=== PATIENT | male | born 1945 | race Caucasian/White ===

== ENCOUNTER → 2020-07-04 16:50 | Outpatient (BNVA) | payer MEDICARE, OTHER, SELFPAY | PROVIDERS: Family Provider Family Medicine; PCP Family Medicine; Visit Provider Internal Medicine Pulmonary Disease | DX: Z20.822 Contact with and (suspected) exposure to COVID-19 (principal) | CPT/HCPCS: 87635 ==

== ENCOUNTER 2020-07-10 07:47 | Outpatient (CLI) | payer MEDICARE, OTHER, SELFPAY ==
--- NOTE | 2020-07-10 08:14 | CT_ITS ---
WS: [id number] LDCT LUNG CANCER SCREENING TECHNIQUE: Noncontrast CT of the chest with coronal and sagittal reformatted images. CLINICAL INFORMATION: HX OF TOBACCO USE COMPARISON: None. DLP: 58.54 mGy.cm DIvol: 1.[address] scans at [facility] use at least one of these dose optimization techniques: automat ed exposure control; mA and/or kV adjustment per patient size (includes targeted exams where dose is matched to clinical indication); or iterative reconstruction. FINDINGS: Both lungs are well aerated. No acute pulmonary infiltrates. No focal pneumonia. Noncalcified well-ci rcumscribed lobulated subpleural nodules in right lower lobe medially measuring 2.3 x 1.4 CM. Additio nal well-circumscribed right lower lobe nodule measuring 6 mm.Recommend further evaluation with PET/C T. Subpleural nodule left lower lobe measuring 5 mm. Right upper lobe nodule measuring 3.4 mm. Mild thoracic kyphosis. Ankylosis thoracic spine. No mediastinal or hilar lymphadenopathy. Aortic calcification. Coronary calcification. Small pericard ial effusion. Adrenal glands are normal. CT/CT lung screening [id number] IMPRESSION: LUNG-RADS: 4B-Suspicious FOLLOW UP: PET/CT recommended PET CT recommended for the lobulated right lower lobe well-circumscribed nodula r opacity measuring 2.3 x 1.4 cm
--- NOTE | 2020-07-10 14:36 | PFTS_ITS ---
Date of Study:07/10/20 Date of Dictation: MECHANICS: Forced vital capacity (FVC) is reduced. Forced expiratory volume in one second (FEV1) is reduced. FEV1/FVC is reduced. FLOW VOLUME LOOP: Reduced flow at all lung volumes with significant scooping. LUNG VOLUMES: Total lung capacity (TLC) is normal. Residual volume (RV) is increased. DIFFUSING CAPACITY FOR CARBON MONOXIDE: Mild reduced. INTERPRETATION: The postbronchodilator spirometry is consistent with moderate airflow obstruction. There is a significant postbronchodilator response. Lung volumes are consistent with air trapping. Gas exchange (DLCO) is mildly reduced. MTDD
== END 2020-07-10 07:48 | disposition home or self-care (01) ==
LOC: RT 07:51
PROVIDERS: PCP Family Medicine; Visit Provider Internal Medicine Pulmonary Disease
DX: Z12.2 Encounter for screening for malignant neoplasm of respiratory organs (principal); Z87.891 Personal history of nicotine dependence
CPT/HCPCS: 71271; 94060; 94618; 94726; 94729; J7611

== ENCOUNTER 2021-08-15 11:52 | Inpatient (IN) | payer OTHER, MEDICARE, SELFPAY ==
[2021-08-15] VITALS (32 sets, daily range): BP systolic 74–148; BP diastolic 53–116; PULSE 114–177; RESP 15–34; TEMP 20.6–36.6; O2SAT 92–99; BMI 28.8
--- NOTE | 2021-08-15 12:18 | XRR_ITS ---
PROCEDURE INFORMATION: Exam: XR Chest Exam date and time: 08/15/2021 12:32 PM Age: 76 years old Clinical indication: Shortness of breath; Additional info: SOB TECHNIQUE: Imaging protocol: XR of the chest. Views: 1 view. COMPARISON: CT lung screening [id number] 07/10/2020 9:10 AM FINDINGS: Lungs: There is lobular opacity at the medial aspect of the right lung base, and also seen on the prior CT scan. Pleural spaces: Unremarkable. No pleural effusion. No pneumothorax. Heart/Mediastinum: Cardiomegaly. Bones/joints: Unremarkable. XR/XR chest 1V portable [id number] IMPRESSION: There is lobular opacity at the medial aspect of the right lung base. This was seen on the prior CT scan as well.
--- NOTE | 2021-08-15 12:18 | ECG_ITS ---
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 Measurements Intervals [place] Rate: 166 P: TN: QRS: -7 QRSD: 82 T: 90 QT: 258 QTc: 429 Interpretive Statements ATRIAL FIBRILLATION WITH RAPID VENTRICULAR RESPONSE WITH ABERRANT CONDUCTION OR VENTRICULAR PREMATURE COMPLEXES NONSPECIFIC T-WAVE ABNORMALITY CRITICAL TEST RESULT No previous ECG available for comparison Electronically Signed On 08-15-2021 19:03:33 CDT by James Soares M.D. [email or web address]
[2021-08-15] MEDS: magnesium sulfate premix 2 GM/50 ML PIGGYBACK IV (12:19)
--- NOTE | 2021-08-15 12:23 | W.ED.SOB ---
HPI - SOB/Dyspnea General: Chief Complaint: Shortness of Breath/Dyspnea Stated Complaint: SOB Time Seen by Provider: 08/15/21 11:55 Source: patient and EMS Mode of arrival: EMS Limitations: no limitations History of Present Illness: HPI Narrative: This patient was transported to the emergency department by EMS from his home. He states that he has had progressive coughing and shortness of breath over the past several days. He states his was ill with similar symptoms and she is now improved. He states he took a COVID test 2 days ago which was negative. He denies any chest pain other than chest soreness from coughing. He states he does not have a history of coronary artery disease or cardiac rhythm abnormalities. He does have a history of mild COPD and it seems to be worsened at times with seasonal allergies. He has a ex-smoker having quit many years ago. He states he has been eating and drinking and having no nausea vomiting or diarrhea. He states he has had increasing shortness of breath but is not aware of any irregular heartbeat or fast heart rate. MD elicited complaint: shortness of breath, cough and pain with inspiration Pertinent past history: COPD Context: recent illness Timing: progressively worsening Exacerbating factors: exertion Relieving factors: nothing Associated symptoms: Reports chest congestion, cough, diaphoresis and fever(s); Deny abdominal pain, extremity pain, nausea, polydipsia, polyuria, syncope or vomiting Related Data: Home oxygen amount: none Review of Systems Const: Reports: fever(s), chills, body aches and diaphoresis Eyes: Denies: change in vision ENMT: Denies: odynophagia or nasal congestion Card: Denies: irregular heart rhythm, edema or syncope Resp: Reports: dyspnea, non-productive cough, wheezing and chest congestion GI: Denies: abdominal pain, nausea, vomiting or diarrhea : Denies: flank pain, difficulty urinating, dysuria or urinary frequency Musc: Denies: neck pain, back pain or extremity pain Skin/Breast: Denies: rash or pruritus Neuro: Denies: headache(s), numbness in extremities or weakness in extremities Endo: Denies: polyuria or polydipsia Micheal/Lymph: Denies: easy bruising or easy bleeding PFS ED PFSH: Family History Mother CAD (coronary artery disease) Father Cancer lung Brother Cancer tumor inside heart Social History Smoking and tobacco status: former smoker Quit status (tobacco): has quit using tobacco Year quit tobacco: 2007 [id number] Second hand smoke exposure: No Smoking risk assessment/counseling performed?: Yes Alcohol intake: current Alcohol intake frequency: 0-2 Drinks per Day Alcohol type: beer Desire information about alcohol rehabilitation?: No Counseling given: Yes Lives independently: Yes Household members: spouse Housing: House Marital status: service: Yes branch: [employer] Current occupational status: employed Current occupation: [employer] Pets and animals: Yes History of recent travel: No Current gender identity: Male Physical Exam Narrative: EXAM NARRATIVE: The patient appears to be in moderate distress. He does have dyspnea with conversation. He is diaphoretic. Good eye contact. Const: COMMON NORMALS: average body habitus, patient oriented x3 and alert GENERAL APPEARANCE: ill appearing HENMT: COMMON NORMALS: normocephalic, Normal nasal mucous membranes and turbinates present, moist oral mucous membranes and oropharynx normal HEAD & SCALP: normocephalic NOSE: Normal nasal mucous membranes and turbinates present Eye: COMMON NORMALS: Equal, round and reactive pupils present, EOMs intact bilaterally and conjunctivae normal CONJUNCTIVA: Yes conjunctivae normal PUPIL: Yes Equal, round and reactive pupils present Neck/C-Spine: COMMON NORMALS: full ROM, supple, no JVD and No carotid bruits Chest: COMMONS NORMALS: normal inspection of the chest and normal palpation of entire chest wall Resp: EFFORT & INSPECTION: Yes tachypneic and Yes labored AUSCULTATION: crackles, rhonchi and wheezes Cardio: COMMON NORMALS: no JVD, No murmurs present (Cardio) and Peripheral pulses 2+ throughout RATE: tachycardic RHYTHM: abnormal rhythm PERIPHERAL PULSES: Peripheral pulses 2+ throughout GI: COMMON NORMALS: Soft to palpation and No hepatosplenomegaly present INSPECTION: Yes abdominal distension PALPATION: Yes Soft to palpation and Yes No hepatosplenomegaly present : COMMON NORMALS: Yes no CVA tenderness BLADDER/KIDNEY EXAM: Yes no CVA tenderness Back/Pelvis: COMMON NORMALS: no CVA tenderness, thoracic and lumbar spine normal to inspection and no thoracic nor lumbar tenderness Extremity: COMMON NORMALS: normal to inspection, full ROM, capillary refill normal, no calf tenderness and no pedal edema Neuro: COMMON NORMALS: patient oriented x3, moves all extremities, no focal motor deficits and no sensory deficits noted SENSORIUM/ORIENTATION: Yes alert SPEECH: speech normal Psych: COMMON NORMALS: mental status grossly normal and cooperative Skin: COMMON NORMALS: no rashes or lesions noted, no wounds and turgor normal GENERAL SKIN EXAM: no rashes or lesions noted and turgor normal Course Reevaluation(s): Reevaluation #1: Patient's heart rate is clearly atrial for with rapid ventricular response. We are providing BiPAP for work of breathing support as well as magnesium and Lasix for possible pulmonary congestion. We will go ahead and proceed with diltiazem to see if we can get rate control at the same time. Time: 12:43 Reevaluation #2: D-dimer is elevated we will have to proceed with a contrasted CT a for PE protocol. This lady might explain his constellation of symptoms at this time given his chest x-ray lung wilkerson look relatively clear. Time: 13:07 Reevaluation #3: CTA is reassuring and there is no pulmonary embolus but he has infiltrates consistent with pneumonia. Time: 15:13 Consultations: Consultation #1: Spoke with hospitalist who agreed to place the patient in hospital. Time: 15:16 Vital Signs: Vital signs: Vital Signs Temperature 69.0 F L 08/15/21 12:22 Pulse Rate 169 H 08/15/21 13:57 Respiratory Rate 24 H 08/15/21 12:22 Blood Pressure 121/100 08/15/21 12:22 Pulse Oximetry 95 08/15/21 13:57 MDM - SOB/Dyspnea Medical Decision Making Patient presented by EMS with a progressive cough congestion and shortness of breath. His work-up ensued upon arrival in a stepwise fashion. He was given CPAP noninvasive respiratory support because of his work of breathing as well as multi faceted treatment approach until his diagnosis was delineated. At this point after emergency department evaluation appears to have a pneumonia with associated atrial fibrillation which is previously undiagnosed. He was given broad-spectrum antibiotics, diltiazem infusion for rate control as well as additional investigation and evaluation. At this juncture the patient will need to be placed in inpatient status for continued treatment and evaluation. Medical Records I reviewed the patient's medical records. Lab Data I reviewed the patient's lab results. : 08/15/21 12:00 08/15/21 12:00 Labs/Radiology: Radiology Impressions Chest X-Ray 08/15/21 12:18 IMPRESSION: There is lobular opacity at the medial aspect of the right lung base. This was seen on the prior CT scan as well. Chest CTA 08/15/21 13:05 IMPRESSION: 1. There are lobulated lesions at the bilateral lung bases, worsened when compared to the prior CT scan, consistent with metastatic disease. Highly suspicious nodule(s). Consider non-emergent PET/CT, or tissue sampling.(Reference: Kaur) References: Waldohoyael Lane, et al. Guidelines for Management of Incidental Pulmonary Nodules Detected on CT Images: From the Fleischner Society 2017. Radiology. 2017;284(1):228-243. 2. Patchy consolidation in the bilateral lower lobes is consistent with pneumonia. 3. Cardiomegaly. Laboratory Results WBC 38.4 10^3/uL (4.0-10.0) H* 08/15/21 12:00 RBC 5.07 10^6/uL (4.1-5.3) 08/15/21 12:00 Hgb 14.9 g/dL (11.7-16.6) 08/15/21 12:00 Hct 45.5 % (42.0-52.0) 08/15/21 12:00 MCV 89.7 fl (80-94) 08/15/21 12:00 MCH 29.4 pg (28.0-34.0) 08/15/21 12:00 MCHC 32.7 g/dL (30.0-36.0) 08/15/21 12:00 RDW 14.6 % (12.1-15.1) 08/15/21 12:00 Plt Count 241 10^3/cmm (130-400) 08/15/21 12:00 MPV 11.8 fL (7.4-10.4) H 08/15/21 12:00 Neut % (Auto) 92.7 % 08/15/21 12:00 Lymph % (Auto) 0.9 % 08/15/21 12:00 [place] % (Auto) 5.0 % 08/15/21 12:00 Eos % (Auto) 0.1 % 08/15/21 12:00 Baso % (Auto) 0.4 % 08/15/21 12:00 Neut # (Auto) 35.59 10^3/uL (1.8-7.7) H 08/15/21 12:00 Lymph # (Auto) 0.4 10^3/uL (0.8-4.8) L 08/15/21 12:00 [place] # (Auto) 1.9 10^3/uL (0.2-0.9) H 08/15/21 12:00 Eos # (Auto) 0.0 10^3/uL (0.0-0.8) 08/15/21 12:00 Baso # (Auto) 0.2 10^3/uL (0.0-0.1) H 08/15/21 12:00 Nucleated RBC % (auto) 0 % 08/15/21 12:00 Nucleated RBCs # 0.0 /100WBC 08/15/21 12:00 D-Dimer 3.46 ug/mIFEU (0-0.59) H 08/15/21 12:00 Specimen Type Arterial 08/15/21 12:32 Sample Site Radial, left 08/15/21 12:32 ABG pH 7.39 (7.35-7.45) 08/15/21 12:32 ABG pCO2 41.6 mmHg (35-45) 08/15/21 12:32 ABG pO2 88.7 mmHg (80.0-100.0) 08/15/21 12:32 ABG HCO3 25.0 mmol/L (22-26) 08/15/21 12:32 ABG O2 Saturation 97.5 08/15/21 12:32 ABG Base Excess -0.1 mmol/L (-2.0-2.0) 08/15/21 12:32 Jameson Test Pos 08/15/21 12:32 A-a O2 Gradient 22.2 mmHg (5-10) H 08/15/21 12:32 Hematocrit 46.8 % (42-52) 08/15/21 12:32 Hgb O2 Saturation 97.1 % (95-100) 08/15/21 12:32 Carboxyhemoglobin 0.8 %THgb (0.4-20.1) 08/15/21 12:32 Methemoglobin < 0.0 % (0.4-1.5) L 08/15/21 12:32 Total Hemoglobin 15.3 g/dL (14-18) 08/15/21 12:32 Sodium 132.0 mmol/L (131-143) 08/15/21 12:32 Potassium 4.1 mmol/L (3.5-5.0) 08/15/21 12:32 Glucose 150.0 mg/dL (70-115) H 08/15/21 12:32 Ionized Calcium 1.2 mmol/L (1.1-1.4) 08/15/21 12:32 O2 Delivery Device Nc 08/15/21 12:32 O2 Liters/Min 6.0 % 08/15/21 12:32 FiO2 44.0 % 08/15/21 12:32 Truck Repair Supervisor ID Amh 08/15/21 12:32 Sodium 134 mmol/L (136-145) L 08/15/21 12:00 Potassium 4.4 mmol/L (3.5-5.1) 08/15/21 12:00 Chloride 94 mmol/L (98-107) L 08/15/21 12:00 Carbon Dioxide 22 mmol/L (22-29) 08/15/21 12:00 Anion Gap 22.4 (5-19) H 08/15/21 12:00 BUN 28 mg/dL (8-23) H 08/15/21 12:00 Creatinine 1.4 mg/dL (0.7-1.2) H 08/15/21 12:00 GFR Calculation Not Reportable 08/15/21 12:00 Glucose 144 mg/dL (65-115) H 08/15/21 12:00 Calculated Osmolality 286 mOsm/kg (285-295) 08/15/21 12:00 Lactate 2.5 mmol/L (0.5-2.2) H 08/15/21 12:00 Calcium 8.6 mg/dL (8.5-10.5) 08/15/21 12:00 Total Bilirubin 1.7 mg/dL (0.15-1.2) H 08/15/21 12:00 AST 11 U/L (0-40) 08/15/21 12:00 ALT 14 U/L (0-41) 08/15/21 12:00 Alkaline Phosphatase 86 IU/L (40-130) 08/15/21 12:00 Troponin T Baseline 56 ng/L (0-15) H 08/15/21 12:00 NT-Pro-B Natriuret Pep 64561 pg/mL (0-125) H 08/15/21 12:00 Total Protein 6.7 g/dL (6.6-8.7) 08/15/21 12:00 Albumin 3.8 g/dL (3.5-5.2) 08/15/21 12:00 Globulin 2.9 g/dL (1.3-4.6) 08/15/21 12:00 EKG Data EKG 1: I personally reviewed and interpreted this EKG as follows: EKG interpretation time: 12:12 Interpretation: EKG shows a ventricular rate of 166 bpm. He has normal QRSs and underlying rhythm suggestive of atrial fibrillation with a rapid ventricular response. He has no acute ST-T wave changes at this time. Critical Care Time Critical Care Time: Critical Care Time: Yes Total Critical Care Time: 40 Attestation: Critical care time included bedside evaluation, interpretation of chest x-ray another test, for dating and monitoring noninvasive ventilatory support. Discussing with consultants. Discharge Plan Discharge Patient Disposition: Admitted As Inpatient Clinical Impression: Pneumonia, Atrial fibrillation Condition: Stable Prescriptions: No Action meloxicam 15 mg tablet 15 mg PO DAILY 0RF albuterol sulfate [ProAir HFA] 90 mcg/actuation HFA aerosol inhaler 2 puff inhalation Q4H PRN (Reason: Shortness Of Breath) 0RF montelukast [Singulair] 10 mg tablet 10 mg PO DAILY Qty: 30 3RF Zyrtec 10 mg Tablet 10 mg PO DAILY 0RF Tylenol Ex Str Rapid Release 500 mg Tablet 1,000 mg PO Q6H PRN (Reason: Pain) 0RF Lasix 20 mg Tablet 10 mg PO QAM 0RF fluticasone propion-salmeterol [Wixela Inhub] 500-50 mcg/dose blister with device 1 inh inhalation 6XD 0RF hydroxyzine HCl 25 mg tablet 25 mg PO DAILY 0RF Flonase Allergy Relief 50 mcg/actuation spray,suspension 2 spray intranasal DAILY PRN (Reason: Allergy Symptoms) 0RF Rx Instructions: administer into each nostril Referrals: Rebecca Díaz MD [Primary Care Provider] - Coding Level of Care Code ED Pattern Chain Builder for Chg Fwd Exam Comprehensive
--- NOTE | 2021-08-15 12:29 | PC.PHAR ---
pt states he takes care of his own medications-pt [facility] brought [facility] 3 med bottles hydroxyzine hcl 25mg,mobic 15mg and singulair 10mg-pt states he takes lasix 10mg qam, states he has a advair 500-50mcg written as 1p bid pt states he has been using six times a day-pt also had a doxycycline hyclate tab 100mg bid he brought in from [id number] pt states not been taking-notes are made in the pharmacy comments-[facility]ing for [facility] to [facility]
--- NOTE | 2021-08-15 12:35 | PC.NURSE ---
Magnesium Sulfate 2gm infusing at 100 mL/hour per verbal order from Dr. Blackmon.
[2021-08-15 12:43] LABS: ABG PCO2 41.6 mmHg (35-45); ABG PH Result 7.39 (7.35-7.45); Alveolar-Arterial Oxygen Gradi 22.2 mmHg (5-10); Arterial Blood Gas Hematocrit 46.8 % (42-52); Base Excess ABG -0.1 mmol/L (-2.0-2.0); Blood Gas Allen Test Pos; Blood Gas Operator Identificat AMH; Blood Gas Sample Site Radial, left; Blood Gas Sample Type Arterial; Carboxyhemoglobin 0.8 %THgb (0.4-20.1); HGB O2 Sat 97.1 % (95-100); Ionized Calcium Level - ABG 1.2 mmol/L (1.1-1.4); Methemoglobin < 0.0 % (0.4-1.5); Oxygen Device NC; Oxygen Saturation ABG 97.5; PO2 ABG 88.7 mmHg (80.0-100.0); Potassium Level - ABG 4.1 mmol/L (3.5-5.0); Total Hemoglobin 15.3 g/dL (14-18)
[2021-08-15 12:53] LABS: D Dimer 3.46 ug/mIFEU (0-0.59)
[2021-08-15 12:54] LABS: Lactate (Lactic Acid level) 2.5 mmol/L (0.5-2.2)
[2021-08-15 12:55] LABS: Troponin(5th) Baseline 56 ng/L (0-15)
[2021-08-15] MEDS: dilTIAZem 5 mg/mL SDV 5 mL 10 MG IVP ×2 (12:56→14:01)
[2021-08-15] MEDS: FUROsemide 10 mg/mL SDV 4mL 40 MG IVP (13:00)
[2021-08-15 13:05] LABS: NT Pro B Type Natriuretic Pept 13157 pg/mL (0-125)
--- NOTE | 2021-08-15 13:05 | CTR_ITS ---
PROCEDURE INFORMATION: Exam: CTA Chest With Contrast Exam date and time: 08/15/2021 2:36 PM Age: 76 years old Clinical indication: Shortness of breath; Prior surgery; Surgery date: 6+ months; Surgery type: Kidney; Patient HX: Renal carcinoma; Additional info: SOB, elevated d-dimer TECHNIQUE: Imaging protocol: Computed tomographic angiography of the chest with contrast. 3D rendering (Not supervised by radiologist): MIP and/or 3D reconstructed images were created by the technologist. Radiation optimization: All CT scans at this facility use at least one of these dose optimization techniques: automated exposure control; mA and/or kV adjustment per patient size (includes targeted exams where dose is matched to clinical indication); or iterative reconstruction. Contrast material: VISIPAQUE 320; Contrast volume: 77 ml; Contrast route: INTRAVENOUS (IV); COMPARISON: CR (CHEST, ) 08/15/2021 12:32 PM RADIATION DOSE METRICS: Total DLP (mGy-cm): 598.36 FINDINGS: Pulmonary arteries: Normal. No pulmonary emboli. Aorta: Unremarkable. No aortic aneurysm. No aortic dissection. Lungs: There is patchy consolidation in the bilateral lower lobes consistent with pneumonia. There are pleural-based lobulated masses at the right lung base, enlarged when compared to the prior study. These are somewhat obscured by the adjacent lung consolidation however the largest region of lobulation is present medially and measures approximately 8.7 cm in the AP dimension. There are multiple lobulated lesions in the left lower lobe as well which cannot be adequately measured as they are obscured by adjacent lung consolidation. Pleural spaces: Bilateral pleural effusions. There are calcified pleural plaques at the right lung base. Heart: Cardiomegaly. Small pericardial effusion. Lymph nodes: Unremarkable. No enlarged lymph nodes. Bones/joints: Unremarkable. No acute fracture. Soft tissues: Unremarkable. CT/CT angio chest PE protcl [id number] IMPRESSION: 1. There are lobulated lesions at the bilateral lung bases, worsened when compared to the prior CT scan, consistent with metastatic disease. Highly suspicious nodule(s). Consider non-emergent PET/CT, or tissue sampling.(Reference: Kaur) References: Kaur Lane, et al. Guidelines for Management of Incidental Pulmonary Nodules Detected on CT Images: From the Fleischner Society 2017. Radiology. 2017;284(1):228-243. 2. Patchy consolidation in the bilateral lower lobes is consistent with pneumonia. 3. Cardiomegaly.
[2021-08-15 13:21] LABS: Basophils # 0.2 10^3/uL (0.0-0.1); Basophils % 0.4 %; Eosinophils % 0.1 %; Hematocrit 45.5 % (42.0-52.0); Hemoglobin 14.9 g/dL (11.7-16.6); Lymphocytes # 0.4 10^3/uL (0.8-4.8); Lymphocytes % 0.9 %; Mean Corpuscular HGB Conc 32.7 g/dL (30.0-36.0); Mean Corpuscular Hemoglobin 29.4 pg (28.0-34.0); Mean Corpuscular Volume 89.7 fl (80-94); Mean Platelet Volume 11.8 fL (7.4-10.4); Monocytes # 1.9 10^3/uL (0.2-0.9); Neutrophils # 35.59 10^3/uL (1.8-7.7); Neutrophils % 92.7 %; Nucleated Red Blood Cells % 0 %; Platelet Count 241 10^3/cmm (130-400); Red Blood Count 5.07 10^6/uL (4.1-5.3); Red Cell Distribution Width 14.6 % (12.1-15.1)
[2021-08-15 13:33] LABS: Alanine Aminotransferase 14 U/L (0-41); Albumin Level 3.8 g/dL (3.5-5.2); Alkaline Phosphatase 86 IU/L (40-130); Anion Gap 22.4 (5-19); Aspartate Amino Transferase 11 U/L (0-40); Blood Urea Nitrogen 28 mg/dL (8-23); Calcium 8.6 mg/dL (8.5-10.5); Carbon Dioxide 22 mmol/L (22-29); Chloride 94 mmol/L (98-107); Globulin 2.9 g/dL (1.3-4.6); Glucose 144 mg/dL (65-115); Osmolality Calculated 286 mOsm/kg (285-295); Potassium 4.4 mmol/L (3.5-5.1); Sodium 134 mmol/L (136-145); Total Bilirubin 1.7 mg/dL (0.15-1.2); Total Protein 6.7 g/dL (6.6-8.7)
[2021-08-15 13:41] LABS: Slide Review Slide Review Perform
[2021-08-15 13:43] LABS: White Blood Count 38.4 10^3/uL (4.0-10.0)
--- NOTE | 2021-08-15 14:20 | ECG_ITS ---
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 Measurements Intervals [place] Rate: 124 P: [place]: QRS: 11 QRSD: 87 T: 88 QT: 299 QTc: 430 Interpretive Statements ATRIAL FIBRILLATION WITH RAPID VENTRICULAR RESPONSE NONSPECIFIC T-WAVE ABNORMALITY ABNORMAL RHYTHM ECG Compared to ECG 08/15/2021 12:09:04 Aberrant conduction of supraventricular beat(s) no longer present Ventricular premature complex(es) no longer present T-wave abnormality still present Electronically Signed On 08-15-2021 19:07:18 CDT by James Soares M.D. [id number]
[2021-08-15] MEDS: iohexol 350 mg/mL 100 mL Btl IV (14:44)
[2021-08-15] MEDS: cefTRIAXone 2,000 MG in sodium chloride 0.9% (plus) 50 ML 100 MG IV (15:00)
[2021-08-15 15:11] LABS: Troponin 5 2HR 58.28 ng/L (0-15)
[2021-08-15 15:21] LABS: Troponin 5 2HR Delta 2.28 ABS# (0-10)
[2021-08-15] MEDS: enoxaparin 100 mg/mL Syringe SUBCUT (15:28)
--- NOTE | 2021-08-15 15:37 | PC.NURSE ---
10 mg bolous of cardizem over 2 minutes given from IV fluids per verbal orders by Dr. Blackmon.
--- NOTE | 2021-08-15 15:39 | PC.NURSE ---
pt on continuous cardiac, bp and spo2 monitoring upon arrival into room.
[2021-08-15] MEDS: ipratropium-albuterol 3 mL Neb INHALATION (16:13)
--- NOTE | 2021-08-15 16:52 | PM.HP ---
Providers/Chief Complaint Admitting Physician: Elroy High MD Primary Care Provider: Rebecca Díaz MD Chief Complaint: SOB History of Present Illness Nelson Schuster is a 76 year old male who has known history of COPD, moderate as per the PFTs, follows up with Dr. Tarango outpatient, recent PET scan did not show any malignant metastatic lesions, presents today for worsening of chest pain and shortness of breath. Patient is stating that he recently was in [place] for his vacation, at the end of his vacation he started getting sick which he describing as, fatigue lethargy and pleuritic chest pain and shortness of breath. When he returned to [place], his symptoms were not improving, he has been having gradual shortness of breath, he has not use oxygen at baseline however recently started using 5 L of oxygen of his , he has not noticed any fever, he is bringing up thick murky looking sputum with his cough, he is endorsing pleuritic chest pain especially worse on the right side as compared to left for worsening of his pleuritic chest pain on right side he decided to come to the hospital for further evaluation. He is denying vomiting however endorsing diaphoresis and right-sided pleuritic chest pain In the ER he was diagnosed with sepsis however septic bolus was not given secondary to fluid overload congestive heart failure active crackles he was given antibiotics, blood cultures were taken lactic acid was noted I do agree with holding off on fluids for now Admitted to ICU he was diagnosed with A. fib RVR requiring Cardizem secondary to Cardizem his blood pressure dropped it has been restarted at 10. At the time of my evaluation blood pressure 143/100, heart rate fluctuating between 1 10-1 20 Awake and alert He is DNR/DNI stating that his is aware Review of Systems Const: Reports: chills, body aches and night sweats Eyes: Denies: change in vision ENMT: Denies: throat pain Card: Denies: chest pain Resp: Reports: dyspnea, productive cough and pain on inspiration GI: Denies: abdominal pain : Denies: flank pain Musc: Denies: neck pain Skin/Breast: Denies: rash Neuro: Denies: headache(s) Psych: Denies: anxiety Endo: Denies: polyuria Micheal/Lymph: Denies: easy bruising All/Imm: Denies: urticaria Medications/Allergies Home Medications Medication Instructions Recorded Confirmed Last Taken Type albuterol sulfate 90 mcg/actuation 2 puff INHALATION Q4H PRN 06/12/20 08/15/21 Unknown History aerosol inhaler (ProAir HFA) meloxicam 15 mg tablet 15 mg PO DAILY 06/12/20 08/15/21 Unknown History montelukast 10 mg tablet 10 mg PO DAILY #30 tab 08/26/20 08/15/21 Unknown Rx (Singulair) acetaminophen 500 mg tablet 1,000 mg PO Q6H PRN 08/15/21 08/15/21 Unknown History cetirizine 10 mg tablet (Zyrtec) 10 mg PO DAILY 08/15/21 08/15/21 Unknown History fluticasone 500 mcg-salmeterol 50 1 inh INHALATION 6XD 08/15/21 08/15/21 Unknown History mcg/dose blistr powdr for inhalation (Wixela Inhub) fluticasone propionate 50 2 spray INTRANASAL DAILY PRN 08/15/21 08/15/21 Unknown History mcg/actuation nasal spray,suspension (Flonase Allergy Relief) furosemide 20 mg tablet (Lasix) 10 mg PO QAM 08/15/21 08/15/21 Unknown History hydroxyzine HCl 25 mg tablet 25 mg PO DAILY 08/15/21 08/15/21 Unknown History Allergies Allergy/AdvReac Type Severity Reaction Status Date / Time No Known Allergies Allergy Verified 08/15/21 12:23 PFSH Acute PFSH: Medical History Asthma-COPD overlap syndrome COPD (chronic obstructive pulmonary disease) Encounter for screening for lung cancer PND (post-nasal drip) Family History Mother CAD (coronary artery disease) Father Cancer lung Brother Cancer tumor inside heart Social History Smoking and tobacco status: former smoker Quit status (tobacco): has quit using tobacco Year quit tobacco: 2007 [id number] Second hand smoke exposure: No Smoking risk assessment/counseling performed?: Yes Alcohol intake: current Alcohol intake frequency: 0-2 Drinks per Day Alcohol type: beer Desire information about alcohol rehabilitation?: No Counseling given: Yes Lives independently: Yes Household members: spouse Housing: House Marital status: service: Yes branch: [employer] Current occupational status: employed Current occupation: [employer] Pets and animals: Yes History of recent travel: No Current gender identity: Male Vitals/I&O/Wt Last Vital Signs Temp 69.0 F L 08/15/21 12:22 Pulse 136 H 08/15/21 16:21 Resp 18 08/15/21 16:21 BP 121/100 08/15/21 12:22 Pulse Ox 95 08/15/21 16:21 08/15/21 08/15/21 08/15/21 06:59 14:59 22:59 Intake Total 50 / 50 60 / 110 Balance 50 / 50 60 / 110 Weight last 48 hrs Weight 102.058 kg Physical Exam Narrative: Pleasant and cooperative male Currently endorsing right-sided pleuritic chest pain On 4 L nasal cannula A. fib RVR Hypertensive Mild signs of congestive heart failure trace edema of legs Charcot foot 10 x 20 open wound of right foot plantar surface No signs of cellulitis Awake and alert Oriented to time place and person No focal deficits noted Bilateral breath sounds with active crackles Data : 08/15/21 12:00 08/15/21 12:00 Micro: Microbiology 08/15/21 14:25 Blood Culture - Preliminary Blood SPECIMEN COLLECTED 08/15/21 14:24 Blood Culture - Preliminary Blood SPECIMEN COLLECTED A&P Assessment and plan (1) Pneumonia: Status: Acute (2) Atrial fibrillation: Status: Acute Plan Sepsis secondary to pneumonia Sepsis criteria met with tachypnea tachycardia leukocytosis high lactic acid and high creatinine Avoid giving septic bolus secondary to CHF exacerbation his BNP is higher Active crackles He was given Lasix in the ER Blood cultures, lactic acid antibiotics in the ER Repeat lactic acid Acute hypoxic respiratory failure Has mild conversational dyspnea Currently on 4 L he was requiring BiPAP initially He has moderate COPD CTA ruled out PE CT chest consistent with pulmonary consolidation and pulmonary nodule, previous PET scan did not show metastatic lesions Patient is endorsing night sweats Pleuritic chest pain related to pneumonia Check sputum culture, blood culture, ceftriaxone and azithromycin A. 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
[2021-08-15 17:34] LABS: Adenovirus Not Detected (NOT DETECT); Chlamydia Pneumoniae Not Detected (NOT DETECT); Coronavirus 229E,HKU1,NL63,OC4 Not Detected (NOT DETECT); Human Metapneumovirus Not Detected (NOT DETECT); Human Rhinovirus/Enterovirus Not Detected (NOT DETECT); Influenza A Not Detected (NOT DETECT); Influenza A H1 Not Detected (NOT DETECT); Influenza A H1-2009 Not Detected (NOT DETECT); Influenza A H3 Not Detected (NOT DETECT); Influenza B Not Detected (NOT DETECT); Mycoplasma Pneumoniae Not Detected (NOT DETECT); Parainfluenza Virus Type 1 Not Detected (NOT DETECT); Parainfluenza Virus Type 2 Not Detected (NOT DETECT); Parainfluenza Virus Type 3 Not Detected (NOT DETECT); Parainfluenza Virus Type 4 Not Detected (NOT DETECT); Respiratory Syncytial Virus A Not Detected (NOT DETECT); Respiratory Syncytial Virus B Not Detected (NOT DETECT); SARS-COV-2 Not Detected (NOT DETECT)
--- NOTE | 2021-08-15 18:20 | ECG_ITS ---
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 Measurements Intervals [place]man Rate: 130 P: MD: QRS: 19 QRSD: 87 T: 88 QT: 299 QTc: 441 Interpretive Statements ATRIAL FIBRILLATION WITH RAPID VENTRICULAR RESPONSE NONSPECIFIC T-WAVE ABNORMALITY ABNORMAL RHYTHM ECG Compared to ECG 08/15/2021 14:17:35 No significant changes Electronically Signed On 08-16-2021 21:14:19 CDT by James Soares M.D. [email or web address]
--- NOTE | 2021-08-15 18:47 | USR_ITS ---
PROCEDURE INFORMATION: Exam: US Duplex Lower Extremity Veins, Bilateral Exam date and time: 08/15/2021 8:58 PM Age: 76 years old Clinical indication: Swelling (edema) of limb; Lower extremity, bilateral; Additional info: Hypoxia swelling TECHNIQUE: Imaging protocol: Real-time Duplex ultrasound of the bilateral extremities with 2-D morrison scale, color Doppler flow and spectral waveform analysis with image documentation. Complete exam focused on the bilateral lower extremity veins. COMPARISON: No relevant prior studies available. FINDINGS: Right deep veins: Unremarkable. The common femoral, femoral, proximal profunda femoral and popliteal veins are patent without thrombus. Normal Doppler waveforms. Normal compressibility and/or augmentation response. Right superficial veins: Saphenofemoral junction is patent without thrombus. Left deep veins: Unremarkable. The common femoral, femoral, proximal profunda femoral and popliteal veins are patent without thrombus. Normal Doppler waveforms. Normal compressibility and/or augmentation response. Left superficial veins: Saphenofemoral junction is patent without thrombus. Soft tissues: Unremarkable. US/CV venous duplex [facility] [id number] IMPRESSION: No evidence of deep vein thrombosis.
[2021-08-15 18:53] LABS: Troponin 5 6HR 50.87 ng/L (0-15)
[2021-08-15 18:56] LABS: Lactate (Lactic Acid level) 2.3 mmol/L (0.5-2.2)
[2021-08-15 19:02] LABS: Procalcitonin 21.85 ng/mL (0-0.5)
[2021-08-15 19:06] LABS: Troponin 5 6HR Delta -5.13 ng/L (0-12)
--- NOTE | 2021-08-15 19:25 | PC.NURSE ---
Cardizem running at 10 mg/hr prior to this shift. Cardizem increased due to heart rate of 150s.
--- NOTE | 2021-08-15 19:58 | PC.NURSE ---
Pt reports thick brown sputum, but not observed at this time.
[2021-08-15] MEDS: TRAMadol 50 mg Tablet PO (20:10)
[2021-08-15] MEDS: metoprolol tartrate 25 mg Tablet PO (20:10)
[2021-08-15] MEDS: budesonide 0.5 mg/2 mL Neb INHALATION (20:30)
--- NOTE | 2021-08-15 22:56 | PC.NURSE ---
Pt unable to void. Pt reports that he feels no urge. Mild bladder distention noted.
--- NOTE | 2021-08-15 22:57 | PC.NURSE ---
Pt assisted to standing position at bedside. Pt able to urinate 200 mls. No bladder distention noted.
[2021-08-16] VITALS (69 sets, daily range): BP systolic 90–157; BP diastolic 65–109; PULSE 81–165; RESP 7–24; TEMP 36.6; O2SAT 76–99
--- NOTE | 2021-08-16 00:04 | PC.NURSE ---
Pt resting quietly in bed, states, I actually feel a lot better. Pt requests to have bipap removed. Nasal cannula placed on patient.
[2021-08-16] MEDS: TRAMadol 50 mg Tablet PO ×4 (01:57→23:28)
--- NOTE | 2021-08-16 02:26 | PC.NURSE ---
Pt assisted to standing position on side of bed. Pt remains weak and unsteady, but agrees to call for assistance before rising.
[2021-08-16] MEDS: enoxaparin 100 mg/mL Syringe SUBCUT ×2 (03:22→16:36)
[2021-08-16 03:51] LABS: Basophils # 0.1 10^3/uL (0.0-0.1); Basophils % 0.4 %; Eosinophils # 0.1 10^3/uL (0.0-0.8); Eosinophils % 0.2 %; Hematocrit 41.1 % (42.0-52.0); Hemoglobin 13.6 g/dL (11.7-16.6); Lymphocytes # 0.4 10^3/uL (0.8-4.8); Lymphocytes % 1.2 %; Mean Corpuscular HGB Conc 33.1 g/dL (30.0-36.0); Mean Corpuscular Hemoglobin 29.2 pg (28.0-34.0); Mean Corpuscular Volume 88.2 fl (80-94); Mean Platelet Volume 11.5 fL (7.4-10.4); Monocytes # 1.2 10^3/uL (0.2-0.9); Neutrophils # 28.65 10^3/uL (1.8-7.7); Neutrophils % 93.1 %; Nucleated Red Blood Cells % 0 %; Platelet Count 228 10^3/cmm (130-400); Red Blood Count 4.66 10^6/uL (4.1-5.3); Red Cell Distribution Width 14.6 % (12.1-15.1)
[2021-08-16 04:04] LABS: Anion Gap 19.5 (5-19); Blood Urea Nitrogen 43 mg/dL (8-23); Calcium 8.6 mg/dL (8.5-10.5); Carbon Dioxide 23 mmol/L (22-29); Chloride 95 mmol/L (98-107); Glucose 176 mg/dL (65-115); Magnesium 2.6 mg/dL (1.7-2.3); Osmolality Calculated 291 mOsm/kg (285-295); Potassium 4.5 mmol/L (3.5-5.1); Sodium 133 mmol/L (136-145)
[2021-08-16 04:17] LABS: C Reactive Protein 461.8 mg/L (0.0-4.9)
[2021-08-16 04:18] LABS: Slide Review Slide Review Perform; White Blood Count 30.8 10^3/uL (4.0-10.0)
--- NOTE | 2021-08-16 04:45 | USCV_ITS ---
Nelson Schuster Age: 76 Gender: M : 1945 Exam Date: 08/16/2021 11:16 Ordering Phys: Elroy High MD Technologist: [place] [facility] [place]: CHRONIC HEART FAILURE BP: 111 / 87 HR: 106 Rhythm: Atrial fibrillation Technical Quality: Adequate MEASUREMENTS (Male / Female) Normal Values 2D ECHO LV Diastolic Diameter PLAX 6.5 cm 4.2 - 5.9 / 3.9 - 5.3 cm LV Systolic Diameter PLAX 5.8 cm IVS Diastolic Thickness 1.1 cm 0.6 - 1.0 / 0.6 - 0.9 cm IVS Systolic Thickness 1.5 cm LVPW Diastolic Thickness 1.2 cm 0.6 - 1.0 / 0.6 - 0.9 cm LVPW Systolic Thickness 1.3 cm LVOT Diameter 2.0 cm LV Ejection Fraction 2D Teich 22.0 % LV Ejection Fraction MOD 2C 17.4 % LV Ejection Fraction 2C AL 18.7 % LA Diameter 3.9 cm LA Width 3.9 cm LA Height 4.9 cm RA Width 3.4 cm RA Height 5.5 cm Aorta at Sinotubular Diameter 2.8 cm IVC Diameter 2.1 cm M-MODE Aortic Annulus Diameter 3.9 cm LA Ao Ratio MM 0.9 MV E Point Septal Separation 1.8 cm DOPPLER AV Peak Velocity 94.0 cm/s LVOT Peak Velocity 70.0 cm/s AV Area Cont Eq vti 2.3 cm squared AV Area Cont Eq pk 2.4 cm squared MV Peak Velocity 99.0 cm/s MV Area PHT 5.0 cm squared MV E' Velocity 47.0 cm/s Mitral E to MV E' Ratio 16.5 Mitral E to LV E' Lateral Ratio 11.0 Mitral E to LV E' Septal Ratio 33.0 TR Peak Velocity 236.5 cm/s TR Peak Gradient 22.4 mmHg TR Mean Velocity 237.2 cm/s TR Mean Gradient 26.0 mmHg TR Velocity Time Integral 99.8 cm TV Peak E Velocity 69.0 cm/s Right Atrial Pressure 3.0 mmHg Pulmonary Artery Systolic Pressu 25.4 mmHg PV Peak Velocity 105.0 cm/s RV Acceleration Time 0.1 s RV Ejection Time 0.2 s RV AcT/ET 0.2 FINDINGS Left Ventricle Moderately dilated left ventricle. Severe diffuse hypokinesia. 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 Estimated LV ejection fraction of 20%(visual) Right Ventricle Possibly normal RV size and ejection fraction Right Atrium Mildly increased right atrial size. Left Atrium Mildly increased left atrial size. Mitral Valve Mild mitral valve regurgitation. Thickened mitral valve. Aortic Valve Thickened aortic valve. Trace to mild aortic valve regurgitation. Tricuspid Valve Mild tricuspid valve regurgitation. Estimated pulmonary artery peak systolic pressure 25 mmHg Pulmonic Valve Pulmonic valve not well visualized. Pericardium Normal pericardium without effusion. Aorta Normal aortic annulus size. IVC Mildly dilated IVC CONCLUSIONS Moderately dilated left ventricle. Severe diffuse hypokinesia. 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 Estimated LV ejection fraction of 20%(visual). Mild biatrial enlargement. Mild mitral valve regurgitation. Thickened mitral valve. Mild tricuspid valve regurgitation. Estimated pulmonary artery peak systolic pressure 25 mmHg. Thickened aortic valve. Trace to mild aortic valve regurgitation. There is no pericardial effusion. No similar previous studies are available for comparison Dr James Soares MD FAC (Electronically Signed) Final Date: 16 August 2021 20:44 S
[2021-08-16] MEDS: cefTRIAXone 1,000 MG in sodium chloride 0.9% (plus) 50 ML 100 MG IV (06:08)
[2021-08-16 08:01] LABS: Glucose Point of Care 161 mg/dL (70-110)
[2021-08-16] MEDS: metoprolol tartrate 50 mg Tablet PO ×2 (08:26→20:26)
[2021-08-16] MEDS: FUROsemide 20 mg Tablet PO (08:26)
[2021-08-16] MEDS: insulin lispro 100 unit/1 mL SUBCUT ×2 (08:26→11:54)
[2021-08-16] MEDS: azithromycin 250 mg Tablet 500 MG PO (08:26)
[2021-08-16] MEDS: montelukast sodium 10 mg Tablet PO (08:26)
[2021-08-16] MEDS: lidocaine 5% Patch 1 PATCH TOPICAL ×2 (08:26→20:26)
[2021-08-16] MEDS: budesonide 0.5 mg/2 mL Neb INHALATION ×2 (10:14→19:58)
[2021-08-16] MEDS: ipratropium-albuterol 3 mL Neb INHALATION ×3 (10:15→19:58)
[2021-08-16 10:37] LABS: Glucose Point of Care 188 mg/dL (70-110)
--- NOTE | 2021-08-16 12:12 | P.PN_ITS ---
Subjective Subjective: This morning patient is endorsing slightly better He is on 5 L nasal cannula Afebrile Leukocytosis trending down No signs of DVT or PE Continue antibiotics Hold Lasix Worsening of creatinine noted My lactic acid order has been canceled I will reorder it today A. fib RVR heart rate above 110 currently Cardizem drip running at 15 mg/h Vitals/I&O/Wt Last Vital Signs Temp 98 F 08/16/21 08:30 Pulse 103 H 08/16/21 11:00 Resp 13 08/16/21 11:00 BP 118/65 08/16/21 10:00 Pulse Ox 96 08/16/21 11:00 08/15/21 08/16/21 08/16/21 22:59 06:59 14:59 Intake Total 139.292 / 189.292 703.292 / 892.584 276.708 / 276.708 Output Total 225 / 225 200 / 425 Balance -85.708 / -35.708 503.292 / 467.584 276.708 / 276.708 Weight last 48 hrs Weight 102.693 kg Weight 102.058 kg Physical Exam Narrative: Patient is endorsing feeling better On 5 L nasal cannula Bilateral breath sound with soft lungs Abdomen distended Bowel sound present Abdomen is soft Bilateral lower extremity without any signs of cellulitis or ischemia or significant edema Nonfocal neuro exam A. fib RVR Data : 08/16/21 03:22 08/16/21 03:22 Micro: Microbiology 08/15/21 22:41 Gram Stain - Final Sputum - Expectorated Sputum 08/15/21 14:25 Blood Culture - Preliminary Blood SPECIMEN COLLECTED 08/15/21 14:24 Blood Culture - Preliminary Blood SPECIMEN COLLECTED A&P Assessment and plan (1) Pneumonia: Status: Acute (2) Atrial fibrillation: Status: Acute (3) Hypoxia: Status: Acute Plan Acute hypoxia COPD exacerbation Underlying pneumonia Ceftriaxone azithromycin Leukocytosis trending down Afebrile Check urine antigen, MRSA Will need home O2 eval before discharge he has history of moderate COPD Follows up with Dr. Tarango No sign of malignancy or metastatic lesion as per the PET scan High D-dimer could be related to significant/severe pneumonia A. 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
[2021-08-16 12:48] LABS: Lactate (Lactic Acid level) 2.8 mmol/L (0.5-2.2)
[2021-08-16] MEDS: dilTIAZem 30 mg Tablet PO ×2 (13:35→18:05)
--- NOTE | 2021-08-16 16:49 | PC.NURSE ---
had episode of ectopy noted off cardizem at this time Dr called to monitor at this time
[2021-08-16 17:03] LABS: Glucose Point of Care 139 mg/dL (70-110)
[2021-08-17] VITALS (24 sets, daily range): BP systolic 99–164; BP diastolic 70–110; PULSE 87–122; RESP 12–24; TEMP 36.4–36.7; O2SAT 75–95; BMI 28.8
[2021-08-17] MEDS: dilTIAZem 30 mg Tablet PO ×2 (00:19→06:48)
[2021-08-17] MEDS: ipratropium-albuterol 3 mL Neb INHALATION ×3 (03:22→20:15)
[2021-08-17 04:09] LABS: Basophils # 0.1 10^3/uL (0.0-0.1); Basophils % 0.4 %; Eosinophils # 0.1 10^3/uL (0.0-0.8); Eosinophils % 0.3 %; Hematocrit 40.9 % (42.0-52.0); Hemoglobin 13.2 g/dL (11.7-16.6); Lymphocytes # 0.5 10^3/uL (0.8-4.8); Lymphocytes % 1.6 %; Mean Corpuscular HGB Conc 32.3 g/dL (30.0-36.0); Mean Corpuscular Hemoglobin 29.3 pg (28.0-34.0); Mean Corpuscular Volume 90.9 fl (80-94); Mean Platelet Volume 11.6 fL (7.4-10.4); Monocytes # 1.5 10^3/uL (0.2-0.9); Monocytes % 4.8 %; Neutrophils # 28.36 10^3/uL (1.8-7.7); Neutrophils % 90.9 %; Nucleated Red Blood Cells % 0 %; Platelet Count 245 10^3/cmm (130-400); Red Cell Distribution Width 14.9 % (12.1-15.1)
[2021-08-17 04:30] LABS: Anion Gap 19.7 (5-19); Blood Urea Nitrogen 75 mg/dL (8-23); Calcium 8.5 mg/dL (8.5-10.5); Carbon Dioxide 25 mmol/L (22-29); Chloride 91 mmol/L (98-107); Glucose 126 mg/dL (65-115); Osmolality Calculated 296 mOsm/kg (285-295); Potassium 4.7 mmol/L (3.5-5.1); Sodium 131 mmol/L (136-145)
[2021-08-17 04:34] LABS: Slide Review Slide Review Perform
[2021-08-17 04:35] LABS: White Blood Count 31.2 10^3/uL (4.0-10.0)
[2021-08-17] MEDS: enoxaparin 100 mg/mL Syringe SUBCUT (05:12)
[2021-08-17] MEDS: cefTRIAXone 1,000 MG in sodium chloride 0.9% (plus) 50 ML 100 MG IV (06:48)
[2021-08-17] MEDS: budesonide 0.5 mg/2 mL Neb INHALATION ×2 (08:34→20:15)
[2021-08-17 08:55] LABS: Alanine Aminotransferase 20 U/L (0-41); Albumin Level 3.2 g/dL (3.5-5.2); Alkaline Phosphatase 148 IU/L (40-130); Anion Gap 21.3 (5-19); Aspartate Amino Transferase 21 U/L (0-40); Blood Urea Nitrogen 80 mg/dL (8-23); Calcium 8.4 mg/dL (8.5-10.5); Carbon Dioxide 26 mmol/L (22-29); Chloride 90 mmol/L (98-107); Glucose 140 mg/dL (65-115); Osmolality Calculated 302 mOsm/kg (285-295); Potassium 4.3 mmol/L (3.5-5.1); Sodium 133 mmol/L (136-145); Total Bilirubin 0.4 mg/dL (0.15-1.2); Total Protein 7.2 g/dL (6.6-8.7)
[2021-08-17 08:58] LABS: Lactate (Lactic Acid level) 1.9 mmol/L (0.5-2.2)
[2021-08-17] MEDS: metoprolol tartrate 50 mg Tablet PO ×2 (08:58→20:38)
[2021-08-17] MEDS: montelukast sodium 10 mg Tablet PO (08:58)
[2021-08-17] MEDS: FUROsemide 10 mg/mL SDV 4mL 40 MG IVP (08:59)
[2021-08-17] MEDS: lidocaine 5% Patch 1 PATCH TOPICAL ×2 (08:59→20:39)
--- NOTE | 2021-08-17 09:09 | P.CONIM_ITS ---
Providers/Reason For Consult Consulting Physician/Specialty*: irineo yeboah md / telenephrology Reason for Consult*: BRAYDEN on CKD stage 3a Requesting Physician: Dr Alan High Attending Physician: Elroy High MD Primary Care Provider: Rebecca Díaz MD History of Present Illness History of Present Illness Nelson Schuster is a 76 year old male admitted w/ b/l pna, a fib w/ RVR on 08-15-21. History includes renal cell ca s/p nephrectomy 7 yrs ago. COPD, CKD stage 3. In ER pt had a CTA and then on lasix. Cr on 08-15 was 1.4 mg/dl. by 08-16 cr norris to 1.7 mg/dl. Today cr 2.7 and 2.9 mg/dl. pt is urinating. has edema and a chronic rt foot ulcer. Review of Systems Narrative: weak, cp, sob, edema, palps.. + urinating Medications/Allergies Home Medications Medication Instructions Recorded Confirmed Last Taken Type albuterol sulfate 90 mcg/actuation 2 puff INHALATION Q4H PRN 06/12/20 08/15/21 Unknown History aerosol inhaler (ProAir HFA) meloxicam 15 mg tablet 15 mg PO DAILY 06/12/20 08/15/21 Unknown History montelukast 10 mg tablet 10 mg PO DAILY #30 tab 08/26/20 08/15/21 Unknown Rx (Singulair) acetaminophen 500 mg tablet 1,000 mg PO Q6H PRN 08/15/21 08/15/21 Unknown History cetirizine 10 mg tablet (Zyrtec) 10 mg PO DAILY 08/15/21 08/15/21 Unknown History fluticasone 500 mcg-salmeterol 50 1 inh INHALATION 6XD 08/15/21 08/15/21 Unknown History mcg/dose blistr powdr for inhalation (Wixela Inhub) fluticasone propionate 50 2 spray INTRANASAL DAILY PRN 08/15/21 08/15/21 Unknown History mcg/actuation nasal spray,suspension (Flonase Allergy Relief) furosemide 20 mg tablet (Lasix) 10 mg PO QAM 08/15/21 08/15/21 Unknown History hydroxyzine HCl 25 mg tablet 25 mg PO DAILY 08/15/21 08/15/21 Unknown History Allergies Allergy/AdvReac Type Severity Reaction Status Date / Time No Known Allergies Allergy Verified 08/15/21 12:23 Current Medications Generic Name Dose Route Start Last Admin Trade Name Freq PRN Reason Stop Dose Admin Albuterol/Ipratropium 3 ml 08/15/21 17:20 08/17/21 08:35 Ipratropium-Albuterol 3 Ml Neb INHALATION 3 ml Q6H PRN Administration SHORTNESS OF BREATH Budesonide 0.5 mg 08/15/21 20:00 08/17/21 08:34 Budesonide 0.5 Mg/2 Ml Neb INHALATION 0.5 mg BID.RESPIRATORY WHITNEY Administration Diltiazem HCl 30 mg 08/16/21 12:30 08/17/21 06:48 Diltiazem 30 Mg Tablet PO 30 mg Q6H WHITNEY Administration Furosemide 40 mg 08/17/21 08:00 08/17/21 08:59 Furosemide 10 Mg/Ml Sdv 4ml IVP 40 mg Q24H WHITNEY Administration Diltiazem HCl 100 mg/ Sodium 100 mls @ 0 mls/hr 08/16/21 04:45 08/17/21 02:14 Chloride IV 0 mg/hr .Q0M WHITNEY 0 mls/hr Titration Protocol Per Protocol Insulin Human Lispro 0 unit 08/15/21 18:00 08/17/21 07:55 Insulin Lispro 100 Unit/1 Ml SUBCUT Not Given TIDWM WHITNEY Protocol Lidocaine 1 patch 08/15/21 21:00 08/17/21 08:59 Lidocaine 5% Patch TOPICAL 1 patch [id number] WHITNEY Administration Metoprolol Tartrate 50 mg 08/16/21 09:00 08/17/21 08:58 Metoprolol Tartrate 50 Mg Tablet PO 50 mg BID@0900,2100 WHITNEY Administration Montelukast Sodium 10 mg 08/16/21 09:00 08/17/21 08:58 Montelukast Sodium 10 Mg Tablet PO 10 mg DAILY WHITNEY Administration Tramadol HCl 50 mg 08/15/21 18:48 08/16/21 23:28 Tramadol 50 Mg Tablet PO 50 mg Q4H PRN Administration MODERATE PAIN PFSH Acute PFSH: Medical History Asthma-COPD overlap syndrome COPD (chronic obstructive pulmonary disease) Encounter for screening for lung cancer PND (post-nasal drip) Family History Mother CAD (coronary artery disease) Father Cancer lung Brother Cancer tumor inside heart Social History Smoking and tobacco status: former smoker Quit status (tobacco): has quit using tobacco Year quit tobacco: 2007 [id number] Second hand smoke exposure: No Smoking risk assessment/counseling performed?: Yes Alcohol intake: current Alcohol intake frequency: 0-2 Drinks per Day Alcohol type: beer Desire information about alcohol rehabilitation?: No Counseling given: Yes Lives independently: Yes Household members: spouse Housing: House Marital status: service: Yes branch: [employer] Current occupational status: employed Current occupation: [employer] Pets and animals: Yes History of recent travel: No Current gender identity: Male Vitals/I&O/Wt Last Vital Signs Temp 97.6 F 08/17/21 07:00 Pulse 108 H 08/17/21 08:45 Resp 18 08/17/21 08:37 BP 101/81 08/17/21 07:00 Pulse Ox 92 08/17/21 08:37 08/16/21 08/17/21 08/17/21 22:59 06:59 14:59 Intake Total 590.167 / 1266.708 155.917 / 1422.625 50 / 50 Output Total 500 / 500 200 / 700 Balance 90.167 / 766.708 -44.083 / 722.625 50 / 50 Weight last 48 hrs Weight 101.786 kg Weight 102.693 kg Weight 102.058 kg Physical Exam Narrative: sitting up, mild Resp discomfort vs noted- tachycxardic- irreg, BP low heent- nc/at, eomi, anicteric neck supple heart irreg irreg abd soft, nt, nd, + bs ext b/l edema rt foot ulcer neuro- a,a, o x 3 Data : 08/17/21 03:40 08/17/21 08:20 Micro: Microbiology 08/16/21 14:10 MRSA Culture - Final Nose 08/16/21 14:10 Bacterial Antigens - Final Urine,Voided 08/16/21 14:10 Legionella Urinary Antigen - Final Urine,Voided 08/15/21 14:25 Blood Culture - Preliminary Blood NEGATIVE TO DATE 08/15/21 14:24 Blood Culture - Preliminary Blood NEGATIVE TO DATE 08/15/21 22:41 Gram Stain - Final Sputum - Expectorated Sputum A&P Assessment and plan (1) Acute kidney injury superimposed on chronic kidney disease: 76 yr old man 1. a fib w/ RVR 0on cardizem 2. CKD stage 3 a- baseline cr 1.4 mg/dl for years since nephrectomy for renal cell ca 3. BRAYDEN- likely CI- BRAYDEN and ATN- got contrast on admission and pt is on a whitehead-2 inhibiotr and a diuetic -was also given lasix -check u/a, ur lytes -check renal us -hold lasix if okay w/ medicine, cardiology, and pulm. however, if becomes oliguric or more sob- restart lasix 4. pna and lekocytosis even on abx -repeat cxr 5 . glucose control per medicine seen and examined w/ RN- telehealth visit discussed w/ Dr High -informed consdent for telehealth obtained from pt time spent 55 min Status: Acute Plan see above Consult Attestations Medical Necessity Statement: brayden, pna, sob Time Spent in Patient Care: Greater than 35 minutes (>than 50% of time spent in counselling and/or direct pt care on unit) . Coding Level of Care Code Acute Sorter Pricer for Bonny Castellanos Diagnoses Acute kidney injury superimposed on chronic kidney disease N17.9; N18.9
--- NOTE | 2021-08-17 09:22 | US_ITS ---
WS: [id number] RENAL ULTRASOUND HISTORY: gasper and h/o nephrectomy COMPARISON: None available. TECHNIQUE: 2-D and color Doppler imaging of the kidney submitted. Right kidney: Prior nephrectomy. No mass at the renal bed. Left kidney: 13.9 cm x 4.3 cm x 4.7 cm. Normal echogenicity with no hydronephrosis or mass. Aorta: Normal. Urinary Bladder: Minimally distended bladder. Bladder wall thickening. Bladder wall thickening is pro bably due to underdistention. US/US renal BI* [id number] IMPRESSION: 1. Status post RIGHT nephrectomy. 2. 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
[2021-08-17] MEDS: aspirin 81 mg EC Tablet PO (09:25)
[2021-08-17] MEDS: TRAMadol 50 mg Tablet PO ×3 (09:26→20:51)
[2021-08-17 09:34] LABS: Lactate Dehydrogenase 247 U/L (135-225)
[2021-08-17 09:57] LABS: Glucose Point of Care 127 mg/dL (70-110)
[2021-08-17 10:06] LABS: Uric Acid 13.9 mg/dL (3.4-7.0)
[2021-08-17] MEDS: linezolid premix 600 MG/300 ML PREMIX 300 MG IV ×2 (10:06→20:38)
[2021-08-17] MEDS: cefepime 1,000 MG in sodium chloride 0.9% (plus) 50 ML 100 MG IV (10:09)
[2021-08-17] MEDS: heparin drip 25,000 UNIT/500 ML PREMIX 28.5 UNIT IV (11:20)
--- NOTE | 2021-08-17 11:20 | PM.PN ---
Subjective Subjective: I was not able to review his echo yesterday as echo report came back late Today when I reviewed her echo, I did consult cardiology and nephrology Dr. Lewis is thinking patient is suffering from contrast-induced nephropathy I had a long discussion with the patient and his I did discuss with them the indication for coronary angiogram however this is a difficult situation when his creatinine has worsened with contrast-induced nephropathy and his heart rate is not under control he still in A. fib RVR Secondary to low EF I would not use Cardizem, discontinue p.o. Cardizem I would use amiodarone Change Lovenox to heparin drip Discontinue Cardizem and use amiodarone drip Discontinue Lasix as per the nephro Escalated antibiotics to cefepime and linezolid, MRSA PCR is still pending I did ask Dr. Tarango to take a look at his chest CT scan, at this point we are not considering PCP pneumonia Patient is stating that today he was expecting a good news as he thinks he is clinically improving and he was able to rest comfortably last night His right-sided chest pain has improved with lidocaine patch Vitals/I&O/Wt Last Vital Signs Temp 97.6 F 08/17/21 07:00 Pulse 108 H 08/17/21 11:00 Resp 18 08/17/21 11:00 BP 101/81 08/17/21 11:00 Pulse Ox 92 08/17/21 09:00 08/16/21 08/17/21 08/17/21 22:59 06:59 14:59 Intake Total 590.167 / 1266.708 155.917 / 1422.625 50 / 50 Output Total 500 / 500 200 / 700 Balance 90.167 / 766.708 -44.083 / 722.625 50 / 50 Weight last 48 hrs Weight 101.786 kg Weight 101.786 kg Weight 102.693 kg Weight 102.058 kg Physical Exam Narrative: Patient is endorsing feeling better Looks euvolemic Currently on 4 L nasal cannula Expiratory wheezing and crackles noted Abdomen soft No signs of edema of legs Awake and alert Nonfocal neuro exam Data : 08/17/21 03:40 08/17/21 08:20 Micro: Microbiology 08/15/21 22:41 Gram Stain - Final Sputum - Expectorated Sputum Sputum Culture - Preliminary Staphylococcus aureus 08/16/21 14:10 MRSA Culture - Final Nose 08/16/21 14:10 Bacterial Antigens - Final Urine,Voided 08/16/21 14:10 Legionella Urinary Antigen - Final Urine,Voided 08/15/21 14:25 Blood Culture - Preliminary Blood NEGATIVE TO DATE 08/15/21 14:24 Blood Culture - Preliminary Blood NEGATIVE TO DATE A&P Assessment and plan (1) Acute kidney injury superimposed on chronic kidney disease: Status: Acute (2) Hypoxia: Status: Acute (3) Pneumonia: Status: Acute (4) Atrial fibrillation: Status: Acute (5) Sepsis: Status: Acute (6) Atypical chest pain: Status: Acute (7) Heart failure with reduced ejection fraction: Status: Acute (8) Leukocytosis: Status: Acute Plan Sepsis Persistent leukocytosis No signs of septic shock Escalated antibiotics to cefepime and linezolid MRSA PCR requested Discussed with Dr. Tarango regarding his CT scan PCP pneumonia not suspected at this point A. fib RVR Started amio drip, discontinue Cardizem p.o. medication, avoid Cardizem because of low EF Potassium and magnesium at goal Started heparin drip Acute CHF exacerbation Although BNP is high clinically does not look fluid overloaded EF 20% Never had any history of IL or coronary disease Nonischemic questionable Cardiology consulted Patient is not sure about LifeVest currently he is DNR/DNI Hold Lasix Contrast-induced nephropathy: Worsening creatinine: Renal consulted Appreciated recommendations Solitary kidney, history of renal cell cancer Persistent lactic acidemia Is now requiring vasopressors High D-dimer could be related to underlying bacteremia, blood cultures are pending High procalcitonin No signs of organ hypoperfusion Type B lactic acid? He has been getting DuoNeb COPD exacerbation Currently on 4 L nasal cannula Has history of moderate COPD who was using oxygen of his at home Will need home O2 eval at discharge Did notice wheezing, currently on budesonide inhaled regimen DNR/DNI Cardiac diet Will need angiogram once creatinine is stable Guarded prognosis at this time Attestations Medical Necessity Statement*: Continue ICU management Time Spent in Patient Care: 40 Coding Level of Care Code Acute Loom Winder Tender for g Fwd Diagnoses Acute kidney injury superimposed on chronic kidney disease N17.9; N18.9 Hypoxia R09.02 Pneumonia J18.9 Atrial fibrillation I48.91 Sepsis A41.9 Atypical chest pain R07.89 Heart failure with reduced ejection fraction I50.20 Leukocytosis D72.829
[2021-08-17 11:31] LABS: Hepatitis C Virus Antibody Non-Reactive (Nonreactive)
[2021-08-17 11:45] LABS: Glucose Point of Care 209 mg/dL (70-110)
[2021-08-17] MEDS: insulin lispro 100 unit/1 mL SUBCUT (11:46)
--- NOTE | 2021-08-17 11:56 | PC.CHAP ---
Pastoral Care Encounter/Spiritual Assessment Type of Contact [] Declined inside sales advisor visit [] Patient/Family/Request visit [] Outpatient visit [] Follow-up visit [] Physician referral [] Code/Alert [x] Routine visit [] Staff referral [] Actively dying [] Patient sleeping [] Family support [] [] Out of room [] Palliative care [] [] Receiving care in room [] Pre-surgical visit [] Trauma [] Long length of stay [x] ICU visit [] Other: Relational/Emotional Strength [] Patient feels connected with others/family/visitors/staff [] Distress [] Loneliness/isolation [] Abandonment Spirituality of Patient [] Person of Opal [] Attends Mormon of their Opal [] Believes in Prayer [] Reads Bible or Muslim materials [] There are Spiritual issues to be addressed Geophysics Scientist Interventions [x] Prayer [] Active listening [] Non-anxious presence [] Spiritual/emotional support [] Crisis/trauma care [] Spiritual counseling [] Bereavement support [] Provided bereavement packet [] Provided Bible/devotional materials [] Provided toy/stuffed animal, coloring book to patient or family member [] Provided Communion [] Anointing/[place] [] Salvation [x] Completed spiritual assessment [] Other: Impact on Illness or Injury [] Angry [] Fearful [] Anxious [] Often cries [] Exhaustion [] Unable to work [] Unable to attend adventism [] Unable to walk/stand [] Unable to read [] Unable to drive [] Unable to eat/drink [] Unable to sleep [] Unable to be with family [] Patient intubated [] Other: Summary Time spent with patient
[2021-08-17] MEDS: ondansetron 2 mg/ML SDV 2 mL 4 MG IVP (12:36)
[2021-08-17 13:31] LABS: Potassium, Radom Urine 41 mmol/L; Urine Creatinine 126 mg/dL (39-259)
[2021-08-17 13:34] LABS: Urine Random Chloride 12 mmol/L; Urine Random Sodium 11 mmol/L
[2021-08-17] MEDS: amiodarone 50 mg/mL SDV 3 mL 150 MG IVP (13:37)
[2021-08-17 13:54] LABS: Bilirubin Urine 1+ (Negative); Blood Urine Neg (Negative); Glucose Urine UA Norm (Normal); Ketones Urine 1+ (Negative); Leukocyte Esterase Urine Negative (Negative); Nitrate Urine Negative (Negative); Protein Urine Trace (Negative); Urine Appearance Hazy (CLEAR); Urine Color Yellow (Yellow); Urobilinogen Urine 1 mg/dL (Negative); pH Urine 5 (5-7)
[2021-08-17 14:03] LABS: RBC Urine 0-4 /hpf (0-2); WBC Urine 0-4 /hpf (0-5)
[2021-08-17 14:04] LABS: Add Urine Culture? No; Amorphous Sediment Urine 1+ /hpf; Bacteria Urine TRACE /hpf; Fine Granular Casts Urine 0-4 /lpf; Hyaline Casts Urine 0-4 /lpf; Mucus Urine 1+ /hpf
--- NOTE | 2021-08-17 16:39 | P.CONIM_ITS ---
Providers/Reason For Consult Consulting Physician/Specialty*: Vik Jones MD/ Cardiology Reason for Consult*: Congestive heart failure Requesting Physician: Dr High Attending Physician: Elroy High MD Primary Care Provider: Rebecca Díaz MD History of Present Illness History of Present Illness Nelson Schuster is a 76 year old male with prior medical history of COPD, cardiomegaly according to patient, who presented to the hospital with a right- sided chest discomfort on inspiration and shortness of breath. He has been using oxygen. He is also having coughing. In the hospital he was found to be in A. fib with RVR. Echocardiogram showed severely reduced LV systolic function with EF of 20%. According to patient he had a recent echocardiogram that showed normal LV systolic function. He sees cardiology in [place]. Troponin did not trend up significantly Review of Systems Const: Reports: chills, body aches and night sweats Eyes: Denies: change in vision ENMT: Denies: throat pain Card: Reports: chest pain Resp: Reports: dyspnea, productive cough and pain on inspiration GI: Denies: abdominal pain : Denies: flank pain Musc: Denies: neck pain Skin/Breast: Denies: rash Neuro: Denies: headache(s) Psych: Denies: anxiety Endo: Denies: polyuria Micheal/Lymph: Denies: easy bruising All/Imm: Denies: urticaria Medications/Allergies Home Medications Medication Instructions Recorded Confirmed Last Taken Type albuterol sulfate 90 mcg/actuation 2 puff INHALATION Q4H PRN 06/12/20 08/15/21 Unknown History aerosol inhaler (ProAir HFA) meloxicam 15 mg tablet 15 mg PO DAILY 06/12/20 08/15/21 Unknown History montelukast 10 mg tablet 10 mg PO DAILY #30 tab 08/26/20 08/15/21 Unknown Rx (Singulair) acetaminophen 500 mg tablet 1,000 mg PO Q6H PRN 08/15/21 08/15/21 Unknown History cetirizine 10 mg tablet (Zyrtec) 10 mg PO DAILY 08/15/21 08/15/21 Unknown H istory fluticasone 500 mcg-salmeterol 50 1 inh INHALATION 6XD 08/15/21 08/15/21 Unknown History mcg/dose blistr powdr for inhalation (Wixela Inhub) fluticasone propionate 50 2 spray INTRANASAL DAILY PRN 08/15/21 08/15/21 Unknown History mcg/actuation nasal spray,suspension (Flonase Allergy Relief) furosemide 20 mg tablet (Lasix) 10 mg PO QAM 08/15/21 08/15/21 Unknown History hydroxyzine HCl 25 mg tablet 25 mg PO DAILY 08/15/21 08/15/21 Unknown History Allergies Allergy/AdvReac Type Severity Reaction Status Date / Time No Known Allergies Allergy Verified 08/15/21 12:23 Current Medications Generic Name Dose Route Start Last Admin Trade Name Freq PRN Reason Stop Dose Admin Albuterol/Ipratropium 3 ml 08/15/21 17:20 08/17/21 08:35 Ipratropium-Albuterol 3 Ml Neb INHALATION 3 ml Q6H PRN Administration SHORTNESS OF BREATH Aspirin 81 mg 08/17/21 09:00 08/17/21 09:25 Aspirin 81 Mg Ec Tablet PO 81 mg DAILY WHITNEY Administration Budesonide 0.5 mg 08/15/21 20:00 08/17/21 08:34 Budesonide 0.5 Mg/2 Ml Neb INHALATION 0.5 mg BID.RESPIRATORY WHITNEY Administration Diltiazem HCl 30 mg 08/16/21 12:30 08/17/21 13:37 Diltiazem 30 Mg Tablet PO Not Given Q6H WHITNEY Heparin Sodium/Sodium Chloride 25,000 unit in 500 mls @ 0 mls/hr 08/17/21 09:00 08/17/21 11:20 Heparin Drip IV 14 unit/kg/hr .Q0M WHITNEY 28.5 mls/hr Administration Protocol Per Protocol Linezolid 600 mg in 300 mls @ 300 mls/hr 08/17/21 09:00 08/17/21 10:06 Zyvox Premix IV 300 mls/hr Q12H WHITNEY Administration Protocol Amiodarone HCl 900 mg/ 518 mls @ 0 mls/hr 08/17/21 11:30 08/17/21 13:36 Dextrose/ IV Miscellaneous IV 0.5 mg/min Supplies .Q0M WHITNEY 17.27 mls/hr Administration Protocol Per Protocol Insulin Human Lispro 0 unit 08/15/21 18:00 08/17/21 11:46 Insulin Lispro 100 Unit/1 Ml SUBCUT 4 unit TIDWM WHITNEY Administration Protocol Lidocaine 1 patch 08/15/21 21:00 08/17/21 08:59 Lidocaine 5% Patch TOPICAL 1 patch [id number] WHITNEY Administration Metoprolol Tartrate 50 mg 08/16/21 09:00 08/17/21 08:58 Metoprolol Tartrate 50 Mg Tablet PO 50 mg BID@0900,2100 WHITNEY Administration Montelukast Sodium 10 mg 08/16/21 09:00 08/17/21 08:58 Montelukast Sodium 10 Mg Tablet PO 10 mg DAILY WHITNEY Administration Ondansetron HCl 4 mg 08/15/21 17:20 08/17/21 12:36 Ondansetron 2 Mg/Ml Sdv 2 Ml IVP 4 mg Q6H PRN Administration NAUSEA AND VOMITING Tramadol HCl 50 mg 08/15/21 18:48 08/17/21 09:26 Tramadol 50 Mg Tablet PO 50 mg Q4H PRN Administration MODERATE PAIN PFSH Acute PFSH: Medical History Asthma-COPD overlap syndrome COPD (chronic obstructive pulmonary disease) Encounter for screening for lung cancer PND (post-nasal drip) Family History Mother CAD (coronary artery disease) Father Cancer lung Brother Cancer tumor inside heart Social History Smoking and tobacco status: former smoker Quit status (tobacco): has quit using tobacco Year quit tobacco: 2007 [id number] Second hand smoke exposure: No Smoking risk assessment/counseling performed?: Yes Alcohol intake: current Alcohol intake frequency: 0-2 Drinks per Day Alcohol type: beer Desire information about alcohol rehabilitation?: No Counseling given: Yes Lives independently: Yes Household members: spouse Housing: House Marital status: service: Yes branch: [employer] Current occupational status: employed Current occupation: [employer] Pets and animals: Yes History of recent travel: No Current gender identity: Male Vitals/I&O/Wt Last Vital Signs Temp 97.6 F 08/17/21 07:00 Pulse 107 H 08/17/21 15:00 Resp 17 08/17/21 15:00 BP 121/73 08/17/21 15:00 Pulse Ox 92 08/17/21 15:00 08/17/21 08/17/21 08/17/21 06:59 14:59 22:59 Intake Total 155.917 / 1422.625 400 / 400 Output Total 200 / 700 Balance -44.083 / 722.625 400 / 400 Weight last 48 hrs Weight 224 lb 6.4 oz Weight 224 lb 6.4 oz Weight 226 lb 6.4 oz Physical Exam Narrative: GENERAL: Patient is alert, awake and oriented x3. [] NECK: No jugular vein distension. [] HEENT: No cyanosis. No icterus. No pallor. [] HEART: Tachycardic, S1 and S2, grade 3/6 systolic murmur LUNGS: Clear to auscultate bilaterally. [] ABDOMEN: Soft, nontender and nondistended. Positive bowel sounds. No guarding, rebound or tenderness. [] CENTRAL NERVOUS SYSTEM: Grossly nonfocal. [] EXTREMITIES: Lower extremities with 1+ edema bilaterally. Pulses palpable in the lower extremities, both dorsalis pedis and posterior tibial. [] Data : 08/18/21 08:15 08/18/21 08:15 Micro: Microbiology 08/15/21 22:41 Gram Stain - Final Sputum - Expectorated Sputum Sputum Culture - Preliminary Staphylococcus aureus 08/16/21 14:10 MRSA Culture - Final Nose 08/16/21 14:10 Bacterial Antigens - Final Urine,Voided 08/16/21 14:10 Legionella Urinary Antigen - Final Urine,Voided 08/15/21 14:25 Blood Culture - Preliminary Blood NEGATIVE TO DATE 08/15/21 14:24 Blood Culture - Preliminary Blood NEGATIVE TO DATE A&P Assessment and plan (1) Heart failure with reduced ejection fraction: Status: Acute (2) Atypical chest pain: Status: Acute (3) Sepsis: Status: Acute (4) Atrial fibrillation: Status: Acute (5) Pneumonia: Status: Acute (6) Acute kidney injury superimposed on chronic kidney disease: Status: Acute (7) Atrial fibrillation: Status: Acute Plan Patient has atrial fibrillation with RVR. Tachycardia likely worse because of underlying infection. Also has been found to have new onset congestive heart failure. He will need ischemic work-up however creatinine is significantly elev ated. We will plan once kidney function improves Obtain cardiology records from cardiology office in [place] Goal will be to improve heart rate control. He is currently on amiodarone drip. Continue. Metoprolol to be continued and titrated based on blood pressure Continue anticoagulation. Antibiotic therapy per primary team Thank you for involving us with care of this patient. We will continue to follow. Please call with questions. Consult Attestations Medical Necessity Statement: Care expected to cross 2 midnights. Coding Level of Care Code Acute Central Sterile Tech for Bonny Castellanos Diagnoses Heart failure with reduced ejection fraction I50.20 Atypical chest pain R07.89 Sepsis A41.9 Atrial fibrillation I48.91 Pneumonia J18.9 Acute kidney injury superimposed on chronic kidney disease N17.9; N18.9 Atrial fibrillation I48.91
[2021-08-17 17:15] LABS: Glucose Point of Care 95 mg/dL (70-110)
[2021-08-17 18:04] LABS: Partial Thromboplastin Time 38.4 SECONDS (23.9-36.7)
[2021-08-17] MEDS: heparin 5,000 unit/mL INJ 1 mL IV (18:53)
[2021-08-17 22:08] LABS: Glucose Point of Care 124 mg/dL (70-110)
[2021-08-18] VITALS (33 sets, daily range): BP systolic 97–134; BP diastolic 63–91; PULSE 81–113; RESP 12–33; TEMP 36.7–36.9; O2SAT 65–97; BMI 28.8
[2021-08-18 00:05] LABS: Partial Thromboplastin Time 48.7 SECONDS (23.9-36.7)
[2021-08-18] MEDS: heparin 5,000 unit/mL INJ 1 mL IV ×4 (00:15→23:52)
[2021-08-18] MEDS: heparin drip 25,000 UNIT/500 ML PREMIX 34 UNIT IV (05:26)
[2021-08-18] MEDS: TRAMadol 50 mg Tablet PO ×2 (07:20→21:04)
[2021-08-18] MEDS: ondansetron 2 mg/ML SDV 2 mL 4 MG IVP ×2 (07:21→22:43)
[2021-08-18 07:48] LABS: Glucose Point of Care 106 mg/dL (70-110)
--- NOTE | 2021-08-18 08:01 | PM.PN ---
Subjective Subjective: sob, nausea, swollen, weak. Medications: Reviewed: Yes Medication Review Details: Current Medications Acetaminophen (Acetaminophen 500 Mg Tablet) 500 mg PO Q6H PRN PRN Reason: Pain Albuterol Sulfate (Albuterol 8 Gm Mdi) 2 puff INHALATION Q4H PRN PRN Reason: Shortness Of Breath Albuterol/Ipratropium (Ipratropium-Albuterol 3 Ml Neb) 3 ml INHALATION Q6H PRN PRN Reason: SHORTNESS OF BREATH Last Admin: 08/17/21 20:15 Dose: 3 ml Documented by: Aspirin (Aspirin 81 Mg Ec Tablet) 81 mg PO DAILY WHITNEY Last Admin: 08/17/21 09:25 Dose: 81 mg Documented by: Budesonide (Budesonide 0.5 Mg/2 Ml Neb) 0.5 mg INHALATION BID.RESPIRATORY WHITNEY Last Admin: 08/17/21 20:15 Dose: 0.5 mg Documented by: Dextrose (Dextrose 50% Syringe 50 Ml) 25 ml IVP ONCE PRN; Protocol PRN Reason: hypoglycemia protocol Dextrose (Dextrose 50% Syringe 50 Ml) 50 ml IVP PRN PRN; Protocol PRN Reason: hypoglycemia protocol Glucagon (Glucagon 1 Mg/Ml Inj 1 Ml) 1 mg IM ONCE PRN; Protocol PRN Reason: Adult Acute Hypoglycemia Prot. Heparin Sodium (Porcine) (Heparin 5,000 Unit/Ml Inj 1 Ml) 0 unit IV PRN PRN; Protocol PRN Reason: Heparin weight-base protocol Last Admin: 08/18/21 00:15 Dose: 2,000 unit Documented by: Dextrose (D5w) 500 mls @ 100 mls/hr IV ONCE PRN; Protocol PRN Reason: Adult Acute Hypoglycemia Prot Heparin Sodium/Sodium Chloride (Heparin Drip) 25,000 unit in 500 mls @ 0 mls/hr IV .Q0M WHITNEY; Protocol Last Admin: 08/18/21 05:26 Dose: 16.7 unit/kg/hr, 34 mls/hr Documented by: Linezolid (Zyvox Premix) 600 mg in 300 mls @ 300 mls/hr IV Q12H WHITNEY; Protocol Last Admin: 08/17/21 20:38 Dose: 300 mls/hr Documented by: Cefepime HCl 1,000 mg/ Sodium (Chloride) 50 mls @ 100 mls/hr IV Q24H WHITNEY; Protocol Amiodarone HCl 900 mg/Dextrose/ IV Miscellaneous Supplies 518 mls @ 0 mls/hr IV .Q0M REPLACED BY [facility]; Protocol Last Admin: 08/17/21 13:36 Dose: 0.5 mg/min, 17.27 mls/hr Documented by: Insulin Human Lispro (Insulin Lispro 100 Unit/1 Ml) 0 unit SUBCUT TIDWM REPLACED BY [facility]; Protocol Last Admin: 08/17/21 17:40 Dose: Not Given Documented by: Lanolin (Lanolin Oint 7 Gm) 1 applic TOPICAL PRN PRN PRN Reason: DRYNESS Lidocaine (Lidocaine 5% Patch) 1 patch TOPICAL [id number] REPLACED BY [facility] Last Admin: 08/17/21 20:39 Dose: 1 patch Documented by: Metoprolol Tartrate (Metoprolol Tartrate 50 Mg Tablet) 50 mg PO BID@0900,2100 REPLACED BY [facility] Last Admin: 08/17/21 20:38 Dose: 50 mg Documented by: Montelukast Sodium (Montelukast Sodium 10 Mg Tablet) 10 mg PO DAILY REPLACED BY [facility] Last Admin: 08/17/21 08:58 Dose: 10 mg Documented by: Morphine Sulfate (Morphine Ir 15 Mg Tablet) 15 mg PO Q6H PRN PRN Reason: pAIN Ondansetron HCl (Ondansetron 2 Mg/Ml Sdv 2 Ml) 4 mg IVP Q6H PRN PRN Reason: NAUSEA AND VOMITING Last Admin: 08/18/21 07:21 Dose: 4 mg Documented by: Tramadol HCl (Tramadol 50 Mg Tablet) 50 mg PO Q4H PRN PRN Reason: MODERATE PAIN Last Admin: 08/18/21 07:20 Dose: 50 mg Documented by: Vitals/I&O/Wt Last Vital Signs Temp 98.1 F 08/17/21 17:00 Pulse 93 08/18/21 07:00 Resp 15 08/18/21 07:00 BP 113/91 08/18/21 07:00 Pulse Ox 97 08/18/21 07:00 08/17/21 08/18/21 08/18/21 22:59 06:59 14:59 Intake Total 805.65 / 1505.65 764.35 / 2270.00 Output Total 200 / 200 150 / 350 Balance 605.65 / 1305.65 614.35 / 1920.00 Weight last 48 hrs Weight 101.786 kg Weight 101.786 kg Physical Exam Narrative: sitting up, uncomfortable in bed vs noted- improved heent- nc/at, eomi, anicteric neck supple heart irreg irreg abd soft, nt, nd, + bs ext b/l edema rt foot ulcer neuro- a,a, o x 3 Data : 08/17/21 03:40 08/17/21 08:20 Micro: Microbiology 08/15/21 22:41 Gram Stain - Final Sputum - Expectorated Sputum Sputum Culture - Final Methicillin Resis Staph Aureus 08/16/21 14:10 MRSA Culture - Final Nose A&P Assessment and plan (1) Acute kidney injury superimposed on chronic kidney disease: 76 yr old man 1. a fib w/ RVR 0on cardizem 2. CKD stage 3 a- baseline cr 1.4 mg/dl for years since nephrectomy for renal cell ca 3. BRAYDEN- likely CI- BRAYDEN and ATN- got contrast on admission and pt is on a whitehead-2 inhibiotr and a diuetic -was also given lasix - u/a 1+ ketones, -low ur sodium -normal left renal us -restart lasix as oliguric and SOB 4. pna and lekocytosis even on abx -repeat cxr 5 . glucose control per medicine seen and examined w/ RN- telehealth visit time spent 30 min Status: Acute Plan see above Attestations Medical Necessity Statement*: pna, brayden, leukocytosis, sob, oliguric Time Spent in Patient Care: 16 - 35 minutes (>than 50% of time spent in counselling and/or direct pt care on unit). Coding Level of Care Code Acute Field Technical Support Consultant for chayito [email or web address] Diagnoses Acute kidney injury superimposed on chronic kidney disease N17.9; N18.9
--- NOTE | 2021-08-18 08:05 | XRR_ITS ---
PROCEDURE INFORMATION: Exam: XR Chest Exam date and time: 08/18/2021 8:15 AM Age: 76 years old Clinical indication: Fever and shortness of breath; Prior surgery; Surgery type: Kidney; Patient HX: SOB, fever, sepsis, renal failure, MRSA; Additional info: SOB, fevers TECHNIQUE: Imaging protocol: XR of the chest. Views: 1 view. Total images: 1 COMPARISON: 1. CR (CHEST, ) 08/15/2021 12:[address] angio [place] prot [id number] 08/15/2021 2:36 PM FINDINGS: Lungs: Stable bilateral pleuroparenchymal disease. Pleural spaces: No pneumothorax. Heart/Mediastinum: Heart is enlarged but stable when compared to the prior exam. Bones/joints: Osseous structures are unchanged from the prior exam. XR/XR chest 1V portable [id number] IMPRESSION: 1. Heart is enlarged but stable when compared to the prior exam. 2. Stable bibasilar pleuroparenchymal disease.
[2021-08-18 08:35] LABS: Basophils # 0.1 10^3/uL (0.0-0.1); Basophils % 0.3 %; Hematocrit 38.4 % (42.0-52.0); Hemoglobin 12.9 g/dL (11.7-16.6); Lymphocytes # 0.6 10^3/uL (0.8-4.8); Lymphocytes % 2.4 %; Mean Corpuscular HGB Conc 33.6 g/dL (30.0-36.0); Mean Corpuscular Hemoglobin 29.3 pg (28.0-34.0); Mean Corpuscular Volume 87.3 fl (80-94); Mean Platelet Volume 11.3 fL (7.4-10.4); Monocytes # 1.5 10^3/uL (0.2-0.9); Monocytes % 6.4 %; Neutrophils # 19.91 10^3/uL (1.8-7.7); Neutrophils % 88.5 %; Nucleated Red Blood Cells % 0 %; Platelet Count 301 10^3/cmm (130-400); Red Cell Distribution Width 14.6 % (12.1-15.1); White Blood Count 22.5 10^3/uL (4.0-10.0)
[2021-08-18] MEDS: FUROsemide 10 mg/mL SDV 10mL 60 MG IVP ×2 (08:45→21:03)
[2021-08-18] MEDS: aspirin 81 mg EC Tablet PO (08:45)
[2021-08-18] MEDS: lidocaine 5% Patch 1 PATCH TOPICAL ×2 (08:48→21:41)
[2021-08-18 08:49] LABS: Partial Thromboplastin Time 43.3 SECONDS (23.9-36.7)
[2021-08-18] MEDS: linezolid premix 600 MG/300 ML PREMIX 300 MG IV ×2 (08:49→21:04)
[2021-08-18] MEDS: metoprolol tartrate 50 mg Tablet PO ×2 (08:50→21:04)
[2021-08-18] MEDS: montelukast sodium 10 mg Tablet PO (08:51)
--- NOTE | 2021-08-18 09:47 | PC.CHAP ---
Pastoral Care Encounter/Spiritual Assessment Type of Contact [] Declined desktop administrator visit [] Patient/Family/Request visit [] Outpatient visit [] Follow-up visit [] Physician referral [] Code/Alert [x] Routine visit [] Staff referral [] Actively dying [x] Patient sleeping [] Family support [] [] Out of room [] Palliative care [] [] Receiving care in room [] Pre-surgical visit [] Trauma [] Long length of stay [x] ICU visit [] Other: Relational/Emotional Strength [] Patient feels connected with others/family/visitors/staff [] Distress [] Loneliness/isolation [] Abandonment Spirituality of Patient [] Person of Opal [] Attends Sabianism of their Opal [] Believes in Prayer [] Reads Bible or Scientology materials [] There are Spiritual issues to be addressed [employer] Interventions [x] Prayer [] Active listening [] Non-anxious presence [] Spiritual/emotional support [] Crisis/trauma care [] Spiritual counseling [] Bereavement support [] Provided bereavement packet [] Provided Bible/devotional materials [] Provided toy/stuffed animal, coloring book to patient or family member [] Provided Communion [] Anointing/[employer] [] Salvation [x] Completed spiritual assessment [] Other: Impact on Illness or Injury [] Angry [] Fearful [] Anxious [] Often cries [] Exhaustion [] Unable to work [] Unable to attend shinto [] Unable to walk/stand [] Unable to read [] Unable to drive [] Unable to eat/drink [] Unable to sleep [] Unable to be with family [] Patient intubated [] Other: Summary Time spent with patient
[2021-08-18] MEDS: cefepime 1,000 MG in sodium chloride 0.9% (plus) 50 ML 100 MG IV (10:01)
[2021-08-18 10:07] LABS: Alanine Aminotransferase 23 U/L (0-41); Albumin Level 3.2 g/dL (3.5-5.2); Alkaline Phosphatase 92 IU/L (40-130); Calcium 7.7 mg/dL (8.5-10.5); Carbon Dioxide 18 mmol/L (22-29); Chloride 85 mmol/L (98-107); Globulin 2.8 g/dL (1.3-4.6); Glucose 107 mg/dL (65-115); Magnesium 3.2 mg/dL (1.7-2.3); Osmolality Calculated 290 mOsm/kg (285-295); Sodium 124 mmol/L (136-145); Total Bilirubin 0.7 mg/dL (0.15-1.2)
[2021-08-18 10:12] LABS: Blood Urea Nitrogen 100 mg/dL (8-23); Phosphorus 8.7 mg/dL (2.5-4.5)
[2021-08-18 10:13] LABS: Aspartate Amino Transferase 20 U/L (0-40)
[2021-08-18 10:23] LABS: 25 Hydroxy Vitamin D 50 ng/mL (30-100)
[2021-08-18 10:56] LABS: Parathyroid Hormone 232.2 pg/mL (15-65)
[2021-08-18 10:58] LABS: Calcium 7.7 mg/dL (8.5-10.5)
--- NOTE | 2021-08-18 11:24 | PC.SOCIAL ---
Pg 2 IMM Explained to pt Pg 2 IMM. No questions voiced. Provided pt a copy. Initialed, dated & timed a copy & placed in chart.
--- NOTE | 2021-08-18 11:45 | SUR.PREOP ---
ORDER CLARIFICATION MD DISCUSSION ABOUT NEED FOR PICC OVER MIDLINE FOR POOR PERIPHERAL ACCESS. MD OKAY WITH MIDLINE PLACEMENT. NOTED.
[2021-08-18 12:14] LABS: Glucose Point of Care 150 mg/dL (70-110)
[2021-08-18] MEDS: insulin lispro 100 unit/1 mL SUBCUT (12:23)
--- NOTE | 2021-08-18 12:51 | P.PN_ITS ---
Subjective Subjective: This morning leukocytosis has trended down He has MRSA in sputum Continue linezolid and cefepime Afebrile Creatinine has worsened ATN with hyperphosphatemia Nephro has agreed with Lasix today Patient is stating that he was not able to sleep today He asked me if I see a lot of patient with multiorgan failure, all of his questions were answered to his satisfaction, patient seems to be in good spirits Patient is oliguric BUN and creatinine has worsened Currently on heparin drip, amiodarone gtt can be switched to p.o. I am going to touch base with Dr. Lewis to see if we should activate general surgery to place temporary dialysis catheter before this weekend in case we need to dialyze him in the future Hyponatremia with low EF does carry a guarded prognosis Not a candidate for coronary angiogram at this point Patient has not made a decision regarding LifeVest yet I did discuss the possibility of formation of lung abscess with MRSA pneumonia and he does have lobulated pneumonia, he has been afebrile, no foul-smelling breath, leukocytosis trending down my suspicion for lung abscess is low at this point Vitals/I&O/Wt Last Vital Signs Temp 98.1 F 08/18/21 09:00 Pulse 84 08/18/21 11:00 Resp 16 08/18/21 11:00 BP 97/77 08/18/21 11:00 Pulse Ox 94 08/18/21 08:00 08/17/21 08/18/21 08/18/21 22:59 06:59 14:59 Intake Total 1105.65 / 1805.65 764.35 / 2570.00 460 / 460 Output Total 200 / 200 150 / 350 250 / 250 Balance 905.65 / 1605.65 614.35 / 2220.00 210 / 210 Weight last 48 hrs Weight 101.786 kg Weight 101.786 kg Weight 101.786 kg Physical Exam Narrative: Patient is in good spirits Clinically does not look extremely fluid overloaded Crackles and wheezing noted Abdomen is soft Bilateral lower extremity without edema Awake and alert Nonfocal neuro exam EOMI, VALERIA dunn RVR Currently on 4 L nasal cannula Data : 08/18/21 08:15 08/18/21 08:15 Micro: Microbiology 08/15/21 22:41 Gram Stain - Final Sputum - Expectorated Sputum Sputum Culture - Final Methicillin Resis Staph Aureus 08/16/21 14:10 MRSA Culture - Final Nose A&P Assessment and plan (1) Leukocytosis: Status: Acute (2) Heart failure with reduced ejection fraction: Status: Acute (3) Atypical chest pain: Status: Acute (4) Sepsis: Status: Acute (5) Acute kidney injury superimposed on chronic kidney disease: Status: Acute (6) Hypoxia: Status: Acute (7) Pneumonia: Status: Acute (8) Atrial fibrillation: Status: Acute (9) ATN (acute tubular necrosis): Status: Acute (10) Uremia: Status: Acute (11) MRSA pneumonia: Status: Acute (12) Hyponatremia: Status: Acute Plan Sepsis secondary to MRSA pneumonia Monitor for development of lung abscess or empyema Leukocytosis trending down He is currently on budesonide Discontinue inhaled steroids as he is still wheezing Start IV steroids, please note this will increase his leukocyte count DuoNeb treatment Currently on 4 L nasal cannula I would continue cefepime with linezolid for now A. fib RVR Switch amiodarone gtt. to p.o. 400 twice daily regimen Cardizem because of low EF Currently on heparin drip Poor IV access need midline versus PICC Reduced action fraction acute heart failure decompensation Hypervolemic hyponatremia Lasix 60 mg IV push every 12 hours Patient is oliguric No acute indication for dialysis Cardiology consulted he will need angiogram once kidney function stabilizes He will also need LifeVest he has not made a decision regarding LifeVest as he is DNR/DNI and he is adamant about it I also discussed with his ATN Contrast-induced nephropathy Oliguric Will discuss with nephro if we need to get temporary dialysis catheter in place before this weekend as a proactive measure Acute hypoxia Related to pneumonia and CHF Currently on 4 L nasal cannula Has not been using oxygen until lately I will keep him on low-dose sliding scale in case he experiences hyperglycemia with steroids Atypical right-sided chest pain has improved with lidocaine patch it was pleuritic in nature No signs of PE or DVT Patient is DNR/DNI switch diet to renal Guarded prognosis with CHF and hyponatremia I have asked his not to visit him as she is neutropenic immunosuppressed status due to kidney transplant, she should not visit him in the ICU , if she does visit him she should not kiss him on the forehead because of MRSA in sputum Attestations Medical Necessity Statement*: Continue ICU management Time Spent in Patient Care: 35 Coding Level of Care Code Acute Coating Inspector for Chg Fwd Diagnoses Leukocytosis D72.829 Heart failure with reduced ejection fraction I50.20 Atypical chest pain R07.89 Sepsis A41.9 Acute kidney injury superimposed on chronic kidney disease N17.9; N18.9 Hypoxia R09.02 Pneumonia J18.9 Atrial fibrillation I48.91 ATN (acute tubular necrosis) N17.0 Uremia N19 MRSA pneumonia J15.212 Hyponatremia E87.1
[2021-08-18] MEDS: ipratropium-albuterol 3 mL Neb INHALATION ×2 (14:15→20:25)
[2021-08-18] MEDS: amiodarone 200 mg Tablet 400 MG PO (17:41)
[2021-08-18 18:02] LABS: Glucose Point of Care 102 mg/dL (70-110)
--- NOTE | 2021-08-18 18:21 | PM.PN ---
Subjective Subjective: Patient has been feeling fatigued. Renal function is worsening. Heart rates are better controlled now. Vitals/I&O/Wt Last Vital Signs Temp 98.5 F 08/18/21 15:00 Pulse 89 08/18/21 17:00 Resp 14 08/18/21 17:00 BP 97/77 08/18/21 17:00 Pulse Ox 93 08/18/21 15:00 08/18/21 08/18/21 08/18/21 06:59 14:59 22:59 Intake Total 764.35 / 2570.00 868.148 / 868.148 60 / 928.148 Output Total 150 / 350 250 / 250 150 / 400 Balance 614.35 / 2220.00 618.148 / 618.148 -90 / 528.148 Weight last 48 hrs Weight 224 lb 6.4 oz Weight 224 lb 6.4 oz Weight 224 lb 6.4 oz Physical Exam Narrative: GENERAL: Patient is alert, awake and oriented x3. [] NECK: No jugular vein distension. [] HEENT: No cyanosis. No icterus. No pallor. [] HEART: Tachycardic, S1 and S2, grade 3/6 systolic murmur LUNGS: Clear to auscultate bilaterally. [] ABDOMEN: Soft, nontender and nondistended. Positive bowel sounds. No guarding, rebound or tenderness. [] CENTRAL NERVOUS SYSTEM: Grossly nonfocal. [] EXTREMITIES: Lower extremities with 1+ edema bilaterally. Pulses palpable in the lower extremities, both dorsalis pedis and posterior tibial. [] Data : 08/19/21 05:55 08/19/21 10:25 Micro: Microbiology 08/15/21 22:41 Gram Stain - Final Sputum - Expectorated Sputum Sputum Culture - Final Methicillin Resis Staph Aureus A&P Assessment and plan (1) Heart failure with reduced ejection fraction: Status: Acute (2) Atypical chest pain: Status: Acute (3) Sepsis: Status: Acute (4) Atrial fibrillation: Status: Acute (5) Pneumonia: Status: Acute (6) Acute kidney injury superimposed on chronic kidney disease: Status: Acute (7) Atrial fibrillation: Status: Acute Plan Patient has atrial fibrillation with RVR. Tachycardia likely worse because of underlying infection. Also has been found to have new onset congestive heart failure. He will need ischemic work-up however creatinine is significantly elevated. We will plan once kidney function improves Obtain cardiology records from cardiology office in [place] Heart rates are better controlled. Now patient is on p.o. amiodarone. Continue. Continue metoprolol. Continue anticoagulation Antibiotic therapy per primary team Thank you for involving us with care of this patient. We will continue to follow. Please call with questions. Attestations Medical Necessity Statement*: Care expected to cross 2 midnights. Coding Level of Care Code Acute Blocker Heated Metal Forms for Bonny Castellanos Diagnoses Heart failure with reduced ejection fraction I50.20 Atypical chest pain R07.89 Sepsis A41.9 Atrial fibrillation I48.91 Pneumonia J18.9 Acute kidney injury superimposed on chronic kidney disease N17.9; N18.9 Atrial fibrillation I48.91
[2021-08-18] MEDS: budesonide 0.5 mg/2 mL Neb INHALATION (20:25)
[2021-08-18 21:01] LABS: Glucose Point of Care 105 mg/dL (70-110)
[2021-08-18] MEDS: heparin drip 25,000 UNIT/500 ML PREMIX 42 UNIT IV (22:26)
[2021-08-18 23:35] LABS: Partial Thromboplastin Time 34.8 SECONDS (23.9-36.7)
[2021-08-19] VITALS (26 sets, daily range): BP systolic 96–149; BP diastolic 65–96; PULSE 81–118; RESP 11–33; TEMP 36.6–36.9; O2SAT 90–97; BMI 28.8
[2021-08-19 06:09] LABS: Basophils % 0.2 %; Hematocrit 38.2 % (42.0-52.0); Hemoglobin 12.5 g/dL (11.7-16.6); Lymphocytes # 0.4 10^3/uL (0.8-4.8); Lymphocytes % 1.9 %; Mean Corpuscular HGB Conc 32.7 g/dL (30.0-36.0); Mean Corpuscular Hemoglobin 29.6 pg (28.0-34.0); Mean Corpuscular Volume 90.5 fl (80-94); Monocytes # 0.5 10^3/uL (0.2-0.9); Monocytes % 2.3 %; Neutrophils # 21.11 10^3/uL (1.8-7.7); Neutrophils % 93.1 %; Nucleated Red Blood Cells % 0 %; Platelet Count 281 10^3/cmm (130-400); Red Blood Count 4.22 10^6/uL (4.1-5.3); Red Cell Distribution Width 14.9 % (12.1-15.1); White Blood Count 22.7 10^3/uL (4.0-10.0)
[2021-08-19 06:15] LABS: Partial Thromboplastin Time 34.6 SECONDS (23.9-36.7)
--- NOTE | 2021-08-19 07:13 | PM.PN ---
Subjective Subjective: swollen, inc uop. dec sob. states he is feeling better. + nausea, distended abd Medications: Reviewed: Yes Medication Review Details: Current Medications Acetaminophen (Acetaminophen 500 Mg Tablet) 500 mg PO Q6H PRN PRN Reason: Pain Albuterol Sulfate (Albuterol 8 Gm Mdi) 2 puff INHALATION Q4H PRN PRN Reason: Shortness Of Breath Albuterol/Ipratropium (Ipratropium-Albuterol 3 Ml Neb) 3 ml INHALATION Q6H PRN PRN Reason: SHORTNESS OF BREATH Last Admin: 08/18/21 20:25 Dose: 3 ml Documented by: Amiodarone HCl (Amiodarone 200 Mg Tablet) 400 mg PO BID WHITNEY Last Admin: 08/18/21 17:41 Dose: 400 mg Documented by: Aspirin (Aspirin 81 Mg Ec Tablet) 81 mg PO DAILY WHITNEY Last Admin: 08/18/21 08:45 Dose: 81 mg Documented by: Budesonide (Budesonide 0.5 Mg/2 Ml Neb) 0.5 mg INHALATION BID.RESPIRATORY WHITNEY Last Admin: 08/18/21 20:25 Dose: 0.5 mg Documented by: Dextrose (Dextrose 50% Syringe 50 Ml) 25 ml IVP ONCE PRN; Protocol PRN Reason: hypoglycemia protocol Dextrose (Dextrose 50% Syringe 50 Ml) 50 ml IVP PRN PRN; Protocol PRN Reason: hypoglycemia protocol Furosemide (Furosemide 10 Mg/Ml Sdv 10ml) 60 mg IVP Q12H [facility]ITNEY Last Admin: 08/18/21 21:03 Dose: 60 mg Documented by: Glucagon (Glucagon 1 Mg/Ml Inj 1 Ml) 1 mg IM ONCE PRN; Protocol PRN Reason: Adult Acute Hypoglycemia Prot. Heparin Sodium (Porcine) (Heparin 5,000 Unit/Ml Inj 1 Ml) 0 unit IV PRN PRN; Protocol PRN Reason: Heparin weight-base protocol Last Admin: 08/18/21 23:52 Dose: 5,000 unit Documented by: Dextrose (D5w) 500 mls @ 100 mls/hr IV ONCE PRN; Protocol PRN Reason: Adult Acute Hypoglycemia Prot Heparin Sodium/Sodium Chloride (Heparin Drip) 25,000 unit in 500 mls @ 0 mls/hr IV .Q0M [facility]ITNEY; Protocol Last Titration: 08/18/21 23:53 Dose: 23.58 unit/kg/hr, 48 mls/hr Documented by: Linezolid (Zyvox Premix) 600 mg in 300 mls @ 300 mls/hr IV Q12H [facility]; Protocol Last Infusion: 08/18/21 22:10 Dose: Infused Documented by: Cefepime HCl 1,000 mg/ Sodium (Chloride) 50 mls @ 100 mls/hr IV Q24H [facility]; Protocol Last Infusion: 08/18/21 10:40 Dose: Infused Documented by: Amiodarone HCl 900 mg/Dextrose/ IV Miscellaneous Supplies 518 mls @ 0 mls/hr IV .Q0M [facility]; Protocol Last Titration: 08/18/21 13:14 Dose: 0 mg/min, 0 mls/hr Documented by: Insulin Human Lispro (Insulin Lispro 100 Unit/1 Ml) 0 unit SUBCUT TIDWM [facility]; Protocol Last Admin: 08/18/21 17:54 Dose: Not Given Documented by: Lanolin (Lanolin Oint 7 Gm) 1 applic TOPICAL PRN PRN PRN Reason: DRYNESS Lidocaine (Lidocaine 5% Patch) 1 patch TOPICAL [id number] [facility] Last Admin: 08/18/21 21:41 Dose: 1 patch Documented by: Metoprolol Tartrate (Metoprolol Tartrate 50 Mg Tablet) 50 mg PO BID@0900,2100 [facility] Last Admin: 08/18/21 21:04 Dose: 50 mg Documented by: Montelukast Sodium (Montelukast Sodium 10 Mg Tablet) 10 mg PO DAILY [facility] Last Admin: 08/18/21 08:51 Dose: 10 mg Documented by: Morphine Sulfate (Morphine Ir 15 Mg Tablet) 15 mg PO Q6H PRN PRN Reason: pAIN Ondansetron HCl (Ondansetron 2 Mg/Ml Sdv 2 Ml) 4 mg IVP Q6H PRN PRN Reason: NAUSEA AND VOMITING Last Admin: 08/18/21 22:43 Dose: 4 mg Documented by: Tramadol HCl (Tramadol 50 Mg Tablet) 50 mg PO Q4H PRN PRN Reason: MODERATE PAIN Last Admin: 08/18/21 21:04 Dose: 50 mg Documented by: Vitals/I&O/Wt Last Vital Signs Temp 98.3 F 08/18/21 19:00 Pulse 86 08/19/21 06:00 Resp 14 08/19/21 06:00 BP 130/80 08/19/21 06:00 Pulse Ox 95 08/19/21 06:00 08/18/21 08/19/21 08/19/21 22:59 06:59 14:59 Intake Total 960 / 1828.148 60.9 / 1889.048 Output Total 450 / 700 700 / 1400 Balance 510 / 1128.148 -639.1 / 489.048 Weight last 48 hrs Weight 101.786 kg Weight 101.786 kg Physical Exam Narrative: lying comfortable in bed vs noted and stable heent- nc/at, eomi, anicteric neck supple lungs diminished and wheezes b/l heart irreg irreg, +MATEO abd soft, nt, distended, + bs ext b/l edema rt foot ulcer neuro- a,a, o x 3 Data : 08/19/21 05:55 08/18/21 08:15 Micro: Microbiology 08/15/21 22:41 Gram Stain - Final Sputum - Expectorated Sputum Sputum Culture - Final Methicillin Resis Staph Aureus A&P Assessment and plan (1) Acute kidney injury superimposed on chronic kidney disease: 76 yr old man 1. a fib w/ RVR - controlled on cardizem and amiodarone 2. CKD stage 3 a- baseline cr 1.4 mg/dl for years since nephrectomy for renal cell ca 3. BRAYDEN- likely CI- BRAYDEN and ATN- got contrast on admission and pt is on a whitehead-2 inhibiotr and a diuetic -was also given lasix - u/a 1+ ketones, -low ur sodium -normal left renal us -follow repeat labs -uop improving w/ lasix 4. hyponatremia from BRAYDEN and PNA 5. MRSA pna- lekocytosis starting to improve -monitor on abx 6 . glucose control per medicine 7. add phos binder seen and examined w/ RN- telehealth visit time spent 30 min Status: Acute Plan see above Attestations Medical Necessity Statement*: brayden, MRSA pna Time Spent in Patient Care: 16 - 35 minutes (>than 50% of time spent in counselling and/or direct pt care on unit). Coding Level of Care Code Acute International Coordinator for chayito Castellanos Diagnoses Acute kidney injury superimposed on chronic kidney disease N17.9; N18.9
[2021-08-19 07:41] LABS: Glucose Point of Care 108 mg/dL (70-110)
[2021-08-19] MEDS: ipratropium-albuterol 3 mL Neb INHALATION ×3 (07:43→20:05)
[2021-08-19] MEDS: budesonide 0.5 mg/2 mL Neb INHALATION ×2 (07:43→20:05)
[2021-08-19] MEDS: montelukast sodium 10 mg Tablet PO (08:24)
[2021-08-19] MEDS: amiodarone 200 mg Tablet 400 MG PO ×2 (08:24→17:51)
[2021-08-19] MEDS: FUROsemide 10 mg/mL SDV 10mL 60 MG IVP (08:24)
[2021-08-19] MEDS: aspirin 81 mg EC Tablet PO (08:24)
[2021-08-19] MEDS: metoprolol tartrate 50 mg Tablet PO ×2 (08:24→20:30)
[2021-08-19] MEDS: sevelamer 800 mg Tablet 1600 MG PO ×3 (08:24→20:30)
[2021-08-19] MEDS: linezolid premix 600 MG/300 ML PREMIX 300 MG IV (08:25)
[2021-08-19] MEDS: heparin 5,000 unit/mL INJ 1 mL IV (08:26)
[2021-08-19] MEDS: TRAMadol 50 mg Tablet PO ×2 (08:57→17:51)
[2021-08-19] MEDS: cefepime 1,000 MG in sodium chloride 0.9% (plus) 50 ML 100 MG IV (10:47)
[2021-08-19] MEDS: heparin drip 25,000 UNIT/500 ML PREMIX 54 UNIT IV (10:47)
--- NOTE | 2021-08-19 10:47 | PC.CHAP ---
Pastoral Care Encounter/Spiritual Assessment Type of Contact [] Declined senior auditor visit [] Patient/Family/Request visit [] Outpatient visit [] Follow-up visit [] Physician referral [] Code/Alert [x] Routine visit [] Staff referral [] Actively dying [x] Patient sleeping [] Family support [] [] Out of room [] Palliative care [] [] Receiving care in room [] Pre-surgical visit [] Trauma [] Long length of stay [x] ICU visit [] Other: Relational/Emotional Strength [] Patient feels connected with others/family/visitors/staff [] Distress [] Loneliness/isolation [] Abandonment Spirituality of Patient [] Person of Opal [] Attends Catholic of their [place] [] Believes in Prayer [] Reads Bible or Congregational materials [] There are Spiritual issues to be addressed Firmware Developer Interventions [x] Prayer [] Active listening [] Non-anxious presence [] Spiritual/emotional support [] Crisis/trauma care [] Spiritual counseling [] Bereavement support [] Provided bereavement packet [] Provided Bible/devotional materials [] Provided toy/stuffed animal, coloring book to patient or family member [] Provided Communion [] Anointing/[place] [] Salvation [x] Completed spiritual assessment [] Other: Impact on Illness or Injury [] Angry [] Fearful [] Anxious [] Often cries [] Exhaustion [] Unable to work [] Unable to attend bahai [] Unable to walk/stand [] Unable to read [] Unable to drive [] Unable to eat/drink [] Unable to sleep [] Unable to be with family [] Patient intubated [] Other: Summary Time spent with patient
[2021-08-19 11:32] LABS: Glucose Point of Care 161 mg/dL (70-110)
[2021-08-19 11:38] LABS: Alanine Aminotransferase 18 U/L (0-41); Albumin Level 2.8 g/dL (3.5-5.2); Alkaline Phosphatase 74 IU/L (40-130); Anion Gap 24.9 (5-19); Aspartate Amino Transferase 11 U/L (0-40); Calcium 7.6 mg/dL (8.5-10.5); Carbon Dioxide 19 mmol/L (22-29); Chloride 84 mmol/L (98-107); Glucose 136 mg/dL (65-115); Magnesium 3.1 mg/dL (1.7-2.3); Potassium 4.9 mmol/L (3.5-5.1); Sodium 123 mmol/L (136-145); Total Bilirubin 0.8 mg/dL (0.15-1.2); Total Protein 6.8 g/dL (6.6-8.7)
[2021-08-19 12:05] LABS: Blood Urea Nitrogen 121 mg/dL (8-23); Osmolality Calculated 297 mOsm/kg (285-295); Phosphorus 9.2 mg/dL (2.5-4.5)
--- NOTE | 2021-08-19 13:39 | P.PN_ITS ---
Subjective Subjective: Patient seems to be frustrated today for staying in the hospital His creatinine is worsening however he is making good urine, urine output is 1150 mL No signs of uremia No acute indication for dialysis We are planning to do pleural biopsy tomorrow, stop heparin drip at midnight, n.p.o. after midnight, will give him fentanyl and Versed Dr. Rizo planning for pleural biopsy around noon Tomorrow if his creatinine is worsening might ask general surgery to place temporary dialysis catheter at the same time Leukocytosis has not improved Afebrile Currently on 4 L nasal cannula Wheezing still present Patient endorsing constipation Is also complaining of pain from the IV which was tried yesterday on his right arm Midline has been placed on the left side 08/18 Vitals/I&O/Wt Last Vital Signs Temp 98.4 F 08/19/21 12:00 Pulse 92 08/19/21 12:00 Resp 18 08/19/21 12:00 BP 130/80 08/19/21 12:00 Pulse Ox 93 08/19/21 12:00 08/18/21 08/19/21 08/19/21 22:59 06:59 14:59 Intake Total 960 / 1828.148 60.9 / 1889.048 439.1 / 439.1 Output Total 450 / 700 700 / 1400 Balance 510 / 1128.148 -639.1 / 489.048 439.1 / 439.1 Weight last 48 hrs Weight 101.786 kg Weight 101.786 kg Physical Exam Narrative: Patient seems to be frustrated for staying in the hospital However his pain has subsided Does not look clinically fluid overloaded No signs of uremia Currently on 84 nasal cannula Wheezing present however is not as diffuse as yesterday Abdomen is soft No signs of edema Midline 08/18 Data : 08/19/21 05:55 08/19/21 10:25 A&P Assessment and plan (1) Atrial fibrillation: Status: Acute (2) Hyponatremia: Status: Acute (3) MRSA pneumonia: Status: Acute (4) Uremia: Status: Acute (5) ATN (acute tubular necrosis): Status: Acute (6) Leukocytosis: Status: Acute (7) Heart failure with reduced ejection fraction: Status: Acute (8) Atypical chest pain: Status: Acute (9) Sepsis: Status: Acute Plan Sepsis related to MRSA pneumonia Currently on linezolid, I have also kept him on cefepime Remained afebrile No signs of lung abscess We are going for pleural biopsy, Dr. Rizo planning for biopsy tomorrow We will keep him n.p.o. after midnight stop heparin after midnight He will use fentanyl and Versed, doses have been entered in the chart Patient is agreeable for the procedure however very frustrated A. fib without RVR currently on amiodarone and metoprolol Blood pressure is stable stop heparin drip after midnight ATN: Contrast-induced nephropathy, no acute indication for dialysis, creatinine worsening he is not oliguric he did make good urine with IV Lasix Dose has been adjusted by Dr. Lewis Reevaluate tomorrow if we need to place temporary dialysis catheter in case he would need any dialysis by the weekend Hyperphosphatemia, electrolyte imbalance, as per nephro Reduced ejection fraction heart failure Clinically does not look fluid overloaded He will need coronary angiogram once stable Will need LifeVest if he is agreeable Persistent leukocytosis Most likely is related to MRSA pneumonia Will follow with pleural biopsy Right-sided chest pain and arm pain Atypical right-sided chest pain has improved which is pleuritic in nature Arm pain after we discontinued his IV likely related to thromb ophlebitis/infiltration warm compressions and opioids for severe pain COPD exacerbation requiring 3 L of oxygen secondary to pneumonia Aashish had inhaled steroids I will not give him IV steroids today DNR/DNI Cardiac diet, n.p.o. after midnight Heparin drip which can be turned off after midnight I would also add SCDs Patient was on heparin drip for his A. fib Records requested from [place] cardiology note Attestations Medical Necessity Statement*: Continue ICU management Time Spent in Patient Care: 30 Coding Level of Care Code Acute Talent Acquisition Associate for Chg Fwd Diagnoses Atrial fibrillation I48.91 Hyponatremia E87.1 MRSA pneumonia J15.212 Uremia N19 ATN (acute tubular necrosis) N17.0 Leukocytosis D72.829 Heart failure with reduced ejection fraction I50.20 Atypical chest pain R07.89 Sepsis A41.9
[2021-08-19 14:33] LABS: Partial Thromboplastin Time 87.7 SECONDS (23.9-36.7)
[2021-08-19 14:53] LABS: Lactate Dehydrogenase 223 U/L (135-225)
[2021-08-19 17:23] LABS: Glucose Point of Care 109 mg/dL (70-110)
--- NOTE | 2021-08-19 17:31 | P.PN_ITS ---
Subjective Subjective: Patient is feeling better. Renal function is still worsening. Vitals/I&O/Wt Last Vital Signs Temp 98.4 F 08/19/21 16:00 Pulse 92 08/19/21 16:00 Resp 18 08/19/21 16:00 BP 129/87 08/19/21 16:00 Pulse Ox 93 08/19/21 16:00 08/19/21 08/19/21 08/19/21 06:59 14:59 22:59 Intake Total 60.9 / 1889.048 439.1 / 439.1 270.9 / 710.0 Output Total 700 / 1400 Balance -639.1 / 489.048 439.1 / 439.1 270.9 / 710.0 Weight last 48 hrs Weight 224 lb 6.4 oz Weight 224 lb 6.4 oz Physical Exam Narrative: GENERAL: Patient is alert, awake and oriented x3. [] NECK: No jugular vein distension. [] HEENT: No cyanosis. No icterus. No pallor. [] HEART: Tachycardic, S1 and S2, grade 3/6 systolic murmur LUNGS: Clear to auscultate bilaterally. [] ABDOMEN: Soft, nontender and nondistended. Positive bowel sounds. No guarding, rebound or tenderness. [] CENTRAL NERVOUS SYSTEM: Grossly nonfocal. [] EXTREMITIES: Lower extremities with 1+ edema bilaterally. Pulses palpable in the lower extremities, both dorsalis pedis and posterior tibial. [] Data : 08/20/21 05:45 08/20/21 09:54 A&P Assessment and plan (1) Heart failure with reduced ejection fraction: Status: Acute (2) Atypical chest pain: Status: Acute (3) Sepsis: Status: Acute (4) Atrial fibrillation: Status: Acute (5) Pneumonia: Status: Acute (6) Acute kidney injury superimposed on chronic kidney disease: Status: Acute (7) Atrial fibrillation: Status: Acute Plan Patient has atrial fibrillation with RVR. Tachycardia likely worse because of underlying infection. Also has been found to have new onset congestive heart failure. He will need ischemic work-up however creatinine is significantly elevated. We will plan once kidney function improves. Still worsening. Nephrology on board Heart rate is better controlled Anticoagulation on hold for pleural biopsy. Resume once able to. Antibiotic therapy per primary team Thank you for involving us with care of this patient. We will continue to follow. Please call with questions. Attestations Medical Necessity Statement*: Care expected to cross 2 midnights. Coding Level of Care Code Acute Manufacture Specialist for Bonny Castellanos Diagnoses Heart failure with reduced ejection fraction I50.20 Atypical chest pain R07.89 Sepsis A41.9 Atrial fibrillation I48.91 Pneumonia J18.9 Acute kidney injury superimposed on chronic kidney disease N17.9; N18.9 Atrial fibrillation I48.91
[2021-08-19 19:59] LABS: Glucose Point of Care 112 mg/dL (70-110)
[2021-08-19] MEDS: linezolid 600 mg Tablet PO (20:30)
[2021-08-19] MEDS: lidocaine 5% Patch 1 PATCH TOPICAL (20:30)
[2021-08-19 20:33] LABS: Partial Thromboplastin Time 132.5 SECONDS (23.9-36.7)
[2021-08-19] MEDS: heparin drip 25,000 UNIT/500 ML PREMIX 44 UNIT IV (21:11)
[2021-08-20] VITALS (33 sets, daily range): BP systolic 115–149; BP diastolic 75–109; PULSE 87–110; RESP 12–34; TEMP 36.6–36.8; O2SAT 90–98; BMI 28.8
--- NOTE | 2021-08-20 | CT_ITS ---
WS: [id number] CT GUIDED LUNG BIOPSY CLINICAL INFORMATION: pleural lung biopsy COMPARISON: None. DLP: 984.08 mGy.cm TECHNIQUE: The procedure including risk, benefits, and complications were discussed with the patient who agreed to proceed. Using sterile technique, the patient was prepped and draped in the usual steri le fashion. Patient was positioned [id number] and CT images were obtained through the RIGHT lung . The largest peripheral RIGHT lung nodule was selected in the RIGHT lower lobe. After 1% lidocaine u sing fluoroscopic guidance, a 19-gauge coaxial needle was advanced into the RIGHT lung mass. Fluid wa s initially aspirated from the overlying pleural effusion. Pleural effusion appeared serous and blood y. Next, Approximately 4 core samples were obtained. Post procedure CT images demonstrate expected hemor rhage about the region. Tiny peripheral pneumothorax with scattered tiny locules of air within the pl eural effusion. Patient had one episode of coughing at the termination of the procedure with associat ed blood products. One-hour post biopsy chest radiograph demonstrates slight increase in bilateral pleural effusions com pared to August 18, 2021 with bibasilar atelectasis. Note bilateral pleural effusions appear increased on the pre-biopsy images compared to the prior CT of August 15, 2021 with compressive atelectasis in th e lung bases. CT/CT drain thoracentesis [id number] IMPRESSION: 1. Multiple 18-gauge core samples were obtained of the RIGHT lung nodule. 2. 60 minute chest x-ray demonstrates no visualized pneumothorax. Tiny periphe ral pneumothorax with tiny locules of air on the post biopsy CT imaging with ex pected parenchymal hemorrhage in the RIGHT lower lobe. 3. Note prebiopsy CT images demonstrated increased pleural fluid and bibasilar atelectasis compared to the prior CT August 15, 2021 4. Recommend additional chest radiograph follow-up August 21, 2021 in the a.m. 5. Pleural fluid and core samples pending pathology and fluid analysis 6. Aspirated pleural fluid prior to biopsy appeared serosanguineous
[2021-08-20] MEDS: ipratropium-albuterol 3 mL Neb INHALATION ×4 (02:19→20:46)
[2021-08-20 06:48] LABS: Basophils % 0.2 %; Hematocrit 35.7 % (42.0-52.0); Hemoglobin 12.1 g/dL (11.7-16.6); Lymphocytes # 0.6 10^3/uL (0.8-4.8); Lymphocytes % 2.8 %; Mean Corpuscular HGB Conc 33.9 g/dL (30.0-36.0); Mean Corpuscular Hemoglobin 29.4 pg (28.0-34.0); Mean Corpuscular Volume 86.9 fl (80-94); Monocytes # 1.2 10^3/uL (0.2-0.9); Monocytes % 5.6 %; Neutrophils # 18.73 10^3/uL (1.8-7.7); Neutrophils % 87.8 %; Nucleated Red Blood Cells % 0 %; Platelet Count 350 10^3/cmm (130-400); Red Blood Count 4.11 10^6/uL (4.1-5.3); Red Cell Distribution Width 14.6 % (12.1-15.1); White Blood Count 21.3 10^3/uL (4.0-10.0)
[2021-08-20 07:25] LABS: Glucose Point of Care 105 mg/dL (70-110)
--- NOTE | 2021-08-20 07:36 | P.PN_ITS ---
Subjective Subjective: weak, back pain. feels that he is improving. had BM x 2 and is urinating. has rt sided pain and SOB. Medications: Reviewed: Yes Medication Review Details: Current Medications Acetaminophen (Acetaminophen 500 Mg Tablet) 500 mg PO Q6H PRN PRN Reason: Pain Albuterol Sulfate (Albuterol 8 Gm Mdi) 2 puff INHALATION Q4H PRN PRN Reason: Shortness Of Breath Albuterol/Ipratropium (Ipratropium-Albuterol 3 Ml Neb) 3 ml INHALATION Q6H PRN PRN Reason: SHORTNESS OF BREATH Last Admin: 08/20/21 02:19 Dose: 3 ml Documented by: Amiodarone HCl (Amiodarone 200 Mg Tablet) 400 mg PO BID WHITNEY Last Admin: 08/19/21 17:51 Dose: 400 mg Documented by: Aspirin (Aspirin 81 Mg Ec Tablet) 81 mg PO DAILY WHITNEY Last Admin: 08/19/21 08:24 Dose: 81 mg Documented by: Budesonide (Budesonide 0.5 Mg/2 Ml Neb) 0.5 mg INHALATION BID.RESPIRATORY WHITNEY Last Admin: 08/19/21 20:05 Dose: 0.5 mg Documented by: Dextrose (Dextrose 50% Syringe 50 Ml) 25 ml IVP ONCE PRN; Protocol PRN Reason: hypoglycemia protocol Dextrose (Dextrose 50% Syringe 50 Ml) 50 ml IVP PRN PRN; Protocol PRN Reason: hypoglycemia protocol Fentanyl (Fentanyl 50 Mcg/Ml Inj 2ml) 25 mcg IVP ONCE ONE Stop: 08/20/21 11:01 Furosemide (Furosemide 10 Mg/Ml Sdv 10ml) 60 mg IVP DAILY [facility] Glucagon (Glucagon 1 Mg/Ml Inj 1 Ml) 1 mg IM ONCE PRN; Protocol PRN Reason: Adult Acute Hypoglycemia Prot. Dextrose (D5w) 500 mls @ 100 mls/hr IV ONCE PRN; Protocol PRN Reason: Adult Acute Hypoglycemia Prot Heparin Sodium/Sodium Chloride (Heparin Drip) 25,000 unit in 500 mls @ 0 mls/hr IV .Q0M WHITNEY; Protocol Last Titration: 08/19/21 23:59 Dose: 0 unit/kg/hr, 0 mls/hr Documented by: Cefepime HCl 1,000 mg/ Sodium (Chloride) 50 mls @ 100 mls/hr IV Q24H WHITNEY; Protocol Last Admin: 08/19/21 10:47 Dose: 100 mls/hr Documented by: Insulin Human Lispro (Insulin Lispro 100 Unit/1 Ml) 0 unit SUBCUT TIDWM [facility]; Protocol Last Admin: 08/19/21 17:41 Dose: Not Given Documented by: Lanolin (Lanolin Oint 7 Gm) 1 applic TOPICAL PRN PRN PRN Reason: DRYNESS Lidocaine (Lidocaine 5% Patch) 1 patch TOPICAL [id number] [facility] Last Admin: 08/19/21 20:30 Dose: 1 patch Documented by: Linezolid (Linezolid 600 Mg Tablet) 600 mg PO Q12H [facility] Last Admin: 08/19/21 20:30 Dose: 600 mg Documented by: Metoprolol Tartrate (Metoprolol Tartrate 50 Mg Tablet) 50 mg PO BID@0900,2100 [facility] Last Admin: 08/19/21 20:30 Dose: 50 mg Documented by: Midazolam HCl (Midazolam 1 Mg/Ml Inj 2 Ml) 2 mg IVP ONCE ONE Stop: 08/20/21 11:01 Montelukast Sodium (Montelukast Sodium 10 Mg Tablet) 10 mg PO DAILY [facility] Last Admin: 08/19/21 08:24 Dose: 10 mg Documented by: Morphine Sulfate (Morphine Ir 15 Mg Tablet) 15 mg PO Q6H PRN PRN Reason: pAIN Ondansetron HCl (Ondansetron 2 Mg/Ml Sdv 2 Ml) 4 mg IVP Q6H PRN PRN Reason: NAUSEA AND VOMITING Last Admin: 08/18/21 22:43 Dose: 4 mg Documented by: Sevelamer Carbonate (Sevelamer 800 Mg Tablet) 1,600 mg PO TID [facility] Last Admin: 08/19/21 20:30 Dose: 1,600 mg Documented by: Tramadol HCl (Tramadol 50 Mg Tablet) 50 mg PO Q4H PRN PRN Reason: MODERATE PAIN Last Admin: 08/19/21 17:51 Dose: 50 mg Documented by: Vitals/I&O/Wt Last Vital Signs Temp 98.2 F 08/20/21 07:25 Pulse 97 08/20/21 07:25 Resp 18 08/20/21 07:25 BP 115/79 08/20/21 07:25 Pulse Ox 95 08/20/21 07:25 08/19/21 08/20/21 08/20/21 22:59 06:59 14:59 Intake Total 500.0 / 939.1 123.2 / 1062.3 Output Total 1000 / 1000 300 / 1300 Balance -500.0 / -60.9 -176.8 / -237.7 Weight last 48 hrs Weight 101.786 kg Weight 101.786 kg Physical Exam Narrative: lying comfortable in bed vs noted and stable heent- nc/at, eomi, anicteric neck supple lungs diminished and wheezes b/l heart irreg irreg, +MATEO abd soft, nt, distended, + bs ext b/l edema rt foot ulcer neuro- a,a, o x 3 Data : 08/20/21 05:45 08/19/21 10:25 A&P Assessment and plan (1) Acute kidney injury superimposed on chronic kidney disease: 76 yr old man 1. a fib w/ RVR - controlled on cardizem and amiodarone -systolic chf- per cardiology 2. CKD stage 3 a- baseline cr 1.4 mg/dl for years since nephrectomy for renal cell ca 3. BRAYDEN- likely CI- BRAYDEN and ATN- got contrast on admission and pt is on a whitehead-2 inhibiotr and a diuetic -was also given lasix - u/a 1+ ketones, -low ur sodium -normal left renal us -follow repeat labs - may need dialysis soon -uop improving w/ lasix -monitor phos 4. hyponatremia from BRAYDEN and PNA -fluid restrict 5. MRSA pna- lekocytosis starting to improve -monitor on abx 6 . glucose control per medicine 7. copd per medicine seen and examined w/ RN- telehealth visit time spent 30 min Status: Acute Plan see above Attestations Medical Necessity Statement*: brayden, hyponatremia, a fib Time Spent in Patient Care: 16 - 35 minutes (>than 50% of time spent in counselling and/or direct pt care on unit) . Coding Level of Care Code Acute Flat Knitter for Bonny Castellanos Diagnoses Acute kidney injury superimposed on chronic kidney disease N17.9; N18.9
[2021-08-20] MEDS: budesonide 0.5 mg/2 mL Neb INHALATION ×2 (08:33→20:46)
[2021-08-20] MEDS: sevelamer 800 mg Tablet 1600 MG PO ×3 (08:55→20:47)
[2021-08-20] MEDS: linezolid 600 mg Tablet PO ×2 (08:55→20:48)
[2021-08-20] MEDS: amiodarone 200 mg Tablet 400 MG PO ×2 (08:56→18:10)
[2021-08-20] MEDS: aspirin 81 mg EC Tablet PO (08:56)
[2021-08-20] MEDS: montelukast sodium 10 mg Tablet PO (08:56)
[2021-08-20] MEDS: FUROsemide 10 mg/mL SDV 10mL 60 MG IVP (08:56)
[2021-08-20] MEDS: metoprolol tartrate 50 mg Tablet PO ×2 (08:57→20:48)
[2021-08-20] MEDS: cefepime 1,000 MG in sodium chloride 0.9% (plus) 50 ML 100 MG IV (10:47)
[2021-08-20 10:58] LABS: Alanine Aminotransferase 14 U/L (0-41); Alkaline Phosphatase 72 IU/L (40-130); Globulin 3.7 g/dL (1.3-4.6); Glucose 93 mg/dL (65-115); Total Bilirubin 0.7 mg/dL (0.15-1.2); Total Protein 6.7 g/dL (6.6-8.7)
[2021-08-20 11:17] LABS: Calcium 7.5 mg/dL (8.5-10.5); Carbon Dioxide 20 mmol/L (22-29); Chloride 89 mmol/L (98-107); Magnesium 3.2 mg/dL (1.7-2.3); Sodium 129 mmol/L (136-145)
[2021-08-20 11:18] LABS: Anion Gap 24.8 (5-19); Aspartate Amino Transferase 13 U/L (0-40); Osmolality Calculated 310 mOsm/kg (285-295); Potassium 4.8 mmol/L (3.5-5.1)
[2021-08-20 11:20] LABS: Glucose Point of Care 101 mg/dL (70-110)
[2021-08-20 11:21] LABS: Blood Urea Nitrogen 131 mg/dL (8-23); Phosphorus 8.4 mg/dL (2.5-4.5)
--- NOTE | 2021-08-20 11:22 | PC.SOCIAL ---
IMM Updated Updated pt on IMM. No questions voiced. Provided pt a copy. Initialed, dated, & timed copy in chart.
--- NOTE | 2021-08-20 12:00 | CT_ITS ---
WS: [id number] CT GUIDED LUNG BIOPSY CLINICAL INFORMATION: pleural lung biopsy COMPARISON: None. DLP: 984.08 mGy.cm TECHNIQUE: The procedure including risk, benefits, and complications were discussed with the patient who agreed to proceed. Using sterile technique, the patient was prepped and draped in the usual steri le fashion. Patient was positioned [id number] and CT images were obtained through the RIGHT lung . The largest peripheral RIGHT lung nodule was selected in the RIGHT lower lobe. After 1% lidocaine u sing fluoroscopic guidance, a 19-gauge coaxial needle was advanced into the RIGHT lung mass. Fluid wa s initially aspirated from the overlying pleural effusion. Pleural effusion appeared serous and blood y. Next, Approximately 4 core samples were obtained. Post procedure CT images demonstrate expected hemor rhage about the region. Tiny peripheral pneumothorax with scattered tiny locules of air within the pl eural effusion. Patient had one episode of coughing at the termination of the procedure with associat ed blood products. One-hour post biopsy chest radiograph demonstrates slight increase in bilateral pleural effusions com pared to August 18, 2021 with bibasilar atelectasis. Note bilateral pleural effusions appear increased on the pre-biopsy images compared to the prior CT of August 15, 2021 with compressive atelectasis in th e lung bases. CT/CT biopsy lung [id number] IMPRESSION: 1. Multiple 18-gauge core samples were obtained of the RIGHT lung nodule. 2. 60 minute chest x-ray demonstrates no visualized pneumothorax. Tiny periphe ral pneumothorax with tiny locules of air on the post biopsy CT imaging with ex pected parenchymal hemorrhage in the RIGHT lower lobe. 3. Note prebiopsy CT images demonstrated increased pleural fluid and bibasilar atelectasis compared to the prior CT August 15, 2021 4. Recommend additional chest radiograph follow-up August 21, 2021 in the a.m. 5. Pleural fluid and core samples pending pathology and fluid analysis 6. Aspirated pleural fluid prior to biopsy appeared serosanguineous
--- NOTE | 2021-08-20 12:30 | CT_ITS ---
WS: [id number] CT GUIDED LUNG BIOPSY CLINICAL INFORMATION: pleural lung biopsy COMPARISON: None. DLP: 984.08 mGy.cm TECHNIQUE: The procedure including risk, benefits, and complications were discussed with the patient who agreed to proceed. Using sterile technique, the patient was prepped and draped in the usual steri le fashion. Patient was positioned [id number] and CT images were obtained through the RIGHT lung . The largest peripheral RIGHT lung nodule was selected in the RIGHT lower lobe. After 1% lidocaine u sing fluoroscopic guidance, a 19-gauge coaxial needle was advanced into the RIGHT lung mass. Fluid wa s initially aspirated from the overlying pleural effusion. Pleural effusion appeared serous and blood y. Next, Approximately 4 core samples were obtained. Post procedure CT images demonstrate expected hemor rhage about the region. Tiny peripheral pneumothorax with scattered tiny locules of air within the pl eural effusion. Patient had one episode of coughing at the termination of the procedure with associat ed blood products. One-hour post biopsy chest radiograph demonstrates slight increase in bilateral pleural effusions com pared to August 18, 2021 with bibasilar atelectasis. Note bilateral pleural effusions appear increased on the pre-biopsy images compared to the prior CT of August 15, 2021 with compressive atelectasis in th e lung bases.
[2021-08-20] MEDS: fentaNYL 50 mcg/mL INJ 2mL 25 MCG IVP ×4 (12:34→13:18)
[2021-08-20] MEDS: midazolam 1 mg/mL INJ 2 mL 2 MG IVP ×2 (12:34→13:19)
[2021-08-20] MEDS: midazolam 1 mg/mL INJ 2 mL IVP ×2 (12:44→13:18)
[2021-08-20] MEDS: TRAMadol 50 mg Tablet PO (13:39)
[2021-08-20] MEDS: lidocaine 5% Patch 1 PATCH TOPICAL ×2 (13:40→20:48)
--- NOTE | 2021-08-20 13:40 | XR_ITS ---
WS: [id number] Portable AP upright chest, 08/20/2021 Clinical Data: lung biopsy Comparison: Portable chest, 08/18/2021. Findings: Bilateral basilar opacities are present. These opacities probably represent a combination o f pneumonia, atelectasis and effusion. The heart is enlarged. The aortic arch and descending thoracic aorta show tortuosity. No pneumothorax is present. Monitor leads are on the chest wall. XR/XR chest 1V portable [id number] Impression: 1. No change in bibasilar pulmonary opacities. 2. Atherosclerosis and cardiomegaly.
--- NOTE | 2021-08-20 14:00 | PM.PN ---
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, currently on 2 L nasal cannula Status post pleural biopsy We will hold heparin until tomorrow Lesion was very vascular Creatinine has shown stable pattern Adequate urine output Patient had bowel movement yesterday, constipation relieved We are holding on to placement of temporary dialysis catheter Vitals/I&O/Wt Last Vital Signs Temp 98.2 F 08/20/21 10:00 Pulse 102 H 08/20/21 12:57 Resp 18 08/20/21 12:57 BP 141/109 08/20/21 12:57 Pulse Ox 93 08/20/21 12:57 08/19/21 08/20/21 08/20/21 22:59 06:59 14:59 Intake Total 500.0 / 989.1 123.2 / 1112.3 50 / 50 Output Total 1000 / 1000 300 / 1300 Balance -500.0 / -10.9 -176.8 / -187.7 50 / 50 Weight last 48 hrs Weight 101.786 kg Weight 101.786 kg Physical Exam Narrative: Very pleasant cooperative Currently on 2 L nasal cannula A. fib without RVR Does not look fluid overloaded Abdomen soft Bilateral breath sounds wheezing has improved Awake and alert Nonfocal neuro exam No signs of cellulitis Left arm midline Data : 08/20/21 05:45 08/20/21 09:54 A&P Assessment and plan (1) Atrial fibrillation: Status: Acute (2) Hyponatremia: Status: Acute (3) MRSA pneumonia: Status: Acute (4) Uremia: Status: Acute (5) ATN (acute tubular necrosis): Status: Acute (6) Leukocytosis: Status: Acute (7) Heart failure with reduced ejection fraction: Status: Acute (8) Atypical chest pain: Status: Acute (9) Sepsis: Status: Acute (10) Acute kidney injury superimposed on chronic kidney disease: Status: Acute Plan A. fib without RVR currently doing well on metoprolol and amiodarone Heparin drip on hold because of vascular lesion noticed during biopsy MRSA community-acquired pneumonia Sepsis Leukocytosis Afebrile Will request pleural fluid analysis as well Status post pleural biopsy today TRICIA/ATN: Creatinine stabilized, Adequate urine output, no acute indication of dialysis, we are holding off on a plan for temporary dialysis catheter placement, Severely reduced action fraction heart failure exacerbation Currently on IV diuretics Will need angiogram once kidney function is stabilized Patient is DNR/DNI Consistent carb diet Hold anticoagulating agent for at least next 24 hours Chest pain has improved Electrolyte imbalance: Repleted Attestations Medical Necessity Statement*: May be able to transfer out of ICU tomorrow Time Spent in Patient Care: 30 Coding Level of Care Code Acute Main Galley Scullion for Chg Fwd Diagnoses Atrial fibrillation I48.91 Hyponatremia E87.1 MRSA pneumonia J15.212 Uremia N19 ATN (acute tubular necrosis) N17.0 Leukocytosis D72.829 Heart failure with reduced ejection fraction I50.20 Atypical chest pain R07.89 Sepsis A41.9 Acute kidney injury superimposed on chronic kidney disease N17.9; N18.9
[2021-08-20 15:26] LABS: Lactate Dehydrogenase 269 U/L (135-225)
[2021-08-20 17:10] LABS: Glucose Point of Care 119 mg/dL (70-110)
[2021-08-20 20:59] LABS: Glucose Point of Care 112 mg/dL (70-110)
[2021-08-21] VITALS (44 sets, daily range): BP systolic 98–161; BP diastolic 50–111; PULSE 0–111; RESP 11–25; TEMP 36.6; O2SAT 82–98
[2021-08-21] MEDS: ipratropium-albuterol 3 mL Neb INHALATION ×4 (02:53→20:18)
[2021-08-21] MEDS: TRAMadol 50 mg Tablet PO ×4 (03:55→23:13)
--- NOTE | 2021-08-21 04:00 | XR_ITS ---
WS: [id number] Portable AP semiupright chest, 08/21/2021 Clinical Data: s/p pleural biopsy Comparison: Portable chest, 08/20/2021 Findings: The bilateral patchy opacities remain the same. The right basilar opacity may represent a l oculated effusion. The heart is enlarged. No pneumothorax is present. The pulmonary vascularity is no rmal. The aortic arch and descending thoracic aorta show tortuosity. There are monitor leads on the c hest wall. XR/XR chest 1V portable [id number] Impression: No change in bibasilar pulmonary opacities. 2. Atherosclerosis and cardiomegaly.
[2021-08-21 07:25] LABS: Glucose Point of Care 106 mg/dL (70-110)
--- NOTE | 2021-08-21 07:31 | PC.NURSE ---
Attempted to utilize midline for blood draw, flushes freely but will not draw blood. Pt refuses further venipunctures for labs. Pt up tp chair with standby assist. C/O Pain to r side biopsy site. No other issues noted.
[2021-08-21] MEDS: metoprolol tartrate 50 mg Tablet PO ×2 (07:58→20:20)
[2021-08-21] MEDS: FUROsemide 10 mg/mL SDV 10mL 60 MG IVP (07:59)
[2021-08-21] MEDS: sevelamer 800 mg Tablet 1600 MG PO ×3 (07:59→20:20)
[2021-08-21] MEDS: montelukast sodium 10 mg Tablet PO (07:59)
[2021-08-21] MEDS: linezolid 600 mg Tablet PO ×2 (07:59→20:20)
[2021-08-21] MEDS: lidocaine 5% Patch 1 PATCH TOPICAL (07:59)
[2021-08-21] MEDS: amiodarone 200 mg Tablet 400 MG PO ×2 (07:59→17:51)
[2021-08-21] MEDS: budesonide 0.5 mg/2 mL Neb INHALATION ×2 (09:48→20:19)
--- NOTE | 2021-08-21 10:19 | XR_ITS ---
WS: [id number] Portable AP upright chest, 08/21/2021, 1024 hours Clinical Data: line Comparison: Portable chest, 08/21/2021, 0407 hours. Findings: Left PICC line has been inserted. It ends in the superior vena cava. No pneumothorax is see n. The heart and lungs remain the same. XR/XR chest 1V portable [id number] Impression: Satisfactory insertion of left PICC line.
[2021-08-21] MEDS: cefepime 1,000 MG in sodium chloride 0.9% (plus) 50 ML 100 MG IV (10:48)
--- NOTE | 2021-08-21 10:48 | PC.NURSE ---
PICC LEFT arm placed and ready for use. Primary nurse notified.
--- NOTE | 2021-08-21 10:59 | PM.PN ---
Subjective Subjective: No labs could be drawn, I have asked nurse to change midline to PICC line over guidewire X-ray does show satisfactory placement of PICC line Patient's son at the bedside Hemodynamically stable On 3 L nasal cannula No bowel movement overnight Adequate urine output Will wait for CBC and BMP to update nephro and general surgery if time dialysis catheter needed Status post pleural biopsy, repeat x-ray did not show any pneumothorax or hemothorax Will touch base with cash applications coordinator Vitals/I&O/Wt Last Vital Signs Temp 97.8 F 08/20/21 19:00 Pulse 86 08/21/21 10:00 Resp 14 08/21/21 10:00 BP 161/111 08/21/21 10:00 Pulse Ox 97 08/21/21 10:00 08/20/21 08/21/21 08/21/21 22:59 06:59 14:59 Intake Total 250 / 550 240 / 240 Output Total 700 / 1200 300 / 1500 600 / 600 Balance -450 / -650 -300 / -950 -360 / -360 Weight last 48 hrs Weight 101.786 kg Physical Exam Narrative: Patient is in good spirits Hemodynamically stable On 3 L nasal cannula, Active wheezing Abdomen soft Nontender Bowel sound present Lower extremity 2+ pitting edema Nonfocal neuro exam Variable S1-S2 Data : 08/20/21 05:45 08/20/21 09:54 Micro: Microbiology 08/15/21 14:24 Blood Culture - Final Blood NO GROWTH AFTER 5 DAYS 08/15/21 14:25 Blood Culture - Final Blood NO GROWTH AFTER 5 DAYS A&P Assessment and plan (1) Atrial fibrillation: Status: Acute (2) Hyponatremia: Status: Acute (3) MRSA pneumonia: Status: Acute (4) Uremia: Status: Acute (5) ATN (acute tubular necrosis): Status: Acute (6) Leukocytosis: Status: Acute (7) Heart failure with reduced ejection fraction: Status: Acute (8) Atypical chest pain: Status: Acute (9) Sepsis: Status: Acute (10) Acute kidney injury superimposed on chronic kidney disease: Status: Acute (11) Hypoxia: Status: Acute (12) Atrial fibrillation: Status: Acute (13) Pneumonia: Status: Acute Plan Sepsis with MRSA pneumonia Currently on 3 L nasal cannula Will touch base with cash applications coordinator Continue DuoNeb, budesonide Fluid overload, acute CHF exacerbation Severely reduced EF EF 20% Awaiting angiogram once kidney function improved CHF with hyponatremia does have poor prognosis, avoid albumin ATN related to TRICIA Nephro on board Awaiting on BMP today Making good urine No acute indication for dialysis PICC line placed 08/21 A. fib RVR heart rate controlled Heparin is on hold since pleural biopsy Constipation: Relieved Depression: Patient is getting frustrated staying in the hospital, he does not that he has to stay here for longer term Pleural biopsy 08/20 Repeat x-ray did not show hemo-or pneumothorax DNR/DNI Agreeable for a LifeVest at the time of discharge Appreciate cardiology and nephro input Consistent carb diet Son updated If ICU bed is needed he can be transferred upstairs Attestations Medical Necessity Statement*: Can be transferred out of ICU Time Spent in Patient Care: 30 Coding Level of Care Code Acute Temporary Data Entry Clerk for Chg Fwd Diagnoses Atrial fibrillation I48.91 Hyponatremia E87.1 MRSA pneumonia J15.212 Uremia N19 ATN (acute tubular necrosis) N17.0 Leukocytosis D72.829 Heart failure with reduced ejection fraction I50.20 Atypical chest pain R07.89 Sepsis A41.9 Acute kidney injury superimposed on chronic kidney disease N17.9; N18.9 Hypoxia R09.02 Atrial fibrillation I48.91 Pneumonia J18.9
[2021-08-21 11:10] LABS: Basophils # 0.1 10^3/uL (0.0-0.1); Basophils % 0.2 %; Hematocrit 37.8 % (42.0-52.0); Hemoglobin 12.9 g/dL (11.7-16.6); Lymphocytes # 0.5 10^3/uL (0.8-4.8); Lymphocytes % 2.3 %; Mean Corpuscular HGB Conc 34.1 g/dL (30.0-36.0); Mean Corpuscular Hemoglobin 29.7 pg (28.0-34.0); Mean Corpuscular Volume 86.9 fl (80-94); Monocytes # 1.6 10^3/uL (0.2-0.9); Monocytes % 6.9 %; Neutrophils # 19.48 10^3/uL (1.8-7.7); Neutrophils % 86.9 %; Nucleated Red Blood Cells % 0 %; Platelet Count 335 10^3/cmm (130-400); Red Blood Count 4.35 10^6/uL (4.1-5.3); Red Cell Distribution Width 14.2 % (12.1-15.1); White Blood Count 22.4 10^3/uL (4.0-10.0)
[2021-08-21 11:25] LABS: Glucose Point of Care 119 mg/dL (70-110)
--- NOTE | 2021-08-21 12:49 | PC.NURSE ---
Report given to Darlene GUTIÉRREZ.
[2021-08-21 12:56] LABS: Alanine Aminotransferase 13 U/L (0-41); Albumin Level 3.2 g/dL (3.5-5.2); Alkaline Phosphatase 64 IU/L (40-130); Aspartate Amino Transferase 11 U/L (0-40); Calcium 8.2 mg/dL (8.5-10.5); Carbon Dioxide 23 mmol/L (22-29); Chloride 93 mmol/L (98-107); Globulin 3.5 g/dL (1.3-4.6); Glucose 143 mg/dL (65-115); Magnesium 3.5 mg/dL (1.7-2.3); Phosphorus 7.5 mg/dL (2.5-4.5); Sodium 134 mmol/L (136-145); Total Bilirubin 0.8 mg/dL (0.15-1.2); Total Protein 6.7 g/dL (6.6-8.7)
[2021-08-21 13:12] LABS: Anion Gap 22.8 (5-19); Blood Urea Nitrogen 127 mg/dL (8-23); Osmolality Calculated 321 mOsm/kg (285-295); Potassium 4.8 mmol/L (3.5-5.1)
--- NOTE | 2021-08-21 13:17 | PM.PN ---
Subjective Subjective: Mr. Schuster feels generally poorly, washed out, weak. Urine output noted to be excellent at over 2 L. Very mild lower extremity edema and slight wheeziness on lung examination but no other hypervolemic symptoms. Apart from his weakness and tiredness, no overt uremic symptoms. Vitals/I&O/Wt Last Vital Signs Temp 97.8 F 08/20/21 19:00 Pulse 96 08/21/21 11:30 Resp 15 08/21/21 11:30 BP 140/92 08/21/21 12:00 Pulse Ox 91 08/21/21 11:30 08/20/21 08/21/21 08/21/21 22:59 06:59 14:59 Intake Total 250 / 550 650 / 650 Output Total 700 / 1200 300 / 1500 1150 / 1150 Balance -450 / -650 -300 / -950 -500 / -500 Weight last 48 hrs Weight 101.786 kg Physical Exam Narrative: Constitutional: Awake, comfortable HEENT: Wet mucosa, no jvp, non icteric Lungs: Bilaterally discernible wheeze, no rales in all lung zones CVS: S1 S2, no murmurs Abdo: Soft, BS ok Ext 4: Mild edema, peripheral perfusion with no cyanosis Neurological: Grossly non-focal Data : 08/21/21 10:50 08/21/21 12:20 Micro: Microbiology 08/15/21 14:24 Blood Culture - Final Blood NO GROWTH AFTER 5 DAYS 08/15/21 14:25 Blood Culture - Final Blood NO GROWTH AFTER 5 DAYS A&P Assessment and plan (1) ATN (acute tubular necrosis): Status: Acute Plan 1. Acute nonoliguric kidney injury. Appears to be multifactorial acute kidney injury, from possible contrast on admission, NSAIDs and diuretics. Good urine output and creatinine seems to have plateaued. BUN slightly improved. No changes to medications i.e. continue diuretics for the time being. No indication for hemodialysis today. Continue strict ins and outs Avoid usual nephrotoxic agents Dose medication for GFR less than 15 2. Heart failure Newly diagnosed significant heart failure with ejection fraction 20% Will need ischemic evaluation once renal function demonstrates established recovery unless the knee becomes more emergent. Atrial fibrillation with RVR appreciated, being managed by cardiology. ARB/SGLT2 to be introduced down the road. 3. Chemistry Minor noncritical aberration, continue to monitor closely. 4. MRSA pneumonia Currently on combination antibiotic therapy including cefepime and Zyvox. Thank you for consultation Nelson Forde MD Nephrology [phone] Patient seen and examined via telemedicine, with the assistance of the bedside RN > 25 min spent in evaluation and mgmt of patient Attestations Medical Necessity Statement*: eval for BRAYDEN Coding Level of Care Code Acute Hazardous Materials Handler for Chg Fwd Diagnoses ATN (acute tubular necrosis) N17.0
--- NOTE | 2021-08-21 15:49 | CTR_ITS ---
PROCEDURE INFORMATION: Exam: CT Abdomen And Pelvis Without Contrast Exam date and time: 08/21/2021 4:58 PM Age: 76 years old Clinical indication: Abdominal pain; Flank; Right; Prior surgery; Surgery type: Renal, hernia; Patient HX: HX of renal cancer. Recent dx of lung mets TECHNIQUE: Imaging protocol: Computed tomography of the abdomen and pelvis without contrast. Sagittal and coronal reformatted images were created and reviewed. Radiation optimization: All CT scans at this facility use at least one of these dose optimization techniques: automated exposure control; mA and/or kV adjustment per patient size (includes targeted exams where dose is matched to clinical indication); or iterative reconstruction. COMPARISON: US renal BI* [id number] 08/17/2021 1:50 PM RADIATION DOSE METRICS: Total DLP (mGy-cm): 1784.62 FINDINGS: Lungs: Stable compressive atelectasis and/or pneumonia in the right and left lower lobes. Two masses in the right lower lobe are stable, suspicious for metastatic foci. The larger measures 3.2 x 3.2 cm (series 2, image 18). Pleural spaces: Stable small/moderate partially loculated bilateral pleural effusions are stable. Mild decrease of hemorrhage and decreasing loculated pneumothoraces in the right chest, these are likely secondary to the patient's recent biopsy. Heart: Stable moderate enlargement of the visualized portions of the heart. Liver: Multiple calcified granulomas in the liver. Gallbladder and bile ducts: Mildly increased density layering in the gallbladder. No gallbladder wall thickening. No biliary ductal dilatation. Pancreas: The pancreas is unremarkable. No pancreatic ductal dilatation. Spleen: The spleen is unremarkable. Small splenule in the left upper quadrant. Adrenal glands: The right and left adrenal glands are unremarkable. Kidneys and ureters: Stable findings consistent with a previous right nephrectomy. There is enhancement in the left kidney. Per report from the cardiovascular technologist, the current study was performed without intravenous contrast. Findings in the left kidney could represent persistent enhancement from a prior CT scan or other radiographic study and raises suspicion for contrast nephropathy. Stomach and bowel: Numerous diverticula throughout the entire colon. No acute abnormality in the small bowel. The stomach is collapsed, which can limit evaluation. No focal abnormality in the stomach otherwise. Appendix: The appendix is visualized and is unremarkable. No findings to suggest acute appendicitis. Intraperitoneal space: Small amount of free fluid in the pelvis. No free intraperitoneal air. No ascites. No loculated fluid collections to suggest an abscess. Vasculature: Moderate atherosclerotic changes in the visualized arteries. No evidence for aortic aneurysm. Lymph nodes: No lymphadenopathy. Urinary bladder: The bladder is incompletely filled, which can limit evaluation. No focal abnormality in the bladder however. Reproductive: Nonspecific parenchymal calcifications in the prostate gland. Bones/joints: Bones are diffusely osteopenic. Degenerative changes in the spine, sacroiliac joints, and hips. Patient has had a previous left femoral fracture repair. Mild spinal canal stenosis at L3-L4, L4-L5, and L5-S1. Multilevel foraminal stenosis of varying severity in the visualized spine. Calcification of the anterior longitudinal ligament at multiple levels in the thoracic spine, possibly representing diffuse idiopathic skeletal hyperostosis (DISH). Soft tissues: Left-sided fat containing inguinal hernia. No evidence for strangulation. Moderate fat containing supraumbilical ventral midline hernia. No evidence of strangulation. Dependent edema in the posterior subcutaneous tissues. CT/CT abdomen pelvis wo con [id number] IMPRESSION: 1. There is enhancement in the left kidney. Per report from the cardiovascular technologist, the current study was performed without intravenous contrast. Findings in the left kidney could represent persistent enhancement from a prior CT scan or other radiographic study and raises suspicion for contrast nephropathy. No hydroureteronephrosis. 2. Mildly increased density layering in the gallbladder. This could represent noncalcified gallstones and/or gallbladder sludge or possibly vicarious excretion of contrast. Ultrasound of the gallbladder may be obtained for further evaluation as clinically indicated. 3. Stable small/moderate partially loculated bilateral pleural effusions with compressive atelectasis and/or pneumonia in the right and left lower lobes Recommend followup chest imaging to insure resolution of these findings. 4. Mild decrease of hemorrhage and decreasing loculated pneumothoraces in the right chest, these are likely secondary to the patient's recent biopsy. 5. Two masses in the right lower lobe are stable, suspicious for metastatic foci. 6. Stable findings consistent with a previous right nephrectomy. 7. Left-sided fat containing inguinal hernia and moderate fat containing supraumbilical ventral midline hernia. No evidence for strangulation. 8. Small amount of free fluid in the pelvis. 9. Colonic diverticulosis. No evidence for diverticulitis. 10. Incidental/nonacute findings are listed in the report.
[2021-08-21 17:26] LABS: Glucose Point of Care 153 mg/dL (70-110)
[2021-08-21] MEDS: insulin lispro 100 unit/1 mL SUBCUT (17:51)
[2021-08-21 21:23] LABS: Glucose Point of Care 181 mg/dL (70-110)
--- NOTE | 2021-08-21 23:42 | PC.NURSE ---
Wound Care Patient's ulcer on right foot has dressing applied to it; no current doctor's order for wound care and changes. Dr. Servin contacted; order received to elevate foot currently. No new dressing orders received as of yet. Foot elevated with pillow.
[2021-08-22] VITALS (31 sets, daily range): BP systolic 102–161; BP diastolic 67–117; PULSE 81–130; RESP 11–25; TEMP 36.6; O2SAT 88–99; BMI 28.8
[2021-08-22] MEDS: TRAMadol 50 mg Tablet PO ×4 (04:22→22:44)
[2021-08-22] MEDS: saline nasal spray 44mL Btl 1 SPRAY NASAL (04:25)
[2021-08-22 05:39] LABS: Hemoglobin 12.3 g/dL (11.7-16.6); Mean Corpuscular HGB Conc 33.2 g/dL (30.0-36.0); Mean Corpuscular Hemoglobin 29.3 pg (28.0-34.0); Mean Corpuscular Volume 88.1 fl (80-94); Mean Platelet Volume 11.9 fL (7.4-10.4); Platelet Count 303 10^3/cmm (130-400); Red Cell Distribution Width 14.4 % (12.1-15.1); White Blood Count 24.5 10^3/uL (4.0-10.0)
[2021-08-22 06:09] LABS: Absolute Neutrophil 23.5 10^3/cmm (1.4-6.5); Absolute Segmented Neutrophil 22.8 10/cmm (1.6-7.1); Band Neutrophils Absolute 0.7 10^3/cmm (0.0-1.2); Eosinophils 0 %; Lymphocytes 1 %; Lymphocytes Absolute 0.2 10^3/cmm (1.2-3.4); Monocytes Absolute 0.2 10^3/cmm (0.1-0.6); Platelet Estimate Normal (Normal); Segmented Neutrophils 93 %; Total Cells Counted 100 (0-100)
[2021-08-22 07:06] LABS: Glucose Point of Care 158 mg/dL (70-110)
[2021-08-22 07:19] LABS: Alanine Aminotransferase 12 U/L (0-41); Albumin Level 3.1 g/dL (3.5-5.2); Alkaline Phosphatase 66 IU/L (40-130); Aspartate Amino Transferase 10 U/L (0-40); Calcium 8.1 mg/dL (8.5-10.5); Carbon Dioxide 23 mmol/L (22-29); Chloride 96 mmol/L (98-107); Globulin 3.9 g/dL (1.3-4.6); Glucose 151 mg/dL (65-115); Magnesium 3.3 mg/dL (1.7-2.3); Phosphorus 7.5 mg/dL (2.5-4.5); Sodium 136 mmol/L (136-145); Total Bilirubin 0.7 mg/dL (0.15-1.2)
[2021-08-22 07:35] LABS: Osmolality Calculated 327 mOsm/kg (285-295)
[2021-08-22 07:37] LABS: Blood Urea Nitrogen 131 mg/dL (8-23)
[2021-08-22] MEDS: metoprolol tartrate 50 mg Tablet PO ×2 (08:21→20:10)
[2021-08-22] MEDS: amiodarone 200 mg Tablet 400 MG PO ×2 (08:22→17:28)
[2021-08-22] MEDS: insulin lispro 100 unit/1 mL SUBCUT ×2 (08:22→11:15)
[2021-08-22] MEDS: FUROsemide 10 mg/mL SDV 10mL 60 MG IVP (08:23)
[2021-08-22] MEDS: linezolid 600 mg Tablet PO ×2 (08:24→20:11)
[2021-08-22] MEDS: lidocaine 5% Patch 1 PATCH TOPICAL (08:24)
[2021-08-22] MEDS: montelukast sodium 10 mg Tablet PO (08:25)
[2021-08-22] MEDS: sevelamer 800 mg Tablet 1600 MG PO ×3 (08:25→20:11)
[2021-08-22] MEDS: ipratropium-albuterol 3 mL Neb INHALATION ×3 (08:37→20:06)
[2021-08-22] MEDS: budesonide 0.5 mg/2 mL Neb INHALATION ×2 (08:37→20:06)
--- NOTE | 2021-08-22 10:23 | P.PN_ITS ---
Subjective Subjective: Patient feels better.No chest pain. Vitals/I&O/Wt Last Vital Signs Temp 97.9 F 08/22/21 04:00 Pulse 113 H 08/22/21 09:00 Resp 14 08/22/21 09:00 BP 122/75 08/22/21 07:00 Pulse Ox 88 L 08/22/21 09:00 08/21/21 08/22/21 08/22/21 22:59 06:59 14:59 Intake Total 600 / 1250 250 / 250 Output Total 750 / 1900 900 / 2800 Balance -750 / -1250 -300 / -1550 250 / 250 Weight last 48 hrs Weight 224 lb 6.4 oz Physical Exam Narrative: GENERAL: Patient is alert, awake and oriented x3. [] NECK: No jugular vein distension. [] HEENT: No cyanosis. No icterus. No pallor. [] HEART: Tachycardic, S1 and S2, grade 3/6 systolic murmur LUNGS: Clear to auscultate bilaterally. [] ABDOMEN: Soft, nontender and nondistended. Positive bowel sounds. No guarding, rebound or tenderness. [] CENTRAL NERVOUS SYSTEM: Grossly nonfocal. [] EXTREMITIES: Lower extremities with 1+ edema bilaterally. Pulses palpable in the lower extremities, both dorsalis pedis and posterior tibial. [] Data : 08/24/21 05:45 08/23/21 02:15 A&P Assessment and plan (1) Heart failure with reduced ejection fraction: Status: Acute (2) Atypical chest pain: Status: Acute (3) Sepsis: Status: Acute (4) Atrial fibrillation: Status: Acute (5) Pneumonia: Status: Acute (6) Acute kidney injury superimposed on chronic kidney disease: Status: Acute (7) Atrial fibrillation: Status: Acute Plan Patient has atrial fibrillation with RVR. Also has been found to have new onset congestive heart failure. He will need ischemic work-up once kidney function improves. Has started improving. Nephrology on board Heart rate is borderline elevated Continue IV anticoagulation Antibiotic therapy per primary team Thank you for involving us with care of this patient. We will continue to follow. Please call with questions. Attestations Medical Necessity Statement*: Care expected to cross 2 midnights. 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
[2021-08-22] MEDS: cefepime 1,000 MG in sodium chloride 0.9% (plus) 50 ML 100 MG IV (10:55)
[2021-08-22 11:23] LABS: Glucose Point of Care 228 mg/dL (70-110)
--- NOTE | 2021-08-22 12:13 | P.PN_ITS ---
Subjective Subjective: Feels much improved today. No uremic Sx. Passing a better volume of urine. Minimal edema. Better energy. Feels like he is improving Medications: Reviewed: Yes Medication Review Details: Current Medications Acetaminophen (Acetaminophen 500 Mg Tablet) 500 mg PO Q6H PRN PRN Reason: Pain Albuterol Sulfate (Albuterol 8 Gm Mdi) 2 puff INHALATION Q4H PRN PRN Reason: Shortness Of Breath Albuterol/Ipratropium (Ipratropium-Albuterol 3 Ml Neb) 3 ml INHALATION Q6H PRN PRN Reason: SHORTNESS OF BREATH Last Admin: 08/20/21 02:19 Dose: 3 ml Documented by: Amiodarone HCl (Amiodarone 200 Mg Tablet) 400 mg PO BID [facility] Last Admin: 08/19/21 17:51 Dose: 400 mg Documented by: Aspirin (Aspirin 81 Mg Ec Tablet) 81 mg PO DAILY [facility] Last Admin: 08/19/21 08:24 Dose: 81 mg Documented by: Budesonide (Budesonide 0.5 Mg/2 Ml Neb) 0.5 mg INHALATION BID.RESPIRATORY [facility] Last Admin: 08/19/21 20:05 Dose: 0.5 mg Documented by: Dextrose (Dextrose 50% Syringe 50 Ml) 25 ml IVP ONCE PRN; Protocol PRN Reason: hypoglycemia protocol Dextrose (Dextrose 50% Syringe 50 Ml) 50 ml IVP PRN PRN; Protocol PRN Reason: hypoglycemia protocol Fentanyl (Fentanyl 50 Mcg/Ml Inj 2ml) 25 mcg IVP ONCE ONE Stop: 08/20/21 11:01 Furosemide (Furosemide 10 Mg/Ml Sdv 10ml) 60 mg IVP DAILY [facility] Glucagon (Glucagon 1 Mg/Ml Inj 1 Ml) 1 mg IM ONCE PRN; Protocol PRN Reason: Adult Acute Hypoglycemia Prot. Dextrose (D5w) 500 mls @ 100 mls/hr IV ONCE PRN; Protocol PRN Reason: Adult Acute Hypoglycemia Prot Heparin Sodium/Sodium Chloride (Heparin Drip) 25,000 unit in 500 mls @ 0 mls/hr IV .Q0M [facility]; Protocol Last Titration: 08/19/21 23:59 Dose: 0 unit/kg/hr, 0 mls/hr Documented by: Cefepime HCl 1,000 mg/ Sodium (Chloride) 50 mls @ 100 mls/hr IV Q24H [facility]; Protocol Last Admin: 08/19/21 10:47 Dose: 100 mls/hr Documented by: Insulin Human Lispro (Insulin Lispro 100 Unit/1 Ml) 0 unit SUBCUT TIDWM [facility]; Protocol Last Admin: 08/19/21 17:41 Dose: Not Given Documented by: Lanolin (Lanolin Oint 7 Gm) 1 applic TOPICAL PRN PRN PRN Reason: DRYNESS Lidocaine (Lidocaine 5% Patch) 1 patch TOPICAL [id number] [facility] Last Admin: 08/19/21 20:30 Dose: 1 patch Documented by: Linezolid (Linezolid 600 Mg Tablet) 600 mg PO Q12H [facility] Last Admin: 08/19/21 20:30 Dose: 600 mg Documented by: Metoprolol Tartrate (Metoprolol Tartrate 50 Mg Tablet) 50 mg PO BID@0900,2100 [facility] [place] Last Admin: 08/19/21 20:30 Dose: 50 mg Documented by: Midazolam HCl (Midazolam 1 Mg/Ml Inj 2 Ml) 2 mg IVP ONCE ONE Stop: 08/20/21 11:01 Montelukast Sodium (Montelukast Sodium 10 Mg Tablet) 10 mg PO DAILY [facility] Last Admin: 08/19/21 08:24 Dose: 10 mg Documented by: Morphine Sulfate (Morphine Ir 15 Mg Tablet) 15 mg PO Q6H PRN PRN Reason: pAIN Ondansetron HCl (Ondansetron 2 Mg/Ml Sdv 2 Ml) 4 mg IVP Q6H PRN PRN Reason: NAUSEA AND VOMITING Last Admin: 08/18/21 22:43 Dose: 4 mg Documented by: Sevelamer Carbonate (Sevelamer 800 Mg Tablet) 1,600 mg PO TID [facility] Last Admin: 08/19/21 20:30 Dose: 1,600 mg Documented by: Tramadol HCl (Tramadol 50 Mg Tablet) 50 mg PO Q4H PRN PRN Reason: MODERATE PAIN Last Admin: 08/19/21 17:51 Dose: 50 mg Documented by: Vitals/I&O/Wt Last Vital Signs Temp 97.9 F 08/22/21 04:00 Pulse 113 H 08/22/21 09:00 Resp 14 08/22/21 09:00 BP 122/75 08/22/21 07:00 Pulse Ox 88 L 08/22/21 09:00 08/21/21 08/22/21 08/22/21 22:59 06:59 14:59 Intake Total 600 / 1250 250 / 250 Output Total 750 / 1900 900 / 2800 Balance -750 / -1250 -300 / -1550 250 / 250 Weight last 48 hrs Weight 101.786 kg Physical Exam Narrative: Constitutional: Awake, comfortable HEENT: Wet mucosa, no jvp, non icteric Lungs: Bilaterally discernible wheeze, no rales in all lung zones CVS: S1 S2, no murmurs Abdo: Soft, BS ok Ext 4: Mild edema, peripheral perfusion with no cyanosis Neurological: Grossly non-focal Data : 08/22/21 04:22 08/22/21 06:22 A&P Assessment and plan (1) ATN (acute tubular necrosis): Status: Acute Plan 1. Acute nonoliguric kidney injury. Appears to be multifactorial acute kidney injury, from possible contrast on admission, NSAIDs and diuretics. Good urine output and creatinine improved. No changes to medications i.e. continue diuretics for the time being. Continue strict ins and outs Avoid usual nephrotoxic agents Dose medication for GFR less than 15 2. Heart failure Newly diagnosed significant heart failure with ejection fraction 20% Will need ischemic evaluation once renal function demonstrates established recovery unless the knee becomes more emergent. Atrial fibrillation with RVR appreciated, being managed by cardiology. ARB/SGLT2 to be introduced down the road. 3. Chemistry Minor noncritical aberration, continue to monitor closely. 4. MRSA pneumonia Currently on combination antibiotic therapy including cefepime and Zyvox. 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
--- NOTE | 2021-08-22 13:05 | P.PN_ITS ---
Subjective Subjective: Patient is endorsing feeling better Adequate urine output Creatinine is improved No indication for dialysis Afebrile Persistent leukocytosis Patient is stating that he could feel that he is getting better around 8 PM yesterday he is stating that he is feeling better No bowel movement today I have asked nurse to add sendeborah S Patient is stating that his right-sided chest pain has improved as well I have asked nurse to start heparin drip once Dr. Griffin has evaluated, hemoglobin has remained stable Vitals/I&O/Wt Last Vital Signs Temp 97.9 F 08/22/21 04:00 Pulse 113 H 08/22/21 09:00 Resp 14 08/22/21 09:00 BP 122/75 08/22/21 07:00 Pulse Ox 88 L 08/22/21 09:00 08/21/21 08/22/21 08/22/21 22:59 06:59 14:59 Intake Total 600 / 1250 250 / 250 Output Total 750 / 1900 900 / 2800 Balance -750 / -1250 -300 / -1550 250 / 250 Weight last 48 hrs Weight 101.786 kg Physical Exam Narrative: Patient is endorsing feeling better Signs of fluid overload, no 1+ pitting edema of the lower extremities Wheezing positive bilaterally Currently on 3 L nasal cannula Awake and alert Very pleasant and cooperative No signs of abdominal tenderness Bowel sounds present Data : 08/22/21 04:22 08/22/21 06:22 A&P Assessment and plan (1) Atrial fibrillation: Status: Acute (2) Hyponatremia: Status: Acute (3) MRSA pneumonia: Status: Acute (4) Uremia: Status: Acute (5) ATN (acute tubular necrosis): Status: Acute (6) Leukocytosis: Status: Acute (7) Heart failure with reduced ejection fraction: Status: Acute (8) Atypical chest pain: Status: Acute (9) Sepsis: Status: Acute (10) Acute kidney injury superimposed on chronic kidney disease: Status: Acute (11) Hypoxia: Status: Acute (12) Pulmonary nodule: Status: Acute Plan Sepsis related to MRSA pneumonia Currently on cefepime and linezolid As per the radiologist pulmonary masses are new as compared to previous PET scan 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 Griffin to evaluate him, I did speak with him over the phone Persistent leukocytosis Patient has loculated effusion Currently does not typical signs and symptoms of lung abscess He has been afebrile Cultures negative to date, sputum culture showed MRSA A. fib without RVR currently on amiodarone Heparin drip was stopped after biopsy, hemoglobin remained stable, we can restart today Contrast-induced nephropathy Nonoliguric Patient is currently on Lasix, negative fluid balance No signs of uremia No indication for dialysis Reduced ejection fraction acute heart failure exacerbation EF 20% will need angiogram once creatinine less than 1.7 Patient is agreeable for Life[facility] at the time of discharge Appreciate nephro and cardiology recommendations Will follow up with Dr. 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
--- NOTE | 2021-08-22 13:23 | PC.SOCIAL ---
IMM Update pg 2 of IMM updated and reviewed w/ patient. Copy provided and Copy in chart updated.
[2021-08-22 17:21] LABS: Glucose Point of Care 120 mg/dL (70-110)
[2021-08-23] VITALS (28 sets, daily range): BP systolic 121–156; BP diastolic 76–110; PULSE 85–128; RESP 11–22; TEMP 36.6–37.1; O2SAT 81–98
[2021-08-23 01:42] LABS: Basophils % 0.2 %; Hematocrit 33.6 % (42.0-52.0); Hemoglobin 11.4 g/dL (11.7-16.6); Lymphocytes # 0.4 10^3/uL (0.8-4.8); Lymphocytes % 1.6 %; Mean Corpuscular HGB Conc 33.9 g/dL (30.0-36.0); Mean Corpuscular Hemoglobin 29.5 pg (28.0-34.0); Mean Corpuscular Volume 86.8 fl (80-94); Mean Platelet Volume 11.2 fL (7.4-10.4); Monocytes # 0.9 10^3/uL (0.2-0.9); Monocytes % 3.7 %; Neutrophils # 21.34 10^3/uL (1.8-7.7); Neutrophils % 90.8 %; Nucleated Red Blood Cells % 0 %; Platelet Count 270 10^3/cmm (130-400); Red Blood Count 3.87 10^6/uL (4.1-5.3); Red Cell Distribution Width 14.4 % (12.1-15.1); White Blood Count 23.5 10^3/uL (4.0-10.0)
[2021-08-23 02:44] LABS: Alanine Aminotransferase 11 U/L (0-41); Alkaline Phosphatase 52 IU/L (40-130); C Reactive Protein 100.4 mg/L (0.0-4.9); Calcium 8.3 mg/dL (8.5-10.5); Carbon Dioxide 26 mmol/L (22-29); Chloride 95 mmol/L (98-107); Globulin 3.2 g/dL (1.3-4.6); Glucose 130 mg/dL (65-115); Magnesium 3.3 mg/dL (1.7-2.3); Osmolality Calculated 309 mOsm/kg (285-295); Phosphorus 5.9 mg/dL (2.5-4.5); Sodium 132 mmol/L (136-145); Total Bilirubin 0.6 mg/dL (0.15-1.2); Total Protein 6.2 g/dL (6.6-8.7)
[2021-08-23 02:47] LABS: Anion Gap 16.6 (5-19); Aspartate Amino Transferase 11 U/L (0-40); Potassium 5.6 mmol/L (3.5-5.1)
[2021-08-23 02:51] LABS: Partial Thromboplastin Time 54.8 SECONDS (23.9-36.7)
[2021-08-23 02:53] LABS: Blood Urea Nitrogen 105 mg/dL (8-23)
[2021-08-23] MEDS: ipratropium-albuterol 3 mL Neb INHALATION ×3 (03:06→20:14)
--- NOTE | 2021-08-23 06:14 | PC.NURSE ---
Pt resting quietly in bed with eyes closed. Respirations are even and unlabored. Skin is pink and dry.
[2021-08-23 07:38] LABS: Glucose Point of Care 136 mg/dL (70-110)
[2021-08-23] MEDS: budesonide 0.5 mg/2 mL Neb INHALATION ×2 (07:59→20:14)
[2021-08-23] MEDS: amiodarone 200 mg Tablet 400 MG PO ×2 (08:33→17:04)
[2021-08-23] MEDS: lidocaine 5% Patch 1 PATCH TOPICAL (08:34)
[2021-08-23] MEDS: montelukast sodium 10 mg Tablet PO (08:34)
[2021-08-23] MEDS: metoprolol tartrate 50 mg Tablet PO ×2 (08:34→20:30)
[2021-08-23] MEDS: sevelamer 800 mg Tablet 1600 MG PO ×3 (08:34→20:29)
[2021-08-23] MEDS: FUROsemide 10 mg/mL SDV 10mL 60 MG IVP (08:34)
[2021-08-23] MEDS: linezolid 600 mg Tablet PO ×2 (08:34→20:29)
[2021-08-23] MEDS: cefepime 1,000 MG in sodium chloride 0.9% (plus) 50 ML 100 MG IV (09:14)
[2021-08-23] MEDS: sodium polystyrene sulfonate 15 gm/60 mL Btl PO (09:14)
--- NOTE | 2021-08-23 09:14 | PM.PN ---
Subjective Subjective: Mr. Schuster is doing well. No specific complaints. Creatinine continue to improve nicely. Potassium noted to be a little elevated today. Eating and drinking minimal amounts with a low appetite. No extremity edema. Overall making clinical improvement. Medications: Reviewed: Yes Medication Review Details: Current Medications Acetaminophen (Acetaminophen 500 Mg Tablet) 500 mg PO Q6H PRN PRN Reason: Pain Albuterol Sulfate (Albuterol 8 Gm Mdi) 2 puff INHALATION Q4H PRN PRN Reason: Shortness Of Breath Albuterol/Ipratropium (Ipratropium-Albuterol 3 Ml Neb) 3 ml INHALATION Q6H PRN PRN Reason: SHORTNESS OF BREATH Last Admin: 08/20/21 02:19 Dose: 3 ml Documented by: Amiodarone HCl (Amiodarone 200 Mg Tablet) 400 mg PO BID [facility] Last Admin: 08/19/21 17:51 Dose: 400 mg Documented by: Aspirin (Aspirin 81 Mg Ec Tablet) 81 mg PO DAILY [facility] Last Admin: 08/19/21 08:24 Dose: 81 mg Documented by: Budesonide (Budesonide 0.5 Mg/2 Ml Neb) 0.5 mg INHALATION BID.RESPIRATORY [facility] Last Admin: 08/19/21 20:05 Dose: 0.5 mg Documented by: Dextrose (Dextrose 50% Syringe 50 Ml) 25 ml IVP ONCE PRN; Protocol PRN Reason: hypoglycemia protocol Dextrose (Dextrose 50% Syringe 50 Ml) 50 ml IVP PRN PRN; Protocol PRN Reason: hypoglycemia protocol Fentanyl (Fentanyl 50 Mcg/Ml Inj 2ml) 25 mcg IVP ONCE ONE Stop: 08/20/21 11:01 Furosemide (Furosemide 10 Mg/Ml Sdv 10ml) 60 mg IVP DAILY [facility] Glucagon (Glucagon 1 Mg/Ml Inj 1 Ml) 1 mg IM ONCE PRN; Protocol PRN Reason: Adult Acute Hypoglycemia Prot. Dextrose (D5w) 500 mls @ 100 mls/hr IV ONCE PRN; Protocol PRN Reason: Adult Acute Hypoglycemia Prot Heparin Sodium/Sodium Chloride (Heparin Drip) 25,000 unit in 500 mls @ 0 mls/hr IV .Q0M [facility]; Protocol Last Titration: 08/19/21 23:59 Dose: 0 unit/kg/hr, 0 mls/hr Documented by: Cefepime HCl 1,000 mg/ Sodium (Chloride) 50 mls @ 100 mls/hr IV Q24H [facility]; Protocol Last Admin: 08/19/21 10:47 Dose: 100 mls/hr Documented by: Insulin Human Lispro (Insulin Lispro 100 Unit/1 Ml) 0 unit SUBCUT TIDWM [facility]; Protocol Last Admin: 08/19/21 17:41 Dose: Not Given Documented by: Lanolin (Lanolin Oint 7 Gm) 1 applic TOPICAL PRN PRN PRN Reason: DRYNESS Lidocaine (Lidocaine 5% Patch) 1 patch TOPICAL [id number] [facility] Last Admin: 08/19/21 20:30 Dose: 1 patch Documented by: Linezolid (Linezolid 600 Mg Tablet) 600 mg PO Q12H [facility] Last Admin: 08/19/21 20:30 Dose: 600 mg Documented by: Metoprolol Tartrate (Metoprolol Tartrate 50 Mg Tablet) 50 mg PO BID@0900,2100 [facility] Last Admin: 08/19/21 20:30 Dose: 50 mg Documented by: Midazolam HCl (Midazolam 1 Mg/Ml Inj 2 Ml) 2 mg IVP ONCE ONE Stop: 08/20/21 11:01 Montelukast Sodium (Montelukast Sodium 10 Mg Tablet) 10 mg PO DAILY [facility] Last Admin: 08/19/21 08:24 Dose: 10 mg Documented by: Morphine Sulfate (Morphine Ir 15 Mg Tablet) 15 mg PO Q6H PRN PRN Reason: pAIN Ondansetron HCl (Ondansetron 2 Mg/Ml Sdv 2 Ml) 4 mg IVP Q6H PRN PRN Reason: NAUSEA AND VOMITING Last Admin: 08/18/21 22:43 Dose: 4 mg Documented by: Sevelamer Carbonate (Sevelamer 800 Mg Tablet) 1,600 mg PO TID [facility] Last Admin: 08/19/21 20:30 Dose: 1,600 mg Documented by: Tramadol HCl (Tramadol 50 Mg Tablet) 50 mg PO Q4H PRN PRN Reason: MODERATE PAIN Last Admin: 08/19/21 17:51 Dose: 50 mg Documented by: Vitals/I&O/Wt Last Vital Signs Temp 97.9 F 08/23/21 03:25 Pulse 108 H 08/23/21 08:15 Resp 18 08/23/21 08:00 BP 121/76 08/23/21 05:00 Pulse Ox 94 08/23/21 08:00 08/22/21 08/23/21 08/23/21 22:59 06:59 14:59 Intake Total 650 / 1100 Output Total 400 / 400 300 / 700 Balance 250 / 700 -300 / 400 Weight last 48 hrs Weight 101.605 kg Weight 101.786 kg Physical Exam Narrative: Constitutional: Awake, comfortable HEENT: Wet mucosa, no jvp, non icteric Lungs: Bilaterally discernible wheeze, no rales in all lung zones CVS: S1 S2, no murmurs Abdo: Soft, BS ok Ext 4: Mild edema, peripheral perfusion with no cyanosis Neurological: Grossly non-focal Data : 08/23/21 01:30 08/23/21 02:15 A&P Assessment and plan (1) ATN (acute tubular necrosis): Status: Acute Plan 1. Acute nonoliguric kidney injury. Appears to be multifactorial acute kidney injury, from possible contrast on admission, NSAIDs and diuretics. Good urine output and creatinine improved. No changes to medications i.e. continue diuretics for the time being. Continue strict ins and outs Avoid usual nephrotoxic agents Dose medication for GFR less than 15 2. Heart failure Newly diagnosed significant heart failure with ejection fraction 20% Will need ischemic evaluation once renal function demonstrates established recovery Atrial fibrillation with RVR appreciated, being managed by cardiology. ARB/SGLT2 to be introduced down the road. 3. Chemistry HyperK; kayexalate x 1 today, repeat labs in the am 4. MRSA pneumonia Currently on combination antibiotic therapy including cefepime and Zyvox. 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
[2021-08-23] MEDS: sennosides-docusate Tablet 1 TAB PO (09:15)
[2021-08-23] MEDS: heparin drip 25,000 UNIT/500 ML PREMIX 59.04 UNIT IV (11:16)
[2021-08-23 11:58] LABS: Glucose Point of Care 202 mg/dL (70-110)
[2021-08-23] MEDS: insulin lispro 100 unit/1 mL SUBCUT ×2 (12:00→17:04)
--- NOTE | 2021-08-23 13:10 | PM.PN ---
Subjective Subjective: Leukocyte 23,000 Adequate urine output Potassium Kayexalate Creatinine improving A. fib RVR Hypertensive Heparin drip should be initiated today Currently on 3 L nasal cannula Afebrile Vitals/I&O/Wt Last Vital Signs Temp 97.9 F 08/23/21 03:25 Pulse 103 H 08/23/21 13:00 Resp 11 L 08/23/21 13:00 BP 156/89 08/23/21 08:00 Pulse Ox 98 08/23/21 13:00 08/22/21 08/23/21 08/23/21 22:59 06:59 14:59 Intake Total 650 / 1100 400 / 400 Output Total 400 / 400 300 / 700 300 / 300 Balance 250 / 700 -300 / 400 100 / 100 Weight last 48 hrs Weight 101.605 kg Weight 101.605 kg Weight 101.786 kg Physical Exam Narrative: Patient is endorsing feeling better Wheezing slightly improved Abdomen bloated Edema of legs improved Awake and alert Nonfocal neuro exam Doing well on 3 L nasal cannula S1, S2 bradycardia able Looks euvolemic Data : 08/23/21 01:30 08/23/21 02:15 A&P Assessment and plan (1) Pulmonary nodule: Status: Acute (2) Atrial fibrillation: Status: Acute (3) Hyponatremia: Status: Acute (4) MRSA pneumonia: Status: Acute (5) Uremia: Status: Acute (6) ATN (acute tubular necrosis): Status: Acute (7) Leukocytosis: Status: Acute (8) Heart failure with reduced ejection fraction: Status: Acute (9) Atypical chest pain: Status: Acute (10) Sepsis: Status: Acute (11) Acute kidney injury superimposed on chronic kidney disease: Status: Acute (12) Hypoxia: Status: Acute (13) Pneumonia: Status: Acute Plan Persistent leukocytosis Sepsis related to MRSA pneumonia Afebrile Dr. Griffin does not think it is related to empyema I did speak with him over the phone yesterday Continue cefepime and linezolid Cultures negative I have discontinued steroids on recommendation of Dr. Griffin Inflammatory markers trending down Contrast-induced nephropathy: Creatinine improving Adequate urine output Hyperkalemia: Given Kayexalate A. 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 Cancer markers are pending No signs of renal cell mass History of renal cell carcinoma 5 years ago DNR/DNI carb diet Attestations Medical Necessity Statement*: Might be able to transfer him out of ICU later today versus tomorrow Time Spent in Patient Care: 30 Coding Level of Care Code Acute Simulation Analyst for Chg Fwd Diagnoses Pulmonary nodule R91.1 Atrial fibrillation I48.91 Hyponatremia E87.1 MRSA pneumonia J15.212 Uremia N19 ATN (acute tubular necrosis) N17.0 Leukocytosis D72.829 Heart failure with reduced ejection fraction I50.20 Atypical chest pain R07.89 Sepsis A41.9 Acute kidney injury superimposed on chronic kidney disease N17.9; N18.9 Hypoxia R09.02 Pneumonia J18.9
[2021-08-23] MEDS: clindamycin 150 mg Capsule 300 MG PO ×3 (14:24→20:29)
[2021-08-23] MEDS: TRAMadol 50 mg Tablet PO ×2 (14:28→20:35)
[2021-08-23 16:39] LABS: Glucose Point of Care 165 mg/dL (70-110)
[2021-08-23 17:11] LABS: Partial Thromboplastin Time 92.3 SECONDS (23.9-36.7)
--- NOTE | 2021-08-23 21:51 | P.PN_ITS ---
Subjective Subjective: Patient is feeling well. Denies chest pain. Breathing is improved. Creatinine has come down to 2.4. Baseline is 1.4-1.5 Vitals/I&O/Wt Last Vital Signs Temp 97.9 F 08/23/21 03:25 Pulse 111 H 08/23/21 20:14 Resp 14 08/23/21 20:14 BP 156/89 08/23/21 08:00 Pulse Ox 97 08/23/21 20:14 08/23/21 08/23/21 08/23/21 06:59 14:59 22:59 Intake Total 400 / 400 807.376 / 1207.376 Output Total 300 / 700 300 / 300 1050 / 1350 Balance -300 / 400 100 / 100 -242.624 / -142.624 Weight last 48 hrs Weight 224 lb Weight 224 lb Weight 224 lb 6.4 oz Physical Exam Narrative: GENERAL: Patient is alert, awake and oriented x3. [] NECK: No jugular vein distension. [] HEENT: No cyanosis. No icterus. No pallor. [] HEART: Tachycardic, S1 and S2, grade 3/6 systolic murmur LUNGS: Clear to auscultate bilaterally. [] ABDOMEN: Soft CENTRAL NERVOUS SYSTEM: Grossly nonfocal. [] EXTREMITIES: Lower extremities with 1+ edema bilaterally. Pulses palpable in the lower extremities, both dorsalis pedis and posterior tibial. [] Data : 08/24/21 05:45 08/23/21 02:15 A&P Assessment and plan (1) Heart failure with reduced ejection fraction: Status: Acute (2) Atypical chest pain: Status: Acute (3) Sepsis: Status: Acute (4) Atrial fibrillation: Status: Acute (5) Pneumonia: Status: Acute (6) Acute kidney injury superimposed on chronic kidney disease: Status: Acute (7) Atrial fibrillation: Status: Acute Plan Patient has atrial fibrillation with RVR. Also has been found to have new onset congestive heart failure. He will need ischemic work-up once kidney function comes down to baseline. Today is 2.4. Nephrology on board Heart rate is borderline elevated. Can uptitrate metoprolol to 75mg BID Continue IV anticoagulation. Patient is agreeable to coronary angiogram once creatinine is back to baseline which is around 1.5 Antibiotic therapy per primary team Thank you for involving us with care of this patient. We will continue to follow. Please call with questions. Attestations Medical Necessity Statement*: Care expected to cross 2 midnights. Coding Level of Care Code Acute Supervisor Ship Maintenance Services for Bonny Castellanos Diagnoses Heart failure with reduced ejection fraction I50.20 Atypical chest pain R07.89 Sepsis A41.9 Atrial fibrillation I48.91 Pneumonia J18.9 Acute kidney injury superimposed on chronic kidney disease N17.9; N18.9 Atrial fibrillation I48.91
[2021-08-24] VITALS (28 sets, daily range): BP systolic 119–160; BP diastolic 75–116; PULSE 83–128; RESP 12–24; TEMP 36.3–37.1; O2SAT 86–99; BMI 29.3
[2021-08-24] MEDS: heparin drip 25,000 UNIT/500 ML PREMIX 27 UNIT IV (00:27)
[2021-08-24 00:34] LABS: Partial Thromboplastin Time 55.4 SECONDS (23.9-36.7)
[2021-08-24] MEDS: ipratropium-albuterol 3 mL Neb INHALATION ×4 (03:45→20:20)
[2021-08-24] MEDS: TRAMadol 50 mg Tablet PO ×2 (04:10→19:18)
[2021-08-24 06:15] LABS: Basophils % 0.1 %; Eosinophils % 0.1 %; Hematocrit 35.3 % (42.0-52.0); Hemoglobin 11.7 g/dL (11.7-16.6); Lymphocytes # 0.6 10^3/uL (0.8-4.8); Lymphocytes % 3.4 %; Mean Corpuscular HGB Conc 33.1 g/dL (30.0-36.0); Mean Corpuscular Hemoglobin 29.5 pg (28.0-34.0); Mean Corpuscular Volume 88.9 fl (80-94); Mean Platelet Volume 11.1 fL (7.4-10.4); Monocytes # 1.4 10^3/uL (0.2-0.9); Monocytes % 7.7 %; Neutrophils # 14.82 10^3/uL (1.8-7.7); Nucleated Red Blood Cells % 0 %; Platelet Count 263 10^3/cmm (130-400); Red Blood Count 3.97 10^6/uL (4.1-5.3); Red Cell Distribution Width 14.5 % (12.1-15.1); White Blood Count 17.5 10^3/uL (4.0-10.0)
[2021-08-24 06:28] LABS: Partial Thromboplastin Time 48.6 SECONDS (23.9-36.7)
[2021-08-24 08:06] LABS: Anion Gap 12.2 (5-19); Calcium 7.7 mg/dL (8.5-10.5); Carbon Dioxide 30 mmol/L (22-29); Chloride 100 mmol/L (98-107); Glucose 111 mg/dL (65-115); Lactate Dehydrogenase 199 U/L (135-225); Osmolality Calculated 314 mOsm/kg (285-295); Potassium 4.2 mmol/L (3.5-5.1); Sodium 138 mmol/L (136-145)
[2021-08-24 08:12] LABS: Procalcitonin 0.25 ng/mL (0-0.5)
[2021-08-24 08:15] LABS: Blood Urea Nitrogen 89 mg/dL (8-23)
[2021-08-24] MEDS: budesonide 0.5 mg/2 mL Neb INHALATION ×2 (08:49→20:20)
--- NOTE | 2021-08-24 09:02 | PM.PN ---
Subjective Subjective: Mr. Schuster feels well today with no acute issues. No edema and no other hypervolemic symptoms. No chest pain. Good volume of urine. Medications: Reviewed: Yes Medication Review Details: Current Medications Acetaminophen (Acetaminophen 500 Mg Tablet) 500 mg PO Q6H PRN PRN Reason: Pain Albuterol Sulfate (Albuterol 8 Gm Mdi) 2 puff INHALATION Q4H PRN PRN Reason: Shortness Of Breath Albuterol/Ipratropium (Ipratropium-Albuterol 3 Ml Neb) 3 ml INHALATION Q6H PRN PRN Reason: SHORTNESS OF BREATH Last Admin: 08/20/21 02:19 Dose: 3 ml Documented by: Amiodarone HCl (Amiodarone 200 Mg Tablet) 400 mg PO BID [facility] Last Admin: 08/19/21 17:51 Dose: 400 mg Documented by: Aspirin (Aspirin 81 Mg Ec Tablet) 81 mg PO DAILY [facility] Last Admin: 08/19/21 08:24 Dose: 81 mg Documented by: Budesonide (Budesonide 0.5 Mg/2 Ml Neb) 0.5 mg INHALATION BID.RESPIRATORY [facility]NEY Last Admin: 08/19/21 20:05 Dose: 0.5 mg Documented by: Dextrose (Dextrose 50% Syringe 50 Ml) 25 ml IVP ONCE PRN; Protocol PRN Reason: hypoglycemia protocol Dextrose (Dextrose 50% Syringe 50 Ml) 50 ml IVP PRN PRN; Protocol PRN Reason: hypoglycemia protocol Fentanyl (Fentanyl 50 Mcg/Ml Inj 2ml) 25 mcg IVP ONCE ONE Stop: 08/20/21 11:01 Furosemide (Furosemide 10 Mg/Ml Sdv 10ml) 60 mg IVP DAILY [facility] Glucagon (Glucagon 1 Mg/Ml Inj 1 Ml) 1 mg IM ONCE PRN; Protocol PRN Reason: Adult Acute Hypoglycemia Prot. Dextrose (D5w) 500 mls @ 100 mls/hr IV ONCE PRN; Protocol PRN Reason: Adult Acute Hypoglycemia Prot Heparin Sodium/Sodium Chloride (Heparin Drip) 25,000 unit in 500 mls @ 0 mls/hr IV .Q0M [facility]; Protocol Last Titration: 08/19/21 23:59 Dose: 0 unit/kg/hr, 0 mls/hr Documented by: Cefepime HCl 1,000 mg/ Sodium (Chloride) 50 mls @ 100 mls/hr IV Q24H [facility]; Protocol Last Admin: 08/19/21 10:47 Dose: 100 mls/hr Documented by: Insulin Human Lispro (Insulin Lispro 100 Unit/1 Ml) 0 unit SUBCUT TIDWM [facility]; Protocol Last Admin: 08/19/21 17:41 Dose: Not Given Documented by: Lanolin (Lanolin Oint 7 Gm) 1 applic TOPICAL PRN PRN PRN Reason: DRYNESS Lidocaine (Lidocaine 5% Patch) 1 patch TOPICAL [id number] [facility] Last Admin: 08/19/21 20:30 Dose: 1 patch Documented by: Linezolid (Linezolid 600 Mg Tablet) 600 mg PO Q12H [facility] Last Admin: 08/19/21 20:30 Dose: 600 mg Documented by: Metoprolol Tartrate (Metoprolol Tartrate 50 Mg Tablet) 50 mg PO BID@0900,2100 [facility] Last Admin: 08/19/21 20:30 Dose: 50 mg Documented by: Midazolam HCl (Midazolam 1 Mg/Ml Inj 2 Ml) 2 mg IVP ONCE ONE Stop: 08/20/21 11:01 Montelukast Sodium (Montelukast Sodium 10 Mg Tablet) 10 mg PO DAILY [facility] Last Admin: 08/19/21 08:24 Dose: 10 mg Documented by: Morphine Sulfate (Morphine Ir 15 Mg Tablet) 15 mg PO Q6H PRN PRN Reason: pAIN Ondansetron HCl (Ondansetron 2 Mg/Ml Sdv 2 Ml) 4 mg IVP Q6H PRN PRN Reason: NAUSEA AND VOMITING Last Admin: 08/18/21 22:43 Dose: 4 mg Documented by: Sevelamer Carbonate (Sevelamer 800 Mg Tablet) 1,600 mg PO TID [facility] Last Admin: 08/19/21 20:30 Dose: 1,600 mg Documented by: Tramadol HCl (Tramadol 50 Mg Tablet) 50 mg PO Q4H PRN PRN Reason: MODERATE PAIN Last Admin: 08/19/21 17:51 Dose: 50 mg Documented by: Vitals/I&O/Wt Last Vital Signs Temp 97.4 F L 08/24/21 04:00 Pulse 108 H 08/24/21 08:00 Resp 16 08/24/21 08:00 BP 134/90 08/24/21 06:00 Pulse Ox 95 08/24/21 08:00 08/23/21 08/24/2108/24/22 22:59 06:59 14:59 Intake Total 900.000 / 1300.000 450 / 1750.000 Output Total 1100 / 1400 300 / 1700 Balance -200 / -100.000 150 / 50.000 Weight last 48 hrs Weight 103.737 kg Weight 101.605 kg Weight 101.605 kg Physical Exam Narrative: Constitutional: Awake, comfortable HEENT: Wet mucosa, no jvp, non icteric Lungs: Bilaterally discernible wheeze, no rales in all lung zones CVS: S1 S2, no murmurs Abdo: Soft, BS ok Ext 4: Mild edema, peripheral perfusion with no cyanosis Neurological: Grossly non-focal Data : 08/24/21 05:45 08/24/21 07:38 A&P Assessment and plan (1) ATN (acute tubular necrosis): Status: Acute Plan 1. Acute nonoliguric kidney injury. Appears to be multifactorial acute kidney injury, from possible contrast on admission, NSAIDs and diuretics. Good urine output and creatinine improved. Change lasix to prn dosing now Continue strict ins and outs Avoid usual nephrotoxic agents Dose medication for GFR less than 15 2. Heart failure Newly diagnosed significant heart failure with ejection fraction 20% ok for [facility] from my perspective lorenzo-LHC ivf minimize dye, the usual precautions Atrial fibrillation with RVR appreciated, being managed by cardiology. ARB/SGLT2 to be introduced down the road. Lasix prn 3. Chemistry labs look good 4. MRSA pneumonia Currently on combination antibiotic therapy including cefepime and Zyvox. Thank you for consultation Nelson Forde MD Nephrology [phone] Patient seen and examined via telemedicine, with the assistance of the bedside RN > 25 min spent in evaluation and mgmt of patient Attestations Medical Necessity Statement*: eval for [facility]RAYDEN Coding Level of Care Code Acute Alternative Dispute Resolution Mediator for g Fwd Diagnoses ATN (acute tubular necrosis) N17.0
[2021-08-24] MEDS: amiodarone 200 mg Tablet 400 MG PO ×2 (09:51→17:08)
[2021-08-24] MEDS: montelukast sodium 10 mg Tablet PO (09:51)
[2021-08-24] MEDS: metoprolol tartrate 50 mg Tablet PO (09:52)
[2021-08-24] MEDS: lactobacillus 1 Tablet 1 TAB PO ×2 (09:52→17:08)
[2021-08-24] MEDS: linezolid 600 mg Tablet PO ×2 (09:52→20:47)
[2021-08-24] MEDS: clindamycin 150 mg Capsule 300 MG PO ×3 (09:57→20:47)
--- NOTE | 2021-08-24 09:57 | PC.SOCIAL ---
IMM Updated Updated pt on IMM. No questions voiced. Provided pt a copy. Initialed, dated, & timed copy in chart.
[2021-08-24] MEDS: lidocaine 5% Patch 1 PATCH TOPICAL (10:28)
[2021-08-24] MEDS: cefepime 1,000 MG in sodium chloride 0.9% (plus) 50 ML 100 MG IV (10:28)
--- NOTE | 2021-08-24 10:40 | PC.CHAP ---
Pastoral Care Encounter/Spiritual Assessment Type of Contact [] Declined rn homecare visit [] Patient/Family/Request visit [] Outpatient visit [] Follow-up visit [] Physician referral [] Code/Alert [x] Routine visit [] Staff referral [] Actively dying [] Patient sleeping [] Family support [] [] Out of room [] Palliative care [] [] Receiving care in room [] Pre-surgical visit [] Trauma [] Long length of stay [x] ICU visit [] Other: Relational/Emotional Strength [] Patient feels connected with others/family/visitors/staff [] Distress [] Loneliness/isolation [] Abandonment Spirituality of Patient [] Person of Opal [] Attends Latter Day of their [place] [] Believes in Prayer [] Reads Bible or Scientology materials [] There are Spiritual issues to be addressed Trip Rider Interventions [x] Prayer [x] Active listening [x] Non-anxious presence [x] Spiritual/emotional support [] Crisis/trauma care [] Spiritual counseling [] Bereavement support [] Provided bereavement packet [] Provided Bible/devotional materials [] Provided toy/stuffed animal, coloring book to patient or family member [] Provided Communion [] Anointing/[place] [] Salvation [x] Completed spiritual assessment [] Other: Impact on Illness or Injury [] Angry [] Fearful [] Anxious [] Often cries [] Exhaustion [] Unable to work [] Unable to attend yazdanism [] Unable to walk/stand [] Unable to read [] Unable to drive [] Unable to eat/drink [] Unable to sleep [] Unable to be with family [] Patient intubated [] Other: Summary patient feeling so much stronger ... very thankful for his help Time spent with patient 5 min
[2021-08-24 11:07] LABS: Glucose Point of Care 131 mg/dL (70-110)
--- NOTE | 2021-08-24 11:36 | P.PN_ITS ---
Subjective Subjective: Patient is feeling better. Vitals/I&O/Wt Last Vital Signs Temp 97.4 F L 08/24/21 10:00 Pulse 108 H 08/24/21 10:00 Resp 16 08/24/21 10:00 BP 134/90 08/24/21 10:00 Pulse Ox 95 08/24/21 10:00 08/23/21 08/24/21 08/24/21 22:59 06:59 14:59 Intake Total 900.000 / 1300.000 450 / 1750.000 450 / 450 Output Total 1100 / 1400 300 / 1700 50 / 50 Balance -200 / -100.000 150 / 50.000 400 / 400 Weight last 48 hrs Weight 228 lb 11.2 oz Weight 228 lb 11.2 oz Weight 224 lb Physical Exam Narrative: GENERAL: Patient is alert, awake and oriented x3. [] NECK: No jugular vein distension. [] HEENT: No cyanosis. No icterus. No pallor. [] HEART: Tachycardic, S1 and S2, grade 3/6 systolic murmur LUNGS: Clear to auscultate bilaterally. [] ABDOMEN: Soft CENTRAL NERVOUS SYSTEM: Grossly nonfocal. [] EXTREMITIES: Lower extremities with 1+ edema bilaterally. Pulses palpable in the lower extremities, both dorsalis pedis and posterior tibial. [] Data : 08/25/21 03:12 08/25/21 03:12 A&P Assessment and plan (1) Heart failure with reduced ejection fraction: Status: Acute (2) Atypical chest pain: Status: Acute (3) Sepsis: Status: Acute (4) Atrial fibrillation: Status: Acute (5) Pneumonia: Status: Acute (6) Acute kidney injury superimposed on chronic kidney disease: Status: Acute (7) Atrial fibrillation: Status: Acute Plan Patient has atrial fibrillation with RVR. Also has been found to have new o nset congestive heart failure. He will need ischemic work-up once kidney function comes down to baseline. Today is 2.4. Nephrology on board Heart rate is borderline elevated. We will uptitrate metoprolol to 100mg BID Continue IV anticoagulation. Plan for coronary angiogram once Creatinine is close to baseline. It is improving Antibiotic therapy per primary team Thank you for involving us with care of this patient. We will continue to follow. Please call with questions. Attestations Medical Necessity Statement*: Care expected to cross 2 midnights. Coding Level of Care Code Acute Billboard Erector Helper for Chg Fwd Diagnoses Heart failure with reduced ejection fraction I50.20 Atypical chest pain R07.89 Sepsis A41.9 Atrial fibrillation I48.91 Pneumonia J18.9 Acute kidney injury superimposed on chronic kidney disease N17.9; N18.9 Atrial fibrillation I48.91
--- NOTE | 2021-08-24 13:13 | P.PN_ITS ---
Subjective Subjective: Patient is happy with his progress, creatinine 1.9, Dr. Jones is stating that he might do an angiogram on Tuesday if creatinine keeps improving Continue heparin drip Add probiotics With clindamycin addition yesterday leukocytosis improved Currently on 3 L nasal cannula He had 1 bowel movement yesterday He is endorsing feeling better Vitals/I&O/Wt Last Vital Signs Temp 97.4 F L 08/24/21 10:00 Pulse 108 H 08/24/21 10:00 Resp 16 08/24/21 10:00 BP 134/90 08/24/21 10:00 Pulse Ox 95 08/24/21 10:00 08/23/21 08/24/21 08/24/21 22:59 06:59 14:59 Intake Total 900.000 / 1300.000 450 / 1750.000 450 / 450 Output Total 1100 / 1400 300 / 1700 50 / 50 Balance -200 / -100.000 150 / 50.000 400 / 400 Weight last 48 hrs Weight 103.737 kg Weight 103.737 kg Weight 101.605 kg Physical Exam Narrative: Clinically euvolemic Abdomen soft Lower extremity no edema On 3 L nasal cannula Active mild wheezing Variable S1-S2 RVR Pleasant and cooperative Nonfocal neuro exam No skin rash Data : 08/24/21 05:45 08/24/21 07:38 A&P Assessment and plan (1) Pulmonary nodule: Status: Acute (2) Atrial fibrillation: Status: Acute (3) Hyponatremia: Status: Acute (4) MRSA pneumonia: Status: Acute (5) Uremia: Status: Acute (6) ATN (acute tubular necrosis): Status: Acute (7) Leukocytosis: Status: Acute (8) Heart failure with reduced ejection fraction: Status: Acute (9) Atypical chest pain: Status: Acute (10) Sepsis: Status: Acute (11) Acute kidney injury superimposed on chronic kidney disease: Status: Acute Plan MRSA pneumonia Additional clindamycin on 08/23 Leukocytosis) now Oxygen, and has not worsened currently on 3 L Still having active wheezing Dr. Griffin did not recommend chest tube placement, No concern for empyema A. fib RVR continue amiodarone metoprolol and heparin drip Contrast-induced nephropathy creatinine improved with diuretics Plan for angiogram on Tuesday Constipation: Relieved Add probiotics with broad-spectrum antibiotics Discharge infection heart failure currently compensated EF 20% need angiogram Status post pulmonary nodule biopsy which returned clear cell carcinoma, we are waiting for immunochemical stain no renal mass on CT abdomen pelvis DNR/DNI Attestations Medical Necessity Statement*: Angiogram on Tuesday Time Spent in Patient Care: 30 Coding Level of Care Code Acute Flap Lining Binder for Chg Fwd Diagnoses Pulmonary nodule R91.1 Atrial fibrillation I48.91 Hyponatremia E87.1 MRSA pneumonia J15.212 Uremia N19 ATN (acute tubular necrosis) N17.0 Leukocytosis D72.829 Heart failure with reduced ejection fraction I50.20 Atypical chest pain R07.89 Sepsis A41.9 Acute kidney injury superimposed on chronic kidney disease N17.9; N18.9
[2021-08-24 14:04] LABS: Partial Thromboplastin Time 65.6 SECONDS (23.9-36.7)
[2021-08-24 17:19] LABS: Glucose Point of Care 134 mg/dL (70-110)
[2021-08-24 20:44] LABS: Partial Thromboplastin Time 42.7 SECONDS (23.9-36.7)
[2021-08-24] MEDS: metoprolol tartrate 50 mg Tablet 75 MG PO (20:47)
--- NOTE | 2021-08-24 21:21 | ECG_ITS ---
[facility] Test Date: 2021-08-24 Pat Name: Nelson Schuster Department: Room: ICU10 Gender: Male Bottle Caser: : 1945 Requested By: Deyvi Washington Order Number: [id number] Nahun MD: Indu Morgan M.D. Measurements Intervals [place] Rate: 96 P: [place]: QRS: 17 QRSD: 98 T: 86 QT: 372 QTc: 472 Interpretive Statements ATRIAL FIBRILLATION LOW QRS VOLTAGE IN EXTREMITY LEADS [QRS DEFLECTION < 0.5 mV IN LIMB LEADS] ABNORMAL RHYTHM ECG Compared to ECG 08/15/2021 20:40:45 Low QRS voltage now present T-wave abnormality no longer present Electronically Signed On 08-24-2021 21:28:46 CDT by Indu Morgan M.D. [email or web address]
[2021-08-24] MEDS: heparin drip 25,000 UNIT/500 ML PREMIX 31 UNIT IV (21:33)
--- NOTE | 2021-08-24 21:33 | PC.NURSE ---
Heparin infusing at 27 mls/hr before this shift.
--- NOTE | 2021-08-24 21:59 | PC.NURSE ---
Pt complained of chest pressure radiating to his bilateral jaw 5/10. Pt reports pain has been present for 1 hour. Pain is not reproducible, and nothing seems to make the pain better or worse. Pt also complains of increased bloating and gas, and persistent cough. EKG obtained. Dr. Washington notified. Pt will begin Protonix. If pain persists, I am to notify Dr. Washington for further orders.
[2021-08-24] MEDS: pantoprazole DR 40 mg Tablet PO (22:04)
--- NOTE | 2021-08-24 22:07 | PC.NURSE ---
Pt now rates chest pressure a 2/10. Protonix administered as ordered.
[2021-08-25] VITALS (21 sets, daily range): BP systolic 113–173; BP diastolic 77–124; PULSE 92–120; RESP 12–18; TEMP 36.3–36.8; O2SAT 89–97; BMI 29.3
[2021-08-25] MEDS: TRAMadol 50 mg Tablet PO ×3 (00:34→22:08)
--- NOTE | 2021-08-25 01:46 | PC.NURSE ---
No further complaints of chest pain at this time.
[2021-08-25 03:44] LABS: Basophils # 0.1 10^3/uL (0.0-0.1); Basophils % 0.2 %; Eosinophils % 0.1 %; Hematocrit 35.1 % (42.0-52.0); Hemoglobin 11.6 g/dL (11.7-16.6); Lymphocytes # 0.6 10^3/uL (0.8-4.8); Lymphocytes % 2.8 %; Mean Corpuscular Hemoglobin 29.3 pg (28.0-34.0); Mean Corpuscular Volume 88.6 fl (80-94); Monocytes # 1.6 10^3/uL (0.2-0.9); Monocytes % 7.6 %; Neutrophils % 86.9 %; Nucleated Red Blood Cells % 0 %; Platelet Count 263 10^3/cmm (130-400); Red Blood Count 3.96 10^6/uL (4.1-5.3); Red Cell Distribution Width 14.3 % (12.1-15.1); White Blood Count 21.2 10^3/uL (4.0-10.0)
[2021-08-25 03:57] LABS: Partial Thromboplastin Time 66.3 SECONDS (23.9-36.7)
[2021-08-25 04:06] LABS: Anion Gap 11.4 (5-19); Blood Urea Nitrogen 69 mg/dL (8-23); Calcium 8.3 mg/dL (8.5-10.5); Carbon Dioxide 31 mmol/L (22-29); Chloride 100 mmol/L (98-107); Glucose 131 mg/dL (65-115); Osmolality Calculated 308 mOsm/kg (285-295); Potassium 4.4 mmol/L (3.5-5.1); Sodium 138 mmol/L (136-145)
[2021-08-25] MEDS: ipratropium-albuterol 3 mL Neb INHALATION ×4 (05:59→20:09)
--- NOTE | 2021-08-25 06:18 | PM.PN ---
Subjective Subjective: Patient remained afebrile Leukocyte again around 20,000 Positive fluid balance We will give him a dose of Lasix today Dr. Jones planning for angiogram tomorrow morning We will make him n.p.o. after midnight No electrolyte imbalance A. fib RVR Vitals/I&O/Wt Last Vital Signs Temp 97.4 F L 08/25/21 00:00 Pulse 106 H 08/25/21 05:59 Resp 16 08/25/21 05:59 BP 138/94 08/25/21 04:00 Pulse Ox 94 08/25/21 05:59 08/24/21 08/24/21 08/25/21 14:59 22:59 06:59 Intake Total 1065.5 / 1065.5 1160 / 2225.5 Output Total 750 / 750 200 / 950 250 / 1200 Balance 315.5 / 315.5 -200 / 115.5 910 / 1025.5 Weight last 48 hrs Weight 103.737 kg Weight 103.737 kg Weight 101.605 kg Physical Exam Narrative: Pleasant and cooperative male Currently on 2 L nasal cannula Mild wheezing Abdomen soft No signs of fluid overload Nonfocal neuro exam Pleasant and cooperative Left arm PICC line Data : 08/25/21 03:12 08/25/21 03:12 A&P Assessment and plan (1) Pulmonary nodule: Status: Acute (2) Atrial fibrillation: Status: Acute (3) Hyponatremia: Status: Acute (4) MRSA pneumonia: Status: Acute (5) Uremia: Status: Acute (6) ATN (acute tubular necrosis): Status: Acute (7) Leukocytosis: Status: Acute (8) Heart failure with reduced ejection fraction: Status: Acute (9) Atypical chest pain: Status: Acute (10) Sepsis: Status: Acute Plan Sepsis related to MRSA pneumonia Afebrile Cultures negative Sputum culture positive for MRSA I have kept him on cefepime, linezolid and clindamycin Pulmonary nodule showed clear cell carcinoma however no renal mass noted We are waiting for immunochemical test results Renal cell carcinoma history was 5 years ago Acute hypoxia related to COPD exacerbation and pneumonia Currently requiring 3 L Reduced action fraction heart failure Currently compensated Will give 1 dose of Lasix today Awaiting angiogram most likely tomorrow Contrast-induced nephropathy: Improved with conservative management, Lasix can be used on as needed basis Appreciate nephro input A. 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
[2021-08-25] MEDS: budesonide 0.5 mg/2 mL Neb INHALATION ×2 (08:33→20:09)
[2021-08-25] MEDS: linezolid 600 mg Tablet PO ×2 (08:44→20:34)
[2021-08-25] MEDS: pantoprazole DR 40 mg Tablet PO ×2 (08:44→17:18)
[2021-08-25] MEDS: aspirin 81 mg EC Tablet PO (08:44)
[2021-08-25] MEDS: montelukast sodium 10 mg Tablet PO (08:44)
[2021-08-25] MEDS: amiodarone 200 mg Tablet 400 MG PO ×2 (08:44→17:18)
[2021-08-25] MEDS: lactobacillus 1 Tablet 1 TAB PO ×2 (08:44→17:18)
[2021-08-25] MEDS: FUROsemide 20 mg Tablet PO (08:44)
[2021-08-25] MEDS: metoprolol tartrate 50 mg Tablet 75 MG PO (08:48)
[2021-08-25] MEDS: lidocaine 5% Patch 1 PATCH TOPICAL (08:50)
[2021-08-25 09:32] LABS: Partial Thromboplastin Time 33.2 SECONDS (23.9-36.7)
[2021-08-25] MEDS: clindamycin 150 mg Capsule 300 MG PO ×3 (11:22→20:34)
[2021-08-25] MEDS: metoprolol succinate ER (24 HR) 25 mg Tablet PO (11:23)
[2021-08-25] MEDS: ondansetron 2 mg/ML SDV 2 mL 4 MG IVP ×2 (12:45→19:04)
--- NOTE | 2021-08-25 16:19 | P.PN_ITS ---
Subjective Subjective: Patient is overall doing well. heart rate is better controlled. Vitals/I&O/Wt Last Vital Signs Temp 97.4 F L 08/25/21 10:00 Pulse 98 08/25/21 14:37 Resp 16 08/25/21 14:37 BP 134/88 08/25/21 14:00 Pulse Ox 95 08/25/21 14:37 08/25/21 08/25/21 08/25/21 06:59 14:59 22:59 Intake Total 1160 / 2225.5 Output Total 250 / 1200 Balance 910 / 1025.5 Weight last 48 hrs Weight 228 lb 11.2 oz Weight 228 lb 11.2 oz Weight 228 lb 11.2 oz Physical Exam Narrative: GENERAL: Patient is alert, awake and oriented x3. [] NECK: No jugular vein distension. [] HEENT: No cyanosis. No icterus. No pallor. [] HEART: Tachycardic, S1 and S2, grade 3/6 systolic murmur LUNGS: Clear to auscultate bilaterally. [] ABDOMEN: Soft CENTRAL NERVOUS SYSTEM: Grossly nonfocal. [] EXTREMITIES: Lower extremities with 1+ edema bilaterally. Pulses palpable in the lower extremities, both dorsalis pedis and posterior tibial. [] Data : 08/25/21 03:12 08/25/21 03:12 A&P Assessment and plan (1) Heart failure with reduced ejection fraction: Status: Acute (2) Atypical chest pain: Status: Acute (3) Sepsis: Status: Acute (4) Atrial fibrillation: Status: Acute (5) Pneumonia: Status: Acute (6) Acute kidney injury superimposed on chronic kidney disease: Status: Acute (7) Atrial fibrillation: Status: Acute Plan Patient has atrial fibrillation with RVR. Also has been found to have new onset congestive heart failure. He will need ischemic work-up once kidney function comes down to baseline. Today is 1.7. If renal function comes to baseline of 1.5 by tomorrow, will plan on coronary angiogram. Heart rate is better controlled. Metoprolol uptitrated t0 100mg BID Continue IV anticoagulation. Antibiotic therapy per primary team Thank you for involving us with care of this patient. We will continue to follow. Please call with questions. Attestations Medical Necessity Statement*: Care expected to cross 2 midnights. Coding Level of Care Code Acute Server Assistant for Chg Fwd Diagnoses Heart failure with reduced ejection fraction I50.20 Atypical chest pain R07.89 Sepsis A41.9 Atrial fibrillation I48.91 Pneumonia J18.9 Acute kidney injury superimposed on chronic kidney disease N17.9; N18.9 Atrial fibrillation I48.91
[2021-08-25 17:00] LABS: Glucose Point of Care 162 mg/dL (70-110)
[2021-08-25 17:56] LABS: Partial Thromboplastin Time 64.4 SECONDS (23.9-36.7)
[2021-08-25] MEDS: morphine IR 15 mg Tablet PO (18:31)
[2021-08-25] MEDS: metoprolol tartrate 50 mg Tablet 100 MG PO (20:35)
[2021-08-26] VITALS (28 sets, daily range): BP systolic 106–142; BP diastolic 73–110; PULSE 88–121; RESP 11–18; TEMP 36.2–36.6; O2SAT 88–100; BMI 29.0
--- NOTE | 2021-08-26 02:22 | PC.NURSE ---
Pt resting quietly in bed with eyes closed. Respirations are even and unlabored. Skin is dry and pink.
[2021-08-26] MEDS: TRAMadol 50 mg Tablet PO ×2 (03:30→09:05)
[2021-08-26 03:55] LABS: Basophils % 0.1 %; Eosinophils # 0.1 10^3/uL (0.0-0.8); Eosinophils % 0.3 %; Hematocrit 37.7 % (42.0-52.0); Lymphocytes # 0.6 10^3/uL (0.8-4.8); Lymphocytes % 2.5 %; Mean Corpuscular HGB Conc 31.8 g/dL (30.0-36.0); Mean Corpuscular Hemoglobin 29.3 pg (28.0-34.0); Mean Corpuscular Volume 92.2 fl (80-94); Mean Platelet Volume 11.1 fL (7.4-10.4); Monocytes # 1.5 10^3/uL (0.2-0.9); Neutrophils # 21.96 10^3/uL (1.8-7.7); Neutrophils % 89.3 %; Nucleated Red Blood Cells % 0 %; Platelet Count 244 10^3/cmm (130-400); Red Blood Count 4.09 10^6/uL (4.1-5.3); Red Cell Distribution Width 14.6 % (12.1-15.1); White Blood Count 24.6 10^3/uL (4.0-10.0)
[2021-08-26 04:22] LABS: Blood Urea Nitrogen 54 mg/dL (8-23); Calcium 8.1 mg/dL (8.5-10.5); Carbon Dioxide 31 mmol/L (22-29); Chloride 97 mmol/L (98-107); Glucose 122 mg/dL (65-115); Osmolality Calculated 296 mOsm/kg (285-295); Sodium 135 mmol/L (136-145)
--- NOTE | 2021-08-26 04:29 | NUR.SHIFT ---
Consent for cardiac catheterization signed by patient. Groin prepped. Dorsalis pedis and posterior tibial pulses marked with skin marker.
[2021-08-26 04:31] LABS: Anion Gap 12.1 (5-19); Potassium 5.1 mmol/L (3.5-5.1)
[2021-08-26 05:31] LABS: Partial Thromboplastin Time 38.7 SECONDS (23.9-36.7)
--- NOTE | 2021-08-26 07:09 | P.PN_ITS ---
Subjective Subjective: Persistent leukocytosis . No fever I will change his antibiotics to linezolid and Zosyn Creatinine is improved Plan for angiogram today at 10:00 N.p.o. Vitals/I&O/Wt Last Vital Signs Temp 97.8 F 08/26/21 04:00 Pulse 108 H 08/26/21 06:00 Resp 11 L 08/26/21 06:00 BP 120/81 08/26/21 06:00 Pulse Ox 93 08/26/21 06:00 08/25/21 08/26/21 08/26/21 22:59 06:59 14:59 Intake Total 500 / 500 740 / 1240 Output Total 1100 / 1100 400 / 1500 Balance -600 / -600 340 / -260 Weight last 48 hrs Weight 102.421 kg Weight 103.737 kg Weight 103.737 kg Physical Exam Narrative: Euvolemic No signs of fluid overload Mild wheezing Abdomen soft No signs of edema Pleasant and cooperative Doing well on 3 L nasal cannula Data : 08/26/21 03:29 08/26/21 03:29 A&P Assessment and plan (1) Pulmonary nodule: Status: Acute (2) Atrial fibrillation: Status: Acute (3) Hyponatremia: Status: Acute (4) MRSA pneumonia: Status: Acute (5) Uremia: Status: Acute (6) ATN (acute tubular necrosis): Status: Acute (7) Leukocytosis: Status: Acute (8) Heart failure with reduced ejection fraction: Status: Acute (9) Sepsis: Status: Acute (10) Acute kidney injury superimposed on chronic kidney disease: Status: Acute (11) Pneumonia: Status: Acute Plan Contrast-induced nephropathy, creatinine around baseline, plan for angiogram today Reduce EF heart failure :- compensated will need LifeVest at discharge, plan for angiogram today A. fib RVR: We have increased the dose of metoprolol, continue amiodarone For his persistent A. fib RVR need up titration of medication, digoxin? We will touch base with cardiology Heparin on hold He might need cardioversion and transesophageal echo Persistent leukocytosis He will need outpatient hematology consult and outpatient pulmonary follow-up Pulmonary nodule, Pathology reviewed I will change his antibiotics to linezolid and Zosyn DNR/DNI Agreeable for LifeVest Acute hypoxia requiring 3 L COPD exacerbation N.p.o. 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
--- NOTE | 2021-08-26 08:10 | XACV_ITS ---
Exam Room: [facility] Ht: 188 cm Wt: 102 kg BSA: 2.33 m2 Gender: Male : 1945 Exam Priority: Routine Procedure(s): Procedure Description: Diagnostic procedure Procedure Description: Left Heart Catheterization Procedure Description: Coronary Angiography Diagnostic Cath Status: Elective Diagnostic Findings * No significant disease noted in the Left Main, Left Anterior Descending, Right, or Circumflex coronary arteries. * Coronary angiography shows left dominance. Conclusions 1. No significant disease noted in the Left Main, Left Anterior Descending, Right, or Circumflex coronary arteries. 2. Nonischemic cardiomyopathy. Recommendations * Aggressive guideline directed heart failure therapy. * Heart rate control. * Outpatient cardiology follow-up in 2 weeks. Interventional RX Recommendation: medical therapy and/or counseling Diagnostic RX Recommendation: medical therapy and/or counseling Anticoagulation: Heparin Pressures Phase:Rest AO : 96 / 85 ( 88 ) @ 11:14:00 AM 96 / 83 ( 88 ) @ 11:15:00 AM 119 / 63 ( 90 ) @ 11:16:00 AM 113 / 68 ( 90 ) @ 11:16:00 AM LV : 101 / 20 / 15 @ 11:16:00 AM Valves Phase:DefaultPhase AV : 0.0 @ 10:30:50 AM 0.0 @ 10:30:50 AM Clinical Evaluation EBL: 5mL-10mL Procedural Details Procedure Consent Obtained. Admit Source: In Patient. Pre-Procedure Time Out. Identified patient by full name and date of as verbalized by the patient/guarantor. Does the consent match the physician's order: Yes. Accurate & Complete Informed Consent: Yes. Inpatient/Outpatient History & Physical on Chart: Yes. If H&P is completed, is and addenduem needed: N/A; If yes, is the addendum complete: N/A. Visualize and Verify Site with Patient/Guarantor: N/A. Relevant Radiology Images available: N/A. The risks, benefits, and alternatives of sedation and/or procedure were discussed by physician. The patient agrees to continue. Procedure started. [facility] Clinical Fraility Score: 4: Vulnerable. 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 Chest Pain Symptom Assessment: Atypical Angina. Correct patient, site and procedure confirmed by cath team. Current diagnosis: Chest Pain, Cardiomyopathy. PERRLA. Strong, equal hand hired worker bilaterally. Lungs clear x 5 lobes. IV Site on Arrival: TLC in the right anticubital. IV Fluids: 0.9% NaCl at KVO. 0 mL infused prior to cardiac cath technician. Pre Procedural Pulses: bilateral dorsalis pedis was 2+. Pre Procedural Pulses: right radial was 2+. Oxygen started at 2liters/min via nasal canula. right groin was prepped with chloroprep then draped in the usual sterile fashion. right radial was prepped with chloroprep then draped in the usual sterile fashion. Physician notified. Baseline sample Acquired. HR: 107 BPM. Physician arrived. Physician scrubbed in. Immediate Pre-Procedure Time Out. Correct Patient: Yes; Correct Procedure: Yes; Correct Site: Yes; Correct Patient Position: Yes; Correct Supplies: Yes; Dried Flammable Prep: Yes; Blood Products Available: N/A;. Lidocaine 1% infiltrated to the right radial. Arterial access obtained. A 5 japanese TIG catheter in over wire. Catheter redirected to the RCA. EDP Sample taken: LV 101/20,15; HR: 128 BPM; SpO2: 93%. Pullback taken: LV Off; AO 119/63(90); Mean: , Peak to Peak: 0mmHg, SEP: ; HR: 110 BPM; SpO2: 92%. Catheter out. A 5 japanese JR4 catheter in over wire. Multiple views taken of right coronary artery. A TR Band was successful obtaining hemostatsis at the Right Radial artery insertion site. Physician scrubbed out. Physician review of cine films. Post Procedure: Pulses reassessed and unchanged. PERRLA. Strong, equal hand hired worker bilaterally. No VTE prophylaxis required. Medication's Wasted: Lidocaine 1% = 3 ml. Medication's Wasted: Heparin = 1000 u. Medication's Wasted: Nitro = 49.8 mg. Total IV fluids: 33 mL. Post-op diagnosis: Non Obstructive CAD, Non Ischemic cardiomyopathy. Complications: none. Estimated blood loss: 5mL-10mL. Responsiveness - Normal response to verbal stimuli; alert and oriented, PERRLA. Airway - Unaffected, no intervention required; spontaneous ventilation. Circulation: W/N/L, pulses unchanged. Nausea/Vomiting: No. Procedure completed. Patient transferred by wheelchair to ICU. Vital chart was stopped. Access Site Site: Right Radial artery Sheath Size: 6 Fr Hemostasis Method: TR Band Hemostasis Success: Successful Procedure Medications Start: 10:02 AM Stop: 10:02 AM Medication: Versed Amount: 1 mg Route: I.V. Start: 10:03 AM Stop: 10:03 AM Medication: Fentanyl Amount: 25 mcg Route: I.V. Start: 10:03 AM Stop: 10:03 AM Medication: 0.9% Saline Amount: 75 ml/hr Route: I.V. drip Start: 10:11 AM Stop: 10:11 AM Medication: Nitrogylcerin Amount: 200 mcg Route: I.A. Start: 10:12 AM Stop: 10:12 AM Medication: Heparin Amount: 5000 units Route: I.V. Start: 10:21 AM Stop: 10:21 AM Medication: Versed Amount: 1 mg Route: I.V. I, the attending physician, have reviewed and verified all procedure medications. Yes, all medications given per verbal order History/Risk Factors Hypertension: No Dyslipidemia: No Peripheral Arterial Disease (PAD): No Myocardial Infarction (CT): No Obesity: No Renal Disease: Yes Tobacco Use: Former Prior Interventions PCI: No CABG: No Valve Surgery: No Report Signatures Finalized by Vik Jones MD on 08/27/2021 08:19 AM
[2021-08-26] MEDS: ipratropium-albuterol 3 mL Neb INHALATION ×3 (08:15→20:26)
[2021-08-26] MEDS: budesonide 0.5 mg/2 mL Neb INHALATION ×2 (08:15→20:26)
[2021-08-26] MEDS: piperacillin-tazobactam 3.375 GM in sodium chloride 0.9% (plus) 50 ML IV ×2 (09:00→23:29)
[2021-08-26] MEDS: montelukast sodium 10 mg Tablet PO (09:04)
[2021-08-26] MEDS: aspirin 81 mg EC Tablet PO (09:04)
[2021-08-26] MEDS: pantoprazole DR 40 mg Tablet PO ×2 (09:04→17:32)
[2021-08-26] MEDS: metoprolol tartrate 50 mg Tablet 100 MG PO ×2 (09:05→21:33)
[2021-08-26] MEDS: FUROsemide 20 mg Tablet PO (09:05)
[2021-08-26] MEDS: lactobacillus 1 Tablet 1 TAB PO ×2 (09:05→17:32)
[2021-08-26] MEDS: amiodarone 200 mg Tablet 400 MG PO ×2 (09:05→17:32)
[2021-08-26] MEDS: ondansetron 2 mg/ML SDV 2 mL 4 MG IVP ×2 (09:06→15:00)
[2021-08-26] MEDS: linezolid 600 mg Tablet PO ×2 (09:06→21:33)
[2021-08-26] MEDS: lidocaine 5% Patch 1 PATCH TOPICAL (09:10)
--- NOTE | 2021-08-26 09:19 | PM.PN ---
Subjective Subjective: Feels well. No SOB or other hypervolemic symptoms. No CP, palpitations etc. Doing well. Pending [facility] today Medications: Reviewed: Yes Medication Review Details: Current Medications Acetaminophen (Acetaminophen 500 Mg Tablet) 500 mg PO Q6H PRN PRN Reason: Pain Albuterol Sulfate (Albuterol 8 Gm Mdi) 2 puff INHALATION Q4H PRN PRN Reason: Shortness Of Breath Albuterol/Ipratropium (Ipratropium-Albuterol 3 Ml Neb) 3 ml INHALATION Q6H PRN PRN Reason: SHORTNESS OF BREATH Last Admin: 08/20/21 02:19 Dose: 3 ml Documented by: Amiodarone HCl (Amiodarone 200 Mg Tablet) 400 mg PO BID WHITNEY Last Admin: 08/19/21 17:51 Dose: 400 mg Documented by: Aspirin (Aspirin 81 Mg Ec Tablet) 81 mg PO DAILY WHITNEY Last Admin: 08/19/21 08:24 Dose: 81 mg Documented by: Budesonide (Budesonide 0.5 Mg/2 Ml Neb) 0.5 mg INHALATION BID.RESPIRATORY WHITNEY Last Admin: 08/19/21 20:05 Dose: 0.5 mg Documented by: Dextrose (Dextrose 50% Syringe 50 Ml) 25 ml IVP ONCE PRN; Protocol PRN Reason: hypoglycemia protocol Dextrose (Dextrose 50% Syringe 50 Ml) 50 ml IVP PRN PRN; Protocol PRN Reason: hypoglycemia protocol Fentanyl (Fentanyl 50 Mcg/Ml Inj 2ml) 25 mcg IVP ONCE ONE Stop: 08/20/21 11:01 Furosemide (Furosemide 10 Mg/Ml Sdv 10ml) 60 mg IVP DAILY [facility] Glucagon (Glucagon 1 Mg/Ml Inj 1 Ml) 1 mg IM ONCE PRN; Protocol PRN Reason: Adult Acute Hypoglycemia Prot. Dextrose (D5w) 500 mls @ 100 mls/hr IV ONCE PRN; Protocol PRN Reason: Adult Acute Hypoglycemia Prot Heparin Sodium/Sodium Chloride (Heparin Drip) 25,000 unit in 500 mls @ 0 mls/hr IV .Q0M WHITNEY; Protocol Last Titration: 08/19/21 23:59 Dose: 0 unit/kg/hr, 0 mls/hr Documented by: Cefepime HCl 1,000 mg/ Sodium (Chloride) 50 mls @ 100 mls/hr IV Q24H WHITNEY; Protocol Last Admin: 08/19/21 10:47 Dose: 100 mls/hr Documented by: Insulin Human Lispro (Insulin Lispro 100 Unit/1 Ml) 0 unit SUBCUT TIDWM [facility]; Protocol Last Admin: 08/19/21 17:41 Dose: Not Given Documented by: Lanolin (Lanolin Oint 7 Gm) 1 applic TOPICAL PRN PRN PRN Reason: DRYNESS Lidocaine (Lidocaine 5% Patch) 1 patch TOPICAL [id number] [facility] Last Admin: 08/19/21 20:30 Dose: 1 patch Documented by: Linezolid (Linezolid 600 Mg Tablet) 600 mg PO Q12H [facility] Last Admin: 08/19/21 20:30 Dose: 600 mg Documented by: Metoprolol Tartrate (Metoprolol Tartrate 50 Mg Tablet) 50 mg PO BID@0900,2100 [facility] Last Admin: 08/19/21 20:30 Dose: 50 mg Documented by: Midazolam HCl (Midazolam 1 Mg/Ml Inj 2 Ml) 2 mg IVP ONCE ONE Stop: 08/20/21 11:01 Montelukast Sodium (Montelukast Sodium 10 Mg Tablet) 10 mg PO DAILY [facility] Last Admin: 08/19/21 08:24 Dose: 10 mg Documented by: Morphine Sulfate (Morphine Ir 15 Mg Tablet) 15 mg PO Q6H PRN PRN Reason: pAIN Ondansetron HCl (Ondansetron 2 Mg/Ml Sdv 2 Ml) 4 mg IVP Q6H PRN PRN Reason: NAUSEA AND VOMITING Last Admin: 08/18/21 22:43 Dose: 4 mg Documented by: Sevelamer Carbonate (Sevelamer 800 Mg Tablet) 1,600 mg PO TID [facility] Last Admin: 08/19/21 20:30 Dose: 1,600 mg Documented by: Tramadol HCl (Tramadol 50 Mg Tablet) 50 mg PO Q4H PRN PRN Reason: MODERATE PAIN Last Admin: 08/19/21 17:51 Dose: 50 mg Documented by: Vitals/I&O/Wt Last Vital Signs Temp 97.8 F 08/26/21 04:00 Pulse 102 H 08/26/21 08:00 Resp 18 08/26/21 08:00 BP 120/81 08/26/21 08:00 Pulse Ox 97 08/26/21 08:00 08/25/21 08/26/21 08/26/21 22:59 06:59 14:59 Intake Total 500 / 500 740 / 1240 Output Total 1100 / 1100 400 / 1500 Balance -600 / -600 340 / -260 Weight last 48 hrs Weight 102.421 kg Weight 103.737 kg Weight 103.737 kg Physical Exam Narrative: Constitutional: Awake, comfortable HEENT: Wet mucosa, no jvp, non icteric Lungs: Bilaterally discernible wheeze, no rales in all lung zones CVS: S1 S2, no murmurs Abdo: Soft, BS ok Ext 4: Mild edema, peripheral perfusion with no cyanosis Neurological: Grossly non-focal Data : 08/26/21 03:29 08/26/21 03:29 A&P Assessment and plan (1) ATN (acute tubular necrosis): Status: Acute Plan 1. Acute nonoliguric kidney injury. Appears to be multifactorial acute kidney injury, from possible contrast on admission, NSAIDs and diuretics. Good urine output and creatinine improved. On daily lasix Continue strict ins and outs Avoid usual nephrotoxic agents Dose medication for GFR less than 15 2. Heart failure Newly diagnosed significant heart failure with ejection fraction 20% ok for LHC from my perspective lorenzo-LHC ivf > NS at 75 mL/hr for next few hours minimize dye, the usual precautions Atrial fibrillation with RVR appreciated, being managed by cardiology. ARB/SGLT2 to be introduced down the road. 3. Chemistry labs look acceptable; ? Contraction alkalosis 4. MRSA pneumonia Currently on combination antibiotic therapy including Zosyn and Zyvox. Thank you for consultation Nelson Forde MD Nephrology [phone] Patient seen and examined via telemedicine, with the assistance of the bedside RN > 25 min spent in evaluation and mgmt of patient Attestations Medical Necessity Statement*: eval for renal failure Coding Level of Care Code Acute Instructor Of Sociology for [facility] Fwd Diagnoses ATN (acute tubular necrosis) N17.0
--- NOTE | 2021-08-26 09:59 | P.HPUD_ITS ---
Surgery/Procedure H&P Update DATE OF PROCEDURE: August 26, 2021 DATE H&P PERFORMED: 08/17/21 H&P UPDATE INFORMATION: I have reviewed H&P completed within last 30 days, I have examined patient prior to procedure and Changes to prior documentation as noted here CHANGES TO PREVIOUS DOCUMENTATION: Patient has new onset congestive heart failure. He had developed contrast induced nephropathy from CT scan earlier. Now has his creatinine at his b aseline. I had a detailed discussion regarding possible renal function worsening and dialysis need with the procedure. He understands and wants to proceed with the procedure. PREOP DIAGNOSIS: New onset congestive heart failure PRIMARY INDICATION FOR PROCEDURE: New onset congestive heart failure PLANNED PROCEDURE: Operation Date: 08/26/21 Proposed Procedures Left heart cath with possible percutaneous coronary intervention PATIENT REASSESSED PRIOR TO SEDATION, WITH NO CHANGE NOTED: Yes PHYSICAL EXAM: alert, oriented x 3 and clear to auscultation bilaterally OTHER PERTINENT EXAM FINDINGS: Irregularly irregular AIRWAY EVAL/ANESTHESIA PLAN: ASA IV, Local Anesthesia, Risks, benefits & alternatives of sedation and/or procedure discussed and Patient agrees to continue as planned
--- NOTE | 2021-08-26 15:15 | PC.SOCIAL ---
IMM Update pg 2 of IMM updated and reviewed w/ patient. Copy provided and Copy in chart updated.
[2021-08-26] MEDS: heparin drip 25,000 UNIT/500 ML PREMIX 29 UNIT IV (17:32)
[2021-08-26 21:16] LABS: Glucose Point of Care 133 mg/dL (70-110)
--- NOTE | 2021-08-26 21:24 | PM.PN ---
Subjective Subjective: Patient had coronary angiogram today that showed non obstructive CAD. He is doing well. Vitals/I&O/Wt Last Vital Signs Temp 97.8 F 08/26/21 04:00 Pulse 108 H 08/26/21 20:35 Resp 18 08/26/21 20:27 BP 120/81 08/26/21 12:00 Pulse Ox 96 08/26/21 20:27 08/26/21 08/26/21 08/26/21 06:59 14:59 22:59 Intake Total 740 / 1240 95.433 / 95.433 Output Total 400 / 1500 700 / 700 Balance 340 / -260 -604.567 / -604.567 Weight last 48 hrs Weight 225 lb 12.8 oz Weight 225 lb 12.8 oz Weight 228 lb 11.2 oz Physical Exam Narrative: GENERAL: Patient is alert, awake and oriented x3. [] NECK: No jugular vein distension. [] HEENT: No cyanosis. No icterus. No pallor. [] HEART: Tachycardic, S1 and S2, grade 3/6 systolic murmur LUNGS: Clear to auscultate bilaterally. [] ABDOMEN: Soft CENTRAL NERVOUS SYSTEM: Grossly nonfocal. [] EXTREMITIES: Lower extremities with 1+ edema bilaterally. Pulses palpable in the lower extremities, both dorsalis pedis and posterior tibial. [] Data : 08/27/21 02:43 08/27/21 04:55 A&P Assessment and plan (1) Heart failure with reduced ejection fraction: Status: Acute (2) Atypical chest pain: Status: Acute (3) Sepsis: Status: Acute (4) Atrial fibrillation: Status: Acute (5) Pneumonia: Status: Acute (6) Acute kidney injury superimposed on chronic kidney disease: Status: Acute (7) Atrial fibrillation: Status: Acute Plan Patient has atrial fibrillation with RVR. Also has been found to have new onset congestive heart failure. He underwent coronary angiogram today that showed no significant coronary artery disease Heart rate is still uncontrolled. I have talked to him about the option of ANASTACIA/Cardioversion. He wants to be treated with medications at this time. Would like to follow as outpatient to discuss it. He will benefit from event monitor as outpatient. Metoprolol 100mg BID. Continue amiodarone Can switch to PO eliquis now Antibiotic therapy per primary team Thank you for involving us with care of this patient. We will continue to follow. Please call with questions. Attestations Medical Necessity Statement*: Care expected to cross 2 midnights. 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
[2021-08-26] MEDS: apixaban 5 mg Tablet PO (21:32)
[2021-08-26 21:42] LABS: Glucose Point of Care 117 mg/dL (70-110)
[2021-08-26] MEDS: sodium chloride 0.9% 1,000 ML 75 ML IV (23:30)
[2021-08-27] VITALS (20 sets, daily range): BP systolic 97–141; BP diastolic 54–98; PULSE 64–119; RESP 14–23; TEMP 36.6–37.2; O2SAT 86–98
[2021-08-27] MEDS: ondansetron 2 mg/ML SDV 2 mL 4 MG IVP ×4 (01:54→20:48)
[2021-08-27] MEDS: TRAMadol 50 mg Tablet PO ×3 (01:54→20:47)
[2021-08-27] MEDS: ipratropium-albuterol 3 mL Neb INHALATION ×3 (04:12→14:58)
[2021-08-27 04:13] LABS: Basophils # 0.1 10^3/uL (0.0-0.1); Basophils % 0.2 %; Eosinophils # 0.1 10^3/uL (0.0-0.8); Eosinophils % 0.6 %; Hematocrit 34.6 % (42.0-52.0); Hemoglobin 11.1 g/dL (11.7-16.6); Lymphocytes # 0.6 10^3/uL (0.8-4.8); Lymphocytes % 2.5 %; Mean Corpuscular HGB Conc 32.1 g/dL (30.0-36.0); Mean Corpuscular Hemoglobin 29.6 pg (28.0-34.0); Mean Corpuscular Volume 92.3 fl (80-94); Mean Platelet Volume 12.2 fL (7.4-10.4); Monocytes # 1.4 10^3/uL (0.2-0.9); Neutrophils # 20.74 10^3/uL (1.8-7.7); Neutrophils % 89.1 %; Nucleated Red Blood Cells % 0 %; Platelet Count 213 10^3/cmm (130-400); Red Blood Count 3.75 10^6/uL (4.1-5.3); Red Cell Distribution Width 14.6 % (12.1-15.1); White Blood Count 23.3 10^3/uL (4.0-10.0)
[2021-08-27 05:19] LABS: Blood Urea Nitrogen 49 mg/dL (8-23); Calcium 8.2 mg/dL (8.5-10.5); Carbon Dioxide 28 mmol/L (22-29); Chloride 98 mmol/L (98-107); Glucose 138 mg/dL (65-115); Osmolality Calculated 295 mOsm/kg (285-295); Sodium 135 mmol/L (136-145)
[2021-08-27 07:10] LABS: Glucose Point of Care 185 mg/dL (70-110)
[2021-08-27] MEDS: piperacillin-tazobactam 3.375 GM in sodium chloride 0.9% (plus) 50 ML IV (07:51)
[2021-08-27] MEDS: linezolid 600 mg Tablet PO ×2 (07:52→20:46)
[2021-08-27] MEDS: insulin lispro 100 unit/1 mL SUBCUT (07:52)
[2021-08-27] MEDS: lactobacillus 1 Tablet 1 TAB PO ×2 (07:52→17:02)
[2021-08-27] MEDS: amiodarone 200 mg Tablet 400 MG PO ×2 (07:53→17:03)
[2021-08-27] MEDS: apixaban 5 mg Tablet PO ×2 (07:53→20:47)
[2021-08-27] MEDS: metoprolol tartrate 50 mg Tablet 100 MG PO ×2 (07:53→20:47)
[2021-08-27] MEDS: pantoprazole DR 40 mg Tablet PO ×2 (07:53→17:03)
[2021-08-27] MEDS: FUROsemide 20 mg Tablet PO (07:53)
[2021-08-27] MEDS: montelukast sodium 10 mg Tablet PO (07:53)
[2021-08-27] MEDS: aspirin 81 mg EC Tablet PO (07:53)
[2021-08-27] MEDS: lidocaine 5% Patch 1 PATCH TOPICAL ×2 (07:54→20:47)
--- NOTE | 2021-08-27 08:11 | PM.PN ---
Subjective Subjective: Patient developed painful rash on bilateral shins. No chest pain or shortness of breath. Vitals/I&O/Wt Last Vital Signs Temp 97.8 F 08/26/21 04:00 Pulse 119 H 08/27/21 06:00 Resp 17 08/27/21 04:08 BP 120/81 08/26/21 12:00 Pulse Ox 95 08/27/21 04:08 08/26/21 08/27/21 08/27/21 22:59 06:59 14:59 Intake Total 95.433 / 95.433 650 / 745.433 Output Total 800 / 800 100 / 900 Balance -704.567 / -704.567 550 / -154.567 Weight last 48 hrs Weight 225 lb 12.8 oz Weight 225 lb 12.8 oz Weight 228 lb 11.2 oz Physical Exam Narrative: GENERAL: Patient is alert, awake and oriented x3. [] NECK: No jugular vein distension. [] HEENT: No cyanosis. No icterus. No pallor. [] HEART: Tachycardic, S1 and S2, grade 3/6 systolic murmur LUNGS: Clear to auscultate bilaterally. [] ABDOMEN: Soft CENTRAL NERVOUS SYSTEM: Grossly nonfocal. [] EXTREMITIES: Lower extremities with 1+ edema bilaterally. Has violaceous rash on both shins, tender Data : 08/28/21 03:52 08/28/21 03:52 A&P Assessment and plan (1) Heart failure with reduced ejection fraction: Status: Acute (2) Atypical chest pain: Status: Acute (3) Sepsis: Status: Acute (4) Atrial fibrillation: Status: Acute (5) Pneumonia: Status: Acute (6) Acute kidney injury superimposed on chronic kidney disease: Status: Acute (7) Atrial fibrillation: Status: Acute Plan Patient has atrial fibrillation with RVR. Also has been found to have new onset congestive heart failure. He underwent coronary angiogram on 08/26 that showed no significant coronary artery disease Heart rate is still uncontrolled. I have talked to him about the option of ANASTACIA/Cardioversion. He wants to be treated with medications at this time. Would like to follow as outpatient to discuss it. He will benefit from event monitor as outpatient. Metoprolol 100mg BID. Continue amiodarone Patient developed painful rash on bilateral shins. Temporally it appears to correlate with cardiac catheterization and could be related to atheroembolic phenomenon. However, it was radial cath, no significant eosinophilia, renal function is stable. Other differential will be drug induced vs vasculitis Continue anticoagulation Antibiotic therapy per primary team Thank you for involving us with care of this patient. We will continue to follow. Please call with questions. Attestations Medical Necessity Statement*: Care expected to cross 2 midnights. 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
--- NOTE | 2021-08-27 08:37 | USCV_ITS ---
Nelson Schuster Age: 76 Gender: M : 1945 Exam Date: 08/27/2021 09:59 Ordering Phys: Elroy High MD Technologist: AI Exam Location: [facility] Indication: Tenderness, leg pain Risk Factors: Previous Vascular Surgery: RIGHT LEFT BP: 123.0 / 76.00 BP: 120.0/ 88.00 0 0 Waveform Velocity (cm/s) Velocity (cm/s) Waveform Triphasic 49.7 Iliac Prox 36.6 Triphasic Triphasic 46.6 Iliac Mid 29.9 Triphasic Triphasic 43.5 Iliac Distal 33.6 Triphasic Triphasic 35.7 MEAT MANAGER 26.2 Triphasic Triphasic 48.9 SFA Prox 41.7 Triphasic Triphasic 44.3 SFA Mid 52.7 Triphasic Triphasic SFA Dist Triphasic 40.4 37.6 Triphasic 26.2 POP 45.3 Triphasic Triphasic 44.2 ADVISORY SERVICES ASSOCIATE 38.8 Triphasic Triphasic 39.1 DPA 36.8 FINDINGS Very TDS due to pt pain even after fentanyl administered Unable to obtain ABIS at this time Normal Doppler flow velocities and Doppler waveforms bilaterally Mildly diffused plaques in the iliac and femoral arteries bilaterally CONCLUSIONS 1. Patent lower extremity arteries with mild diffuse plaques. 2. Normal Doppler signals suggesting no significant arterial obstruction bilaterally. 3. YELITZA could not be obtained, due to technical issues Dr James Soares MD [facility] (Electronically Signed) Final Date: 28 August 2021 17:11 S
[2021-08-27] MEDS: budesonide 0.5 mg/2 mL Neb INHALATION (08:46)
--- NOTE | 2021-08-27 09:51 | P.PN_ITS ---
Subjective Subjective: Mr. Schuster feels okay today. Events of the last 24 hours noted. Left heart cath performed yesterday with no intervention required. Following this, he developed diffuse rash on both lower extremities consistent with atheroembolic showering. No livedo reticularis, some purple hue to the feet bilaterally. Good urine output. Was on IV fluids. No extremity edema, shortness of breath or other hypervolemic symptoms. Medications: Reviewed: Yes Medication Review Details: Current Medications Acetaminophen (Acetaminophen 500 Mg Tablet) 500 mg PO Q6H PRN PRN Reason: Pain Albuterol Sulfate (Albuterol 8 Gm Mdi) 2 puff INHALATION Q4H PRN PRN Reason: Shortness Of Breath Albuterol/Ipratropium (Ipratropium-Albuterol 3 Ml Neb) 3 ml INHALATION Q6H PRN PRN Reason: SHORTNESS OF BREATH Last Admin: 08/20/21 02:19 Dose: 3 ml Documented by: Amiodarone HCl (Amiodarone 200 Mg Tablet) 400 mg PO BID [facility] Last Admin: 08/19/21 17:51 Dose: 400 mg Documented by: Aspirin (Aspirin 81 Mg Ec Tablet) 81 mg PO DAILY [facility] Last Admin: 08/19/21 08:24 Dose: 81 mg Documented by: Budesonide (Budesonide 0.5 Mg/2 Ml Neb) 0.5 mg INHALATION BID.RESPIRATORY [facility] Last Admin: 08/19/21 20:05 Dose: 0.5 mg Documented by: Dextrose (Dextrose 50% Syringe 50 Ml) 25 ml IVP ONCE PRN; Protocol PRN Reason: hypoglycemia protocol Dextrose (Dextrose 50% Syringe 50 Ml) 50 ml IVP PRN PRN; Protocol PRN Reason: hypoglycemia protocol Fentanyl (Fentanyl 50 Mcg/Ml Inj 2ml) 25 mcg IVP ONCE ONE Stop: 08/20/21 11:01 Furosemide (Furosemide 10 Mg/Ml Sdv 10ml) 60 mg IVP DAILY [facility] Glucagon (Glucagon 1 Mg/Ml Inj 1 Ml) 1 mg IM ONCE PRN; Protocol PRN Reason: Adult Acute Hypoglycemia Prot. Dextrose (D5w) 500 mls @ 100 mls/hr IV ONCE PRN; Protocol PRN Reason: Adult Acute Hypoglycemia Prot Heparin Sodium/Sodium Chloride (Heparin Drip) 25,000 unit in 500 mls @ 0 mls/hr IV .Q0M [facility]; Protocol Last Titration: 08/19/21 23:59 Dose: 0 unit/kg/hr, 0 mls/hr Documented by: Cefepime HCl 1,000 mg/ Sodium (Chloride) 50 mls @ 100 mls/hr IV Q24H [facility]; Protocol Last Admin: 08/19/21 10:47 Dose: 100 mls/hr Documented by: Insulin Human Lispro (Insulin Lispro 100 Unit/1 Ml) 0 unit SUBCUT TIDWM [facility]; Protocol Last Admin: 08/19/21 17:41 Dose: Not Given Documented by: Lanolin (Lanolin Oint 7 Gm) 1 applic TOPICAL PRN PRN PRN Reason: DRYNESS Lidocaine (Lidocaine 5% Patch) 1 patch TOPICAL [id number] [facility] Last Admin: 08/19/21 20:30 Dose: 1 patch Documented by: Linezolid (Linezolid 600 Mg Tablet) 600 mg PO Q12H [facility] Last Admin: 08/19/21 20:30 Dose: 600 mg Documented by: Metoprolol Tartrate (Metoprolol Tartrate 50 Mg Tablet) 50 mg PO BID@0900,2100 [facility] Last Admin: 08/19/21 20:30 Dose: 50 mg Documented by: Midazolam HCl (Midazolam 1 Mg/Ml Inj 2 Ml) 2 mg IVP ONCE ONE Stop: 08/20/21 11:01 Montelukast Sodium (Montelukast Sodium 10 Mg Tablet) 10 mg PO DAILY [facility] Last Admin: 08/19/21 08:24 Dose: 10 mg Documented by: Morphine Sulfate (Morphine Ir 15 Mg Tablet) 15 mg PO Q6H PRN PRN Reason: pAIN Ondansetron HCl (Ondansetron 2 Mg/Ml Sdv 2 Ml) 4 mg IVP Q6H PRN PRN Reason: NAUSEA AND VOMITING Last Admin: 08/18/21 22:43 Dose: 4 mg Documented by: Sevelamer Carbonate (Sevelamer 800 Mg Tablet) 1,600 mg PO TID [facility] Last Admin: 08/19/21 20:30 Dose: 1,600 mg Documented by: Tramadol HCl (Tramadol 50 Mg Tablet) 50 mg PO Q4H PRN PRN Reason: MODERATE PAIN Last Admin: 08/19/21 17:51 Dose: 50 mg Documented by: Vitals/I&O/Wt Last Vital Signs Temp 98.9 F 08/27/21 08:00 Pulse 92 08/27/21 08:49 Resp 17 08/27/21 08:00 BP 122/94 08/27/21 08:00 Pulse Ox 96 08/27/21 08:00 08/26/21 08/27/21 08/27/21 22:59 06:59 14:59 Intake Total 95.433 / 95.433 650 / 745.433 996.25 / 996.25 Output Total 800 / 800 100 / 900 300 / 300 Balance -704.567 / -704.567 550 / -154.567 696.25 / 696.25 Weight last 48 hrs Weight 102.421 kg Weight 102.421 kg Weight 103.737 kg Physical Exam Narrative: Constitutional: Awake, comfortable HEENT: Wet mucosa, no jvp, non icteric Lungs: Bilaterally discernible wheeze, no rales in all lung zones CVS: S1 S2, no murmurs Abdo: Soft, BS ok Ext 4: vasculitic non blanching purpuric rash in both LEs, purple hue to feet bilaterally Neurological: Grossly non-focal Data : 08/27/21 02:43 08/27/21 04:55 A&P Assessment and plan (1) ATN (acute tubular necrosis): Status: Acute Plan 1. Acute nonoliguric kidney injury. Following angiogram, renal function has remained stable. Obviously has atheroembolic showering to the lower extremities bilaterally, we do need to worry about cholesterol crystal embolization into the kidneys as well which may manifest over the course of 1-2 weeks and should be closely followed both in an outpatient. On daily lasix No ivf now Continue strict ins and outs Avoid usual nephrotoxic agents Dose medication for GFR less than 15 2. Heart failure Newly diagnosed significant heart failure with ejection fraction 20% No current intervention neede Atrial fibrillation with RVR appreciated, being managed by cardiology. Will add Losartan now SGLT2-inhibs in near future also 3. Chemistry labs look acceptable; ? Contraction alkalosis 4. MRSA pneumonia Currently on combination antibiotic therapy including Zosyn and Zyvox. Thank you for consultation Nelson Forde MD Nephrology [phone] Patient seen and examined via telemedicine, with the assistance of the bedside RN > 25 min spent in evaluation and mgmt of patient Attestations Medical Necessity Statement*: eval for BRAYDEN/CKD Coding Level of Care Code Acute Tour Leader for [facility] Fwd Diagnoses ATN (acute tubular necrosis) N17.0
[2021-08-27] MEDS: fentaNYL 50 mcg/mL INJ 2mL IVP (10:09)
[2021-08-27] MEDS: losartan 50 mg Tablet 12.5 MG PO (10:09)
--- NOTE | 2021-08-27 10:13 | PC.NURSE ---
Fentanyl 50mcg IVP given per MD order for pain in BLE prior to doppler study.
[2021-08-27 10:43] LABS: Hepatitis A Antibody IgM Non-Reactive (Nonreactive); Hepatitis B Core AB, Total Non-Reactive (Nonreactive); Hepatitis B Surface AB 3.5 (11.5-1000); Hepatitis B Surface Antigen Non-Reactive (Nonreactive); Hepatitis C Virus Antibody Non-Reactive (Nonreactive)
[2021-08-27 11:29] LABS: Glucose Point of Care 130 mg/dL (70-110)
--- NOTE | 2021-08-27 12:49 | P.PN_ITS ---
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 Roy Patient can be moved upstairs Vitals/I&O/Wt Last Vital Signs Temp 98.9 F 08/27/21 08:00 Pulse 92 08/27/21 08:49 Resp 23 H 08/27/21 10:09 BP 123/88 08/27/21 10:09 Pulse Ox 96 08/27/21 08:00 08/26/21 08/27/21 08/27/21 22:59 06:59 14:59 Intake Total 95.433 / 95.433 650 / 940.027 4742.25 / 1406.25 Output Total 800 / 800 100 / 900 425 / 425 Balance -704.567 / -704.567 550 / -154.567 981.25 / 981.25 Weight last 48 hrs Weight 102.421 kg Weight 102.421 kg Physical Exam 2 Narrative: Tender petechial rash on his legs bilaterally which are new No rash on his stomach Palpable rash Cold feet, dopplerable pulses Right foot wound with granulation tissue no signs of infection Patient feels very lethargic and fatigued Currently on 3 L nasal cannula Looks euvolemic Abdomen is soft Nonfocal neuro exam Data : 08/27/21 02:43 08/27/21 04:55 A&P Assessment and plan (1) Petechial rash: Status: Acute (2) Pulmonary nodule: Status: Acute (3) Atrial fibrillation: Status: Acute (4) Hyponatremia: Status: Acute (5) MRSA pneumonia: Status: Acute (6) Uremia: Status: Acute (7) ATN (acute tubular necrosis): Status: Acute (8) Leukocytosis: Status: Acute (9) Heart failure with reduced ejection fraction: Status: Acute (10) Sepsis: Status: Acute (11) Acute kidney injury superimposed on chronic kidney disease: Status: Acute (12) Hypoxia: Status: Acute (13) Pneumonia: Status: Acute (14) Atrial fibrillation: Status: Acute Plan New onset of petechial rash Concern for atheroembolic phenomenon after angiogram, however no eosinophilia No new medication that was added yesterday was Eliquis No signs of head pressure has not dropped significantly I have sent RAOUL panel, hepatitis panel Could be drug induced rash, he is on amiodarone A. fib RVR Metoprolol and amiodarone Amiodarone dose to be readjusted, 200 mg twice daily Currently on Eliquis Cold extremities, requested arterial Doppler Sepsis related to MRSA pneumonia Continue p.o. linezolid discontinue Zosyn His leukocytosis most likely is related to underlying cancer Renal cell cancer with mets to lungs clear cell carcinoma as per the pathology report Will touch base with Dr. Roy Will need outpatient evaluation Reduced action fraction heart failure Angiogram is clean Arrange LifeVest at discharge Contrast-induced nephropathy: Improved Patient is euvolemic Cut back on diuretics Patient is DNR/DNI He is agreeable for LifeVest, AICD in future Acute hypoxia related pneumonia, currently doing well on 3 L nasal analogue Right foot wound: Showing signs of healing no active signs of cellulitis Cardiac diet He can be transferred to [facility] Attestations Medical Necessity Statement*: Transfer upstairs Time Spent in Patient Care: 35 Coding Level of Care Code Acute Continuous Mining Machine Operator for [facility] Fwd Diagnoses Petechial rash R23.3 Pulmonary nodule R91.1 Atrial fibrillation I48.91 Hyponatremia E87.1 MRSA pneumonia J15.212 Uremia N19 ATN (acute tubular necrosis) N17.0 Leukocytosis D72.829 Heart failure with reduced ejection fraction I50.20 Sepsis A41.9 Acute kidney injury superimposed on chronic kidney disease N17.9; N18.9 Hypoxia R09.02 Pneumonia J18.9 Atrial fibrillation I48.91
[2021-08-27 17:10] LABS: Glucose Point of Care 108 mg/dL (70-110)
--- NOTE | 2021-08-27 17:56 | PC.NURSE ---
Pt transferred to room 279, tolerated well. O2@3L, CLWR.
[2021-08-27 20:35] LABS: Glucose Point of Care 126 mg/dL (70-110)
[2021-08-27] MEDS: morphine IR 15 mg Tablet PO (23:08)
[2021-08-27] MEDS: temazepam 15 mg Capsule PO (23:09)
[2021-08-28] VITALS (14 sets, daily range): BP systolic 69–100; BP diastolic 50–79; PULSE 57–115; RESP 14–21; TEMP 36.4–36.7; O2SAT 84–99
[2021-08-28] MEDS: TRAMadol 50 mg Tablet PO ×2 (02:06→10:33)
[2021-08-28 04:33] LABS: Basophils % 0.1 %; Eosinophils # 0.1 10^3/uL (0.0-0.8); Eosinophils % 0.3 %; Hematocrit 33.5 % (42.0-52.0); Hemoglobin 10.5 g/dL (11.7-16.6); Lymphocytes # 0.7 10^3/uL (0.8-4.8); Mean Corpuscular HGB Conc 31.3 g/dL (30.0-36.0); Mean Corpuscular Hemoglobin 29.2 pg (28.0-34.0); Mean Corpuscular Volume 93.1 fl (80-94); Mean Platelet Volume 12.2 fL (7.4-10.4); Monocytes # 1.8 10^3/uL (0.2-0.9); Monocytes % 7.9 %; Neutrophils % 87.2 %; Nucleated Red Blood Cells % 0 %; Platelet Count 204 10^3/cmm (130-400); Red Cell Distribution Width 14.5 % (12.1-15.1); White Blood Count 23.2 10^3/uL (4.0-10.0)
[2021-08-28 04:54] LABS: Blood Urea Nitrogen 55 mg/dL (8-23); Calcium 7.8 mg/dL (8.5-10.5); Carbon Dioxide 28 mmol/L (22-29); Chloride 99 mmol/L (98-107); Glucose 99 mg/dL (65-115); Osmolality Calculated 299 mOsm/kg (285-295); Sodium 137 mmol/L (136-145)
[2021-08-28 04:56] LABS: Lactate Dehydrogenase 192 U/L (135-225)
[2021-08-28 05:00] LABS: Procalcitonin 0.24 ng/mL (0-0.5)
[2021-08-28 06:19] LABS: Glucose Point of Care 105 mg/dL (70-110)
[2021-08-28] MEDS: budesonide 0.5 mg/2 mL Neb INHALATION ×2 (08:48→20:13)
[2021-08-28] MEDS: ipratropium-albuterol 3 mL Neb INHALATION ×3 (08:48→20:13)
--- NOTE | 2021-08-28 08:57 | PC.SOCIAL ---
IMM Updated Updated pt on IMM. No questions voiced. Provided pt a copy. Initialed, dated, & timed copy in chart.
--- NOTE | 2021-08-28 09:10 | P.PN_ITS ---
Subjective Subjective: Patient has worsening of lower extremity rash and renal function. Vitals/I&O/Wt Last Vital Signs Temp 97.6 F 08/28/21 08:00 Pulse 57 L 08/28/21 09:05 Resp 18 08/28/21 09:05 BP 95/68 08/28/21 04:00 Pulse Ox 95 08/28/21 09:05 08/27/21 08/28/21 08/28/21 22:59 06:59 14:59 Intake Total 632 / 2038.25 1000 / 3038.25 Output Total 400 / 825 700 / 1525 Balance 232 / 1213.25 300 / 1513.25 Weight last 48 hrs Weight 225 lb Weight 225 lb 12.8 oz Physical Exam Narrative: GENERAL: Patient is alert, awake and oriented x3. [] NECK: No jugular vein distension. [] HEENT: No cyanosis. No icterus. No pallor. [] HEART: Tachycardic, S1 and S2, grade 3/6 systolic murmur LUNGS: Clear to auscultate bilaterally. [] ABDOMEN: Soft CENTRAL NERVOUS SYSTEM: Grossly nonfocal. [] EXTREMITIES: Lower extremities with 1+ edema bilaterally. Has violaceous rash on both shins, tender Data : 08/29/21 05:04 08/29/21 05:04 A&P Assessment and plan (1) Heart failure with reduced ejection fraction: Status: Acute (2) Atypical chest pain: Status: Acute (3) Sepsis: Status: Acute (4) Atrial fibrillation: Status: Acute (5) Pneumonia: Status: Acute (6) Acute kidney injury superimposed on chronic kidney disease: Status: Acute (7) Atrial fibrillation: Status: Acute Plan Patient has atrial fibrillation with RVR. Also has been found to have new onset congestive heart failure. He underwent coronary angiogram on 08/26 that showed no significant coronary artery disease Heart rate is still uncontrolled. I have talked to him about the option of ANASTACIA/Cardioversion. He wants to be treated with medications at this time. Would like to follow as outpatient to discuss it. He will benefit from event monitor as outpatient. Metoprolol 100mg BID. Continue amiodarone Patient developed painful rash on bilateral shins. Temporally it appears to correlate with cardiac catheterization and could be related to atheroembolic phe nomenon. However, it was radial cath, no significant eosinophilia. Renal function has worsened today. Other differential will be drug induced vs vasculitis Can try steroid therapy. Vasculitis workup pending. Continue anticoagulation Antibiotic therapy per primary team Thank you for involving us with care of this patient. We will continue to follow. Please call with questions. Attestations Medical Necessity Statement*: Care expected to cross 2 midnights. Coding Level of Care Code Acute Manager Documentation for [facility] Fwd Diagnoses Heart failure with reduced ejection fraction I50.20 Atypical chest pain R07.89 Sepsis A41.9 Atrial fibrillation I48.91 Pneumonia J18.9 Acute kidney injury superimposed on chronic kidney disease N17.9; N18.9 Atrial fibrillation I48.91
--- NOTE | 2021-08-28 09:53 | P.PN_ITS ---
Subjective Subjective: Significant rash in the lower extremities. Otherwise she feels okay. No edema, shortness of breath or other hypervolemic symptoms. Medications: Reviewed: Yes Medication Review Details: Current Medications Acetaminophen (Acetaminophen 500 Mg Tablet) 500 mg PO Q6H PRN PRN Reason: Pain Albuterol Sulfate (Albuterol 8 Gm Mdi) 2 puff INHALATION Q4H PRN PRN Reason: Shortness Of Breath Albuterol/Ipratropium (Ipratropium-Albuterol 3 Ml Neb) 3 ml INHALATION Q6H PRN PRN Reason: SHORTNESS OF BREATH Last Admin: 08/20/21 02:19 Dose: 3 ml Documented by: Amiodarone HCl (Amiodarone 200 Mg Tablet) 400 mg PO BID [facility] Last Admin: 08/19/21 17:51 Dose: 400 mg Documented by: Aspirin (Aspirin 81 Mg Ec Tablet) 81 mg PO DAILY [facility] Last Admin: 08/19/21 08:24 Dose: 81 mg Documented by: Budesonide (Budesonide 0.5 Mg/2 Ml Neb) 0.5 mg INHALATION BID.RESPIRATORY [facility] Last Admin: 08/19/21 20:05 Dose: 0.5 mg Documented by: Dextrose (Dextrose 50% Syringe 50 Ml) 25 ml IVP ONCE PRN; Protocol PRN Reason: hypoglycemia protocol Dextrose (Dextrose 50% Syringe 50 Ml) 50 ml IVP PRN PRN; Protocol PRN Reason: hypoglycemia protocol Fentanyl (Fentanyl 50 Mcg/Ml Inj 2ml) 25 mcg IVP ONCE ONE Stop: 08/20/21 11:01 Furosemide (Furosemide 10 Mg/Ml Sdv 10ml) 60 mg IVP DAILY [facility] Glucagon (Glucagon 1 Mg/Ml Inj 1 Ml) 1 mg IM ONCE PRN; Protocol PRN Reason: Adult Acute Hypoglycemia Prot. Dextrose (D5w) 500 mls @ 100 mls/hr IV ONCE PRN; Protocol PRN Reason: Adult Acute Hypoglycemia Prot Heparin Sodium/Sodium Chloride (Heparin Drip) 25,000 unit in 500 mls @ 0 mls/hr IV .Q0M [facility]; Protocol Last Titration: 08/19/21 23:59 Dose: 0 unit/kg/hr, 0 mls/hr Documented by: Cefepime HCl 1,000 mg/ Sodium (Chloride) 50 mls @ 100 mls/hr IV Q24H [facility]; Protocol Last Admin: 08/19/21 10:47 Dose: 100 mls/hr Documented by: Insulin Human Lispro (Insulin Lispro 100 Unit/1 Ml) 0 unit SUBCUT TIDWM [facility]; Protocol Last Admin: 08/19/21 17:41 Dose: Not Given Documented by: Lanolin (Lanolin Oint 7 Gm) 1 applic TOPICAL PRN PRN PRN Reason: DRYNESS Lidocaine (Lidocaine 5% Patch) 1 patch TOPICAL [id number] [facility] Last Admin: 08/19/21 20:30 Dose: 1 patch Documented by: Linezolid (Linezolid 600 Mg Tablet) 600 mg PO Q12H [facility] Last Admin: 08/19/21 20:30 Dose: 600 mg Documented by: Metoprolol Tartrate (Metoprolol Tartrate 50 Mg Tablet) 50 mg PO BID@0900,2100 [facility] Last Admin: 08/19/21 20:30 Dose: 50 mg Documented by: Midazolam HCl (Midazolam 1 Mg/Ml Inj 2 Ml) 2 mg IVP ONCE ONE Stop: 08/20/21 11:01 Montelukast Sodium (Montelukast Sodium 10 Mg Tablet) 10 mg PO DAILY [facility] Last Admin: 08/19/21 08:24 Dose: 10 mg Documented by: Morphine Sulfate (Morphine Ir 15 Mg Tablet) 15 mg PO Q6H PRN PRN Reason: pAIN Ondansetron HCl (Ondansetron 2 Mg/Ml Sdv 2 Ml) 4 mg IVP Q6H PRN PRN Reason: NAUSEA AND VOMITING Last Admin: 08/18/21 22:43 Dose: 4 mg Documented by: Sevelamer Carbonate (Sevelamer 800 Mg Tablet) 1,600 mg PO TID [facility] Last Admin: 08/19/21 20:30 Dose: 1,600 mg Documented by: Tramadol HCl (Tramadol 50 Mg Tablet) 50 mg PO Q4H PRN PRN Reason: MODERATE PAIN Last Admin: 08/19/21 17:51 Dose: 50 mg Documented by: Vitals/I&O/Wt Last Vital Signs Temp 97.6 F 08/28/21 08:00 Pulse 57 L 08/28/21 09:05 Resp 18 08/28/21 09:05 BP 95/68 08/28/21 04:00 Pulse Ox 95 08/28/21 09:05 08/27/21 08/28/21 08/28/21 22:59 06:59 14:59 Intake Total 632 / 2038.25 1000 / 3038.25 0 / 0 Output Total 400 / 825 700 / 1525 Balance 232 / 1213.25 300 / 1513.25 0 / 0 Weight last 48 hrs Weight 102.058 kg Weight 102.421 kg Physical Exam Narrative: Constitutional: Awake, comfortable HEENT: Wet mucosa, no jvp, non icteric Lungs: Bilaterally discernible wheeze, no rales in all lung zones CVS: S1 S2, no murmurs Abdo: Soft, BS ok Ext 4: vasculitic non blanching purpuric rash in both LEs, purple hue to feet bilaterally Neurological: Grossly non-focal Data : 08/28/21 03:52 08/28/21 03:52 A&P Assessment and plan (1) ATN (acute tubular necrosis): Status: Acute Plan 1. Acute nonoliguric kidney injury. Following angiogram, creatinine started to increase now, 2.2 Low dose ARB added yesterday, will hold now Appears to have atheroembolic showering to the lower extremities bilaterally, we do need to worry about cholesterol crystal embolization into the kidneys, in addition to contrast nephropathy On daily lasix No ivf now Continue strict ins and outs Avoid usual nephrotoxic agents Dose medication for GFR less than 15 2. Heart failure Newly diagnosed significant heart failure with ejection fraction 20% No revascularization was needed Atrial fibrillation with RVR appreciated, being managed by cardiology. Will add Losartan now 3. Chemistry labs look acceptable; ? Contraction alkalosis 4. MRSA pneumonia Currently on combination antibiotic therapy including Zosyn and Zyvox. 5. RCC with mets seen on lung nodule biopsy OP Oncology follow up Thank you for consultation Nelson Forde MD Nephrology [phone] Patient seen and examined via telemedicine, with the assistance of the bedside RN > 25 min spent in evaluation and mgmt of patient Attestations Medical Necessity Statement*: Eval for BRAYDEN Coding Level of Care Code Acute Resident Assistant for [facility] Fwd Diagnoses ATN (acute tubular necrosis) N17.0
[2021-08-28] MEDS: amiodarone 200 mg Tablet 400 MG PO (10:18)
[2021-08-28] MEDS: apixaban 5 mg Tablet PO (10:19)
[2021-08-28] MEDS: pantoprazole DR 40 mg Tablet PO ×2 (10:19→18:17)
[2021-08-28] MEDS: aspirin 81 mg EC Tablet PO (10:19)
[2021-08-28] MEDS: montelukast sodium 10 mg Tablet PO (10:19)
[2021-08-28] MEDS: lidocaine 5% Patch 1 PATCH TOPICAL (10:19)
[2021-08-28] MEDS: metoprolol tartrate 50 mg Tablet 100 MG PO (10:20)
[2021-08-28] MEDS: linezolid 600 mg Tablet PO (10:21)
[2021-08-28] MEDS: lactobacillus 1 Tablet 1 TAB PO ×2 (10:21→18:16)
[2021-08-28] MEDS: ondansetron 2 mg/ML SDV 2 mL 4 MG IVP (10:32)
[2021-08-28 10:59] LABS: Glucose Point of Care 94 mg/dL (70-110)
--- NOTE | 2021-08-28 12:28 | P.PN_ITS ---
Subjective Subjective: Petechial rash has worsened feet are looking more swollen Independent Afebrile Leukocytosis Creatinine has worsened Will get opinion from screw remover Vitals/I&O/Wt Last Vital Signs Temp 97.6 F 08/28/21 12:00 Pulse 69 08/28/21 12:00 Resp 16 08/28/21 12:00 BP 87/56 08/28/21 12:00 Pulse Ox 93 08/28/21 12:00 08/27/21 08/28/21 08/28/21 22:59 06:59 14:59 Intake Total 632 / 2038.25 1000 / 3038.25 0 / 0 Output Total 400 / 825 700 / 1525 Balance 232 / 1213.25 300 / 1513.25 0 / 0 Weight last 48 hrs Weight 102.058 kg Physical Exam Narrative: Tender, petechial rash of lower extremities worsening Palpable pulses in extremities Right foot plantar ulcer showing good signs of healing Edema of leg worsening Patient is awake and alert Nonfocal neuro exam Tender petechial rash also developed on right arm S1, S2 variable Saturating well on room air Data : 08/28/21 03:52 08/28/21 03:52 A&P Assessment and plan (1) Petechial rash: Status: Acute (2) Pulmonary nodule: Status: Acute (3) Atrial fibrillation: Status: Acute (4) Hyponatremia: Status: Acute (5) MRSA pneumonia: Status: Acute (6) Uremia: Status: Acute (7) ATN (acute tubular necrosis): Status: Acute (8) Leukocytosis: Status: Acute (9) Heart failure with reduced ejection fraction: Status: Acute (10) Sepsis: Status: Acute (11) Atrial fibrillation: Status: Acute Plan Sepsis related to MRSA pneumonia Leukocytosis could be related to underlying cancer Patient has not spiked fever Cultures remain negative New onset of petechial tender rash Concern for atheroembolic phenomenon HIV hepatitis panel negative RAOUL pending I have sent pictures to our screw remover Dr. Abdi Pulmonary nodule pathology consistent with clear cell carcinoma with mets immunohistochemical stain positive Dr. Roy will see this patient in his clinic Reduced action fraction heart failur Acute exacerbation Continue Lasix Hold IV fluids Appreciate nephro recommendations Contrast-induced nephropathy Creatinine has worsened again Concern for atheroembolic phenomenon Arterial Doppler results are pending currently patient is on Eliquis, HIT less likely A. 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
[2021-08-28 16:03] LABS: Anti-Double Strand DNA AB 1 IU/mL; Jo-1 Antibody <1.0 NEG AI (<1.0 NEG); SM/RNP Antibodies <1.0 NEG AI (<1.0 NEG); SS-B/LA IGG <1.0 NEG AI (<1.0 NEG); Scleroderma Ab(Scl-70) Ab <1.0 NEG AI (<1.0 NEG); Ss-A/Ro Igg <1.0 NEG AI (<1.0 NEG)
[2021-08-28 16:37] LABS: Anti-Nuclear Antibody Screen NEGATIVE (NEGATIVE)
[2021-08-28 17:11] LABS: Glucose Point of Care 116 mg/dL (70-110)
--- NOTE | 2021-08-28 17:17 | PC.RESP ---
pt was asking for another breathing tx, pt had just received a tx within the last hour, RT informed pt that he had just taken a tx. pt stated ok and that sometimes he forgets how much time has passed. RT replaced o2 cannula on pt and asked if there were any other needs that could be taken care of, pt stated that he was fine. no resp dx noted
[2021-08-28] MEDS: amiodarone 200 mg Tablet PO (18:16)
[2021-08-28] MEDS: doxycycline 100 mg Tablet PO (18:16)
[2021-08-28] MEDS: apixaban 5 mg Tablet 2.5 MG PO (22:08)
[2021-08-28] MEDS: metoprolol tartrate 50 mg Tablet PO (22:08)
[2021-08-29] VITALS (12 sets, daily range): BP systolic 93–118; BP diastolic 59–78; PULSE 64–122; RESP 16–21; TEMP 36.4–36.7; O2SAT 91–97
[2021-08-29 05:46] LABS: Basophils % 0.2 %; Hematocrit 34.6 % (42.0-52.0); Hemoglobin 10.8 g/dL (11.7-16.6); Lymphocytes # 0.4 10^3/uL (0.8-4.8); Lymphocytes % 1.4 %; Mean Corpuscular HGB Conc 31.2 g/dL (30.0-36.0); Mean Corpuscular Hemoglobin 29.7 pg (28.0-34.0); Mean Corpuscular Volume 95.1 fl (80-94); Mean Platelet Volume 12.2 fL (7.4-10.4); Monocytes # 0.8 10^3/uL (0.2-0.9); Monocytes % 3.2 %; Neutrophils # 23.51 10^3/uL (1.8-7.7); Neutrophils % 94.2 %; Nucleated Red Blood Cells % 0 %; Platelet Count 165 10^3/cmm (130-400); Red Blood Count 3.64 10^6/uL (4.1-5.3); Red Cell Distribution Width 14.5 % (12.1-15.1)
[2021-08-29 06:01] LABS: Glucose Point of Care 168 mg/dL (70-110)
[2021-08-29 06:10] LABS: Anion Gap 13.3 (5-19); Blood Urea Nitrogen 79 mg/dL (8-23); Carbon Dioxide 28 mmol/L (22-29); Chloride 98 mmol/L (98-107); Glucose 167 mg/dL (65-115); Osmolality Calculated 305 mOsm/kg (285-295); Potassium 5.3 mmol/L (3.5-5.1); Sodium 134 mmol/L (136-145)
[2021-08-29 06:51] LABS: Glucose Point of Care 120 mg/dL (70-110)
[2021-08-29] MEDS: ipratropium-albuterol 3 mL Neb INHALATION (07:21)
[2021-08-29] MEDS: budesonide 0.5 mg/2 mL Neb INHALATION (07:21)
--- NOTE | 2021-08-29 08:06 | PM.PN ---
Subjective Subjective: Now unfortunately the widespread rash is now affecting the arms and the hands as well as the feet and legs with some ulceration of the plantar aspect of his right foot. Urine output is okay. Creatinine is increasing. No other acute symptoms at this time. Medications: Reviewed: Yes Medication Review Details: Current Medications Acetaminophen (Acetaminophen 500 Mg Tablet) 500 mg PO Q6H PRN PRN Reason: Pain Albuterol Sulfate (Albuterol 8 Gm Mdi) 2 puff INHALATION Q4H PRN PRN Reason: Shortness Of Breath Albuterol/Ipratropium (Ipratropium-Albuterol 3 Ml Neb) 3 ml INHALATION Q6H PRN PRN Reason: SHORTNESS OF BREATH Last Admin: 08/20/21 02:19 Dose: 3 ml Documented by: Amiodarone HCl (Amiodarone 200 Mg Tablet) 400 mg PO BID [facility] Last Admin: 08/19/21 17:51 Dose: 400 mg Documented by: Aspirin (Aspirin 81 Mg Ec Tablet) 81 mg PO DAILY [facility] Last Admin: 08/19/21 08:24 Dose: 81 mg Documented by: Budesonide (Budesonide 0.5 Mg/2 Ml Neb) 0.5 mg INHALATION BID.RESPIRATORY [facility] Last Admin: 08/19/21 20:05 Dose: 0.5 mg Documented by: Dextrose (Dextrose 50% Syringe 50 Ml) 25 ml IVP ONCE PRN; Protocol PRN Reason: hypoglycemia protocol Dextrose (Dextrose 50% Syringe 50 Ml) 50 ml IVP PRN PRN; Protocol PRN Reason: hypoglycemia protocol Fentanyl (Fentanyl 50 Mcg/Ml Inj 2ml) 25 mcg IVP ONCE ONE Stop: 08/20/21 11:01 Furosemide (Furosemide 10 Mg/Ml Sdv 10ml) 60 mg IVP DAILY [facility] Glucagon (Glucagon 1 Mg/Ml Inj 1 Ml) 1 mg IM ONCE PRN; Protocol PRN Reason: Adult Acute Hypoglycemia Prot. Dextrose (D5w) 500 mls @ 100 mls/hr IV ONCE PRN; Protocol PRN Reason: Adult Acute Hypoglycemia Prot Heparin Sodium/Sodium Chloride (Heparin Drip) 25,000 unit in 500 mls @ 0 mls/hr IV .Q0M [facility]; Protocol Last Titration: 08/19/21 23:59 Dose: 0 unit/kg/hr, 0 mls/hr Documented by: Cefepime HCl 1,000 mg/ Sodium (Chloride) 50 mls @ 100 mls/hr IV Q24H [facility]; Protocol Last Admin: 08/19/21 10:47 Dose: 100 mls/hr Documented by: Insulin Human Lispro (Insulin Lispro 100 Unit/1 Ml) 0 unit SUBCUT TIDWM [facility]; Protocol Last Admin: 08/19/21 17:41 Dose: Not Given Documented by: Lanolin (Lanolin Oint 7 Gm) 1 applic TOPICAL PRN PRN PRN Reason: DRYNESS Lidocaine (Lidocaine 5% Patch) 1 patch TOPICAL [id number] [facility] Last Admin: 08/19/21 20:30 Dose: 1 patch Documented by: Linezolid (Linezolid 600 Mg Tablet) 600 mg PO Q12H [facility] Last Admin: 08/19/21 20:30 Dose: 600 mg Documented by: Metoprolol Tartrate (Metoprolol Tartrate 50 Mg Tablet) 50 mg PO BID@0900,2100 [facility] Last Admin: 08/19/21 20:30 Dose: 50 mg Documented by: Midazolam HCl (Midazolam 1 Mg/Ml Inj 2 Ml) 2 mg IVP ONCE ONE Stop: 08/20/21 11:01 Montelukast Sodium (Montelukast Sodium 10 Mg Tablet) 10 mg PO DAILY [facility] Last Admin: 08/19/21 08:24 Dose: 10 mg Documented by: Morphine Sulfate (Morphine Ir 15 Mg Tablet) 15 mg PO Q6H PRN PRN Reason: pAIN Ondansetron HCl (Ondansetron 2 Mg/Ml Sdv 2 Ml) 4 mg IVP Q6H PRN PRN Reason: NAUSEA AND VOMITING Last Admin: 08/18/21 22:43 Dose: 4 mg Documented by: Sevelamer Carbonate (Sevelamer 800 Mg Tablet) 1,600 mg PO TID [facility] Last Admin: 08/19/21 20:30 Dose: 1,600 mg Documented by: Tramadol HCl (Tramadol 50 Mg Tablet) 50 mg PO Q4H PRN PRN Reason: MODERATE PAIN Last Admin: 08/19/21 17:51 Dose: 50 mg Documented by: Vitals/I&O/Wt Last Vital Signs Temp 97.8 F 08/29/21 07:44 Pulse 98 08/29/21 07:44 Resp 17 08/29/21 07:44 BP 118/70 08/29/21 07:44 Pulse Ox 91 08/29/21 07:44 08/28/21 08/29/21 08/29/21 22:59 06:59 14:59 Intake Total 0 / 0 550 / 550 Output Total 550 / 550 625 / 1175 Balance -550 / -550 -75 / -625 Weight last 48 hrs Weight 105.642 kg Weight 105.744 kg Weight 102.058 kg Physical Exam Narrative: Constitutional: Awake, comfortable HEENT: Wet mucosa, no jvp, non icteric Lungs: Bilaterally discernible wheeze, no rales in all lung zones CVS: S1 S2, no murmurs Abdo: Soft, BS ok Ext 4: vasculitic non blanching purpuric rash in both LEs, purple hue to feet bilaterally Neurological: Grossly non-focal Data : 08/29/21 05:04 08/29/21 05:04 A&P Assessment and plan (1) ATN (acute tubular necrosis): Status: Acute Plan 1. Acute nonoliguric kidney injury. Following angiogram, creatinine increasing significantly now Appears to have atheroembolic showering to the lower extremities bilaterally, we do need to worry about cholesterol crystal embolization into the kidneys, ? contrast nephropathy No indication for dialysis but at high risk of developing this over the next few days Continue strict ins and outs Avoid usual nephrotoxic agents Dose medication for GFR less than 15 2. Heart failure Newly diagnosed significant heart failure with ejection fraction 20% No revascularization was needed Atrial fibrillation with RVR appreciated, being managed by cardiology. 3. Chemistry K creeping up, will give Kayexalate x 1 today 4. MRSA pneumonia Currently on combination antibiotic therapy 5. 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
[2021-08-29] MEDS: lactobacillus 1 Tablet 1 TAB PO ×2 (08:55→18:22)
[2021-08-29] MEDS: pantoprazole DR 40 mg Tablet PO ×2 (08:55→18:22)
[2021-08-29] MEDS: TRAMadol 50 mg Tablet PO (08:55)
[2021-08-29] MEDS: doxycycline 100 mg Tablet PO ×2 (08:55→18:22)
[2021-08-29] MEDS: montelukast sodium 10 mg Tablet PO (08:55)
[2021-08-29] MEDS: amiodarone 200 mg Tablet PO ×2 (08:56→18:22)
[2021-08-29] MEDS: aspirin 81 mg EC Tablet PO (08:56)
[2021-08-29] MEDS: apixaban 5 mg Tablet 2.5 MG PO (08:59)
[2021-08-29] MEDS: metoprolol tartrate 50 mg Tablet PO ×2 (08:59→22:22)
[2021-08-29] MEDS: sodium polystyrene sulfonate 15 gm/60 mL Btl PO (08:59)
[2021-08-29] MEDS: lidocaine 5% Patch 1 PATCH TOPICAL (09:00)
[2021-08-29] MEDS: insulin lispro 100 unit/1 mL SUBCUT ×3 (09:00→18:35)
--- NOTE | 2021-08-29 09:46 | P.PN_ITS ---
Subjective Subjective: Patient has more extensive rash now extending to both arms. Renal function continues to worsen. Also has coagulopathy with high INR. Vitals/I&O/Wt Last Vital Signs Temp 97.8 F 08/29/21 07:44 Pulse 98 08/29/21 07:44 Resp 17 08/29/21 07:44 BP 118/70 08/29/21 07:44 Pulse Ox 91 08/29/21 07:44 08/28/21 08/29/21 08/29/21 22:59 06:59 14:59 Intake Total 0 / 0 550 / 550 240 / 240 Output Total 550 / 550 625 / 1175 Balance -550 / -550 -75 / -625 240 / 240 Weight last 48 hrs Weight 232 lb 14.4 oz Weight 233 lb 2 oz Weight 225 lb Physical Exam Narrative: GENERAL: Patient is alert, awake and oriented x3. [] NECK: No jugular vein distension. [] HEENT: No cyanosis. No icterus. No pallor. [] HEART: Tachycardic, S1 and S2, grade 3/6 systolic murmur LUNGS: Clear to auscultate bilaterally. [] ABDOMEN: Soft CENTRAL NERVOUS SYSTEM: Grossly nonfocal. [] EXTREMITIES: Lower extremities with 1+ edema bilaterally. Has violaceous rash on both shins, tender. Similar rash not present on bilateral arms and hands. Data : 08/30/21 04:39 08/30/21 04:39 A&P Assessment and plan (1) Heart failure with reduced ejection fraction: Status: Acute (2) Atypical chest pain: Status: Acute (3) Sepsis: Status: Acute (4) Atrial fibrillation: Status: Acute (5) Pneumonia: Status: Acute (6) Acute kidney injury superimposed on chronic kidney disease: Status: Acute (7) Atrial fibrillation: Status: Acute Plan Patient has atrial fibrillation with RVR. Also has been found to have new onset congestive heart failure. He underwent coronary angiogram on 08/26 that showed no significant coronary artery disease Heart rate is still uncontrolled. I have talked to him about the option of ANASTACIA/Cardioversion. He wants to be treated with medications at this time. Would like to follow as outpatient to discuss it. He will benefit from event monitor as outpatient. Metoprolol 100mg BID. Continue amiodarone Patient developed painful rash on bilateral shins. Temporally it appears to correlate with cardiac catheterization and could be related to atheroembolic phenomenon. However, it was radial cath, no significant eosinophilia. Renal function continues to worsen. Other differential will be drug induced vs va sculitis On steroids. Recommend skin biopsy to determine cause for the rash Anticoagulation stopped Antibiotic therapy per primary team Thank you for involving us with care of this patient. We will continue to follow. Please call with questions. 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
[2021-08-29 11:26] LABS: Glucose Point of Care 161 mg/dL (70-110)
--- NOTE | 2021-08-29 13:42 | P.PN_ITS ---
Subjective Subjective: Good urine output Potassium and leukocytosis worsened No fever Cultures negative RAOUL negative Palpable petechial rash has worsened, now it has involved his hands and arms Continue Eliquis Will only continue him on aspirin He was given Eliquis before initiation of this rash, his eosinophils are not high Might benefit from skin biopsy RAOUL negative Hepatitis panel negative Creatinine worsening Vitals/I&O/Wt Last Vital Signs Temp 97.9 F 08/29/21 11:07 Pulse 111 H 08/29/21 11:07 Resp 18 08/29/21 11:07 BP 93/59 08/29/21 11:07 Pulse Ox 91 08/29/21 11:07 08/28/21 08/29/21 08/29/21 22:59 06:59 14:59 Intake Total 0 / 0 550 / 550 360 / 360 Output Total 550 / 550 625 / 1175 Balance -550 / -550 -75 / -625 360 / 360 Weight last 48 hrs Weight 105.687 kg Weight 105.642 kg Weight 105.744 kg Weight 102.058 kg Physical Exam Narrative: Patient is in good spirits S1, S2 variable Abdomen soft Petechial rash, palpable purpura of lower extremities No signs of ischemic ulcers Does not have typical presentation of livedo reticularis Petechial rash of arms and hands noted Palpable pulses Abdomen soft Awake and alert Nonfocal neuro exam Saturating well on 3 L nasal cannula Right ankle swelling No involvement of mucosal surfaces Data : 08/29/21 05:04 08/29/21 05:04 A&P Assessment and plan (1) Petechial rash: Status: Acute (2) Pulmonary nodule: Status: Acute (3) Atrial fibrillation: Status: Acute (4) Hyponatremia: Status: Acute (5) MRSA pneumonia: Status: Acute (6) Uremia: Status: Acute (7) ATN (acute tubular necrosis): Status: Acute (8) Heart failure with reduced ejection fraction: Status: Acute (9) Atrial fibrillation: Status: Acute (10) Acute kidney injury superimposed on chronic kidney disease: Status: Acute (11) Nonischemic cardiomyopathy: Status: Acute Plan Sepsis related to MRSA pneumonia Is leukocytosis related to most likely underlying cancer Has been afebrile De-escalated antibiotics On doxycycline Palpable petechial rash lower extremity Received Eliquis 1 day before his rash Right radial arterial angiogram Atheroembolic phenomenon? RAOUL negative less likely to be vasculitis induced rash Hepatitis panel negative Continued steroids Topical lidocaine jelly Topical bacitracin as well Dry dressing for blood blisters She is on doxycycline Renal cell cancer with mets Biopsy-proven Outpatient management with Dr. Kirill dunn RVR Amiodarone induced rash? However eosinophils are not higher to point towards drug-induced rash, does not have typical Chanel-Tuan's syndrome presentation, mucosal surfaces are not involved Blood blisters noted Cardioversion? Currently on metoprolol and amiodarone Discontinue Eliquis Would keep him on high-dose aspirin for now, Case discussed with Dr. 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
--- NOTE | 2021-08-29 13:46 | XRR_ITS ---
PROCEDURE INFORMATION: Exam: XR Right Ankle Exam date and time: 08/29/2021 2:34 PM Age: 76 years old Clinical indication: Swelling or effusion of joint; Ankle TECHNIQUE: Imaging protocol: Radiologic exam of the Right ankle. Views: 1 or 2 views. COMPARISON: [place] [id number] 08/15/2021 8:58 PM FINDINGS: Bones/joints: There are calcaneal spurs. Multi-articular primary osteoarthritic changes including joint space narrowing, subchondral cystic/sclerotic changes, and marginal osteophyte formations. 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 No acute fracture visualized. Soft tissues: There are benign-appearing soft tissue calcifications. There is edema in the soft tissues. XR/XR ankle RT 2V [id number] IMPRESSION: 1. Multi-articular primary osteoarthritic changes as described above. 2. 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 No acute fracture visualized. 3. There is edema in the soft tissues.
[2021-08-29] MEDS: morphine IR 15 mg Tablet PO (14:52)
[2021-08-29 15:23] LABS: Fibrinogen 597 mg/dL (174-498)
[2021-08-29 15:24] LABS: Partial Thromboplastin Time 57.7 SECONDS (23.9-36.7)
[2021-08-29 15:32] LABS: Complement C3 75 mg/dL (90-180); Uric Acid 11.7 mg/dL (3.4-7.0)
[2021-08-29 15:34] LABS: D Dimer 4.21 ug/mIFEU (0-0.59)
[2021-08-29 16:13] LABS: INR 7.82 (0.8-1.2)
[2021-08-29 17:03] LABS: Glucose Point of Care 144 mg/dL (70-110)
[2021-08-29] MEDS: bacitracin ointment 28 gm 1 APPLIC TOPICAL ×2 (18:21→22:22)
[2021-08-29] MEDS: FUROsemide 40 mg Tablet PO (18:23)
[2021-08-29] MEDS: phytonadione (ADULT) 10 mg/mL Ampule 1 mL PO (18:24)
[2021-08-29 20:56] LABS: Glucose Point of Care 150 mg/dL (70-110)
[2021-08-30] VITALS (21 sets, daily range): BP systolic 99–116; BP diastolic 59–80; PULSE 64–120; RESP 14–21; TEMP 36.4–36.8; O2SAT 90–95
[2021-08-30] MEDS: TRAMadol 50 mg Tablet PO ×3 (03:11→15:01)
[2021-08-30] MEDS: ondansetron 2 mg/ML SDV 2 mL 4 MG IVP ×2 (03:47→10:22)
[2021-08-30 04:46] LABS: Basophils % 0.1 %; Hematocrit 31.1 % (42.0-52.0); Hemoglobin 10.3 g/dL (11.7-16.6); Lymphocytes # 0.4 10^3/uL (0.8-4.8); Lymphocytes % 1.9 %; Mean Corpuscular HGB Conc 33.1 g/dL (30.0-36.0); Mean Corpuscular Hemoglobin 30.1 pg (28.0-34.0); Mean Corpuscular Volume 90.9 fl (80-94); Mean Platelet Volume 11.8 fL (7.4-10.4); Monocytes # 0.7 10^3/uL (0.2-0.9); Neutrophils # 20.34 10^3/uL (1.8-7.7); Neutrophils % 94.4 %; Nucleated Red Blood Cells % 0 %; Platelet Count 164 10^3/cmm (130-400); Red Blood Count 3.42 10^6/uL (4.1-5.3); Red Cell Distribution Width 14.5 % (12.1-15.1); White Blood Count 21.6 10^3/uL (4.0-10.0)
[2021-08-30 05:01] LABS: INR 2.97 (0.8-1.2)
[2021-08-30 05:08] LABS: Anion Gap 16.6 (5-19); Carbon Dioxide 28 mmol/L (22-29); Chloride 98 mmol/L (98-107); Glucose 141 mg/dL (65-115); Osmolality Calculated 315 mOsm/kg (285-295); Phosphorus 5.2 mg/dL (2.5-4.5); Potassium 4.6 mmol/L (3.5-5.1); Sodium 138 mmol/L (136-145)
[2021-08-30 05:24] LABS: Blood Urea Nitrogen 88 mg/dL (8-23)
--- NOTE | 2021-08-30 06:26 | PM.PN ---
Subjective Subjective: He was given vitamin K and FFP DIC profile Requested skin biopsy today No active bleed No significant drop of platelets or hemoglobin Persistent leukocytosis Low C3 and positive rheumatoid factor RAOUL negative Afebrile I have requested cryoglobulins Vitals/I&O/Wt Last Vital Signs Temp 97.8 F 08/30/21 05:00 Pulse 108 H 08/30/21 05:00 Resp 21 H 08/30/21 05:00 BP 113/74 08/30/21 05:00 Pulse Ox 92 08/30/21 05:00 08/29/21 08/29/21 08/30/21 14:59 22:59 06:59 Intake Total 600 / 600 613 / 1213 Output Total 325 / 325 500 / 825 Balance 600 / 600 -325 / 275 113 / 388 Weight last 48 hrs Weight 107.229 kg Weight 105.687 kg Weight 105.642 kg Weight 105.744 kg Physical Exam Narrative: Nonfocal neuro exam Currently doing well on room air Variable S1-S2 Hemodynamically stable Tender petechial rash all over his extremities Legs covered with bacitracin, lidocaine topical jelly Nonlabored breathing Patient is awake and alert Nonfocal neuro exam Right ankle swelling Pedal edema Data : 08/30/21 04:39 08/30/21 04:39 A&P Assessment and plan (1) Nonischemic cardiomyopathy: Status: Acute (2) Petechial rash: Status: Acute (3) Pulmonary nodule: Status: Acute (4) Atrial fibrillation: Status: Acute (5) Hyponatremia: Status: Acute (6) MRSA pneumonia: Status: Acute (7) Uremia: Status: Acute (8) ATN (acute tubular necrosis): Status: Acute (9) Leukocytosis: Status: Acute (10) Heart failure with reduced ejection fraction: Status: Acute (11) Acute kidney injury superimposed on chronic kidney disease: Status: Acute (12) Sepsis: Status: Acute (13) Hypoxia: Status: Acute Plan MRSA pneumonia Currently on doxycycline Afebrile Currently doing well on 3 L, Persistent leukocytosis likely related to underlying cancer Tender petechial rash Low C3 positive rheumatoid factor RAOUL negative Afebrile I have requested cryoglobulins Atheroembolic phenomenon? Will need skin biopsy DIC panel left related to underlying cancer, paraneoplastic syndrome? Treatment of underlying cause The only thing that would go against DIC is high fibrinogen He does not have any active bleed Platelets have not dropped significantly low He was given vitamin K and FFP yesterday in anticipation of skin biopsy however no active bleeding episodes noted His rash also has blood blisters I have started him on high-dose steroids Reduced action fraction heart failure On LifeVest Nonischemic cardiomyopathy Acute tubular necrosis Patient just recovered from contrast-induced nephropathy Current worsening secondary to atheroembolic phenomena Less likely to be endocarditis Afebrile Currently on Lasix No acute indication for dialysis No signs of uremia DNR/DNI Cardiac diet DVT prophylaxis contraindicated A. 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
[2021-08-30 07:37] LABS: Glucose Point of Care 142 mg/dL (70-110)
[2021-08-30 07:47] LABS: INR 2.78 (0.8-1.2)
[2021-08-30 07:49] LABS: Fibrinogen 544 mg/dL (174-498); Partial Thromboplastin Time 49.8 SECONDS (23.9-36.7)
[2021-08-30 08:02] LABS: D Dimer 5.02 ug/mIFEU (0-0.59)
--- NOTE | 2021-08-30 08:05 | P.CONIM_ITS ---
Providers/Reason For Consult Consulting Physician/Specialty*: Mike Bright MD Reason for Consult*: Skin biopsy Requesting Physician: Dr. High Attending Physician: Elroy High MD Primary Care Provider: Rebecca Díaz MD History of Present Illness History of Present Illness Mr. Nelson Schuster is a pleasant 76 year old male with associated multiple medical comorbidities in the form of malignant metastatic lesions on a previous PET CT scan, history of COPD, chest pain, shortness of breath, atrial fibrillation, hyponatremia, MRSA pneumonia, uremia, acute tubular necrosis, heart failure with reduced ejection fraction, sepsis, ischemic cardiomyopathy and apparently over the course of his hospitalization he developed purpuric rashes of upper and lower extremities and general surgery was consulted to obtain a biopsy. Patient reports that his extremities are hurting and painful particularly his upper extremities Review of Systems General: Reports: 10 or more systems reviewed and unremarkable except in HPI and below Medications/Allergies Home Medications Medication Instructions Recorded Confirmed Last Taken Type albuterol sulfate 90 mcg/actuation 2 puff INHALATION Q4H PRN 06/12/20 08/15/21 Unknown History aerosol inhaler (ProAir HFA) meloxicam 15 mg tablet 15 mg PO DAILY 06/12/20 08/15/21 Unknown History montelukast 10 mg tablet 10 mg PO DAILY #30 tab 08/26/20 08/15/21 Unknown Rx (Singulair) acetaminophen 500 mg tablet 1,000 mg PO Q6H PRN 08/15/21 08/15/21 Unknown History cetirizine 10 mg tablet (Zyrtec) 10 mg PO DAILY 08/15/21 08/15/21 Unknown History fluticasone 500 mcg-salmeterol 50 1 inh INHALATION 6XD 08/15/21 08/15/21 Unknown History mcg/dose blistr powdr for inhalation (Wixela Inhub) fluticasone propionate 50 2 spray INTRANASAL DAILY PRN 08/15/21 08/15/21 Unknown History mcg/actuation nasal spray,suspension (Flonase Allergy Relief) furosemide 20 mg tablet (Lasix) 10 mg PO QAM 08/15/21 08/15/21 Unknown History hydroxyzine HCl 25 mg tablet 25 mg PO DAILY 08/15/21 08/15/21 Unknown History Allergies Allergy/AdvReac Type Severity Reaction Status Date / Time No Known Allergies Allergy Verified 08/15/21 12:23 Current Medications Generic Name Dose Route Start Last Admin Trade Name Ricky PRN Reason Stop Dose Admin Albuterol/Ipratropium 3 ml 08/15/21 17:20 08/29/21 07:21 Ipratropium-Albuterol 3 Ml Neb INHALATION 3 ml Q6H PRN Administration SHORTNESS OF BREATH Amiodarone HCl 200 mg 08/28/21 18:00 08/29/21 18:22 Amiodarone 200 Mg Tablet PO 200 mg BID [facility] Administration Bacitracin 1 applic 08/29/21 15:00 08/29/21 22:22 Bacitracin Ointment 28 Gm TOPICAL 1 applic TID [facility] Administration Protocol Budesonide 0.5 mg 08/15/21 20:00 08/29/21 21:34 Budesonide 0.5 Mg/2 Ml Neb INHALATION Not Given BID.RESPIRATORY [facility] Doxycycline Monohydrate 100 mg 08/28/21 18:00 08/29/21 18:22 Doxycycline 100 Mg Tablet PO 100 mg BID [facility] Administration Protocol Furosemide 40 mg 08/29/21 16:45 08/29/21 18:23 Furosemide 40 Mg Tablet PO 40 mg DAILY@0800 [facility] Administration Insulin Human Lispro 0 unit 08/15/21 18:00 08/29/21 18:35 Insulin Lispro 100 Unit/1 Ml SUBCUT 2 unit TIDWM [facility] Administration Protocol Lactobacillus Acidophilus 1 tab 08/24/21 09:00 08/29/21 18:22 Lactobacillus 1 Tablet PO 1 tab BID [facility] Administration Lidocaine 1 patch 08/15/21 21:00 08/29/21 22:22 Lidocaine 5% Patch TOPICAL Not Given [id number] [facility] Lidocaine HCl 1 applic 08/28/21 13:09 08/30/21 04:31 Lidocaine 2% Jelly 5 Ml TOPICAL 1 applic QID PRN Administration For leg pain Methylprednisolone Sodium Succinate 80 mg 08/30/21 03:00 08/30/21 03:47 Methylprednisolone Sod Succ 125 Mg/2 Ml Inj IVP 80 mg Q12H [facility] Administration Metoprolol Tartrate 50 mg 08/28/21 21:00 08/29/21 22:22 Metoprolol Tartrate 50 Mg Tablet PO 50 mg BID@0900,2100 [facility] Administration Montelukast Sodium 10 mg 08/16/21 09:00 08/29/21 08:55 Montelukast Sodium 10 Mg Tablet PO 10 mg DAILY [facility] Administration Morphine Sulfate 15 mg 08/15/21 17:20 08/29/21 14:52 Morphine Ir 15 Mg Tablet PO 15 mg Q6H PRN Administration pAIN Ondansetron HCl 4 mg 08/15/21 17:20 08/30/21 03:47 Ondansetron 2 Mg/Ml Sdv 2 Ml IVP 4 mg Q6H PRN Administration NAUSEA AND VOMITING Pantoprazole Sodium 40 mg 08/24/21 21:56 08/29/21 18:[address] 40 Mg Tablet PO 40 mg BID [facility] Administration Senna/Docusate Sodium 1 tab 08/22/21 08:56 08/23/21 09:15 Sennosides-Docusate Tablet PO 1 tab DAILY PRN Administration CONSTIPATION Sodium Chloride 1 spray 08/21/21 18:50 08/22/21 04:25 Saline Nasal [place] 44ml Btl NASAL 1 spray PRN PRN Administration DRYNESS Temazepam 15 mg 08/26/21 14:28 08/27/21 23:09 Temazepam 15 Mg Capsule PO 15 mg BEDTIME PRN Administration INSOMNIA Tramadol HCl 50 mg 08/15/21 18:48 08/30/21 03:11 Tramadol 50 Mg Tablet PO 50 mg Q4H PRN Administration MODERATE PAIN PFSH Acute PFSH: Medical History Asthma-COPD overlap syndrome COPD (chronic obstructive pulmonary disease) Encounter for screening for lung cancer PND (post-nasal drip) Family History Mother CAD (coronary artery disease) Father Cancer lung Brother Cancer tumor inside heart Social History Smoking and tobacco status: former smoker Quit status (tobacco): has quit using tobacco Year quit tobacco: 2007 [id number] Second hand smoke exposure: No Smoking risk assessment/counseling performed?: Yes Alcohol intake: current Alcohol intake frequency: 0-2 Drinks per Day Alcohol type: beer Desire information about alcohol rehabilitation?: No Counseling given: Yes Lives independently: Yes Household members: spouse Housing: House Marital status: service: Yes branch: [employer] Current occupational status: employed Current occupation: [employer] Pets and animals: Yes History of recent travel: No Current gender identity: Male Vitals/I&O/Wt Last Vital Signs Temp 97.8 F 08/30/21 05:00 Pulse 108 H 08/30/21 05:00 Resp 21 H 08/30/21 05:00 BP 113/74 08/30/21 05:00 Pulse Ox 92 08/30/21 05:00 08/29/21 08/30/21 08/30/21 22:59 06:59 14:59 Intake Total 613 / 1213 Output Total 325 / 325 500 / 825 Balance -325 / 275 113 / 388 Weight last 48 hrs Weight 236 lb 6.4 oz Weight 233 lb Weight 232 lb 14.4 oz Weight 233 lb 2 oz Physical Exam Narrative: Patient is conscious alert oriented X3 No apparent distress BMI 30.4 Head and neck examination PERRLA no masses no cervical lymphadenopathy no jaundice Cardiac examination audible S1-S2 no murmurs no gallops no arrhythmias Chest is clear bilateral,abscence of Rhonchi or wheezes,no surgical emphysema Abdomen nontender nondistended soft no organomegaly guarding or rigidity/no signs of peritonitis Extremities covered with purpuric rashes with hemorrhagic blebs more on the lower extremities than the upper extremities. Data : 08/30/21 04:39 08/30/21 04:39 A&P Assessment and plan (1) Purpura hemorrhagica: After history taking physical examination and reviewing the chart. We will plan to perform a bedside skin biopsy to help with the management of patient's skin condition and overall medical issues. Indications, risks, benefits and alternatives all discussed with the patient and he did agree to proceed accordingly. Informed consent per chart. Assurance and education All questions have been answered and all concerns have been addressed to patient's satisfaction. Status: Suspected Consult Attestations Time Spent in Patient Care: Greater than 35 minutes Procedures Time out/Consent Time Out Performed: Yes Consent for Procedure: Consent obtained from patient Procedure Narrative Preprocedure diagnosis skin purpura Postprocedure diagnosis the same Procedure skin biopsy of the right lower extremity After identifying the patient in in his room on [facility] floor., Patient was then placed in supine position, prep and drape of the designated area of the right lower extremity was done under the usual sterile technique. Informed consent per chart Time-out was done verifying the patient's name/date of /planned procedure and destination after the procedure, all were in agreement. Infiltration of lidocaine 1%.I did an elliptical incision on top of the skin at the chin of the right tibia including diseased and normal skin. Biopsy i ncluded skin and subcutaneous tissues .specimen was sent for permanent pathology. Hemostasis was achieved, followed 3/0 Prolene transverse mattress for skin closure Triple antibiotic ointment followed by pressure dressing Patient tolerated the procedure well,count of instruments, needles and sponges were completed at the end of the procedure. I was present for the whole entire procedure Surgeon: Mike Bright MD Fashion Director Party Plan Sales: Nursing staff Rayna Helms Estimated blood loss: Less than 5 ml Local anesthesia lidocaine 1% Specimen right lower extremity skin biopsy 1.8 x 0.4 cm x 0.3 cm for permanent pathology Coding Level of Care Code Acute Oracle R12 Developer for Chg Fwd Diagnoses Purpura hemorrhagica D69.3
[2021-08-30] MEDS: insulin lispro 100 unit/1 mL SUBCUT ×3 (08:13→18:02)
[2021-08-30] MEDS: lactobacillus 1 Tablet 1 TAB PO ×2 (08:15→18:02)
[2021-08-30] MEDS: doxycycline 100 mg Tablet PO ×2 (08:15→18:02)
[2021-08-30] MEDS: montelukast sodium 10 mg Tablet PO (08:15)
[2021-08-30] MEDS: aspirin 325 mg EC Tablet PO (08:15)
[2021-08-30] MEDS: FUROsemide 40 mg Tablet PO (08:15)
[2021-08-30] MEDS: pantoprazole DR 40 mg Tablet PO ×2 (08:16→18:02)
[2021-08-30] MEDS: amiodarone 200 mg Tablet PO ×2 (08:16→18:01)
[2021-08-30] MEDS: lidocaine 5% Patch 1 PATCH TOPICAL ×2 (08:16→21:23)
[2021-08-30] MEDS: bacitracin ointment 28 gm 1 APPLIC TOPICAL ×3 (08:17→21:17)
[2021-08-30] MEDS: metoprolol tartrate 50 mg Tablet PO (08:22)
--- NOTE | 2021-08-30 09:09 | PM.PN ---
Subjective Subjective: urinating more. dec edema. spreading rash on legs and arms. has nausea. no sob, cp, diarrhea, abd pain. + leg pain Medications: Reviewed: Yes Medication Review Details: Current Medications Acetaminophen (Acetaminophen 325 Mg Tablet) 650 mg PO Q6H PRN PRN Reason: MILD PAIN Al Hydrox/Mg Hydrox/Simethicone (Vvkt-Vvb-Gpktrbqlg-George 30 Ml Udc) 30 ml PO Q15M PRN PRN Reason: INDIGESTION Albuterol Sulfate (Albuterol 8 Gm Mdi) 2 puff INHALATION Q4H PRN PRN Reason: Shortness Of Breath Albuterol/Ipratropium (Ipratropium-Albuterol 3 Ml Neb) 3 ml INHALATION Q6H PRN PRN Reason: SHORTNESS OF BREATH Last Admin: 08/29/21 07:21 Dose: 3 ml Documented by: Amiodarone HCl (Amiodarone 200 Mg Tablet) 200 mg PO BID [facility] Last Admin: 08/30/21 08:16 Dose: 200 mg Documented by: Aspirin (Aspirin 325 Mg Ec Tablet) 325 mg PO DAILY [facility] Last Admin: 08/30/21 08:15 Dose: 325 mg Documented by: Atropine Sulfate (Atropine 1 Mg/Ml Sdv 1 Ml) 0.5 mg IVP PRN PRN PRN Reason: Symptomatic bradycardia Bacitracin (Bacitracin Ointment 28 Gm) 1 applic TOPICAL TID [facility]; Protocol Last Admin: 08/30/21 08:17 Dose: 1 applic Documented by: Budesonide (Budesonide 0.5 Mg/2 Ml Neb) 0.5 mg INHALATION BID.RESPIRATORY [facility] Last Admin: 08/29/21 21:34 Dose: Not Given Documented by: Dextrose (Dextrose 50% Syringe 50 Ml) 25 ml IVP ONCE PRN; Protocol PRN Reason: hypoglycemia protocol Dextrose (Dextrose 50% Syringe 50 Ml) 50 ml IVP PRN PRN; Protocol PRN Reason: hypoglycemia protocol Doxycycline Monohydrate (Doxycycline 100 Mg Tablet) 100 mg PO BID [facility]; Protocol Last Admin: 08/30/21 08:15 Dose: 100 mg Documented by: Furosemide (Furosemide 40 Mg Tablet) 40 mg PO DAILY@0800 [facility] Last Admin: 08/30/21 08:15 Dose: 40 mg Documented by: Glucagon (Glucagon 1 Mg/Ml Inj 1 Ml) 1 mg IM ONCE PRN; Protocol PRN Reason: Adult Acute Hypoglycemia Prot. Dextrose (D5w) 500 mls @ 100 mls/hr IV ONCE PRN; Protocol PRN Reason: Adult Acute Hypoglycemia Prot Insulin Human Lispro (Insulin Lispro 100 Unit/1 Ml) 0 unit SUBCUT TIDWM [facility]; Protocol Last Admin: 08/30/21 08:13 Dose: 2 unit Documented by: Lactobacillus Acidophilus (Lactobacillus 1 Tablet) 1 tab PO BID [facility] Last Admin: 08/30/21 08:15 Dose: 1 tab Documented by: Lanolin (Lanolin Oint 7 Gm) 1 applic TOPICAL PRN PRN PRN Reason: DRYNESS Lidocaine (Lidocaine 5% Patch) 1 patch TOPICAL [id number] [facility] Last Admin: 08/30/21 08:16 Dose: 1 patch Documented by: Lidocaine HCl (Lidocaine 2% Jelly 5 Ml) 1 applic TOPICAL QID PRN PRN Reason: For leg pain Last Admin: 08/30/21 08:17 Dose: 1 applic Documented by: Magnesium Hydroxide (Magnesium Hydroxide 30 Ml Udc) 30 ml PO DAILY PRN PRN Reason: CONSTIPATION Methylprednisolone Sodium Succinate (Methylprednisolone Sod Succ 125 Mg/2 Ml Inj) 80 mg IVP Q12H [facility] Last Admin: 08/30/21 03:47 Dose: 80 mg Documented by: Metoprolol Tartrate (Metoprolol Tartrate 50 Mg Tablet) 50 mg PO BID@0900,2100 [facility] Last Admin: 08/30/21 08:22 Dose: 50 mg Documented by: Montelukast Sodium (Montelukast Sodium 10 Mg Tablet) 10 mg PO DAILY [facility] Last Admin: 08/30/21 08:15 Dose: 10 mg Documented by: Morphine Sulfate (Morphine Ir 15 Mg Tablet) 15 mg PO Q6H PRN PRN Reason: pAIN Last Admin: 08/29/21 14:52 Dose: 15 mg Documented by: Naloxone HCl (Naloxone 0.4 Mg/Ml Sdv) 0.1 mg IVP Q2M PRN PRN Reason: RESPIRATORY RATE < 8/MIN Nitroglycerin (Nitroglycerin 0.4 Mg Sublingual Tablet) 0.4 mg SUBLINGUAL Q5M PRN PRN Reason: CHEST PAIN Ondansetron HCl (Ondansetron 2 Mg/Ml Sdv 2 Ml) 4 mg IVP Q6H PRN PRN Reason: NAUSEA AND VOMITING Last Admin: 08/30/21 03:47 Dose: 4 mg Documented by: Pantoprazole Sodium (Pantoprazole Dr 40 Mg Tablet) 40 mg PO BID [facility] Last Admin: 08/30/21 08:16 Dose: 40 mg Documented by: Senna/Docusate Sodium (Sennosides-Docusate Tablet) 1 tab PO DAILY PRN PRN Reason: CONSTIPATION Last Admin: 08/23/21 09:15 Dose: 1 tab Documented by: Sodium Chloride (Saline Nasal [place] 44ml Btl) 1 spray NASAL PRN PRN PRN Reason: DRYNESS Last Admin: 08/22/21 04:25 Dose: 1 spray Documented by: Temazepam (Temazepam 15 Mg Capsule) 15 mg PO BEDTIME PRN PRN Reason: INSOMNIA Last Admin: 08/27/21 23:09 Dose: 15 mg Documented by: Tramadol HCl (Tramadol 50 Mg Tablet) 50 mg PO Q4H PRN PRN Reason: MODERATE PAIN Last Admin: 08/30/21 03:11 Dose: 50 mg Documented by: Vitals/I&O/Wt Last Vital Signs Temp 97.6 F 08/30/21 08:00 Pulse 113 H 08/30/21 08:00 Resp 18 08/30/21 08:00 BP 99/73 08/30/21 08:00 Pulse Ox 93 08/30/21 08:00 08/29/21 08/30/21 08/30/21 22:59 06:59 14:59 Intake Total 613 / 1213 Output Total 325 / 325 500 / 825 Balance -325 / 275 113 / 388 Weight last 48 hrs Weight 107.229 kg Weight 105.687 kg Weight 105.642 kg Weight 105.744 kg Physical Exam Narrative: lying comfortable in bed vs noted and BP low heent- nc/at, eomi, anicteric neck supple lungs clear b/l heart irreg irreg, +MATEO abd soft, nt, distended, + bs ext b/l edema skin- purple rash on legs and arms neuro- a,a, o x 3 Data : 08/30/21 04:39 08/30/21 04:39 A&P Assessment and plan (1) ATN (acute tubular necrosis): see below Status: Acute Plan 1. Acute nonoliguric kidney injury. 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 Heart failure Newly diagnosed significant heart failure with ejection fraction 20% No revascularization was needed -hold lasix Atrial fibrillation with RVR appreciated, being managed by cardiology AND MEDICINE. 3. MRSA pneumonia Currently on combination antibiotic therapy -has leukpcytosis 4. RASH S/P BIOPSY 5. RCC with mets seen on lung nodule biopsy OP Oncology follow up Patient seen and examined via telemedicine, with the assistance of the bedside RN > 25 min spent in evaluation and mgmt of patient Attestations Medical Necessity Statement*: gasper, rash, chf, RCC Time Spent in Patient Care: 16 - 35 minutes (>than 50% of time spent in counselling and/or direct pt care on unit). Coding Level of Care Code Acute Reading Coach for g Fwd Diagnoses ATN (acute tubular necrosis) N17.0
[2021-08-30] MEDS: ipratropium-albuterol 3 mL Neb INHALATION ×3 (09:20→20:21)
[2021-08-30] MEDS: budesonide 0.5 mg/2 mL Neb INHALATION ×2 (09:20→20:21)
--- NOTE | 2021-08-30 10:43 | PC.SOCIAL ---
IMM update IMM updated with patient. Verbalized an understanding. Copy Pg 2 provided. Initialled, dated, timed, and placed in chart.
[2021-08-30 11:12] LABS: Glucose Point of Care 145 mg/dL (70-110)
--- NOTE | 2021-08-30 13:19 | P.PN_ITS ---
Subjective Subjective: Patient is feeling better. Skin biopsy performed today. Says that the pain is better on the site of the rash Vitals/I&O/Wt Last Vital Signs Temp 97.5 F L 08/30/21 12:00 Pulse 98 08/30/21 12:00 Resp 18 08/30/21 12:00 BP 109/59 08/30/21 12:00 Pulse Ox 90 08/30/21 12:00 08/29/21 08/30/21 08/30/21 22:59 06:59 14:59 Intake Total 613 / 1213 0 / 0 Output Total 325 / 325 500 / 825 Balance -325 / 275 113 / 388 0 / 0 Weight last 48 hrs Weight 236 lb 6.4 oz Weight 233 lb Weight 232 lb 14.4 oz Weight 233 lb 2 oz Physical Exam Narrative: GENERAL: Patient is alert, awake and oriented x3. [] NECK: No jugular vein distension. [] HEENT: No cyanosis. No icterus. No pallor. [] HEART: Tachycardic, S1 and S2, grade 3/6 systolic murmur LUNGS: Clear to auscultate bilaterally. [] ABDOMEN: Soft CENTRAL NERVOUS SYSTEM: Grossly nonfocal. [] EXTREMITIES: Lower extremities with 1+ edema bilaterally. Has violaceous rash on both shins, tender. Similar rash present on bilateral arms and hands. Data : 08/31/21 04:28 08/31/21 04:28 A&P Assessment and plan (1) Heart failure with reduced ejection fraction: Status: Acute (2) Atypical chest pain: Status: Acute (3) Sepsis: Status: Acute (4) Atrial fibrillation: Status: Acute (5) Pneumonia: Status: Acute (6) Acute kidney injury superimposed on chronic kidney disease: Status: Acute (7) Atrial fibrillation: Status: Acute Plan Patient has atrial fibrillation with RVR. Also was found to have new onset congestive heart failure. He underwent coronary angiogram on 08/26 that showed no significant coronary artery disease Heart rate is still uncontrolled. I have talked to him about the option of ANASTACIA/Cardioversion. He wants to be treated with medications at this time. Would like to follow as outpatient to discuss it. He will benefit from event monitor as outpatient. Metoprolol 100mg BID. Continue amiodarone Patient developed painful rash on bilateral shins. Temporally it appears to correlate with cardiac catheterization and could be related to atheroembolic phenomenon. However, it was radial cath, no significant eosinophilia. Renal function has stabilized. Other differential will be drug induced vs vasculitis On steroids. Skin biopsy performed today. Will follow results. Anticoagulation stopped Antibiotic therapy per primary team Thank you for involving us with care of this patient. We will continue to follow. Please call with questions. Attestations Medical Necessity Statement*: Care expected to cross 2 midnights. Coding Level of Care Code Acute School Superintendent for Bonny Castellanos Diagnoses Heart failure with reduced ejection fraction I50.20 Atypical chest pain R07.89 Sepsis A41.9 Atrial fibrillation I48.91 Pneumonia J18.9 Acute kidney injury superimposed on chronic kidney disease N17.9; N18.9 Atrial fibrillation I48.91
--- NOTE | 2021-08-30 16:21 | PC.NURSE ---
pt's heart rate erratic.100 up to 140.dr lentz and dr marinelli aware .bp stable.
[2021-08-30 17:17] LABS: Glucose Point of Care 167 mg/dL (70-110)
[2021-08-30] MEDS: metoprolol tartrate 50 mg Tablet 100 MG PO (18:01)
[2021-08-30] MEDS: morphine IR 15 mg Tablet PO (21:16)
[2021-08-30 21:22] LABS: Glucose Point of Care 170 mg/dL (70-110)
[2021-08-31] VITALS (20 sets, daily range): BP systolic 101–139; BP diastolic 72–90; PULSE 67–138; RESP 14–18; TEMP 36.4–36.9; O2SAT 88–96; BMI 30.3
[2021-08-31] MEDS: ipratropium-albuterol 3 mL Neb INHALATION ×6 (03:06→23:45)
[2021-08-31] MEDS: TRAMadol 50 mg Tablet PO ×2 (03:32→17:36)
[2021-08-31] MEDS: ondansetron 2 mg/ML SDV 2 mL 4 MG IVP ×2 (03:32→17:35)
[2021-08-31 04:38] LABS: Basophils % 0.1 %; Hematocrit 31.2 % (42.0-52.0); Hemoglobin 10.4 g/dL (11.7-16.6); Lymphocytes # 0.4 10^3/uL (0.8-4.8); Lymphocytes % 2.4 %; Mean Corpuscular HGB Conc 33.3 g/dL (30.0-36.0); Mean Corpuscular Hemoglobin 29.6 pg (28.0-34.0); Mean Corpuscular Volume 88.9 fl (80-94); Mean Platelet Volume 11.8 fL (7.4-10.4); Monocytes # 0.6 10^3/uL (0.2-0.9); Monocytes % 3.8 %; Neutrophils # 14.28 10^3/uL (1.8-7.7); Nucleated Red Blood Cells % 0 %; Platelet Count 183 10^3/cmm (130-400); Red Blood Count 3.51 10^6/uL (4.1-5.3); Red Cell Distribution Width 14.4 % (12.1-15.1); White Blood Count 15.3 10^3/uL (4.0-10.0)
[2021-08-31 04:59] LABS: Alanine Aminotransferase 551 U/L (0-41); Albumin Level 2.9 g/dL (3.5-5.2); Alkaline Phosphatase 64 IU/L (40-130); Calcium 8.3 mg/dL (8.5-10.5); Carbon Dioxide 29 mmol/L (22-29); Chloride 101 mmol/L (98-107); Globulin 3.8 g/dL (1.3-4.6); Glucose 160 mg/dL (65-115); Osmolality Calculated 320 mOsm/kg (285-295); Phosphorus 4.4 mg/dL (2.5-4.5); Sodium 140 mmol/L (136-145); Total Bilirubin 1.1 mg/dL (0.15-1.2); Total Protein 6.7 g/dL (6.6-8.7)
[2021-08-31 05:10] LABS: Anion Gap 15.1 (5-19); Aspartate Amino Transferase 232 U/L (0-40); Potassium 5.1 mmol/L (3.5-5.1)
[2021-08-31 05:12] LABS: Blood Urea Nitrogen 88 mg/dL (8-23)
--- NOTE | 2021-08-31 06:10 | P.PN_ITS ---
Subjective Subjective: afib RVR heart rate has been fluctuating 80-119 Blood pressure is stable I did increase his metoprolol yesterday Amiodarone 200 twice daily I would avoid digoxin Will touch base with cardiology if cardioversion would be appropriate at this point Patient is on room air Afebrile Leukocytosis improved Creatinine improving Nonoliguric Awaiting skin biopsy results Mr. Schuster is very happy with his progress, stating he got out of bed on his own 3 times, he is feeling back to normal Adequate urine output Skin lesions are crusting Vitals/I&O/Wt Last Vital Signs Temp 97.9 F 08/31/21 04:00 Pulse 138 H 08/31/21 04:00 Resp 18 08/31/21 04:00 BP 113/72 08/31/21 04:00 Pulse Ox 93 08/31/21 04:00 08/30/21 08/30/21 08/31/21 14:59 22:59 06:59 Intake Total 580 / 580 0 / 580 240 / 820 Output Total 575 / 575 150 / 725 250 / 975 Balance 5 / 5 -150 / -145 -10 / -155 Weight last 48 hrs Weight 107.229 kg Weight 105.687 kg Physical Exam Narrative: Patient is doing well on room air A. fib RVR Blood pressure stable Nonfocal neuro exam With mild rhonchi at the base Abdomen soft Bowel sound present Tender petechial rash all over his extremities Is seem to be clearing up now no signs of ischemic ulcers Blood blisters Skin biopsy site not bleeding Data : 08/31/21 04:28 08/31/21 04:28 A&P Assessment and plan (1) Purpura hemorrhagica: Status: Suspected (2) Nonischemic cardiomyopathy: Status: Acute (3) Petechial rash: Status: Acute (4) Pulmonary nodule: Status: Acute (5) Atrial fibrillation: Status: Acute (6) Hyponatremia: Status: Acute (7) MRSA pneumonia: Status: Acute (8) Uremia: Status: Acute (9) ATN (acute tubular necrosis): Status: Acute (10) Leukocytosis: Status: Acute (11) Heart failure with reduced ejection fraction: Status: Acute (12) Sepsis: Status: Acute Plan MRSA pneumonia: Sepsis resolved Currently patient is on doxycycline MRSA in his nares No signs of bacteremia Afebrile Tender petechial rash Atheroembolic phenomenon Biopsy has been taken over the weekend Blood blisters present Patient has been getting topical lidocaine jelly, bacitracin and daily dressing change Arterial scan did not show any signs of ischemia Rheumatoid factor positive, low C3 Cryoglobulins level pending Path result pending Does not have typical DIC presentation Platelets have not dropped significantly Heparin induced thrombocytopenia less likely Renal cell cancer with mets to lungs, paraneoplastic syndrome? Contrast-induced nephropathy, acute on chronic kidney disease Patient is nonoliguric Creatinine improving Phosphorus improved No signs of uremia No indication for dialysis Appreciate nephro recommendations A. fib RVR Patient optimized on metoprolol, will touch base with Dr. Hood if we need to pursue cardioversion during this hospitalization His Eliquis has been on hold INR was therapeutic Reduced action fraction heart for exacerbation Low-dose Lasix Patient is nonoliguric No extremity edema High uric acid I have started patient on high-dose steroids for his petechial rash and possible gout flare of right ankle Charcot foot ulcer right plantar side Might need debridement, will touch base with podiatry Patient is DNR/DNI Cardiac diet DVT prophylaxis currently on hold INR was therapeutic His Eliquis was held, his rash developed after initiation of Eliquis on the day of angiogram Attestations Medical Necessity Statement*: Continue medical hospitalization awaiting skin biopsy result Creatinine improving Time Spent in Patient Care: 40 Coding Level of Care Code Acute Pharmaceutical Officer for [facility] Fwd Diagnoses Purpura hemorrhagica D69.3 Nonischemic cardiomyopathy I42.8 Petechial rash R23.3 Pulmonary nodule R91.1 Atrial fibrillation I48.91 Hyponatremia E87.1 MRSA pneumonia J15.212 Uremia N19 ATN (acute tubular necrosis) N17.0 Leukocytosis D72.829 Heart failure with reduced ejection fraction I50.20 Sepsis A41.9
--- NOTE | 2021-08-31 07:33 | P.PN_ITS ---
Subjective Subjective: feels better. dec o2 use. less swollen. good uop. rash remains. has nausea. no cp or hassan Medications: Reviewed: Yes Medication Review Details: Current Medications Acetaminophen (Acetaminophen 325 Mg Tablet) 650 mg PO Q6H PRN PRN Reason: MILD PAIN Al Hydrox/Mg Hydrox/Simethicone (Avzv-Yqc-Qzvvjmmse-George 30 Ml Udc) 30 ml PO Q15M PRN PRN Reason: INDIGESTION Albuterol Sulfate (Albuterol 8 Gm Mdi) 2 puff INHALATION Q4H PRN PRN Reason: Shortness Of Breath Albuterol/Ipratropium (Ipratropium-Albuterol 3 Ml Neb) 3 ml INHALATION Q6H PRN PRN Reason: SHORTNESS OF BREATH Last Admin: 08/31/21 03:06 Dose: 3 ml Documented by: Amiodarone HCl (Amiodarone 200 Mg Tablet) 200 mg PO BID [facility] Last Admin: 08/30/21 18:01 Dose: 200 mg Documented by: Aspirin (Aspirin 325 Mg Ec Tablet) 325 mg PO DAILY [facility] Last Admin: 08/30/21 08:15 Dose: 325 mg Documented by: Atropine Sulfate (Atropine 1 Mg/Ml Sdv 1 Ml) 0.5 mg IVP PRN PRN PRN Reason: Symptomatic bradycardia Bacitracin (Bacitracin Ointment 28 Gm) 1 applic TOPICAL TID [facility]; Protocol Last Admin: 08/30/21 21:17 Dose: 1 applic Documented by: Budesonide (Budesonide 0.5 Mg/2 Ml Neb) 0.5 mg INHALATION BID.RESPIRATORY [facility] Last Admin: 08/30/21 20:21 Dose: 0.5 mg Documented by: Dextrose (Dextrose 50% Syringe 50 Ml) 25 ml IVP ONCE PRN; Protocol PRN Reason: hypoglycemia protocol Dextrose (Dextrose 50% Syringe 50 Ml) 50 ml IVP PRN PRN; Protocol PRN Reason: hypoglycemia protocol Doxycycline Monohydrate (Doxycycline 100 Mg Tablet) 100 mg PO BID [facility]; Protocol Last Admin: 08/30/21 18:02 Dose: 100 mg Documented by: Glucagon (Glucagon 1 Mg/Ml Inj 1 Ml) 1 mg IM ONCE PRN; Protocol PRN Reason: Adult Acute Hypoglycemia Prot. Dextrose (D5w) 500 mls @ 100 mls/hr IV ONCE PRN; Protocol PRN Reason: Adult Acute Hypoglycemia Prot Insulin Human Lispro (Insulin Lispro 100 Unit/1 Ml) 0 unit SUBCUT TIDWM [facility]; Protocol Last Admin: 08/30/21 18:02 Dose: 2 unit Documented by: Lactobacillus Acidophilus (Lactobacillus 1 Tablet) 1 tab PO BID [facility] Last Admin: 08/30/21 18:02 Dose: 1 tab Documented by: Lanolin (Lanolin Oint 7 Gm) 1 applic TOPICAL PRN PRN PRN Reason: DRYNESS Lidocaine (Lidocaine 5% Patch) 1 patch TOPICAL [id number] [facility] Last Admin: 08/30/21 21:23 Dose: 1 patch Documented by: Lidocaine HCl (Lidocaine 2% Jelly 5 Ml) 1 applic TOPICAL QID PRN PRN Reason: For leg pain Last Admin: 08/31/21 04:25 Dose: 1 applic Documented by: Magnesium Hydroxide (Magnesium Hydroxide 30 Ml Udc) 30 ml PO DAILY PRN PRN Reason: CONSTIPATION Methylprednisolone Sodium Succinate (Methylprednisolone Sod Succ 125 Mg/2 Ml Inj) 80 mg IVP Q12H [facility] Last Admin: 08/31/21 03:31 Dose: 80 mg Documented by: Metoprolol Tartrate (Metoprolol Tartrate 50 Mg Tablet) 100 mg PO BID@0900,2100 [facility] Last Admin: 08/30/21 18:01 Dose: 100 mg Documented by: Montelukast Sodium (Montelukast Sodium 10 Mg Tablet) 10 mg PO DAILY [facility] Last Admin: 08/30/21 08:15 Dose: 10 mg Documented by: Morphine Sulfate (Morphine Ir 15 Mg Tablet) 15 mg PO Q6H PRN PRN Reason: pAIN Last Admin: 08/30/21 21:16 Dose: 15 mg Documented by: Naloxone HCl (Naloxone 0.4 Mg/Ml Sdv) 0.1 mg IVP Q2M PRN PRN Reason: RESPIRATORY RATE < 8/MIN Nitroglycerin (Nitroglycerin 0.4 Mg Sublingual Tablet) 0.4 mg SUBLINGUAL Q5M PRN PRN Reason: CHEST PAIN Ondansetron HCl (Ondansetron 2 Mg/Ml Sdv 2 Ml) 4 mg IVP Q4H PRN PRN Reason: NAUSEA AND VOMITING Last Admin: 08/31/21 03:32 Dose: 4 mg Documented by: Pantoprazole Sodium (Pantoprazole Dr 40 Mg Tablet) 40 mg PO BID [facility] Last Admin: 08/30/21 18:02 Dose: 40 mg Documented by: Senna/Docusate Sodium (Sennosides-Docusate Tablet) 1 tab PO DAILY PRN PRN Reason: CONSTIPATION Last Admin: 08/23/21 09:15 Dose: 1 tab Documented by: Sodium Chloride (Saline Nasal [place] 44ml Btl) 1 spray NASAL PRN PRN PRN Reason: DRYNESS Last Admin: 08/22/21 04:25 Dose: 1 spray Documented by: Temazepam (Temazepam 15 Mg Capsule) 15 mg PO BEDTIME PRN PRN Reason: INSOMNIA Last Admin: 08/27/21 23:09 Dose: 15 mg Documented by: Tramadol HCl (Tramadol 50 Mg Tablet) 50 mg PO Q4H PRN PRN Reason: MODERATE PAIN Last Admin: 08/31/21 03:32 Dose: 50 mg Documented by: Vitals/I&O/Wt Last Vital Signs Temp 97.9 F 08/31/21 04:00 Pulse 119 H 08/31/21 06:00 Resp 18 08/31/21 04:00 BP 113/72 08/31/21 04:00 Pulse Ox 93 08/31/21 04:00 08/30/21 08/31/21 08/31/21 22:59 06:59 14:59 Intake Total 0 / 580 240 / 820 Output Total 150 / 725 250 / 975 Balance -150 / -145 -10 / -155 Weight last 48 hrs Weight 107.229 kg Weight 105.687 kg Physical Exam Narrative: lying comfortable in bed vs noted and remains tachycardic heent- nc/at, eomi, anicteric neck supple lungs clear b/l heart irreg irreg, +MATEO abd soft, nt, distended, + bs ext b/l edema skin- purple rash on legs and arms neuro- a,a, o x 3 Data : 08/31/21 04:28 08/31/21 04:28 A&P Assessment and plan (1) ATN (acute tubular necrosis): see below Status: Acute Plan 1. Acute nonoliguric kidney injury. 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 Heart failure Newly diagnosed significant heart failure with ejection fraction 20% No revascularization was needed -restart low dose lasix Atrial fibrillation with RVR appreciated, being managed by cardiology AND MEDICINE. 3. MRSA pneumonia Currently on combination antibiotic therapy - leukocytosis is improving 4. RASH S/P BIOPSY 5. RCC with mets seen on lung nodule biopsy OP Oncology follow up 6. steroids per medicine Patient seen and examined via telemedicine, with the assistance of the bedside RN > 25 min spent in evaluation and mgmt of patient Attestations Medical Necessity Statement*: gasper, severe rash Time Spent in Patient Care: 16 - 35 minutes (>than 50% of time spent in counselling and/or direct pt care on unit) . Coding Level of Care Code Acute Fitter Machinist for g Fwd Diagnoses ATN (acute tubular necrosis) N17.0
[2021-08-31] MEDS: budesonide 0.5 mg/2 mL Neb INHALATION ×2 (07:56→20:33)
[2021-08-31 08:19] LABS: Glucose Point of Care 175 mg/dL (70-110)
[2021-08-31] MEDS: FUROsemide 10 mg/mL SDV 4mL 40 MG IVP (08:26)
[2021-08-31] MEDS: aspirin 325 mg EC Tablet PO (08:26)
[2021-08-31] MEDS: lactobacillus 1 Tablet 1 TAB PO ×2 (08:26→17:35)
[2021-08-31] MEDS: amiodarone 200 mg Tablet PO ×2 (08:27→17:36)
[2021-08-31] MEDS: insulin lispro 100 unit/1 mL SUBCUT ×3 (08:27→18:15)
[2021-08-31] MEDS: montelukast sodium 10 mg Tablet PO (08:27)
[2021-08-31] MEDS: doxycycline 100 mg Tablet PO ×2 (08:27→17:35)
[2021-08-31] MEDS: pantoprazole DR 40 mg Tablet PO ×2 (08:27→17:36)
[2021-08-31] MEDS: metoprolol tartrate 50 mg Tablet 100 MG PO ×2 (09:25→20:55)
[2021-08-31] MEDS: bacitracin ointment 28 gm 1 APPLIC TOPICAL (09:26)
[2021-08-31] MEDS: morphine IR 15 mg Tablet PO (10:17)
--- NOTE | 2021-08-31 10:17 | P.PN_ITS ---
Subjective Subjective: Patient is feeling better. No significant pain. Has bullae formation on top of the rash Vitals/I&O/Wt Last Vital Signs Temp 97.5 F L 08/31/21 08:00 Pulse 127 H 08/31/21 08:00 Resp 18 08/31/21 08:00 BP 101/74 08/31/21 08:00 Pulse Ox 96 08/31/21 08:00 08/30/21 08/31/21 08/31/21 22:59 06:59 14:59 Intake Total 0 / 580 240 / 820 0 / 0 Output Total 150 / 725 250 / 975 Balance -150 / -145 -10 / -155 0 / 0 Weight last 48 hrs Weight 236 lb 6.4 oz Weight 233 lb Physical Exam Narrative: GENERAL: Patient is alert, awake and oriented x3. [] NECK: No jugular vein distension. [] HEENT: No cyanosis. No icterus. No pallor. [] HEART: Tachycardic, S1 and S2, grade 3/6 systolic murmur LUNGS: Clear to auscultate bilaterally. [] ABDOMEN: Soft CENTRAL NERVOUS SYSTEM: Grossly nonfocal. [] EXTREMITIES: Lower extremities with 1+ edema bilaterally. Has violaceous rash on both shins, tender. Similar rash present on bilateral arms and hands. Data : 08/31/21 04:28 08/31/21 04:28 A&P Assessment and plan (1) Heart failure with reduced ejection fraction: Status: Acute (2) Atypical chest pain: Status: Acute (3) Sepsis: Status: Acute (4) Atrial fibrillation: Status: Acute (5) Pneumonia: Status: Acute (6) Acute kidney injury superimposed on chronic kidney disease: Status: Acute (7) Atrial fibrillation: Status: Acute Plan Patient has atrial fibrillation with RVR. Also was found to have new onset congestive heart failure. He underwent coronary angiogram on 08/26 that showed no significant coronary artery disease Heart rate is still uncontrolled. I have talked to him about the option of ANASTACIA/Cardioversion. LFTs have worsened today. Can stop amiodarone and uptitrate metoprolol to 150mg Bid. Continue tele monitoring Patient developed painful rash on bilateral shins. Temporally it appears to co rrelate with cardiac catheterization and could be related to atheroembolic phenomenon. However, it was radial cath, no significant eosinophilia. Renal function has stabilized. Other differential will be drug induced vs vasculitis On steroids. Skin biopsy performed 08/31. Will follow results. Anticoagulation stopped Antibiotic therapy per primary team Thank you for involving us with care of this patient. We will continue to follow. Please call with questions. Attestations Medical Necessity Statement*: Care expected to cross 2 midnights. Coding Level of Care Code Acute Hardware Installation Coordinator for [facility] Fwd Diagnoses Heart failure with reduced ejection fraction I50.20 Atypical chest pain R07.89 Sepsis A41.9 Atrial fibrillation I48.91 Pneumonia J18.9 Acute kidney injury superimposed on chronic kidney disease N17.9; N18.9 Atrial fibrillation I48.91
[2021-08-31 11:41] LABS: Glucose Point of Care 149 mg/dL (70-110)
--- NOTE | 2021-08-31 17:05 | PM.CONSULT ---
Providers/Reason For Consult Consulting Physician/Specialty*: Ed Aleman D.P.M. 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 Attending Physician: Elroy High MD Primary Care Provider: Rebecca Díaz MD History of Present Illness History of Present Illness Nelson Schuster is a 76 year old nondiabetic male admitted to the ICU for pneumonia, kidney disease and new onset A. fib. I was consulted for evaluation of chronic wound to his right plantar instep secondary to Charcot. Follows with podiatry at [place]. Also has new onset of bullae and pigmentation changes to the bilateral legs. Review of Systems General: Reports: 10 or more systems reviewed and unremarkable except in HPI and below Const: Denies: fever(s) or chills Card: Denies: chest pain or palpitations Resp: Denies: productive cough GI: Denies: abdominal pain, nausea or vomiting : Denies: flank pain Musc: Reports: extremity swelling, joint pain, joint stiffness, limited range of motion and deformity Skin/Breast: Reports: erythema, skin pain, skin tenderness, sores, new lesions, nail changes and change in hair; Denies: rash Neuro: Reports: numbness in extremities, sensory changes and difficulty walking Psych: Denies: suicidal ideation Micheal/Lymph: Denies: easy bruising Medications/Allergies Home Medications Medication Instructions Recorded Confirmed Last Taken Type albuterol sulfate 90 mcg/actuation 2 puff INHALATION Q4H PRN 06/12/20 08/15/21 Unknown History aerosol inhaler (ProAir HFA) meloxicam 15 mg tablet 15 mg PO DAILY 06/12/20 08/15/21 Unknown History montelukast 10 mg tablet 10 mg PO DAILY #30 tab 08/26/20 08/15/21 Unknown Rx (Singulair) acetaminophen 500 mg tablet 1,000 mg PO Q6H PRN 08/15/21 08/15/21 Unknown History cetirizine 10 mg tablet (Zyrtec) 10 mg PO DAILY 08/15/21 08/15/21 Unknown History fluticasone 500 mcg-salmeterol 50 1 inh INHALATION 6XD 08/15/21 08/15/21 Unknown History mcg/dose blistr powdr for inhalation (Wixela Inhub) fluticasone propionate 50 2 spray INTRANASAL DAILY PRN 08/15/21 08/15/21 Unknown History mcg/actuation nasal spray,suspension (Flonase Allergy Relief) furosemide 20 mg tablet (Lasix) 10 mg PO QAM 08/15/21 08/15/21 Unknown History hydroxyzine HCl 25 mg tablet 25 mg PO DAILY 08/15/21 08/15/21 Unknown History Allergies Allergy/AdvReac Type Severity Reaction Status Date / Time No Known Allergies Allergy Verified 08/15/21 12:23 Current Medications Generic Name Dose Route Start Last Admin Trade Name Freq PRN Reason Stop Dose Admin Albuterol/Ipratropium 3 ml 08/15/21 17:20 08/31/21 12:57 Ipratropium-Albuterol 3 Ml Neb INHALATION 3 ml Q6H PRN Administration SHORTNESS OF BREATH Amiodarone HCl 200 mg 08/28/21 18:00 08/31/21 08:27 Amiodarone 200 Mg Tablet PO 200 mg BID [facility] Administration Aspirin 325 mg 08/30/21 09:00 08/31/21 08:26 Aspirin 325 Mg Ec Tablet PO 325 mg DAILY [facility] Administration Bacitracin 1 applic 08/29/21 15:00 08/31/21 09:26 Bacitracin Ointment 28 Gm TOPICAL 1 applic TID [facility] Administration Protocol Budesonide 0.5 mg 08/15/21 20:00 08/31/21 07:56 Budesonide 0.5 Mg/2 Ml Neb INHALATION 0.5 mg BID.RESPIRATORY [facility] Administration Doxycycline Monohydrate 100 mg 08/28/21 18:00 08/31/21 08:27 Doxycycline 100 Mg Tablet PO 100 mg BID [facility] Administration Protocol Insulin Human Lispro 0 unit 08/15/21 18:00 08/31/21 12:19 Insulin Lispro 100 Unit/1 Ml SUBCUT 2 unit TIDWM [facility] Administration Protocol Lactobacillus Acidophilus 1 tab 08/24/21 09:00 08/31/21 08:26 Lactobacillus 1 Tablet PO 1 tab BID [facility] Administration Lidocaine 1 patch 08/15/21 21:00 08/31/21 09:27 Lidocaine 5% Patch TOPICAL Not Given [id number] [facility] Lidocaine HCl 1 applic 08/28/21 13:09 08/31/21 04:25 Lidocaine 2% Jelly 5 Ml TOPICAL 1 applic QID PRN Administration For leg pain Methylprednisolone Sodium Succinate 80 mg 08/30/21 03:00 08/31/21 14:58 Methylprednisolone Sod Succ 125 Mg/2 Ml Inj IVP 80 mg Q12H [facility] Administration Metoprolol Tartrate 100 mg 08/30/21 18:00 08/31/21 09:25 Metoprolol Tartrate 50 Mg Tablet PO 100 mg BID@0900,2100 [facility] Administration Montelukast Sodium 10 mg 08/16/21 09:00 08/31/21 08:27 Montelukast Sodium 10 Mg Tablet PO 10 mg DAILY [facility] Administration Morphine Sulfate 15 mg 08/15/21 17:20 08/31/21 10:17 Morphine Ir 15 Mg Tablet PO 15 mg Q6H PRN Administration pAIN Ondansetron HCl 4 mg 08/30/21 10:15 08/31/21 03:32 Ondansetron 2 Mg/Ml Sdv 2 Ml IVP 4 mg Q4H PRN Administration NAUSEA AND VOMITING Pantoprazole Sodium 40 mg 08/24/21 21:56 08/31/21 08:[address] 40 Mg Tablet PO 40 mg BID [facility] Administration Senna/Docusate Sodium 1 tab 08/22/21 08:56 08/23/21 09:15 Sennosides-Docusate Tablet PO 1 tab DAILY PRN Administration CONSTIPATION Sodium Chloride 1 spray 08/21/21 18:50 08/22/21 04:25 Saline Nasal [place] 44ml Btl NASAL 1 spray PRN PRN Administration DRYNESS Temazepam 15 mg 08/26/21 14:28 08/27/21 23:09 Temazepam 15 Mg Capsule PO 15 mg BEDTIME PRN Administration INSOMNIA Tramadol HCl 50 mg 08/15/21 18:48 08/31/21 03:32 Tramadol 50 Mg Tablet PO 50 mg Q4H PRN Administration MODERATE PAIN PFSH Acute PFSH: Medical History Asthma-COPD overlap syndrome COPD (chronic obstructive pulmonary disease) Encounter for screening for lung cancer PND (post-nasal drip) Family History Mother CAD (coronary artery disease) Father Cancer lung Brother Cancer tumor inside heart Social History Smoking and tobacco status: former smoker Quit status (tobacco): has quit using tobacco Year quit tobacco: 2007 [id number] Second hand smoke exposure: No Smoking risk assessment/counseling performed?: Yes Alcohol intake: current Alcohol intake frequency: 0-2 Drinks per Day Alcohol type: beer Desire information about alcohol rehabilitation?: No Counseling given: Yes Lives independently: Yes Household members: spouse Housing: House Marital status: service: Yes branch: [employer] Current occupational status: employed Current occupation: [employer] Pets and animals: Yes History of recent travel: No Current gender identity: Male Vitals/I&O/Wt Last Vital Signs Temp 97.8 F 08/31/21 15:50 Pulse 82 08/31/21 15:50 Resp 14 08/31/21 15:50 BP 139/90 08/31/21 15:50 Pulse Ox 93 08/31/21 15:50 08/31/21 08/31/21 08/31/21 06:59 14:59 22:59 Intake Total 240 / 820 0 / 0 Output Total 250 / 975 Balance -10 / -155 0 / 0 Weight last 48 hrs Weight 236 lb 6.4 oz Weight 236 lb 6.4 oz Physical Exam Narrative: GENERAL: Patient is alert and oriented ?3 and in no acute distress. The following is a focused bilateral lower extremity exam. VASCULAR: Dorsalis pedis palpable,posterior tibial arteries palpable. Capillary refill time less than 5 seconds to the distal hallux bilaterally. Calf is supple and nontender proximally and distally. Decreased pedal hair growth. Mild pitting edema to lower extremities +1. NEUROLOGICAL: Protective sensation diminished, tested with [place] monofilament to bilateral feet. DERMATOLOGICAL: Hemorrhagic bullae and purpura bilateral legs circumferentially without warmth or purulence, no lymphangitic streaking. Stable appearing wound to the plantar instep of the right foot rocker-bottom deformity secondary to Charcot, measures 3 mm x 3 mm x 2 mm with hyperkeratotic rim. Does not probe to bone, tunnel or undermine, no drainage. No periwound erythema. MUSCULOSKELETAL: Tenderness of bilateral legs, no soft tissue crepitus. Rocker-bottom deformity to the right foot. Muscle strength 5 out of 5 in all 3 planes to the bilateral foot and ankle. Data : 08/31/21 04:28 08/31/21 04:28 A&P Assessment and plan (1) Vasculitic ulcer of lower extremity: Status: Acute (2) Non-pressure chronic ulcer of other part of right foot with fat layer exposed: Status: Acute (3) Charcot's joint of right foot: Status: Acute Plan 76-year-old nondiabetic male with stable wound to the rocker-bottom deformity right plantar foot. No clinical signs of infection. Wound was sharply and excisionally debrided down to and including subcutaneous tissue and fat layer with hemostasis via manual pressure. Wound was debrided with a sterile dermal curette and debrided of devitalized epidermis, dermis, subcutaneous tissue and fat layer as well as biofilm, fibrin, slough and hyperkeratosis. Dressing with silver alginate. 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 Currently on methylprednisolone. Hemorrhagic bullae de removed, applied lower extremity dressings bilaterally consisting of Unna boot with zinc oxide and calamine, Kerlix and noncompressive wrap with stockinette outer will change this every other day. No clinical signs of cellulitis or lymphangitis to the lower extremities. Coding Level of Care Code Acute Renal Social Worker for [facility] Diagnoses Vasculitic ulcer of lower extremity L97.909 Non-pressure chronic ulcer of other part of right foot with fat layer exposed L97.512 Charcot's joint of right foot M14.671
[2021-08-31 17:17] LABS: Glucose Point of Care 143 mg/dL (70-110)
[2021-08-31 20:52] LABS: Glucose Point of Care 192 mg/dL (70-110)
[2021-09-01] VITALS (17 sets, daily range): BP systolic 108–132; BP diastolic 70–88; PULSE 78–126; RESP 12–20; TEMP 36.4–37.1; O2SAT 90–96; BMI 30.2
[2021-09-01] MEDS: TRAMadol 50 mg Tablet PO ×2 (02:46→22:54)
[2021-09-01] MEDS: ondansetron 2 mg/ML SDV 2 mL 4 MG IVP ×3 (02:50→22:54)
[2021-09-01] MEDS: ipratropium-albuterol 3 mL Neb INHALATION ×6 (03:59→23:17)
[2021-09-01 04:24] LABS: Basophils % 0.1 %; Hematocrit 29.7 % (42.0-52.0); Hemoglobin 9.7 g/dL (11.7-16.6); Lymphocytes # 0.4 10^3/uL (0.8-4.8); Lymphocytes % 3.2 %; Mean Corpuscular HGB Conc 32.7 g/dL (30.0-36.0); Mean Corpuscular Hemoglobin 29.5 pg (28.0-34.0); Mean Corpuscular Volume 90.3 fl (80-94); Mean Platelet Volume 11.9 fL (7.4-10.4); Monocytes # 0.4 10^3/uL (0.2-0.9); Monocytes % 3.2 %; Neutrophils % 92.8 %; Nucleated Red Blood Cells % 0 %; Platelet Count 159 10^3/cmm (130-400); Red Blood Count 3.29 10^6/uL (4.1-5.3); Red Cell Distribution Width 14.3 % (12.1-15.1); White Blood Count 11.4 10^3/uL (4.0-10.0)
[2021-09-01 04:40] LABS: Magnesium 1.8 mg/dL (1.7-2.3); Phosphorus 3.7 mg/dL (2.5-4.5)
[2021-09-01 04:41] LABS: Alanine Aminotransferase 478 U/L (0-41); Albumin Level 2.9 g/dL (3.5-5.2); Alkaline Phosphatase 57 IU/L (40-130); Anion Gap 13.2 (5-19); Aspartate Amino Transferase 140 U/L (0-40); Blood Urea Nitrogen 78 mg/dL (8-23); Calcium 8.2 mg/dL (8.5-10.5); Carbon Dioxide 30 mmol/L (22-29); Chloride 98 mmol/L (98-107); Globulin 3.2 g/dL (1.3-4.6); Glucose 179 mg/dL (65-115); Osmolality Calculated 312 mOsm/kg (285-295); Potassium 4.2 mmol/L (3.5-5.1); Sodium 137 mmol/L (136-145); Total Bilirubin 1.1 mg/dL (0.15-1.2); Total Protein 6.1 g/dL (6.6-8.7)
--- NOTE | 2021-09-01 06:53 | P.PN_ITS ---
Subjective Subjective: feels better. states he is eating, sleeping. dec edema. slept and is comfortable off of any oxygen. states rash is improving Medications: Reviewed: Yes Medication Review Details: Current Medications Acetaminophen (Acetaminophen 325 Mg Tablet) 650 mg PO Q6H PRN PRN Reason: MILD PAIN Al Hydrox/Mg Hydrox/Simethicone (Fqaq-Zwr-Nlgjldiad-George 30 Ml Udc) 30 ml PO Q15M PRN PRN Reason: INDIGESTION Albuterol Sulfate (Albuterol 8 Gm Mdi) 2 puff INHALATION Q4H PRN PRN Reason: Shortness Of Breath Albuterol/Ipratropium (Ipratropium-Albuterol 3 Ml Neb) 3 ml INHALATION Q6H PRN PRN Reason: SHORTNESS OF BREATH Last Admin: 08/31/21 18:00 Dose: 3 ml Documented by: Albuterol/Ipratropium (Ipratropium-Albuterol 3 Ml Neb) 3 ml INHALATION Q4H.RESPIRATORY WHITNEY Last Admin: 09/01/21 03:59 Dose: 3 ml Documented by: Amiodarone HCl (Amiodarone 200 Mg Tablet) 200 mg PO BID [facility] Last Admin: 08/31/21 17:36 Dose: 200 mg Documented by: Aspirin (Aspirin 325 Mg Ec Tablet) 325 mg PO DAILY [facility] Last Admin: 08/31/21 08:26 Dose: 325 mg Documented by: Atropine Sulfate (Atropine 1 Mg/Ml Sdv 1 Ml) 0.5 mg IVP PRN PRN PRN Reason: Symptomatic bradycardia Bacitracin (Bacitracin Ointment 28 Gm) 1 applic TOPICAL TID [facility]; Protocol Last Admin: 08/31/21 20:54 Dose: Not Given Documented by: Budesonide (Budesonide 0.5 Mg/2 Ml Neb) 0.5 mg INHALATION BID.RESPIRATORY WHITNEY Last Admin: 08/31/21 20:33 Dose: 0.5 mg Documented by: Dextrose (Dextrose 50% Syringe 50 Ml) 25 ml IVP ONCE PRN; Protocol PRN Reason: hypoglycemia protocol Dextrose (Dextrose 50% Syringe 50 Ml) 50 ml IVP PRN PRN; Protocol PRN Reason: hypoglycemia protocol Doxycycline Monohydrate (Doxycycline 100 Mg Tablet) 100 mg PO BID [facility]; Protocol Last Admin: 08/31/21 17:35 Dose: 100 mg Documented by: Glucagon (Glucagon 1 Mg/Ml Inj 1 Ml) 1 mg IM ONCE PRN; Protocol PRN Reason: Adult Acute Hypoglycemia Prot. Dextrose (D5w) 500 mls @ 100 mls/hr IV ONCE PRN; Protocol PRN Reason: Adult Acute Hypoglycemia Prot Insulin Human Lispro (Insulin Lispro 100 Unit/1 Ml) 0 unit SUBCUT TIDWM [facility]; Protocol Last Admin: 08/31/21 18:15 Dose: 1 unit Documented by: Lactobacillus Acidophilus (Lactobacillus 1 Tablet) 1 tab PO BID [facility] Last Admin: 08/31/21 17:35 Dose: 1 tab Documented by: Lanolin (Lanolin Oint 7 Gm) 1 applic TOPICAL PRN PRN PRN Reason: DRYNESS Lidocaine (Lidocaine 5% Patch) 1 patch TOPICAL [id number] [facility] Last Admin: 08/31/21 20:54 Dose: Not Given Documented by: Lidocaine HCl (Lidocaine 2% Jelly 5 Ml) 1 applic TOPICAL QID PRN PRN Reason: For leg pain Last Admin: 08/31/21 04:25 Dose: 1 applic Documented by: Magnesium Hydroxide (Magnesium Hydroxide 30 Ml Udc) 30 ml PO DAILY PRN PRN Reason: CONSTIPATION Methylprednisolone Sodium Succinate (Methylprednisolone Sod Succ 125 Mg/2 Ml Inj) 80 mg IVP Q12H [facility] Last Admin: 09/01/21 02:37 Dose: 80 mg Documented by: Metoprolol Tartrate (Metoprolol Tartrate 50 Mg Tablet) 100 mg PO BID@0900,2100 [facility] Last Admin: 08/31/21 20:55 Dose: 100 mg Documented by: Montelukast Sodium (Montelukast Sodium 10 Mg Tablet) 10 mg PO DAILY [facility] Last Admin: 08/31/21 08:27 Dose: 10 mg Documented by: Morphine Sulfate (Morphine Ir 15 Mg Tablet) 15 mg PO Q6H PRN PRN Reason: pAIN Last Admin: 08/31/21 10:17 Dose: 15 mg Documented by: Naloxone HCl (Naloxone 0.4 Mg/Ml Sdv) 0.1 mg IVP Q2M PRN PRN Reason: RESPIRATORY RATE < 8/MIN Nitroglycerin (Nitroglycerin 0.4 Mg Sublingual Tablet) 0.4 mg SUBLINGUAL Q5M PRN PRN Reason: CHEST PAIN Ondansetron HCl (Ondansetron 2 Mg/Ml Sdv 2 Ml) 4 mg IVP Q4H PRN PRN Reason: NAUSEA AND VOMITING Last Admin: 09/01/21 02:50 Dose: 4 mg Documented by: Pantoprazole Sodium (Pantoprazole Dr 40 Mg Tablet) 40 mg PO BID [facility] Last Admin: 08/31/21 17:36 Dose: 40 mg Documented by: Senna/Docusate Sodium (Sennosides-Docusate Tablet) 1 tab PO DAILY PRN PRN Reason: CONSTIPATION Last Admin: 08/23/21 09:15 Dose: 1 tab Documented by: Sodium Chloride (Saline Nasal [place] 44ml Btl) 1 spray NASAL PRN PRN PRN Reason: DRYNESS Last Admin: 08/22/21 04:25 Dose: 1 spray Documented by: Temazepam (Temazepam 15 Mg Capsule) 15 mg PO BEDTIME PRN PRN Reason: INSOMNIA Last Admin: 08/27/21 23:09 Dose: 15 mg Documented by: Tramadol HCl (Tramadol 50 Mg Tablet) 50 mg PO Q4H PRN PRN Reason: MODERATE PAIN Last Admin: 09/01/21 02:46 Dose: 50 mg Documented by: Vitals/I&O/Wt Last Vital Signs Temp 98.3 F 09/01/21 04:00 Pulse 88 09/01/21 04:02 Resp 18 09/01/21 04:00 BP 124/88 09/01/21 04:00 Pulse Ox 92 09/01/21 04:00 08/31/21 08/31/21 09/01/21 14:59 22:59 06:59 Intake Total 0 / 0 240 / 240 Output Total 120 / 120 150 / 270 Balance 0 / 0 120 / 120 -150 / -30 Weight last 48 hrs Weight 107.229 kg Physical Exam Narrative: lying comfortable in bed vs noted and remains tachycardic heent- nc/at, eomi, anicteric neck supple lungs clear b/l heart irreg irreg, +MATEO abd soft, nt, distended, + bs ext b/l edema skin- purple rash on legs and arms neuro- a,a, o x 3 Data : 09/01/21 04:12 09/01/21 04:12 A&P Assessment and plan (1) ATN (acute tubular necrosis): see below Status: Acute Plan 1. Acute nonoliguric kidney injury. 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 Heart failure Newly diagnosed significant heart failure with ejection fraction 20% No revascularization was needed -lasix as per cardiology Atrial fibrillation -well controlled on metoprolol - appreciate cardiology. 3. MRSA pneumonia Currently off of abx - leukocytosis is improving 4. RASH S/P BIOPSY 5. RCC with mets seen on lung nodule biopsy OP Oncology follow up 6. steroids per medicine - attempt to dec dose 7. charcot's foot- appeciate pulm 8. inc lft's- stable to mild improvement Patient seen and examined via telemedicine, with the assistance of the bedside RN > 25 min spent in evaluation and mgmt of patient Attestations Medical Necessity Statement*: per medicine Time Spent in Patient Care: 16 - 35 minutes (>than 50% of time spent in counselling and/or direct pt care on unit) . 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
--- NOTE | 2021-09-01 07:04 | PM.PN ---
Subjective Subjective: at the bedside, patient endorsing feeling improved Patient is stating that he could tell that he is getting better Leukocytosis improved with high-dose steroids Kidney function is improving as well Is off oxygen Hemodynamically stable A. fib RVR is also improving with metoprolol 100 mg twice daily and amiodarone He is eating and sleeping better Vitals/I&O/Wt Last Vital Signs Temp 98.3 F 09/01/21 04:00 Pulse 88 09/01/21 04:02 Resp 18 09/01/21 04:00 BP 124/88 09/01/21 04:00 Pulse Ox 92 09/01/21 04:00 08/31/21 09/01/21 09/01/21 22:59 06:59 14:59 Intake Total 240 / 240 Output Total 120 / 120 150 / 270 Balance 120 / 120 -150 / -30 Weight last 48 hrs Weight 107.229 kg Physical Exam Narrative: Pleasant and cooperative Happy with his progress Nonfocal neuro exam Petechial rash are not tender anymore Showing signs of crusting and improvement Blood blisters Plantar Charcot foot open wound has been debrided Soft abdomen Bowel sound present No signs of active labor breathing Mild wheezing No active chest pain Variable S1-S2 Legs covered with compression wraps and dressing Data : 09/01/21 04:12 09/01/21 04:12 A&P Assessment and plan (1) Charcot's joint of right foot: Status: Acute (2) Non-pressure chronic ulcer of other part of right foot with fat layer exposed: Status: Acute (3) 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 fib without RVR Continue amiodarone and metoprolol 100 mg twice daily, his heart rate slightly better today, plan to discharge him home on amiodarone 200 mg a day He might get low-dose Eliquis at the time of discharge as well Low C3, positive RF factor, Petechial rash of extremities Vasculitis? Skin biopsy report is pending Decrease the dose of high-dose steroids HTN: Creatinine improving, no signs of hyperkalemia no indication for dialysis, appreciate nephro recommendations Urine output is low today however his intake has been also on the lower side, monitor for now Continue current dose of Lasix Ankle swelling, concern for gout attack, currently on steroids Reduced action fraction heart failure exacerbation Low-dose Lasix for now Nonischemic cardiomyopathy LifeVest DNR/DNI I am anticipating he might build to go home around Tuesday DVT prophylaxis has been put on hold because of blood blisters, high creatinine, high INR, recheck DIC panel, INR If creatinine keeps improving I will add low-dose Eliquis tomorrow Attestations Medical Necessity Statement*: Patient showing signs of recovery hopefully he will be able to go home this Tuesday Time Spent in Patient Care: 40 Coding Level of Care Code 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
[2021-09-01] MEDS: budesonide 0.5 mg/2 mL Neb INHALATION ×2 (07:50→19:21)
[2021-09-01] MEDS: doxycycline 100 mg Tablet PO ×2 (08:19→18:03)
[2021-09-01] MEDS: amiodarone 200 mg Tablet PO ×2 (08:19→18:03)
[2021-09-01] MEDS: montelukast sodium 10 mg Tablet PO (08:19)
[2021-09-01] MEDS: lactobacillus 1 Tablet 1 TAB PO ×2 (08:19→18:03)
[2021-09-01] MEDS: pantoprazole DR 40 mg Tablet PO ×2 (08:19→18:03)
[2021-09-01] MEDS: lidocaine 5% Patch 1 PATCH TOPICAL ×2 (08:19→20:52)
[2021-09-01] MEDS: aspirin 325 mg EC Tablet PO (08:19)
[2021-09-01] MEDS: insulin lispro 100 unit/1 mL SUBCUT ×3 (08:19→18:03)
[2021-09-01] MEDS: metoprolol tartrate 50 mg Tablet 100 MG PO ×2 (08:22→20:51)
[2021-09-01 11:23] LABS: Glucose Point of Care 158 mg/dL (70-110)
--- NOTE | 2021-09-01 11:35 | PC.SOCIAL ---
IMM Updated Updated pt on IMM. No questions voiced. Provided pt a copy. Initialed, dated, & timed copy in chart.
[2021-09-01 17:25] LABS: Glucose Point of Care 148 mg/dL (70-110)
[2021-09-01] MEDS: lidocaine 2% viscous 1.667 ML, diphenhydrAMINE oral liq 4.165 MG, aluminum-mag hydrox-s... MUCOUS MEM (22:12)
[2021-09-02] VITALS (11 sets, daily range): BP systolic 114–132; BP diastolic 73–91; PULSE 74–135; RESP 16–20; TEMP 36.6–36.9; O2SAT 92–97
[2021-09-02 01:28] LABS: Lupus DRVVT Confirm NEGATIVE (NEGATIVE); Lupus Hexagonal Phas Confirm POSITIVE (NEGATIVE); Lupus Thrombin Clotting Time 17 sec (13-19); PTT-LA-Screen 69 sec (< OR = 40)
[2021-09-02 01:44] LABS: Basophils % 0.1 %; Hematocrit 30.1 % (42.0-52.0); Hemoglobin 9.7 g/dL (11.7-16.6); Lymphocytes # 0.4 10^3/uL (0.8-4.8); Lymphocytes % 3.5 %; Mean Corpuscular HGB Conc 32.2 g/dL (30.0-36.0); Mean Corpuscular Hemoglobin 29.3 pg (28.0-34.0); Mean Corpuscular Volume 90.9 fl (80-94); Mean Platelet Volume 11.9 fL (7.4-10.4); Monocytes # 0.4 10^3/uL (0.2-0.9); Monocytes % 3.7 %; Neutrophils # 9.79 10^3/uL (1.8-7.7); Neutrophils % 92.2 %; Nucleated Red Blood Cells % 0 %; Platelet Count 154 10^3/cmm (130-400); Red Blood Count 3.31 10^6/uL (4.1-5.3); White Blood Count 10.6 10^3/uL (4.0-10.0)
[2021-09-02] MEDS: temazepam 15 mg Capsule PO (01:49)
[2021-09-02] MEDS: lidocaine 2% viscous 1.667 ML, diphenhydrAMINE oral liq 4.165 MG, aluminum-mag hydrox-s... MUCOUS MEM ×2 (01:58→08:58)
[2021-09-02 02:06] LABS: Alanine Aminotransferase 402 U/L (0-41); Albumin Level 2.9 g/dL (3.5-5.2); Alkaline Phosphatase 51 IU/L (40-130); Anion Gap 10.3 (5-19); Aspartate Amino Transferase 80 U/L (0-40); Blood Urea Nitrogen 65 mg/dL (8-23); Calcium 8.6 mg/dL (8.5-10.5); Carbon Dioxide 33 mmol/L (22-29); Chloride 102 mmol/L (98-107); Glucose 131 mg/dL (65-115); Magnesium 1.9 mg/dL (1.7-2.3); Osmolality Calculated 312 mOsm/kg (285-295); Phosphorus 3.3 mg/dL (2.5-4.5); Potassium 4.3 mmol/L (3.5-5.1); Sodium 141 mmol/L (136-145); Total Bilirubin 1.5 mg/dL (0.15-1.2); Total Protein 5.9 g/dL (6.6-8.7)
[2021-09-02] MEDS: ipratropium-albuterol 3 mL Neb INHALATION ×3 (03:05→11:28)
[2021-09-02] MEDS: TRAMadol 50 mg Tablet PO ×2 (04:41→08:57)
[2021-09-02] MEDS: ondansetron 2 mg/ML SDV 2 mL 4 MG IVP (04:43)
--- NOTE | 2021-09-02 06:52 | PM.PN ---
Subjective Subjective: feels well. still w/ mouth and hand lesions. legs are wrapped. sleeping well. no n/v/f/c/hassan/d. SOB and edema improving Medications: Reviewed: Yes Medication Review Details: Current Medications Acetaminophen (Acetaminophen 325 Mg Tablet) 650 mg PO Q6H PRN PRN Reason: MILD PAIN Albuterol Sulfate (Albuterol 8 Gm Mdi) 2 puff INHALATION Q4H PRN PRN Reason: Shortness Of Breath Albuterol/Ipratropium (Ipratropium-Albuterol 3 Ml Neb) 3 ml INHALATION Q6H PRN PRN Reason: SHORTNESS OF BREATH Last Admin: 08/31/21 18:00 Dose: 3 ml Documented by: Albuterol/Ipratropium (Ipratropium-Albuterol 3 Ml Neb) 3 ml INHALATION Q4H.RESPIRATORY WHITNEY Last Admin: 09/02/21 03:05 Dose: 3 ml Documented by: Amiodarone HCl (Amiodarone 200 Mg Tablet) 200 mg PO BID [facility] Last Admin: 09/01/21 18:03 Dose: 200 mg Documented by: Aspirin (Aspirin 325 Mg Ec Tablet) 325 mg PO DAILY [facility] Last Admin: 09/01/21 08:19 Dose: 325 mg Documented by: Atropine Sulfate (Atropine 1 Mg/Ml Sdv 1 Ml) 0.5 mg IVP PRN PRN PRN Reason: Symptomatic bradycardia Bacitracin (Bacitracin Ointment 28 Gm) 1 applic TOPICAL TID [facility]; Protocol Last Admin: 09/01/21 20:48 Dose: Not Given Documented by: Budesonide (Budesonide 0.5 Mg/2 Ml Neb) 0.5 mg INHALATION BID.RESPIRATORY WHITNEY Last Admin: 09/01/21 19:21 Dose: 0.5 mg Documented by: Lidocaine HCl 1.667 ml/Diphenhydramine HCl 4.165 mg/Al Hydrox/Mg Hydrox/Simethicone 1.667 ml 0 ml MUCOUS MEM Q4H PRN PRN Reason: MOUTH PAIN Last Admin: 09/02/21 01:58 Dose: 5 ml Documented by: Dextrose (Dextrose 50% Syringe 50 Ml) 25 ml IVP ONCE PRN; Protocol PRN Reason: hypoglycemia protocol Dextrose (Dextrose 50% Syringe 50 Ml) 50 ml IVP PRN PRN; Protocol PRN Reason: hypoglycemia protocol Doxycycline Monohydrate (Doxycycline 100 Mg Tablet) 100 mg PO BID [facility]; Protocol Last Admin: 09/01/21 18:03 Dose: 100 mg Documented by: Glucagon (Glucagon 1 Mg/Ml Inj 1 Ml) 1 mg IM ONCE PRN; Protocol PRN Reason: Adult Acute Hypoglycemia Prot. Dextrose (D5w) 500 mls @ 100 mls/hr IV ONCE PRN; Protocol PRN Reason: Adult Acute Hypoglycemia Prot Insulin Human Lispro (Insulin Lispro 100 Unit/1 Ml) 0 unit SUBCUT TIDWM [facility]; Protocol Last Admin: 09/01/21 18:03 Dose: 2 unit Documented by: Lactobacillus Acidophilus (Lactobacillus 1 Tablet) 1 tab PO BID [facility] Last Admin: 09/01/21 18:03 Dose: 1 tab Documented by: Lanolin (Lanolin Oint 7 Gm) 1 applic TOPICAL PRN PRN PRN Reason: DRYNESS Lidocaine (Lidocaine 5% Patch) 1 patch TOPICAL [id number] [facility] Last Admin: 09/01/21 20:52 Dose: 1 patch Documented by: Lidocaine HCl (Lidocaine 2% Jelly 5 Ml) 1 applic TOPICAL QID PRN PRN Reason: For leg pain Last Admin: 08/31/21 04:25 Dose: 1 applic Documented by: Magnesium Hydroxide (Magnesium Hydroxide 30 Ml Udc) 30 ml PO DAILY PRN PRN Reason: CONSTIPATION Methylprednisolone Sodium Succinate (Methylprednisolone Sod Succ 40 Mg/Ml Inj) 40 mg IVP Q12H [facility] Last Admin: 09/02/21 01:49 Dose: 40 mg Documented by: Metoprolol Tartrate (Metoprolol Tartrate 50 Mg Tablet) 100 mg PO BID@0900,2100 [facility] Last Admin: 09/01/21 20:51 Dose: 100 mg Documented by: Montelukast Sodium (Montelukast Sodium 10 Mg Tablet) 10 mg PO DAILY [facility] Last Admin: 09/01/21 08:19 Dose: 10 mg Documented by: Naloxone HCl (Naloxone 0.4 Mg/Ml Sdv) 0.1 mg IVP Q2M PRN PRN Reason: RESPIRATORY RATE < 8/MIN Nitroglycerin (Nitroglycerin 0.4 Mg Sublingual Tablet) 0.4 mg SUBLINGUAL Q5M PRN PRN Reason: CHEST PAIN Ondansetron HCl (Ondansetron 2 Mg/Ml Sdv 2 Ml) 4 mg IVP Q4H PRN PRN Reason: NAUSEA AND VOMITING Last Admin: 09/02/21 04:43 Dose: 4 mg Documented by: Pantoprazole Sodium (Pantoprazole Dr 40 Mg Tablet) 40 mg PO BID [facility] Last Admin: 09/01/21 18:03 Dose: 40 mg Documented by: Senna/Docusate Sodium (Sennosides-Docusate Tablet) 1 tab PO DAILY PRN PRN Reason: CONSTIPATION Last Admin: 08/23/21 09:15 Dose: 1 tab Documented by: Sodium Chloride (Saline Nasal [place] 44ml Btl) 1 spray NASAL PRN PRN PRN Reason: DRYNESS Last Admin: 08/22/21 04:25 Dose: 1 spray Documented by: Temazepam (Temazepam 15 Mg Capsule) 15 mg PO BEDTIME PRN PRN Reason: INSOMNIA Last Admin: 09/02/21 01:49 Dose: 15 mg Documented by: Tramadol HCl (Tramadol 50 Mg Tablet) 50 mg PO Q4H PRN PRN Reason: MODERATE PAIN Last Admin: 09/02/21 04:41 Dose: 50 mg Documented by: Vitals/I&O/Wt Last Vital Signs Temp 97.8 F 09/02/21 04:00 Pulse 119 H 09/02/21 05:39 Resp 18 09/02/21 04:00 BP 132/88 09/02/21 04:00 Pulse Ox 94 09/02/21 04:00 09/01/21 09/01/21 09/02/21 14:59 22:59 06:59 Intake Total 480 / 480 Output Total 150 / 150 600 / 750 Balance -150 / -150 -120 / -270 Weight last 48 hrs Weight 107.048 kg Weight 107.229 kg Physical Exam Narrative: lying comfortable in bed vs noted and remains tachycardic heent- nc/at, eomi, anicteric, lesions by mouth neck supple lungs clear b/l heart irreg irreg, +MATEO abd soft, nt, distended, + bs ext b/l edema skin- purple rash on legs and arms neuro- a,a, o x 3 Data : 09/02/21 01:36 09/02/21 01:36 A&P Assessment and plan (1) ATN (acute tubular necrosis): see below Status: Acute Plan 1. Acute nonoliguric kidney injury. 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 Heart failure Newly diagnosed significant heart failure with ejection fraction 20% No revascularization was needed -now w/ met alkalosis -monitor off of lasix, if okay with cardiology Atrial fibrillation -well controlled on metoprolol - appreciate cardiology. 3. MRSA pneumonia Currently off of abx - leukocytosis is improving 4. RASH S/P BIOPSY 5. RCC with mets seen on lung nodule biopsy OP Oncology follow up 6. steroids per medicine - attempt to dec dose 7. charcot's foot- appeciate pulm 8. inc lft's- stable to mild improvement 8. pleural fluid- neg for malignancy, + neutrophilic inflammation Patient seen and examined via telemedicine, with the assistance of the bedside RN > 25 min spent in evaluation and mgmt of patient Attestations Medical Necessity Statement*: per medicine Time Spent in Patient Care: 16 - 35 minutes (>than 50% of time spent in counselling and/or direct pt care on unit). 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
[2021-09-02 07:48] LABS: Glucose Point of Care 166 mg/dL (70-110)
--- NOTE | 2021-09-02 07:48 | PC.NURSE ---
received bedside report, reviewed poc, assumed care of pt. no needs identified at this time
[2021-09-02] MEDS: budesonide 0.5 mg/2 mL Neb INHALATION (08:21)
[2021-09-02] MEDS: lidocaine 5% Patch 1 PATCH TOPICAL (08:56)
[2021-09-02] MEDS: doxycycline 100 mg Tablet PO ×2 (08:56→16:10)
[2021-09-02] MEDS: lactobacillus 1 Tablet 1 TAB PO ×2 (08:56→16:10)
[2021-09-02] MEDS: aspirin 325 mg EC Tablet PO (08:57)
[2021-09-02] MEDS: insulin lispro 100 unit/1 mL SUBCUT ×2 (08:57→13:37)
[2021-09-02] MEDS: montelukast sodium 10 mg Tablet PO (08:57)
[2021-09-02] MEDS: metoprolol tartrate 50 mg Tablet 150 MG PO ×2 (08:57→16:12)
[2021-09-02] MEDS: amiodarone 200 mg Tablet PO ×2 (08:57→16:12)
[2021-09-02] MEDS: pantoprazole DR 40 mg Tablet PO ×2 (08:57→16:12)
--- NOTE | 2021-09-02 10:46 | P.PN_ITS ---
Subjective Subjective: Patient is feeling better today denies chest pain or shortness of breath. He wants to go home today. His rash has improved significantly. Biopsy showing leukocytoclastic vasculitis. Renal function improving. Vitals/I&O/Wt Last Vital Signs Temp 98.3 F 09/02/21 08:22 Pulse 120 H 09/02/21 08:30 Resp 17 09/02/21 08:22 BP 128/91 09/02/21 08:22 Pulse Ox 93 09/02/21 08:22 09/01/21 09/02/21 09/02/21 22:59 06:59 14:59 Intake Total 480 / 480 Output Total 600 / 750 120 / 120 Balance -120 / -270 -120 / -120 Weight last 48 hrs Weight 236 lb Physical Exam Narrative: GENERAL: Patient is alert, awake and oriented x3. [] NECK: No jugular vein distension. [] HEENT: No cyanosis. No icterus. No pallor. [] HEART: Tachycardic, S1 and S2, grade 3/6 systolic murmur LUNGS: Clear to auscultate bilaterally. [] ABDOMEN: Soft CENTRAL NERVOUS SYSTEM: Grossly nonfocal. [] EXTREMITIES: Lower extremities with 1+ edema bilaterally. Has violaceous rash on both shins, tender. Similar rash present on bilateral arms and hands. Data : 09/02/21 01:36 09/02/21 01:36 A&P Assessment and plan (1) Leukocytoclastic vasculitis: Status: Acute (2) Heart failure with reduced ejection fraction: (3) Atypical chest pain: (4) Sepsis: Status: Resolved (5) Atrial fibrillation: (6) Pneumonia: Status: Resolved (7) Acute kidney injury superimposed on chronic kidney disease: Status: Resolved (8) Atrial fibrillation: Status: Acute Plan Patient heart rate is better controlled today. Continue metoprolol. Plan for continuing aspirin for now. Hold off on anticoagulation. Patient understands the risk of stroke however wants to just continue aspirin for now. Biopsy result came back and showed leukocytoclastic vasculitis. Could be related to Eliquis as it was the only new medication started post cath Antibiotic therapy per primary team Thank you for involving us with care of this patient. Patient wants to be discharged today. He is stable at this time. Outpatient cardiology follow-up. Please call with questions. Attestations Medical Necessity Statement*: Care expected to cross 2 midnights. 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
--- NOTE | 2021-09-02 11:15 | PM.DCS ---
Discharge Providers Date of Admission: 08/15/21 15:23 Date of Discharge: September 02, 2021 Attending Provider at Admission: Elroy High MD Attending Provider at Discharge: Elroy High MD Primary Care Provider: Rebecca Díaz MD Diagnoses at Discharge Discharge Diagnosis (1) ATN (acute tubular necrosis): Status: Acute (2) Leukocytoclastic vasculitis: Status: Acute Reason for Visit Reason for Visit: SOB Hospital Course Hospital Course 76-year male who was admitted on 08/15 for management of sepsis related to community-acquired pneumonia, he carries history of moderate COPD, has not been using oxygen at home until lately he started using 4 L of oxygen. He was using his 's oxygen at home. He was also diagnosed with A. fib RVR at the time of admission. Received contrast study that ruled out PE. He was put on heparin drip for anticoagulation for A. fib with underlying worsening creatinine. Echo revealed reduced ejection fraction heart failure. EF 20%, however patient developed contrast-induced nephropathy which took almost a week to recover after his creatinine stabilized with conservative management angiogram was done. Angiogram showed nonobstructive coronary disease. After creatinine improved he was put on Eliquis after his angiogram. Next day he developed a tender palpable petechial rash on his legs which gradually got worse and involves his hands and arms. He remained afebrile, cultures remain negative. He was positive for MRSA in the sputum. He was treated for MRSA related community-acquired pneumonia. 1 year ago PET scan did not show any signs of malignant masses. This time biopsy of pulmonary nodule from the right side revealed renal cell cancer with mets. Immunohistochemical staining positive for renal cell cancer with metastasis. Skin biopsy was done by Dr. Bright, which showed leukocytoclastic vasculitis, however RAOUL negative, positive RA factor, low C3-4 consistent with vasculitis pattern. His rash, creatinine, leukocytosis started getting better once I started him on high-dose steroids. His persistent leukocytosis finally started responding to high-dose steroids which I believe is due to underlying vasculitis. Exact etiology of vasculitis is unknown it could be related to use of Eliquis as it carries temporal association with development of rash versus paraneoplastic syndrome. Manager Employment recommended initiation of high-dose aspirin instead of Eliquis at the time of discharge. Manager Bakery recommended 60 mg of prednisone for 2 weeks and then tapering regimen. Patient is stating that he would like to follow-up with the hairspring truing inspector of his however we did update Dr. Aaron in case he changes his mind. Heart rate has been difficult to control for his A. fib, he was started on amiodarone which was gradually tapered down to 200 mg a day at the time of discharge, he is getting 150 mg of metoprolol twice a day as per cardiology recommendation. He will see Dr. Jones in his office for possible cardioversion in future. He did not want to go for cardioversion during this hospitalization. He was given follow-up appointment with Dr. Baer for his renal cell cancer with metastatic lesion. Dr. Jones we will follow-up with him for possible cardioversion in future. He will also need wound care clinic follow-up for removal of suture around skin biopsy site by Dr. Bright. Sutures will need to be removed within 10 to 11 days. Of note, patient has developed odynophagia related to Jessica infection I have started him on nystatin and 14-day treatment of fluconazole. dressings bilaterally consisting of Unna boot with zinc oxide and calamine, Kerlix and noncompressive wrap with stockinette outer will change this every other day.? No clinical signs of cellulitis or lymphangitis? He has been given doxycycline for MRSA cellulitis coverage, high-dose steroid for 2 weeks and for PCP pneumonia prophylaxis he has been given Bactrim as per nephro recommendations Tuesday. Dr. Lewis has recommended Bactrim prophylaxis despite recent TRICIA. Patient is requiring 2 L of oxygen at the time of discharge. Discharge Data Studies Completed and Pending Completed Studies During Hospitalization Category Date Time Status CT abdomen pelvis wo con [id number] Routine Cat Scan 08/21/21 15:[address] biopsy lung 99222 Routine Cat Scan 08/20/21 12:[address] drain thoracentesis 89953 Routine Cat Scan 08/20/21 Completed CTA chest [CT angio chest PE protcl 28600] Urgent Cat Scan 08/15/21 13:05 Completed RHEUMATOLOGY NURSE request for service Routine Exams 08/26/21 08:10 Completed CXRP [XR chest 1V portable 34165] Routine Exams 08/20/21 13:40 Completed CXRP [XR chest 1V portable 96140] Routine Exams 08/21/21 10:19 Completed CXRP [XR chest 1V portable 76256] Stat Exams 08/18/21 08:05 Completed XR ankle RT 2V 55103 Routine Exams 08/29/21 13:46 Completed XR chest 1V portable 50912 Routine Exams 08/21/21 04:00 Completed XR chest 1V portable [id number] Stat Exams 08/15/21 12:18 Completed Cytology [PTH] Routine Pth 08/20/21 13:38 Completed Pathology: Surgical [PTH] Routine Pth 08/20/21 13:18 [place] [id number] Routine Ultrasound 08/27/21 08:37 [place] [id number] Routine Ultrasound 08/15/21 18:47 Completed CV. echo complete* [id number] Routine Ultrasound 08/16/21 04:45 Completed US renal BI* [id number] Routine Ultrasound 08/17/21 09:22 Completed Pending at discharge Category Date Time Status ANCA [Anti-Neutrophil Cytoplasmic AB] Routine Lab 08/29/21 14:46 Received Comprehensive Metabolic Panel AM LABS Lab 09/03/21 04:00 Ordered Comprehensive Metabolic Panel AM LABS Lab 09/03/21 04:00 Ordered Comprehensive Metabolic Panel AM LABS Lab 09/04/21 04:00 Ordered Comprehensive Metabolic Panel AM LABS Lab 09/04/21 04:00 Ordered Comprehensive Metabolic Panel AM LABS Lab 09/05/21 04:00 Ordered Cryoglobulins Qualitative Routine Lab 08/29/21 18:53 Received Heparin Induced Platelet AB Routine Lab 08/29/21 14:46 Received Magnesium AM LABS Lab 09/03/21 04:00 Ordered Magnesium AM LABS Lab 09/04/21 04:00 Ordered Magnesium AM LABS Lab 09/05/21 04:00 Ordered Phosphorus AM LABS Lab 09/03/21 04:00 Ordered Phosphorus AM LABS Lab 09/04/21 04:00 Ordered Phosphorus AM LABS Lab 09/05/21 04:00 Ordered Radiology Impressions Chest CTA 08/15/21 13:05 IMPRESSION: 1. There are lobulated lesions at the bilateral lung bases, worsened when compared to the prior CT scan, consistent with metastatic disease. Highly suspicious nodule(s). Consider non-emergent PET/CT, or tissue sampling.(Reference: Kaur) References: Kaur Lane, et al. Guidelines for Management of Incidental Pulmonary Nodules Detected on CT Images: From the Fleischner Society 2017. Radiology. 2017;284(1):228-243. 2. Patchy consolidation in the bilateral lower lobes is consistent with pneumonia. 3. Cardiomegaly. Venous Duplex 08/15/21 18:47 IMPRESSION: No evidence of deep vein thrombosis. Renal Ultrasound 08/17/21 09:22 IMPRESSION: 1. Status post RIGHT nephrectomy. 2. 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 Abscess Drainage CT 08/20/21 00:00 IMPRESSION: 1. Multiple 18-gauge core samples were obtained of the RIGHT lung nodule. 2. 60 minute chest x-ray demonstrates no visualized pneumothorax. Tiny peripheral pneumothorax with tiny locules of air on the post biopsy CT imaging with expected parenchymal hemorrhage in the RIGHT lower lobe. 3. Note prebiopsy CT images demonstrated increased pleural fluid and bibasilar atelectasis compared to the prior CT August 15, 2021 4. Recommend additional chest radiograph follow-up August 21, 2021 in the a.m. 5. Pleural fluid and core samples pending pathology and fluid analysis 6. Aspirated pleural fluid prior to biopsy appeared serosanguineous Lung Biopsy CT 08/20/21 12:00 IMPRESSION: 1. Multiple 18-gauge core samples were obtained of the RIGHT lung nodule. 2. 60 minute chest x-ray demonstrates no visualized pneumothorax. Tiny peripheral pneumothorax with tiny locules of air on the post biopsy CT imaging with expected parenchymal hemorrhage in the RIGHT lower lobe. 3. Note prebiopsy CT images demonstrated increased pleural fluid and bibasilar atelectasis compared to the prior CT August 15, 2021 4. Recommend additional chest radiograph follow-up August 21, 2021 in the a.m. 5. Pleural fluid and core samples pending pathology and fluid analysis 6. Aspirated pleural fluid prior to biopsy appeared serosanguineous Chest X-Ray 08/21/21 10:19 Impression: Satisfactory insertion of left PICC line. Abdomen/Pelvis CT 08/21/21 15:49 IMPRESSION: 1. There is enhancement in the left kidney. Per report from the histotechnologist, the current study was performed without intravenous contrast. Findings in the left kidney could represent persistent enhancement from a prior CT scan or other radiographic study and raises suspicion for contrast nephropathy. No hydroureteronephrosis. 2. Mildly increased density layering in the gallbladder. This could represent noncalcified gallstones and/or gallbladder sludge or possibly vicarious excretion of contrast. Ultrasound of the gallbladder may be obtained for further evaluation as clinically indicated. 3. Stable small/moderate partially loculated bilateral pleural effusions with compressive atelectasis and/or pneumonia in the right and left lower lobes Recommend followup chest imaging to insure resolution of these findings. 4. Mild decrease of hemorrhage and decreasing loculated pneumothoraces in the right chest, these are likely secondary to the patient's recent biopsy. 5. Two masses in the right lower lobe are stable, suspicious for metastatic foci. 6. Stable findings consistent with a previous right nephrectomy. 7. Left-sided fat containing inguinal hernia and moderate fat containing supraumbilical ventral midline hernia. No evidence for strangulation. 8. Small amount of free fluid in the pelvis. 9. Colonic diverticulosis. No evidence for diverticulitis. 10. Incidental/nonacute findings are listed in the report. ADDENDUM: 08/21/211908 There is no evidence for a mass in the left kidney. Urgent results were discussed with ELROY Hernandez on 08/21/2021 at 7:08 PM CDT. ADDENDUM: 08/21/211912 Prior PET CT scan dated 07/19/2020 is now available for comparison. The right lower lobe pulmonary masses are new compared with the PET-CT scan dated 07/19/2020, however are stable compared with CT angiogram of the chest dated 08/15/2021. Ankle X-Ray 08/29/21 13:46 IMPRESSION: 1. Multi-articular primary osteoarthritic changes as described above. 2. 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 No acute fracture visualized. 3. There is edema in the soft tissues. Laboratory Results WBC 10.6 10^3/uL (4.0-10.0) H 09/02/21 01:36 RBC 3.31 10^6/uL (4.1-5.3) L 09/02/21 01:36 Hgb 9.7 g/dL (11.7-16.6) L 09/02/21 01:36 Hct 30.1 % (42.0-52.0) L 09/02/21 01:36 MCV 90.9 fl (80-94) 09/02/21 01:36 MCH 29.3 pg (28.0-34.0) 09/02/21 01:36 MCHC 32.2 g/dL (30.0-36.0) 09/02/21 01:36 RDW 14.0 % (12.1-15.1) 09/02/21 01:36 Plt Count 154 10^3/cmm (130-400) 09/02/21 01:36 MPV 11.9 fL (7.4-10.4) H 09/02/21 01:36 Neut % (Auto) 92.2 % 09/02/21 01:36 Lymph % (Auto) 3.5 % 09/02/21 01:36 Lipscomb % (Auto) 3.7 % 09/02/21 01:36 Eos % (Auto) 0.0 % 09/02/21 01:36 Baso % (Auto) 0.1 % 09/02/21 01:36 Neut # (Auto) 9.79 10^3/uL (1.8-7.7) H 09/02/21 01:36 Lymph # (Auto) 0.4 10^3/uL (0.8-4.8) L 09/02/21 01:36 Lipscomb # (Auto) 0.4 10^3/uL (0.2-0.9) 09/02/21 01:36 Eos # (Auto) 0.0 10^3/uL (0.0-0.8) 09/02/21 01:36 Baso # (Auto) 0.0 10^3/uL (0.0-0.1) 09/02/21 01:36 Nucleated RBC % (auto) 0 % 09/02/21 01:36 Total Counted 100 (0-100) 08/22/21 04:22 Atypical Lymphs % 0.0 % (0-5) 08/22/21 04:22 Absolute Neutrophils 23.5 10^3/cmm (1.4-6.5) H 08/22/21 04:22 Segmented Neutrophils 93 % 08/22/21 04:22 Abs Segm Neuts (Man) 22.8 10/cmm (1.6-7.1) H 08/22/21 04:22 Band Neutrophils 3.0 % 08/22/21 04:22 Abs Band Neuts (Man) 0.7 10^3/cmm (0.0-1.2) 08/22/21 04:22 Absolute Lymphocytes 0.2 10^3/cmm (1.2-3.4) L 08/22/21 04:22 Lymphocytes (Manual) 1 % 08/22/21 04:22 Monocytes (Manual) 1.0 % 08/22/21 04:22 Absolute Monocytes 0.2 10^3/cmm (0.1-0.6) 08/22/21 04:22 Eosinophils (Manual) 0 % 08/22/21 04:22 Absolute Eosinophils 0.0 10^3/cmm (0.0-0.7) 08/22/21 04:22 Basophils (Manual) 0.0 % 08/22/21 04:22 Absolute Basophils 0.0 10^3/cmm (0.0-0.2) 08/22/21 04:22 Metamyelocytes 2.0 % 08/22/21 04:22 Nucleated RBCs # 0.0 /100WBC 09/02/21 01:36 Platelet Estimate Normal (Normal) 08/22/21 04:22 PT 29.60 SECONDS (12.1-14.9) H 08/30/21 06:45 INR 2.78 (0.8-1.2) H 08/30/21 06:45 APTT 49.8 SECONDS (23.9-36.7) H 08/30/21 06:45 Fibrinogen 544 mg/dL (174-498) H 08/30/21 06:45 Fibrin Degrad Products Neg, <10 ug/mL (NEG) 08/30/21 06:45 D-Dimer 5.02 ug/mIFEU (0-0.59) H 08/30/21 06:45 Lupus Anticoagulant See note (NOT DETECTED) 08/29/21 14:46 LA PTT Screen 69 sec (< OR = 40) H 08/29/21 14:46 LA Thrombin Time 17 sec (13-19) 08/29/21 14:46 DRVVT Screen Seconds 106 sec (< OR = 45) H 08/29/21 14:46 DRVVT Confirm Seconds Negative (NEGATIVE) 08/29/21 14:46 Hexagonal Phase Confirm Positive (NEGATIVE) A 08/29/21 14:46 Specimen Type Arterial 08/15/21 12:32 Sample Site Radial, left 08/15/21 12:32 ABG pH 7.39 (7.35-7.45) 08/15/21 12:32 ABG pCO2 41.6 mmHg (35-45) 08/15/21 12:32 ABG pO2 88.7 mmHg (80.0-100.0) 08/15/21 12:32 ABG HCO3 25.0 mmol/L (22-26) 08/15/21 12:32 ABG O2 Saturation 97.5 08/15/21 12:32 ABG Base Excess -0.1 mmol/L (-2.0-2.0) 08/15/21 12:32 Jameson Test Pos 08/15/21 12:32 A-a O2 Gradient 22.2 mmHg (5-10) H 08/15/21 12:32 Hematocrit 46.8 % (42-52) 08/15/21 12:32 Hgb O2 Saturation 97.1 % (95-100) 08/15/21 12:32 Carboxyhemoglobin 0.8 %THgb (0.4-20.1) 08/15/21 12:32 Methemoglobin < 0.0 % (0.4-1.5) L 08/15/21 12:32 Total Hemoglobin 15.3 g/dL (14-18) 08/15/21 12:32 Sodium 132.0 mmol/L (131-143) 08/15/21 12:32 Potassium 4.1 mmol/L (3.5-5.0) 08/15/21 12:32 Glucose 150.0 mg/dL (70-115) H 08/15/21 12:32 Ionized Calcium 1.2 mmol/L (1.1-1.4) 08/15/21 12:32 O2 Delivery Device Nc 08/15/21 12:32 O2 Liters/Min 6.0 % 08/15/21 12:32 FiO2 44.0 % 08/15/21 12:32 Spray Painting Machine Operator ID [email or web address] 08/15/21 12:32 Sodium 141 mmol/L (136-145) 09/02/21 01:36 Potassium 4.3 mmol/L (3.5-5.1) 09/02/21 01:36 Chloride 102 mmol/L (98-107) 09/02/21 01:36 Carbon Dioxide 33 mmol/L (22-29) H 09/02/21 01:36 Anion Gap 10.3 (5-19) 09/02/21 01:36 BUN 65 mg/dL (8-23) H 09/02/21 01:36 Creatinine 1.8 mg/dL (0.7-1.2) H 09/02/21 01:36 GFR Calculation Not Reportable 09/02/21 01:36 Glucose 131 mg/dL (65-115) H 09/02/21 01:36 POC Glucose 166 mg/dL (70-110) H 09/02/21 06:28 Calculated Osmolality 312 mOsm/kg (285-295) H 09/02/21 01:36 Lactate 1.0 mmol/L (0.5-2.2) 08/18/21 08:15 Uric Acid 11.7 mg/dL (3.4-7.0) H 08/29/21 14:46 Calcium 8.6 mg/dL (8.5-10.5) 09/02/21 01:36 Phosphorus 3.3 mg/dL (2.5-4.5) 09/02/21 01:36 Magnesium 1.9 mg/dL (1.7-2.3) 09/02/21 01:36 Total Bilirubin 1.5 mg/dL (0.15-1.2) H 09/02/21 01:36 AST 80 U/L (0-40) H 09/02/21 01:36 ALT 402 U/L (0-41) H 09/02/21 01:36 Alkaline Phosphatase 51 IU/L (40-130) 09/02/21 01:36 Lactate Dehydrogenase 192 U/L (135-225) 08/28/21 03:52 Troponin T Baseline 56 ng/L (0-15) H 08/15/21 12:00 Troponin T 120 Minute 58.28 ng/L (0-15) H 08/15/21 14:24 Delta Troponin T 2.28 ABS# (0-10) 08/15/21 14:24 Troponin T Hi Sens 6Hr 50.87 ng/L (0-15) H 08/15/21 18:03 Troponin T Hi Sens 6Hr Delta -5.13 ng/L (0-12) L 08/15/21 18:03 C-Reactive Protein 56.0 mg/L (0.0-4.9) H 08/24/21 07:38 NT-Pro-B Natriuret Pep 16495 pg/mL (0-125) H 08/15/21 12:00 Total Protein 5.9 g/dL (6.6-8.7) L 09/02/21 01:36 Albumin 2.9 g/dL (3.5-5.2) L 09/02/21 01:36 Globulin 3.0 g/dL (1.3-4.6) 09/02/21 01:36 25-OH Vitamin D Total 50 ng/mL (30-100) 08/18/21 08:15 Procalcitonin 0.24 ng/mL (0-0.5) 08/28/21 03:52 PTH Intact 232.2 pg/mL (15-65) H 08/18/21 08:15 Calcium (PTH Intact) 7.7 mg/dL (8.5-10.5) L 08/18/21 08:15 Urine Color Yellow (Yellow) 08/17/21 12:55 Urine Appearance Hazy (CLEAR) A 08/17/21 12:55 Urine pH 5 (5-7) 08/17/21 12:55 Ur Specific Slaughter 1.020 (1.005-1.030) 08/17/21 12:55 Urine Protein Trace (Negative) 08/17/21 12:55 Urine Glucose (UA) Norm (Normal) 08/17/21 12:55 Urine Ketones 1+ (Negative) H 08/17/21 12:55 Urine Blood Neg (Negative) 08/17/21 12:55 Urine Nitrate Negative (Negative) 08/17/21 12:55 Urine Bilirubin 1+ (Negative) H 08/17/21 12:55 Urine Urobilinogen 1 mg/dL (Negative) H 08/17/21 12:55 Ur Leukocyte Esterase Negative (Negative) 08/17/21 12:55 Urine RBC 0-4 /hpf (0-2) H 08/17/21 12:55 Urine WBC 0-4 /hpf (0-5) H 08/17/21 12:55 Ur Squamous Epith Cells 5-10 /hpf (0-5) H 08/17/21 12:55 Amorphous Sediment 1+ /hpf 08/17/21 12:55 Urine Bacteria Trace /hpf (NONE) 08/17/21 12:55 Hyaline Casts 0-4 /lpf H 08/17/21 12:55 Fine Granular Casts 0-4 /lpf H 08/17/21 12:55 Urine Mucus 1+ /hpf 08/17/21 12:55 Ur Random Sodium 11 mmol/L 08/17/21 12:55 Ur Random Potassium 41 mmol/L 08/17/21 12:55 Ur Random Chloride 12 mmol/L 08/17/21 12:55 Urine Creatinine 126 mg/dL (39-259) 08/17/21 12:55 Pleural Color Cancelled 08/20/21 13:36 Pleural Appearance Cancelled 08/20/21 13:36 Pleural pH Cancelled 08/20/21 13:36 Pleural WBC Cancelled 08/20/21 13:36 Pleural RBC Cancelled 08/20/21 13:36 Pleural Mononuc # Auto Cancelled 08/20/21 13:36 Pleural Other Cells Cancelled 08/20/21 13:36 Pleural Polynuclear % Cancelled 08/20/21 13:36 Pleural Polynuclear # Cancelled 08/20/21 13:36 Pleural Mononuclear % Cancelled 08/20/21 13:36 Pleural Other Cells Rt Cancelled 08/20/21 13:36 Pleural Total Protein Cancelled 08/20/21 13:36 Pleural Albumin Cancelled 08/20/21 13:36 Pleural LDH Cancelled 08/20/21 13:36 Pleural Glucose Cancelled 08/20/21 13:36 Rheumatoid Factor 17.0 IU/mL (0-14) H 08/29/21 18:31 RAOUL Screen Negative (NEGATIVE) 08/27/21 09:26 CHRISTOPHER-1 Antibody <1.0 neg AI (<1.0 NEG) 08/27/21 09:26 SS-A/Ro IgG Antibody <1.0 neg AI (<1.0 NEG) 08/27/21 09:26 SS-B/La IgG Antibody <1.0 neg AI (<1.0 NEG) 08/27/21 09:26 Anti-nRNP/Sm IgG Ab <1.0 neg AI (<1.0 NEG) 08/27/21 09:26 Scl-70 Scleroderma Ab <1.0 neg AI (<1.0 NEG) 08/27/21 09:26 Anti-ds DNA IgG Ab 1 IU/mL 08/27/21 09:26 Complement C3 75 mg/dL (90-180) L 08/29/21 14:46 Complement C4 16 mg/dL (10-40) 08/29/21 14:46 Coronavirus 229E (PCR) Not detected (NOT DETECT) 08/15/21 14:06 Hepatitis A IgM Ab Non-reactive (Nonreactive) 08/27/21 09:26 Hep Bs Antigen Non-reactive (Nonreactive) 08/27/21 09:26 Hep Bs Antibody 3.5 (11.5-1000) L 08/27/21 09:26 Hep B Core Total Ab Non-reactive (Nonreactive) 08/27/21 09:26 Hepatitis C Antibody Non-reactive (Nonreactive) 08/27/21 09:26 SARS-CoV-2 (PCR) Not detected (NOT DETECT) 08/15/21 14:06 Path Cons w/Slide Cancelled 08/20/21 13:36 Pathology Message Cancelled 08/20/21 13:36 Blood Type O Positive 08/29/21 20:00 Rho(D) Type Positive 08/29/21 20:00 Antibody Screen Negative 08/29/21 20:00 Vitals Last Vital Signs Temp 98.3 F 09/02/21 08:22 Pulse 120 H 09/02/21 08:30 Resp 17 09/02/21 08:22 BP 128/91 09/02/21 08:22 Pulse Ox 93 09/02/21 08:22 Discharge Plan Discharge Patient Disposition: Home Condition: Stable Prescriptions: New fluconazole 100 mg Tablet 100 mg PO DAILY Qty: 14 0RF Pacerone 200 mg Tablet 200 mg PO DAILY Qty: 60 4RF doxycycline monohydrate 100 mg Tablet 100 mg PO BID Qty: 20 4RF tramadol 50 mg Tablet 50 mg PO Q4H PRN (Reason: Moderate Pain) Qty: 20 0RF aspirin 325 mg Tablet,Delayed Release (Dr/Ec) 325 mg PO DAILY Qty: 9 4RF metoprolol tartrate 50 mg Tablet 150 mg PO BID@0900,2100 Qty: 60 3RF nystatin 500,000 unit tablet 500,000 unit PO TID Qty: 60 0RF prednisone 20 mg tablet 60 mg PO DAILY 14 Days Qty: 30 0RF sulfamethoxazole-trimethoprim 800-160 mg Tablet 1 tab PO QMWF Qty: 30 0RF Senna-S 8.6-50 mg tablet 1 tab-cap PO DAILY Qty: 30 2RF AvaDERM 4-1 % cream 1 applic topical DAILY PRN (Reason: skin irritation) Qty: 120 3RF bacitracin zinc 500 unit/gram ointment 1 applic topical BID Qty: 28.4 2RF Continued albuterol sulfate [ProAir HFA] 90 mcg/actuation HFA aerosol inhaler 2 puff inhalation Q4H PRN (Reason: Shortness Of Breath) 0RF montelukast [Singulair] 10 mg tablet 10 mg PO DAILY Qty: 30 3RF Zyrtec 10 mg Tablet 10 mg PO DAILY 0RF acetaminophen 500 mg Tablet 1,000 mg PO Q6H PRN (Reason: Pain) 0RF Lasix 20 mg Tablet 10 mg PO QAM 0RF fluticasone propion-salmeterol [Wixela Inhub] 500-50 mcg/dose blister with device 1 inh inhalation 6XD 0RF hydroxyzine HCl 25 mg tablet 25 mg PO DAILY 0RF Flonase Allergy Relief 50 mcg/actuation spray,suspension 2 spray intranasal DAILY PRN (Reason: Allergy Symptoms) 0RF Rx Instructions: administer into each nostril Discontinued meloxicam 15 mg tablet 15 mg PO DAILY 0RF Discharge Orders: Discharge Order (Routine); Ordered 09/02/21 Ordered By: Elroy High Other Ambulatory Orders: Comprehensive Metabolic Panel (Routine) Timeframe: 2 Weeks Facility: [facility] - Location: Lab - Main Lab Ordered By: Elroy High DME: Oxygen (Order) Location: None Selected Ordered By: Elroy High Referrals: [facility] [Outside] Cliff Tarango MD [Physician] - 09/16/21 10:15 am Luis Enrique Aaron MD [Referring] - 2 weeks Vik Jones M.D [Physician] - 10/30/21 10:15 am Alfreda Gonzalez FNP [Nurse Practitioner] - 09/11/21 9:45 am Rebecca Díaz MD [Primary Care Provider] - 09/09/21 11:15 am Asa Baer MD [Staff Physician] - 1-3 days (DR BAER'S OFFICE WILL CALL WITH APPOINTMENT) [facility], [Staff Physician] - 09/11/21 8:30 am (WITH DR ESCOTO PHONE [phone]) Discharge Diet: Cardiac Discharge Activity: Use walker/crutches as instructed, Wheelchair as instructed and As per PT/OT instructions Patient Instructions: Sulfamethoxazole/Trimethoprim (By mouth), Metoprolol (By mouth), Doxycycline (By mouth), Prednisone (By mouth), Aspirin (By mouth), Nystatin (By mouth), Amiodarone (By mouth), Fluconazole (By mouth), Tramadol (By mouth), Bacitracin (On the skin), Senna (By mouth), Heart Failure (DC), A-fib (Atrial Fibrillation) (ED), CHF Stoplight, Chest Pain Stoplight, Opioid Safety, Pneumonia Stoplight, Pneumonia - Viral Discharge Attestations Time Spent in Discharge Care*: less than 30 min Quality Metrics Clinical Quality Measures [ No reported AMI, CVA or VTE this stay] Coding Level of Care Code Acute Chg FW DC note Diagnoses ATN (acute tubular necrosis) N17.0 Leukocytoclastic vasculitis M31.0
[2021-09-02] MEDS: fluconazole 100 mg Tablet 200 MG PO (11:22)
[2021-09-02 11:55] LABS: Glucose Point of Care 159 mg/dL (70-110)
[2021-09-02] MEDS: nystatin 100,000 unit/mL UDC 5 mL 500000 UNIT PO ×2 (13:37→16:13)
[2021-09-02 13:53] LABS: Complement C3 86 mg/dL (90-180)
[2021-09-02] MEDS: sulfamethoxazole-trimeth DS 160-800 mg Tablet 1 TAB PO (14:45)
--- NOTE | 2021-09-02 17:13 | PC.NURSE ---
dc'd pts picc line. dressing applied, no complications. discharge instructions discussed in depth. verbalized understanding of all followup appointments, home health follow up and medications. order for neb tx called in. pt left via wc to private vehicle with spouse. pt was insistent that he is ready for discharge and does not want to stay longer.
[2021-09-02 22:17] LABS: Heparin-Induced Platelet AB Negative (Negative)
[2021-09-03 16:27] LABS: ANCA Screen NEGATIVE (NEGATIVE)
== END 2021-09-02 16:30 | disposition home health service (06) | DRG 853 ==
LOC: ER 15:20 → ICU 16:30 → MEDSURG 08-27 17:42
PROVIDERS: Hospitalist; Internal Medicine; Internal Medicine Nephrology; Radiology Neuroradiology; Admitting Provider Internal Medicine; Emergency Provider Emergency Medicine; PCP Family Medicine; Visit Provider Internal Medicine
PROC: 0BD Respiratory System, Extraction (ICD-10-PCS; principal; 2021-08-20 12:30)
PROC: 4A023N7 Measurement of Cardiac Sampling and Pressure, Left Heart, Percutaneous Approach (ICD-10-PCS; principal; 2021-08-26 10:00)
DX: A41.02 Sepsis due to Methicillin resistant Staphylococcus aureus (principal); J18.9 Pneumonia, unspecified organism; I50.33 Acute on chronic diastolic (congestive) heart failure; N17.0 Acute kidney failure with tubular necrosis; C78.01 Secondary malignant neoplasm of right lung; I42.8 Other cardiomyopathies; J44.0 Chronic obstructive pulmonary disease with (acute) lower respiratory infection; A52.16 Charcot's arthropathy (tabetic); D69.0 Allergic purpura; B37.0 Candidal stomatitis; D68.9 Coagulation defect, unspecified; J90 Pleural effusion, not elsewhere classified; E87.1 Hypo-osmolality and hyponatremia; Z85.528 Personal history of other malignant neoplasm of kidney; Z90.5 Acquired absence of kidney; Z87.891 Personal history of nicotine dependence; I25.10 Atherosclerotic heart disease of native coronary artery without angina pectoris; I48.91 Unspecified atrial fibrillation; Z66 Do not resuscitate; Z79.51 Long term (current) use of inhaled steroids; M05.9 Rheumatoid arthritis with rheumatoid factor, unspecified; K59.00 Constipation, unspecified; L97.512 Non-pressure chronic ulcer of other part of right foot with fat layer exposed; N18.30 Chronic kidney disease, stage 3 unspecified; N14.1 Nephropathy induced by other drugs, medicaments and biological substances; T50.8X5A Adverse effect of diagnostic agents, initial encounter
CPT/HCPCS: 32408; 32555; 36415; 36416; 36569; 36592; 36600; 71045; 71275; 73600; 74176; 76770; 77012; 80048; 80051; 80053; 81001; 82306; 82310; 82330; 82436; 82570; 82595; 82805; 82962; 83605; 83615; 83735; 83880; 83970; 84100; 84133; 84145; 84300; 84484; 84550; 85007; 85025; 85362; 85378; 85384; 85610; 85613; 85730; 86022; 86036; 86038; 86140; 86160; 86225; 86235; 86403; 86431; 86705; 86706; 86709; 86803; 86850; 86900; 86927; 87040; 87070; 87077; 87186; 87205; 87340; 87449; 87635; 87641; 88108; 88304; 88305; 88309; 88342; 93005; 93306; 93452; 93458; 93925; 93970; 94640; 94660; 96360; 96365; 96366; 96367; 96372; 96374; 96375; 96376; 97110; 97116; 97161; 99152; 99153; 99291; C1769; C1887; C1894; J0282; J0692; J0696; J1644; J1650; J1815; J1940; J2020; J2250; J2405; J2543; J2920; J2930; J3010; J3430; J3475; J3490; J7030; J7060; J7626; P9017; Q0144; Q3014; Q9967

== ENCOUNTER → 2021-09-16 10:29 | Outpatient (BNVA) | payer MEDICARE, SELFPAY | PROVIDERS: PCP Family Medicine; Visit Provider Internal Medicine Pulmonary Disease | DX: R06.02 Shortness of breath (principal); I42.8 Other cardiomyopathies; I48.91 Unspecified atrial fibrillation; I50.20 Unspecified systolic (congestive) heart failure; J44.9 Chronic obstructive pulmonary disease, unspecified; J45.909 Unspecified asthma, uncomplicated; R91.8 Other nonspecific abnormal finding of lung field; Z09 Encounter for follow-up examination after completed treatment for conditions other than malignant neoplasm | CPT/HCPCS: 99214 ==

== ENCOUNTER 2021-09-23 08:51 | Emergency (ER) | payer MEDICARE, SELFPAY ==
--- NOTE | 2021-09-23 08:59 | XR_ITS ---
WS: [id number] XR chest 1V portable [id number] REASON FOR EXAM: dyspnea/cough FINDINGS: Compared to the examination of 08/21/2021, cardiomegaly is again noted. There is a decrease in the presumed bilateral pleural effusions. There are also has been significant resolution of opacity in both lower lungs. No new chest findings are identified. XR/XR chest 1V portable [id number] IMPRESSION: Improving pleural effusions and lower lung opacities compared to 08/21/2021.
--- NOTE | 2021-09-23 09:00 | ECG_ITS ---
[facility] Test Date: 2021-09-23 Pat Name: Nelson Schuster Department: Room: Gender: Male Hand Shoes Sewer: : 1945 Requested By: Brad Thomas Order Number: [id number] Nahun MD: Vik Jones M.D. Measurements Intervals [place] Rate: 137 P: GA: QRS: -2 QRSD: 95 T: 132 QT: 314 QTc: 476 Interpretive Statements ATRIAL FIBRILLATION WITH RAPID VENTRICULAR RESPONSE LOW QRS VOLTAGE IN EXTREMITY LEADS [QRS DEFLECTION < 0.5 mV IN LIMB LEADS] MINIMAL ST DEPRESSION [0.025+ mV ST DEPRESSION] ABNORMAL QRS-T ANGLE [QRS-T AXIS DIFFERENCE > 60] Compared to ECG 08/24/2021 21:21:30 ST (T wave) deviation now present Electronically Signed On 09-23-2021 16:29:51 CDT by Vik Jones M.D. [id number]
[2021-09-23 09:09] VITALS: BP 99/81; PULSE 134; RESP 18; TEMP 36.6; BMI 29.8
--- NOTE | 2021-09-23 09:16 | W.ED.SOB ---
HPI - SOB/Dyspnea General: Chief Complaint: Shortness of Breath/Dyspnea Stated Complaint: CP/ TROUBLE BREATHING/ AFIB Time Seen by Provider: 09/23/21 08:59 Source: patient Mode of arrival: EMS Limitations: no limitations History of Present Illness: HPI Narrative: 76-year-old male presents emergency room complaining of chest discomfort difficulty breathing and rapid heart rate. Symptoms began overnight. He is also noticed increasing orthopnea and swelling in his legs.Patient recently had a hospitalization for ATN and vasculitis he has a known history of atrial fibrillation and is on rate control but evidently is not on any anticoagulation. During last hospitalization he was started on amiodarone and he was continued on the amiodarone 200 mg daily and metoprolol 150 mg twice daily at the time of discharge. They have made arrangements for follow-up with cardiology at the time of discharge for possible evaluation for cardioversion. His ATN was due to contrast-induced nephropathy. Patient did recently have biopsy of a pulmonary nodule that showed renal cell CA with metastasis. He was also noted to have an EF of 20% at his last echocardiogram done during that most recent hospitalization MD elicited complaint: shortness of breath and cough Pertinent past history: COPD and congestive heart failure Onset (ago): hour(s) Context: recent illness Timing: constant Severity: moderate Exacerbating factors: lying flat and exertion Relieving factors: oxygen, rest and upright position Known history of: COPD and congestive heart failure Associated symptoms: Reports chest congestion, chest pain and orthopnea; Deny abdominal pain, cough, diaphoresis, dizziness, extremity pain, fever(s), hemoptysis, lightheadedness, myalgias, nausea, palpitations, paresthesias, polydipsia, polyuria, rash, sense of impending doom, syncope or vomiting Treatment prior to arrival: oxygen and aspirin Review of Systems Const: Reports: chills; Denies: fever(s), fatigue, malaise or diaphoresis ENMT: Denies: throat pain, ear or mastoid pain, nasal discharge or nasal congestion Card: Reports: chest pain, dyspnea on exertion and orthopnea; Denies: palpitations, lightheadedness or syncope Resp: Reports: dyspnea and chest congestion; Denies: hemoptysis GI: Denies: abdominal pain, nausea or vomiting : Denies: flank pain, dysuria, urinary frequency or urinary urgency Musc: Denies: extremity pain Skin/Breast: Denies: rash or pruritus Neuro: Denies: dizziness Endo: Denies: polyuria or polydipsia PFSH ED PFSH: Medical History Asthma-COPD overlap syndrome Atrial fibrillation Atypical chest pain Charcot's joint of right foot COPD (chronic obstructive pulmonary disease) Encounter for screening for lung cancer Heart failure with reduced ejection fraction Hyponatremia Non-pressure chronic ulcer of other part of right foot with fat layer exposed Nonischemic cardiomyopathy PND (post-nasal drip) Pulmonary nodule Family History Mother CAD (coronary artery disease) Father Cancer lung Brother Cancer tumor inside heart Social History Smoking and tobacco status: former smoker Quit status (tobacco): has quit using tobacco Year quit tobacco: 2007 [id number] Second hand smoke exposure: No Smoking risk assessment/counseling performed?: Yes Alcohol intake: current Alcohol intake frequency: 0-2 Drinks per Day Alcohol type: beer Desire information about alcohol rehabilitation?: No Counseling given: Yes Lives independently: Yes Household members: spouse Housing: House Marital status: service: Yes branch: [employer] Current occupational status: employed Current occupation: [employer] Pets and animals: Yes History of recent travel: No Current gender identity: Male Physical Exam Const: COMMON NORMALS: no acute distress GENERAL APPEARANCE: cooperative and comfortable ORIENTATION/CONSCIOUSNESS: Yes awake, Yes oriented to person, Yes oriented to place and Yes oriented to time HENMT: COMMON NORMALS: normocephalic, atraumatic and hearing grossly normal bilaterally HEAD & SCALP: normocephalic and atraumatic Resp: COMMON NORMALS: normal respiratory effort, No retractions, No use of accessory muscles and clear to auscultation bilaterally AUSCULTATION: clear to auscultation bilaterally Cardio: RATE: tachycardic RHYTHM: abnormal rhythm irregularly irregular GI: COMMON NORMALS: Soft to palpation and No hepatosplenomegaly present AUSCULTATION: Yes normoactive bowel sounds PALPATION: Yes Soft to palpation, No Tenderness to palpation present (GI), No Guarding due to palpation present (GI) and Yes No hepatosplenomegaly present Extremity: GENERAL: Yes edema OTHER: Legs wrapped bilaterally due to venous stasis ulcerations. Neuro: SENSORIUM/ORIENTATION: Yes oriented to person, Yes oriented to place and Yes oriented to time Skin: COMMON NORMALS: no rashes or lesions noted GENERAL SKIN EXAM: no rashes or lesions noted Course Vital Signs: Vital signs: Vital Signs Temperature 98 F 09/23/21 14:30 Pulse Rate 108 H 09/23/21 14:30 Respiratory Rate 19 H 09/23/21 14:30 Blood Pressure 89/56 09/23/21 14:30 Pulse Oximetry 100 09/23/21 14:30 MDM - SOB/Dyspnea Medical Decision Making A. fib with rapid ventricular response and CHF. We do not have any ICU beds available so we will have to transfer the patient. We did find a bed in in [place]. Unfortunately the patient did not respond to our initial trial esmolol we changed to amiodarone which did control rate but he did not convert. Unfortunately as they were preparing to transfer the IV was lost his rate increased and he was more symptomatic so the IV was reestablished and the amiodarone restarted. History forwarded with the patient. Medical Records I reviewed the patient's medical records. Lab Data I reviewed the patient's lab results. : 09/23/21 09:10 09/23/21 09:10 Labs/Radiology: Radiology Impressions Chest X-Ray 09/23/21 08:59 IMPRESSION: Improving pleural effusions and lower lung opacities compared to 08/21/2021. Laboratory Results WBC 9.2 10^3/uL (4.0-10.0) 09/23/21 09:10 RBC 3.80 10^6/uL (4.1-5.3) L 09/23/21 09:10 Hgb 11.4 g/dL (11.7-16.6) L 09/23/21 09:10 Hct 35.8 % (42.0-52.0) L 09/23/21 09:10 MCV 94.2 fl (80-94) H 09/23/21 09:10 MCH 30.0 pg (28.0-34.0) 09/23/21 09:10 MCHC 31.8 g/dL (30.0-36.0) 09/23/21 09:10 RDW 16.3 % (12.1-15.1) H 09/23/21 09:10 Plt Count 145 10^3/cmm (130-400) 09/23/21 09:10 MPV 11.6 fL (7.4-10.4) H 09/23/21 09:10 Neut % (Auto) 86.8 % 09/23/21 09:10 Lymph % (Auto) 6.1 % 09/23/21 09:10 Sabine % (Auto) 5.2 % 09/23/21 09:10 Eos % (Auto) 0.0 % 09/23/21 09:10 Baso % (Auto) 0.2 % 09/23/21 09:10 Neut # (Auto) 7.99 10^3/uL (1.8-7.7) H 09/23/21 09:10 Lymph # (Auto) 0.6 10^3/uL (0.8-4.8) L 09/23/21 09:10 Sabine # (Auto) 0.5 10^3/uL (0.2-0.9) 09/23/21 09:10 Eos # (Auto) 0.0 10^3/uL (0.0-0.8) 09/23/21 09:10 Baso # (Auto) 0.0 10^3/uL (0.0-0.1) 09/23/21 09:10 Nucleated RBC % (auto) 0 % 09/23/21 09:10 Nucleated RBCs # 0.0 /100WBC 09/23/21 09:10 Specimen Type Arterial 09/23/21 12:48 Sample Site Radial, right 09/23/21 12:48 ABG pH 7.41 (7.35-7.45) 09/23/21 12:48 ABG pCO2 27.1 mmHg (35-45) L 09/23/21 12:48 ABG pO2 146.0 mmHg (80.0-100.0) H 09/23/21 12:48 ABG HCO3 17.1 mmol/L (22-26) L 09/23/21 12:48 ABG O2 Saturation 99.6 09/23/21 12:48 ABG Base Excess -6.3 mmol/L (-2.0-2.0) L 09/23/21 12:48 Jameson Test Pos 09/23/21 12:48 A-a O2 Gradient 13.0 mmHg (5-10) H 09/23/21 12:48 Hematocrit 33.6 % (42-52) L 09/23/21 12:48 Hgb O2 Saturation 98.3 % (95-100) 09/23/21 12:48 Carboxyhemoglobin 0.9 %THgb (0.4-20.1) 09/23/21 12:48 Methemoglobin 0.4 % (0.4-1.5) 09/23/21 12:48 Total Hemoglobin 11.0 g/dL (14-18) L 09/23/21 12:48 Sodium 130.0 mmol/L (131-143) L 09/23/21 12:48 Potassium 5.7 mmol/L (3.5-5.0) H 09/23/21 12:48 Glucose 125.0 mg/dL (70-115) H 09/23/21 12:48 Ionized Calcium 1.0 mmol/L (1.1-1.4) L 09/23/21 12:48 O2 Delivery Device Nc 09/23/21 12:48 O2 Liters/Min 5.0 % 09/23/21 12:48 FiO2 40.0 % 09/23/21 12:48 Manager Nuclear ID [place] 09/23/21 12:48 Sodium 130 mmol/L (136-145) L 09/23/21 09:10 Potassium 4.9 mmol/L (3.5-5.1) 09/23/21 09:10 Chloride 92 mmol/L (98-107) L 09/23/21 09:10 Carbon Dioxide 25 mmol/L (22-29) 09/23/21 09:10 Anion Gap 17.9 (5-19) 09/23/21 09:10 BUN 16 mg/dL (8-23) 09/23/21 09:10 Creatinine 1.2 mg/dL (0.7-1.2) 09/23/21 09:10 GFR Calculation Not Reportable 09/23/21 09:10 Glucose 130 mg/dL (65-115) H 09/23/21 09:10 Calculated Osmolality 273 mOsm/kg (285-295) L 09/23/21 09:10 Calcium 8.5 mg/dL (8.5-10.5) 09/23/21 09:10 Troponin T Baseline 73 ng/L (0-15) H 09/23/21 09:10 NT-Pro-B Natriuret Pep 79079 pg/mL (0-125) H 09/23/21 09:10 Discharge Plan Discharge Patient Disposition: Xfer Intermediate Care [facility] Clinical Impression: Heart failure with reduced ejection fraction, Nonischemic cardiomyopathy, Pulmonary nodules/lesions, multiple, Atrial fibrillation with RVR Condition: Stable Prescriptions: No Action albuterol sulfate [ProAir HFA] 90 mcg/actuation HFA aerosol inhaler 2 puff inhalation Q4H PRN (Reason: Shortness Of Breath) 0RF montelukast [Singulair] 10 mg tablet 10 mg PO DAILY Qty: 30 3RF albuterol sulfate 2.5 mg /3 mL (0.083 %) solution for nebulization 2.5 mg inhalation Q4H PRN (Reason: Shortness Of Breath) 0RF cetirizine [Zyrtec] 10 mg Tablet 10 mg PO DAILY 0RF acetaminophen 500 mg Tablet 1,000 mg PO Q6H PRN (Reason: Pain) 0RF furosemide [Lasix] 20 mg Tablet 10 mg PO QAM 0RF fluticasone propion-salmeterol [Wixela Inhub] 500-50 mcg/dose blister with device 1 inh inhalation DAILY 0RF hydroxyzine HCl 25 mg tablet 25 mg PO DAILY 0RF fluticasone propionate [Flonase Allergy Relief] 50 mcg/actuation spray,suspension 2 spray intranasal DAILY PRN (Reason: Allergy Symptoms) 0RF Rx Instructions: administer into each nostril amiodarone [Pacerone] 200 mg Tablet 200 mg PO DAILY Qty: 60 4RF tramadol 50 mg Tablet 50 mg PO Q4H PRN (Reason: Moderate Pain) Qty: 20 0RF aspirin 325 mg Tablet,Delayed Release (Dr/Ec) 325 mg PO DAILY Qty: 9 4RF metoprolol tartrate 50 mg Tablet 150 mg PO BID@0900,2100 Qty: 60 3RF nystatin 500,000 unit tablet 500,000 unit PO TID Qty: 60 0RF sulfamethoxazole-trimethoprim 800-160 mg Tablet 1 tab PO QMWF Qty: 30 0RF sennosides-docusate sodium [Senna-S] 8.6-50 mg tablet 1 tab-cap PO DAILY Qty: 30 2RF AvaDERM 4-1 % cream 1 applic topical DAILY PRN (Reason: skin irritation) Qty: 120 3RF bacitracin zinc 500 unit/gram ointment 1 applic topical BID Qty: 28.4 2RF Referrals: Rebecca Díaz MD [Primary Care Provider] - Coding Level of Care Code ED Contact Center Consultant for Chg Fwd Exam Detailed
[2021-09-23 09:18] LABS: Basophils % 0.2 %; Hematocrit 35.8 % (42.0-52.0); Hemoglobin 11.4 g/dL (11.7-16.6); Lymphocytes # 0.6 10^3/uL (0.8-4.8); Lymphocytes % 6.1 %; Mean Corpuscular HGB Conc 31.8 g/dL (30.0-36.0); Mean Corpuscular Volume 94.2 fl (80-94); Mean Platelet Volume 11.6 fL (7.4-10.4); Monocytes # 0.5 10^3/uL (0.2-0.9); Monocytes % 5.2 %; Neutrophils # 7.99 10^3/uL (1.8-7.7); Neutrophils % 86.8 %; Nucleated Red Blood Cells % 0 %; Platelet Count 145 10^3/cmm (130-400); Red Cell Distribution Width 16.3 % (12.1-15.1); White Blood Count 9.2 10^3/uL (4.0-10.0)
[2021-09-23] MEDS: esmolol drip 2,500 MG/250 ML PREMIX 14.63 MG IV (09:22)
[2021-09-23 09:23] VITALS: BP 108/90; PULSE 137; RESP 16; O2SAT 96
[2021-09-23 09:51] LABS: Troponin(5th) Baseline 73 ng/L (0-15)
[2021-09-23 10:01] LABS: Anion Gap 17.9 (5-19); Blood Urea Nitrogen 16 mg/dL (8-23); Calcium 8.5 mg/dL (8.5-10.5); Carbon Dioxide 25 mmol/L (22-29); Chloride 92 mmol/L (98-107); Glucose 130 mg/dL (65-115); NT Pro B Type Natriuretic Pept 21226 pg/mL (0-125); Osmolality Calculated 273 mOsm/kg (285-295); Potassium 4.9 mmol/L (3.5-5.1); Sodium 130 mmol/L (136-145)
[2021-09-23] MEDS: amiodarone 50 mg/mL SDV 3 mL 150 MG IVP (10:52)
--- NOTE | 2021-09-23 11:00 | ECG_ITS ---
[facility] Test Date: 2021-09-23 Pat Name: Nelson Schuster Department: Room: Gender: Male Land Use [employer]: : [id number] Requested By: Brad Thomas Order Number: [id number] N[place]un MD: Vik Jones M.D. Measurements Intervals [place] Rate: 120 P: RI: QRS: -2 QRSD: 105 T: 113 QT: 349 QTc: 493 Interpretive Statements ATRIAL FIBRILLATION WITH RAPID VENTRICULAR RESPONSE ABNORMAL QRS-T ANGLE [QRS-T AXIS DIFFERENCE > 60] Compared to ECG 09/23/2021 09:04:55 ST (T wave) deviation no longer present Electronically Signed On 09-23-2021 16:33:21 CDT by Vik Jones M.D. [email or web address] Websiteselect medical [id number]
[2021-09-23 11:15] VITALS: BP 105/41; PULSE 122; RESP 18; O2SAT 90
[2021-09-23] MEDS: sodium chloride 0.9% 1,000 ML 999 ML IV (11:37)
[2021-09-23 12:30] VITALS: BP 110/65; PULSE 122; RESP 17; TEMP 36.6; O2SAT 100
[2021-09-23] MEDS: ondansetron 2 mg/ML SDV 2 mL 4 MG IVP (13:02)
[2021-09-23] MEDS: FUROsemide 10 mg/mL SDV 4mL 40 MG IVP (13:02)
[2021-09-23 13:03] LABS: ABG PCO2 27.1 mmHg (35-45); ABG PH Result 7.41 (7.35-7.45); Arterial Blood Gas Hematocrit 33.6 % (42-52); Base Excess ABG -6.3 mmol/L (-2.0-2.0); Blood Gas Allen Test Pos; Blood Gas Operator Identificat MONRO; Blood Gas Sample Site Radial, right; Blood Gas Sample Type Arterial; Carboxyhemoglobin 0.9 %THgb (0.4-20.1); HCO3 ABG 17.1 mmol/L (22-26); HGB O2 Sat 98.3 % (95-100); Methemoglobin 0.4 % (0.4-1.5); Oxygen Device NC; Oxygen Saturation ABG 99.6; Potassium Level - ABG 5.7 mmol/L (3.5-5.0)
[2021-09-23 14:30] VITALS: BP 89/56; PULSE 108; RESP 19; TEMP 36.6; O2SAT 100
[2021-09-24 13:58] LABS: Quest SARS-CoV-2 RNA NOT DETECTED (NOT DETECTED)
== END 2021-09-23 14:53 | disposition intermediate care facility (04) ==
PROVIDERS: Emergency Provider Family Medicine; PCP Family Medicine
DX: I48.20 Chronic atrial fibrillation, unspecified (principal); I50.20 Unspecified systolic (congestive) heart failure; I42.8 Other cardiomyopathies; R91.8 Other nonspecific abnormal finding of lung field; Z79.82 Long term (current) use of aspirin; J44.9 Chronic obstructive pulmonary disease, unspecified; Z87.891 Personal history of nicotine dependence; Z20.822 Contact with and (suspected) exposure to COVID-19
CPT/HCPCS: 36600; 71045; 80048; 80051; 82330; 82805; 83880; 84484; 85025; 87635; 93005; 96365; 96375; 99285; 99291; J0282; J1940; J2405; J3490; J7030; J7060